=== PATIENT | male | born 1990 | race Caucasian/White ===

== ENCOUNTER 2017-12-19 14:01 | Emergency (ER) | payer SELFPAY ==
[~2017-12-19] VITALS: Ht 182.9 cm; Wt 68.0 kg
[2017-12-19 14:29] VITALS: BP 122/64; PULSE 94; RESP 18; TEMP 98.5; O2SAT 98
[2017-12-19 15:01] LABS: AUTOMATED NEUTROPHIL # 4.5 TH/MM3 (1.8-7.7); BASOPHIL # 0.1 TH/MM3 (0-0.2); BASOPHIL % 1.3 % (0.0-2.0); EOSINOPHIL # 0.1 TH/MM3 (0-0.4); EOSINOPHIL % 2.1 % (0.0-4.0); HEMATOCRIT 36.1 % (39.0-51.0); HEMOGLOBIN 12.1 GM/DL (13.0-17.0); LYMPH % 23.6 % (9.0-44.0); LYMPHOCYTE # 1.6 TH/MM3 (1.0-4.8); MEAN CELL VOLUME 82.8 FL (80.0-100.0); MEAN CORPUSCULAR HEMOGLOBIN 27.8 PG (27.0-34.0); MEAN CORPUSCULAR HGB CONC 33.5 % (32.0-36.0); MEAN PLATELET VOLUME 7.9 FL (7.0-11.0); MONO % 8.6 % (0.0-8.0); MONOCYTE # 0.6 TH/MM3 (0-0.9); NEUT % 64.4 % (16.0-70.0); PLATELET COUNT 337 TH/MM3 (150-450); RED BLOOD COUNT 4.36 MIL/MM3 (4.50-5.90); RED CELL DISTRIBUTION WIDTH 16.6 % (11.6-17.2)
[2017-12-19 15:08] LABS: BACTERIA, URINE RARE /hpf; BILIRUBIN, URINE NEG (NEG); BLOOD, URINE TRACE (NEG); CALCIUM OXALATE CRYSTALS,URINE OCC /hpf; GLUCOSE,URINE NEG (NEG); HYALINE CAST, URINE 3 /lpf (RARE); KETONE, URINE NEG (NEG); MUCUS URINE MANY /lpf (OCC); NITRITE,URINE NEG (NEG); PH, URINE 5.5 (5.0-8.5); SQUAMOUS EPITHELIAL CELL URINE <1 /hpf (0-5); URINE COLOR DARK-YELLOW (YELLW/STRAW); URINE LEUKOCYTE ESTERASE SMALL (NEG)
[2017-12-19 15:27] LABS: ALT (GPT) 207 U/L (12-78); AST (GOT) 156 U/L (15-37); BLOOD UREA NITROGEN 10 MG/DL (7-18); CALCIUM 8.4 MG/DL (8.5-10.1); CHLORIDE 102 MEQ/L (98-107); CREATININE 1.15 MG/DL (0.60-1.30); GLOMERULAR FILTRATION RATE 77 ML/MIN (>89); GLUCOSE,RANDOM 99 MG/DL (74-106); SODIUM (NA) 138 MEQ/L (136-145)
[2017-12-19 15:29] LABS: ALKALINE PHOSPHATASE 80 U/L (45-117); TOTAL BILIRUBIN ADULT 0.5 MG/DL (0.2-1.0); TOTAL PROTEIN 7.9 GM/DL (6.4-8.2)
--- NOTE | 2017-12-19 17:13 | PD ---
HPI Chief Complaint: Flank/Kidney Pain Time Seen by Provider: 16:29 Travel History International Travel<30 days: No Contact w/Intl Traveler<30days: No Traveled to known affect area: No History of Present Illness HPI The patient is a 27-year-old male who presents emergency department for back pain and left flank. 60s duration. The patient states his girlfriend was recently hospitalized for an epidural abscess and underwent surgery, was diagnosed with MRSA. The patient states they used the same needle to inject, is worried he may have MRSA as well. The pain is located over the mid left back to the middle aspect of the back, nonradiating, not associated with any weakness or numbness. He does complain of back pain and is not worse with movement. He denies any penile drainage or discharge, notes intermittent dysuria without any hematuria. He does note his urine has been dark lately. He is unsure if he has had any fever, denies any chills or sweats. He has been injecting heroin. He denies any previous history of epidural abscess. Symptoms are moderate. PFSH Past Medical History Medical History: Denies Significant Hx Influenza Vaccination: No Past Surgical History Surgical History: No Previous Surgery Social History Alcohol Use: No Tobacco Use: No Substance Use: Yes (HEROIN) Allergies-Medications (Allergen,Severity, Reaction): Coded Allergies: No Known Allergies (Unverified Allergy, Unknown, 12/19/17) Reported Meds & Prescriptions Reported Meds & Active Scripts Active Ibuprofen 600 Mg Tab 600 Mg PO Q8HR PRN Cipro (Ciprofloxacin HCl) 500 Mg Tab 500 Mg PO BID 10 Days Review of Systems Except as stated in HPI: all other systems reviewed are Neg General / Constitutional: No: Fever Cardiovascular: No: Chest Pain or Discomfort Respiratory: No: Shortness of Breath Gastrointestinal: No: Nausea, Vomiting, Abdominal Pain Genitourinary: Positive: Dysuria, Flank Pain Musculoskeletal: Positive: Pain Psychiatric: Positive: Substance Abuse (IVDA with heroin) Physical Exam Narrative GENERAL: Awake, alert, pleasant 27 show male who appears his stated age and is in no acute respiratory distress. SKIN: Focused skin assessment warm/dry. HEAD: Atraumatic. Normocephalic. EYES: No injection or drainage. ENT: No nasal bleeding or discharge. Mucous membranes pink and moist. NECK: Trachea midline. No JVD. CARDIOVASCULAR: Regular rate and rhythm. No murmur appreciated. RESPIRATORY: No accessory muscle use. Clear to auscultation. Breath sounds equal bilaterally. GASTROINTESTINAL: Abdomen soft, non-tender, nondistended. No rebound tenderness. No suprapubic tenderness. Back: No tenderness over the thoracic or lumbar vertebrae. No CVA tenderness. MUSCULOSKELETAL: No obvious deformities. No clubbing. No cyanosis. No edema. NEUROLOGICAL: Awake and alert. No obvious cranial nerve deficits. Motor grossly within normal limits. Normal speech. PSYCHIATRIC: Appropriate mood and affect; insight and judgment normal. Data Data Last Documented VS Vital Signs Date Time Temp Pulse Resp B/P (MAP) Pulse Ox O2 Delivery O2 Flow Rate FiO2 12/19/17 23:34 12/19/17 23:33 69 14 99 Room Air 12/19/17 14:29 98.5 Orders Orders Sepsis Workup Initiated (12/19/17 ) Complete Blood Count With Diff (12/19/17 14:28) Comprehensive Metabolic Panel (12/19/17 14:28) Urinalysis - C+S If Indicated (12/19/17 14:28) Lactic Acid Sepsis Protocol (12/19/17 14:28) Iv Access Insert/Monitor (12/19/17 14:28) Oxygen Administration (12/19/17 14:28) Oximetry (12/19/17 14:28) Blood Glucose (12/19/17 14:28) Urine Culture (12/19/17 14:40) Mri L Spine W&W/O Contrast (12/19/17 ) Mri T Spine W & W/O Contrast (12/19/17 ) Sodium Chlor 0.9% 1000 Ml Inj (Ns 1000 M (12/19/17 17:15) Ketorolac Inj (Toradol Inj) (12/19/17 17:15) Ceftriaxone Inj (Rocephin Inj) (12/19/17 17:15) Gadodiamide Pf Inj (Omniscan Pf Inj) (12/19/17 18:02) Ed Discharge Order (12/19/17 22:36) Labs Laboratory Tests Test 12/19/17 14:40 White Blood Count 7.0 TH/MM3 Red Blood Count 4.36 MIL/MM3 Hemoglobin 12.1 GM/DL Hematocrit 36.1 % Mean Corpuscular Volume 82.8 FL Mean Corpuscular Hemoglobin 27.8 PG Mean Corpuscular Hemoglobin Concent 33.5 % Red Cell Distribution Width 16.6 % Platelet Count 337 TH/MM3 Mean Platelet Volume 7.9 FL Neutrophils (%) (Auto) 64.4 % Lymphocytes (%) (Auto) 23.6 % Monocytes (%) (Auto) 8.6 % Eosinophils (%) (Auto) 2.1 % Basophils (%) (Auto) 1.3 % Neutrophils # (Auto) 4.5 TH/MM3 Lymphocytes # (Auto) 1.6 TH/MM3 Monocytes # (Auto) 0.6 TH/MM3 Eosinophils # (Auto) 0.1 TH/MM3 Basophils # (Auto) 0.1 TH/MM3 CBC Comment DIFF FINAL Differential Comment Urine Color DARK-YELLOW Urine Turbidity CLEAR Urine pH 5.5 Urine Specific [place] 1.025 Urine Protein 30 mg/dL Urine Glucose (UA) NEG mg/dL Urine Ketones NEG mg/dL Urine Occult Blood TRACE Urine Nitrite NEG Urine Bilirubin NEG Urine Urobilinogen 2.0 MG/DL Urine Leukocyte Esterase SMALL Urine RBC 3 /hpf Urine WBC 24 /hpf Urine Squamous Epithelial Cells <1 /hpf Urine Calcium Oxalate Crystals OCC /hpf Urine Bacteria RARE /hpf Urine Hyaline Casts 3 /lpf Urine Mucus MANY /lpf Microscopic Urinalysis Comment CULTURE INDICATED Blood Urea Nitrogen 10 MG/DL Creatinine 1.15 MG/DL Random Glucose 99 MG/DL Total Protein 7.9 GM/DL Albumin 4.0 GM/DL Calcium Level 8.4 MG/DL Alkaline Phosphatase 80 U/L Aspartate Amino Transf (AST/SGOT) 156 U/L Alanine Aminotransferase (ALT/SGPT) 207 U/L Total Bilirubin 0.5 MG/DL Sodium Level 138 MEQ/L Potassium Level 3.9 MEQ/L Chloride Level 102 MEQ/L Carbon Dioxide Level 29.0 MEQ/L Anion Gap 7 MEQ/L Estimat Glomerular Filtration Rate 77 ML/MIN Lactic Acid Level 0.9 mmol/L [facility] Medical Decision Making Medical Screen Exam Complete: Yes Emergency Medical Condition: Yes Medical Record Reviewed: Yes Interpretation(s) Laboratory Tests Test 12/19/17 14:40 White Blood Count 7.0 TH/MM3 Red Blood Count 4.36 MIL/MM3 Hemoglobin 12.1 GM/DL Hematocrit 36.1 % Mean Corpuscular Volume 82.8 FL Mean Corpuscular Hemoglobin 27.8 PG Mean Corpuscular Hemoglobin Concent 33.5 % Red Cell Distribution Width 16.6 % Platelet Count 337 TH/MM3 Mean Platelet Volume 7.9 FL Neutrophils (%) (Auto) 64.4 % Lymphocytes (%) (Auto) 23.6 % Monocytes (%) (Auto) 8.6 % Eosinophils (%) (Auto) 2.1 % Basophils (%) (Auto) 1.3 % Neutrophils # (Auto) 4.5 TH/MM3 Lymphocytes # (Auto) 1.6 TH/MM3 Monocytes # (Auto) 0.6 TH/MM3 Eosinophils # (Auto) 0.1 TH/MM3 Basophils # (Auto) 0.1 TH/MM3 CBC Comment DIFF FINAL Differential Comment Urine Color DARK-YELLOW Urine Turbidity CLEAR Urine pH 5.5 Urine Specific [place] 1.025 Urine Protein 30 mg/dL Urine Glucose (UA) NEG mg/dL Urine Ketones NEG mg/dL Urine Occult Blood TRACE Urine Nitrite NEG Urine Bilirubin NEG Urine Urobilinogen 2.0 MG/DL Urine Leukocyte Esterase SMALL Urine RBC 3 /hpf Urine WBC 24 /hpf Urine Squamous Epithelial Cells <1 /hpf Urine Calcium Oxalate Crystals OCC /hpf Urine Bacteria RARE /hpf Urine Hyaline Casts 3 /lpf Urine Mucus MANY /lpf Microscopic Urinalysis Comment CULTURE INDICATED Blood Urea Nitrogen 10 MG/DL Creatinine 1.15 MG/DL Random Glucose 99 MG/DL Total Protein 7.9 GM/DL Albumin 4.0 GM/DL Calcium Level 8.4 MG/DL Alkaline Phosphatase 80 U/L Aspartate Amino Transf (AST/SGOT) 156 U/L Alanine Aminotransferase (ALT/SGPT) 207 U/L Total Bilirubin 0.5 MG/DL Sodium Level 138 MEQ/L Potassium Level 3.9 MEQ/L Chloride Level 102 MEQ/L Carbon Dioxide Level 29.0 MEQ/L Anion Gap 7 MEQ/L Estimat Glomerular Filtration Rate 77 ML/MIN Lactic Acid Level 0.9 mmol/L Differential Diagnosis Differential diagnosis includes gonorrhea, chlamydia, pyelonephritis, acute UTI , psoas abscess, retroperitoneal abscess, epidural abscess, IV drug abuse. Narrative Course IV was established, labs are drawn and sent, and the patient was placed on cardiac telemetry monitoring and continuous pulse oximetry monitoring. UA was sent to lab, does reveal WBCs, however, he has no true flank pain over the kidneys, no CVA tenderness, no suprapubic tenderness. Patient does have IV drug abuse, is at risk for retroperitoneal abscess, psoas abscess, and epidural abscess. Therefore, MRI lumbar spine and thoracic spine with contrast was ordered. The patient was administered Toradol and IV fluids. Patient also received Rocephin 1 g intravenously. Patient was signed out to the oncoming physician at 7 PM an MRI pending, if negative, patient can be discharged home. Patient Instructions: General Instructions Scripts Ibuprofen (Ibuprofen) 600 Mg Tab 600 MG PO Q8HR Y for PAIN, #30 TAB 0 Refills Prov: Natacha Louie 12/19/17 Ciprofloxacin (Cipro) 500 Mg Tab 500 MG PO BID for Infection for 10 Days, #20 TAB 0 Refills Prov: Natacha Louie 12/19/17 Condition: Stable Jayesh Aguilar MD Dec 19, 2017 17:13
[2017-12-19] MEDS ORDERED: KETOROLAC TROMETHAMINE 30 MG/ML (IVP) VIAL IV PUSH ONE (17:15)
[2017-12-19] MEDS ORDERED: SODIUM CHLOR 0.9% 1000 ML INJ 1,000 ML IV ONE (17:15)
[2017-12-19] MEDS ORDERED: cefTRIAXone INJ 1,000 MG in SODIUM CHLORIDE 0.9% INJ 100 ML IV ONE (17:15)
[2017-12-19] MEDS ORDERED: GADODIAMIDE PF 287 MG/ML 20 ML VIAL (for RAD MRI) IVCONTRAST ONE (18:02)
--- NOTE | 2017-12-19 19:14 | RADRPT ---
EXAM DATE/TIME: 12/19/2017 18:08 [facility] COMPARISON: No previous studies available for comparison. INDICATIONS : Abscess. CONTRAST: 14 cc Omniscan (gadodiamide) IV MEDICAL HISTORY : IVDA. SURGICAL HISTORY : None. ENCOUNTER: Initial ACUITY: 1 day PAIN SCORE: 5/10 LOCATION: [facility] TECHNIQUE: Multiplanar multisequence MRI of the thoracic spine was performed. FINDINGS: The examination is degraded by fairly extensive motion artifact, especially the postcontrast images. No abnormal fluid collections within the thoracic canal suggesting epidural abscess. There is a broad -based mild disc protrusion at T11-12. Numerous Schmorl's nodes. No fracture or spondylolisthesis. CONCLUSION: 1. Negative for epidural abscess. No cord impingement. Mild broad-based disc protrusion at T11-12. Charles Floyd MD on December 19, 2017 at 18:56 Board Certified Radiologist. This report was verified electronically.
--- NOTE | 2017-12-19 19:21 | RADRPT ---
EXAM DATE/TIME: 12/19/2017 18:08 [facility] COMPARISON: No previous studies available for comparison. INDICATIONS : Abscess. CONTRAST: 14 cc Omniscan (gadodiamide) IV MEDICAL HISTORY : None. SURGICAL HISTORY : None. ENCOUNTER: Initial ACUITY: 1 day PAIN SCORE: 5/10 LOCATION: [facility] TECHNIQUE: Multiplanar multisequence MRI of the lumbar spine was performed with and without contrast. FINDINGS: Normal alignment of the lumbar spine. No enhancing fluid collections seen to suggest epidural abscess . Mild to moderate degenerative disc disease. Schmorl's nodes at L1 and L2. At L5-S1 is a broad-based mild to moderate disc protrusion slightly worse on the left side. There is encroachment on the lateral recesses, left greater than right and mild foraminal encroachment bilater ally. No other discrete disc protrusions. CONCLUSION: 1. At L5-S1 there is a broad-based mild disc protrusion with mild encroachment on the lateral recesse s. Normal alignment of the lumbar spine. No enhancing epidural fluid collections to suggest abscess. Charles Floyd MD on December 19, 2017 at 19:17 Board Certified Radiologist. This report was verified electronically.
[2017-12-19 20:00] VITALS: BP 108/58; PULSE 66; RESP 16; O2SAT 98
--- NOTE | 2017-12-19 22:36 | PD ---
Physical Exam Time Seen by Provider: 22:33 Narrative Please refer to previous providers documentation for details surrounding the patient's current visit. Data Data Last Documented VS Vital Signs Date Time Temp Pulse Resp B/P (MAP) Pulse Ox O2 Delivery O2 Flow Rate FiO2 12/19/17 21:00 16 12/19/17 20:00 66 108/58 (75) 98 Room Air 12/19/17 14:29 98.5 Orders Orders Sepsis Workup Initiated (12/19/17 ) Complete Blood Count With Diff (12/19/17 14:28) Comprehensive Metabolic Panel (12/19/17 14:28) Urinalysis - C+S If Indicated (12/19/17 14:28) Lactic Acid Sepsis Protocol (12/19/17 14:28) Iv Access Insert/Monitor (12/19/17 14:28) Oxygen Administration (12/19/17 14:28) Oximetry (12/19/17 14:28) Blood Glucose (12/19/17 14:28) Urine Culture (12/19/17 14:40) Mri L Spine W&W/O Contrast (12/19/17 ) Mri T Spine W & W/O Contrast (12/19/17 ) Sodium Chlor 0.9% 1000 Ml Inj (Ns 1000 M (12/19/17 17:15) Ketorolac Inj (Toradol Inj) (12/19/17 17:15) Ceftriaxone Inj (Rocephin Inj) (12/19/17 17:15) Gadodiamide Pf Inj (Omniscan Pf Inj) (12/19/17 18:02) Ed Discharge Order (12/19/17 22:36) Labs Laboratory Tests Test 12/19/17 14:40 White Blood Count 7.0 TH/MM3 Red Blood Count 4.36 MIL/MM3 Hemoglobin 12.1 GM/DL Hematocrit 36.1 % Mean Corpuscular Volume 82.8 FL Mean Corpuscular Hemoglobin 27.8 PG Mean Corpuscular Hemoglobin Concent 33.5 % Red Cell Distribution Width 16.6 % Platelet Count 337 TH/MM3 Mean Platelet Volume 7.9 FL Neutrophils (%) (Auto) 64.4 % Lymphocytes (%) (Auto) 23.6 % Monocytes (%) (Auto) 8.6 % Eosinophils (%) (Auto) 2.1 % Basophils (%) (Auto) 1.3 % Neutrophils # (Auto) 4.5 TH/MM3 Lymphocytes # (Auto) 1.6 TH/MM3 Monocytes # (Auto) 0.6 TH/MM3 Eosinophils # (Auto) 0.1 TH/MM3 Basophils # (Auto) 0.1 TH/MM3 CBC Comment DIFF FINAL Differential Comment Urine Color DARK-YELLOW Urine Turbidity CLEAR Urine pH 5.5 Urine Specific [place] 1.025 Urine Protein 30 mg/dL Urine Glucose (UA) NEG mg/dL Urine Ketones NEG mg/dL Urine Occult Blood TRACE Urine Nitrite NEG Urine Bilirubin NEG Urine Urobilinogen 2.0 MG/DL Urine Leukocyte Esterase SMALL Urine RBC 3 /hpf Urine WBC 24 /hpf Urine Squamous Epithelial Cells <1 /hpf Urine Calcium Oxalate Crystals OCC /hpf Urine Bacteria RARE /hpf Urine Hyaline Casts 3 /lpf Urine Mucus MANY /lpf Microscopic Urinalysis Comment CULTURE INDICATED Blood Urea Nitrogen 10 MG/DL Creatinine 1.15 MG/DL Random Glucose 99 MG/DL Total Protein 7.9 GM/DL Albumin 4.0 GM/DL Calcium Level 8.4 MG/DL Alkaline Phosphatase 80 U/L Aspartate Amino Transf (AST/SGOT) 156 U/L Alanine Aminotransferase (ALT/SGPT) 207 U/L Total Bilirubin 0.5 MG/DL Sodium Level 138 MEQ/L Potassium Level 3.9 MEQ/L Chloride Level 102 MEQ/L Carbon Dioxide Level 29.0 MEQ/L Anion Gap 7 MEQ/L Estimat Glomerular Filtration Rate 77 ML/MIN Lactic Acid Level 0.9 mmol/L [facility] Medical Record Reviewed: Yes Supervised Visit with AINSLEY: No Narrative Course Patient was signed out by Dr. Aguilar with MRI pending. Oncoming attending Dr. Bhat has assumed care with dc. MRI is complete. Last Impressions Thoracic Spine MRI 12/19/17 0000 Signed Impressions: Service Date/Time: Tuesday, December 19, 2017 18:08 - CONCLUSION: 1. Negative for epidural abscess. No cord impingement. Mild broad-based disc protrusion at T11-12. Charles Floyd MD Lumbar Spine MRI 12/19/17 0000 Signed Impressions: Service Date/Time: Tuesday, December 19, 2017 18:08 - CONCLUSION: 1. At L5-S1 there is a broad-based mild disc protrusion with mild encroachment on the lateral recesses. Normal alignment of the lumbar spine. No enhancing epidural fluid collections to suggest abscess. Charles Floyd MD Results are reviewed with the patient. He is encouraged to seek primary care, neurosurgery, and physical therapy evaluation. He'll be provided additional pain control. He'll be treated for UTI. Diagnosis Primary Impression: UTI (urinary tract infection) Qualified Codes: N30.01 - Acute cystitis with hematuria Referrals: Primary Care Physician Patient Instructions: General Instructions, Urinary Tract Infection in Men (DC) Additional Instruction: Maintain adequate oral hydration Follow-up the primary care provider Return immediately with any acute worsening of symptoms Med/Other Pt SpecificInfo: Prescription(s) given Scripts Ibuprofen (Ibuprofen) 600 Mg Tab 600 MG PO Q8HR Y for PAIN, #30 TAB 0 Refills Prov: Natacha Louie 12/19/17 Ciprofloxacin (Cipro) 500 Mg Tab 500 MG PO BID for Infection for 10 Days, #20 TAB 0 Refills Prov: Natacha Louie 12/19/17 Disposition: 01 DISCHARGE HOME Condition: Stable Natacha Louie Dec 19, 2017 22:36
[2017-12-19] MEDS ORDERED: CIPR-9 PO (22:39)
[2017-12-19] MEDS ORDERED: IBUP-232 PO (22:39)
[2017-12-19 23:33] VITALS: BP 121/85; PULSE 69; RESP 14; O2SAT 99
== END 2017-12-19 23:34 | disposition home or self-care (01) ==
LOC: NEPE 14:01
DX: N39.0 Urinary tract infection, site not specified (principal)
CPT/HCPCS: 72157; 72158; 80053; 81001; 83605; 85025; 87086; 96365; 99284; A9579; J0696; J1885; J7030

== ENCOUNTER 2018-09-20 23:37 | Inpatient (IN) ==
[2018-09-21] MEDS ORDERED: Sod Chloride 0.9% Inj 1,000 ML IV.SIG ONE (00:24)
[2018-09-21] MEDS ORDERED: Piperacil/Tazo 3.375 GM Premix 3.375 GM/50 ML PIGGYBACK IV.SIG ONE (00:24)
[2018-09-21] MEDS ORDERED: Vancomycin Inj 1,000 MG in Sodium Chlor 0.9% Inj 250 ML IV.SIG ONE (00:24)
--- NOTE | 2018-09-21 00:46 | XR ---
EXAM DATE: 09/21/2018 12:43 AM EST AGE/SEX: 28 years / Male INDICATIONS: Chest and back pain. CLINICAL DATA: This is the patient's initial encounter. Patient reports that signs and symptoms have been present for 1 day and indicates a pain score of 10/10. MEDICAL/SURGICAL HISTORY: None. None. COMPARISON: No prior exams available for comparison. FINDINGS: A single AP view of the chest demonstrates the lungs to be symmetrically aerated without evidence of mass, infiltrate or effusion. The cardiomediastinal contours are unremarkable. Osseous structures a re intact. CONCLUSION: The lungs are clear. Electronically signed by: Ludwin Cisnerso MD Board Certified Radiologist 09/21/2018 12:45 AM EST
--- NOTE | 2018-09-21 00:51 | ED ---
HPI General Chief complaint: Medical Clearance Stated complaint: Back pain Time Seen by Provider: 09/20/18 23:46 Source: patient Mode of arrival: ambulatory Limitations: no limitations History of Present Illness HPI narrative: The patient is a 28 year old male who presents to the [facility] emergency department with a history of back pain that he reports began 8 days ago. He reports that he awoke with the back pain. He denies any trauma, fall, heavy lifting, or known injury that provoked this. He was seen on Thursday related to this back pain. At that time he was also reporting having dysuria with difficulty urinating and a history of prior urinary tract infections. Blood work and a urinalysis was done, however no acute abnormality was noted. The patient was discharged home and was unclear on his diagnosis. The patient reports that he does use IV heroin. He also uses crack cocaine. He last used at 3 PM today. He reports that the pain has gradually gotten worse with time. He reports that the pain is now a 10 out of 10 in severity. He reports that it is present in the mid to low back and worse on the left compared to the right. He reports that the pain character is a throbbing and aching sensation. He reports that today for the first time he had an episode of vomiting. He denies having any diarrhea. He denies having any loss of bowel or bladder control. He reports that he last moved his bowels yesterday. He denies having any blood in his stool. He reports having a pain when attempting to urinate and that he has to push, however otherwise he denies any urinary frequency or urgency. He denies having any penile discharge, testicle pain or swelling associated with this. He reports that prior to the onset of the symptoms he did have cough and congestion, however those have improved. He reports that 3 days ago he began to have associated abdominal pain that is a cramping sensation and is generalized. Today he reports that he developed a subjective fever and chills. The patient arrives with a temp of 99.9. On review of systems otherwise, the patient denies having any neck pain, chest pain, shortness of breath, numbness or tingling to his extremities, weakness of his extremities, or saddle anesthesia. Related Data Home Medications Medication Instructions Recorded Confirmed No Known Home Medications 09/17/18 09/21/18 Allergies Allergy/AdvReac Type Severity Reaction Status Date / Time No Known Allergies Allergy Verified 09/17/18 13:40 Review of Systems ROS: all other systems reviewed are negative [facility] Social History Social History Substance History: Active Abuse Second Hand Smoke Exposure: No Smoking Status: Never smoker How Often Do You Have a Drink Containing Alcohol: Monthly or less Recent Travel in [facility] [place] within the Last 8 Weeks: No Recent Out of Country Travel within the Last 8 Weeks: No Substance Abuse Detail Marijuana: Substance Use Status: Active Route Used Substance Abuse: Inhalation Reason for Use: Get High Heroin: Substance Use Status: Active Route Used Substance Abuse: Intravenously Substance Frequency: daily Reason for Use: Get High Immunization History Tetanus Immunization: Unsure Exam Const General: cooperative and acute distress (Writhing around related to back pain.) moderate Nutritional Appearance: thin Orientation: alert, awake and oriented x3 HENMT Head: normocephalic and atraumatic Nose: no nasal discharge and no epistaxis Mouth: other (Dry mucous membranes.) Throat: posterior oropharynx normal and uvula midline Eyes Sclera: normal sclerae Pupils: PERRL Neck Neck: no meningeal signs, trachea midline and no JVD Resp Effort & Inspection: no use of accessory muscles Auscultation: clear to auscultation bilaterally Cardio Rate: tachycardic (Sinus tachycardia in the low 100s, no pulse deficits to the extremities on simultaneous auscultation and palpation of his radial artery) Rhythm: regular rhythm Heart Sounds: no gallops and no murmurs GI Inspection: non-distended Palpation: soft, no hepatosplenomegaly, no guarding, not rigid and tender ( Generalized tenderness on palpation.) in the LLQ, in the RLQ, in the LUQ and in the RUQ; Reddy's sign negative and with no rebound tenderness Auscultation: hypoactive bowel sounds Back/Spine/Pelvis Back: CVA tenderness (On the left) Cervical Spine: No cervical spinal tenderness Thoracic/Lumbar Spine: thoracic spinal tenderness, lumbar spinal tenderness and other (On examination of the patient's T-spine area, the patient has tenderness on palpation along the spinous processes of the lower thoracic spine and upper lumbar spine. The patient reports exquisite tenderness on palpation along the paraspinal musculature of the lower thoracic and upper lumbar area on the left. There is no erythema or ecchymosis noted. No step-off or crepitus.) Skin General: dry skin (warm) Neuro General: alert, awake, oriented x3 and other Cranial Nerves: CN's II-XI intact bilaterally Speech: speech normal Motor: strength 5/5 throughout and no movement abnormalities noted Sensory Exam: no sensory deficits noted Extrem General: normal to inspection (2+ pulses in all 4 extremities), no calf tenderness, no clubbing, no cyanosis and no edema Psych Mood: congruent mood Affect: normal affect Judgment: judgment good Course Initial Documented Vital Signs Temperature 97.7 F 09/20/18 23:38 Pulse Rate 111 H 09/20/18 23:38 Respiratory Rate 18 09/20/18 23:38 Blood Pressure 133/55 L 09/20/18 23:38 Pulse Oximetry 96 09/20/18 23:38 Last Documented Vital Signs Temperature 98.2 F 09/21/18 16:00 Pulse Rate 74 09/21/18 16:00 Respiratory Rate 20 09/21/18 16:00 Blood Pressure 145/71 H 09/21/18 16:00 Pulse Oximetry 99 09/21/18 16:00 Critical Care Time Critical Care Time: Yes Total Critical Care Time: 37 Attestation: Aggregate critical care time was 37 minutes. Time to perform other separately billable procedures was not included in the critical care time. My time did not include minutes spent treating any other patients simultaneously or on activities that did not directly contribute to the patient's treatment. The services I provided to this patient were to treat and/or prevent clinically significant deterioration that could result in: Cardiovascular collapse from sepsis, versus respiratory failure from crystalloid resuscitation, versus neurologic disability from spinal infection I provided critical care services requiring my management, as noted below: Chart data review, documentation time, medication orders and management, vital sign assessments/reviewing monitor data, ordering and reviewing lab tests, ordering and interpreting/reviewing x-rays and diagnostic studies, care of the patient and discussion of the patient with the admitting physicians. Medical Decision Making MDM Narrative Medical decision making narrative: During the course of the patient's emergency department visit, the patient's history, examination, and differential diagnosis were reviewed with the patient. The patient was placed on a manager cardiac cath with oximetry and frequent blood pressure monitoring. The patient had IV access obtained and blood work sent for analysis. A diagnostic evaluation was started regarding this patient's gradually worsening back pain associated with IV drug use. A sepsis workup was started to include blood cultures x2, lactic acid was sent for analysis. The patient was initially provided normal saline 1 L IV fluid bolus, Zosyn 3.375 g IV, vancomycin 1 g IV. The patient's diagnostic studies are remarkable for a white count of 11.8, hemoglobin 11.2, platelets 343 with 79.4 neutrophils, 9.5 monocytes, PT 13.4, INR 1.3, PTT 40.3, chemistries remarkable for glucose of 117, cardiac enzymes within normal limits, CRP is elevated at 16.8 suspicious for a bacterial process , lipase 26, lactic acid was within normal limits at 1.4. Urinalysis showed no signs of infection, CHEST X-RAY: Showed no acute abnormality. CT scan of the abdomen and pelvis showed no acute abnormality. CT scan of the T-spine revealed no evidence of acute fracture or spondylolisthesis, moderate multilevel degenerative changes in the endplates are noted. CT scan of the lumbar spine showed no acute findings, no evidence of acute fracture or spondylolisthesis, degenerative changes are noted. Due to a concern for possible underlying endocarditis versus discitis, versus bacteremia given the patient's IV drug use, the patient will be admitted to the hospital for continued evaluation and treatment. The patient's case including history, pertinent physical examination findings, and laboratory studies were discussed with Dr. Tripathi. It was agreed that the patient would be admitted to the hospitalist service. The patient's results were discussed with the patient, including the plan of care. I explained that further testing and/ or monitoring is indicated based on the patient's history, examination, and/ or laboratory findings. Therefore, I recommended admission for additional evaluation. The patient expressed understanding and was agreeable with this plan. The patient was admitted to the hospital in guareded condition and sent to a bed under the care of [facility] service. Medical Screen Exam Complete: Yes Emergency Medical Condition: Yes Differential Diagnosis Differential Diagnosis: Discitis, versus osteomyelitis, versus epidural abscess , versus musculoskeletal strain, versus pyelonephritis, versus kidney stone, versus sepsis of undetermined origin, versus endocarditis Medical Records Medical records reviewed: Yes I reviewed the patient's medical records. Lab Data Lab results reviewed: Yes I reviewed the patient's lab results. Result diagrams: 09/21/18 00:40 09/21/18 00:40 Lab Results 09/21/18 09/21/18 09/21/18 Range/Units 00:35 00:40 00:40 WBC 11.8 H (4.0-11.0) th/mm3 RBC 4.13 L (4.50-5.90) mil/mm3 Hgb 11.2 L (13.0-17.0) gm/dL Hct 34.6 L (39.0-51.0) % MCV 83.6 (80.0-100.0) fL MCH 27.0 (27.0-34.0) pg MCHC 32.3 (32.0-36.0) % RDW 14.7 (11.6-17.2) % Plt Count 343 (150-450) th/mm3 MPV 8.2 (7.0-11.0) fL Neut % (Auto) 79.4 H (16.0-70.0) % Lymph % (Auto) 10.5 (9.0-44.0) % [place] % (Auto) 9.5 H (0.0-8.0) % Eos % (Auto) 0.3 (0.0-4.0) % Baso % (Auto) 0.3 (0.0-2.0) % Neut # (Auto) 9.3 H (1.8-7.7) th/mm3 Lymph # (Auto) 1.2 (1.0-4.8) th/mm3 [place] # (Auto) 1.1 H (0.0-0.9) th/mm3 Eos # (Auto) 0.0 (0.0-0.4) th/mm3 Baso # (Auto) 0.0 (0.0-0.2) th/mm3 WBC Differential . Differential Comment Auto diff final ESR (0-15) mm/hr PT 13.4 H (9.8-11.6) sec INR 1.3 Ratio APTT 40.3 H (23.4-31.7) sec Sodium (136-145) meq/L Potassium (3.5-5.1) meq/L Chloride (98-107) meq/L Carbon Dioxide (21.0-32.0) meq/L Anion Gap (5-15) meq/L BUN (7-18) mg/dL Creatinine (0.60-1.30) mg/dL Estimated GFR (>89) mL/min POC Glucose (68-110) mg/dl Random Glucose (74-106) mg/dL Lactic Acid 1.4 (0.4-2.0) mmol/L Calcium (8.5-10.1) mg/dL Magnesium (1.5-2.5) mg/dL Total Bilirubin (0.2-1.0) mg/dL AST (15-37) U/L ALT (12-78) U/L Alkaline Phosphatase (45-117) U/L Total Creatine Kinase (39-308) U/L Troponin I (0.02-0.05) ng/mL C-Reactive Protein (0.00-0.30) mg/dL Total Protein (6.4-8.2) g/dL Albumin (3.4-5.0) g/dL Lipase (73-393) U/L Urine Color (Yellw/Straw) Urine Clarity (Clear) Urine pH (5.0-8.5) Ur Specific [place] (1.002-1.035) Urine Protein (Neg-Trace) mg/dL Urine Glucose (UA) (Negative) mg/dL Urine Ketones (Negative) mg/dL Urine Occult Blood (Negative) Urine Nitrate (Negative) Urine Bilirubin (Negative) Urine Urobilinogen (Less than 2) mg/dL Ur Leukocyte Esterase (Negative) Urine RBC (0-3) /hpf Urine WBC (0-5) /hpf Ur Squamous Epith Cells (0-5) /hpf Urine Mucus (Occasional) /lpf Micro UA Comment Ur Microscopic Review Urine Culture Comments 09/21/18 09/21/18 09/21/18 Range/Units 00:40 00:40 00:52 WBC (4.0-11.0) th/mm3 RBC (4.50-5.90) mil/mm3 Hgb (13.0-17.0) gm/dL Hct (39.0-51.0) % MCV (80.0-100.0) fL MCH (27.0-34.0) pg MCHC (32.0-36.0) % RDW (11.6-17.2) % Plt Count (150-450) th/mm3 MPV (7.0-11.0) fL Neut % (Auto) (16.0-70.0) % Lymph % (Auto) (9.0-44.0) % [place] % (Auto) (0.0-8.0) % Eos % (Auto) (0.0-4.0) % Baso % (Auto) (0.0-2.0) % Neut # (Auto) (1.8-7.7) th/mm3 Lymph # (Auto) (1.0-4.8) th/mm3 [place] # (Auto) (0.0-0.9) th/mm3 Eos # (Auto) (0.0-0.4) th/mm3 Baso # (Auto) (0.0-0.2) th/mm3 WBC Differential Differential Comment ESR 72 H (0-15) mm/hr PT (9.8-11.6) sec INR Ratio APTT (23.4-31.7) sec Sodium 137 (136-145) meq/L Potassium 3.9 (3.5-5.1) meq/L Chloride 101 (98-107) meq/L Carbon Dioxide 29.0 (21.0-32.0) meq/L Anion Gap 7 (5-15) meq/L BUN 11 (7-18) mg/dL Creatinine 0.90 (0.60-1.30) mg/dL Estimated GFR Greater than 89 (>89) mL/min POC Glucose 107 (68-110) mg/dl Random Glucose 117 H (74-106) mg/dL Lactic Acid (0.4-2.0) mmol/L Calcium 8.5 (8.5-10.1) mg/dL Magnesium 2.1 (1.5-2.5) mg/dL Total Bilirubin 0.3 (0.2-1.0) mg/dL AST 32 (15-37) U/L ALT 43 (12-78) U/L Alkaline Phosphatase 70 (45-117) U/L Total Creatine Kinase 47 (39-308) U/L Troponin I Less than 0.02 L (0.02-0.05) ng/mL C-Reactive Protein 16.80 H (0.00-0.30) mg/dL Total Protein 7.8 (6.4-8.2) g/dL Albumin 3.2 L (3.4-5.0) g/dL Lipase 26 L (73-393) U/L Urine Color (Yellw/Straw) Urine Clarity (Clear) Urine pH (5.0-8.5) Ur Specific [place] (1.002-1.035) Urine Protein (Neg-Trace) mg/dL Urine Glucose (UA) (Negative) mg/dL Urine Ketones (Negative) mg/dL Urine Occult Blood (Negative) Urine Nitrate (Negative) Urine Bilirubin (Negative) Urine Urobilinogen (Less than 2) mg/dL Ur Leukocyte Esterase (Negative) Urine RBC (0-3) /hpf Urine WBC (0-5) /hpf Ur Squamous Epith Cells (0-5) /hpf Urine Mucus (Occasional) /lpf Micro UA Comment Ur Microscopic Review Urine Culture Comments 09/21/18 Range/Units 01:25 WBC (4.0-11.0) th/mm3 RBC (4.50-5.90) mil/mm3 Hgb (13.0-17.0) gm/dL Hct (39.0-51.0) % MCV (80.0-100.0) fL MCH (27.0-34.0) pg MCHC (32.0-36.0) % RDW (11.6-17.2) % Plt Count (150-450) th/mm3 MPV (7.0-11.0) fL Neut % (Auto) (16.0-70.0) % Lymph % (Auto) (9.0-44.0) % [place] % (Auto) (0.0-8.0) % Eos % (Auto) (0.0-4.0) % Baso % (Auto) (0.0-2.0) % Neut # (Auto) (1.8-7.7) th/mm3 Lymph # (Auto) (1.0-4.8) th/mm3 [place] # (Auto) (0.0-0.9) th/mm3 Eos # (Auto) (0.0-0.4) th/mm3 Baso # (Auto) (0.0-0.2) th/mm3 WBC Differential Differential Comment ESR (0-15) mm/hr PT (9.8-11.6) sec INR Ratio APTT (23.4-31.7) sec Sodium (136-145) meq/L Potassium (3.5-5.1) meq/L Chloride (98-107) meq/L Carbon Dioxide (21.0-32.0) meq/L Anion Gap (5-15) meq/L BUN (7-18) mg/dL Creatinine (0.60-1.30) mg/dL Estimated GFR (>89) mL/min POC Glucose (68-110) mg/dl Random Glucose (74-106) mg/dL Lactic Acid (0.4-2.0) mmol/L Calcium (8.5-10.1) mg/dL Magnesium (1.5-2.5) mg/dL Total Bilirubin (0.2-1.0) mg/dL AST (15-37) U/L ALT (12-78) U/L Alkaline Phosphatase (45-117) U/L Total Creatine Kinase (39-308) U/L Troponin I (0.02-0.05) ng/mL C-Reactive Protein (0.00-0.30) mg/dL Total Protein (6.4-8.2) g/dL Albumin (3.4-5.0) g/dL Lipase (73-393) U/L Urine Color Yellow (Yellw/Straw) Urine Clarity Hazy H (Clear) Urine pH 5.0 (5.0-8.5) Ur Specific [place] 1.030 (1.002-1.035) Urine Protein 30 H (Neg-Trace) mg/dL Urine Glucose (UA) Negative (Negative) mg/dL Urine Ketones Negative (Negative) mg/dL Urine Occult Blood Negative (Negative) Urine Nitrate Negative (Negative) Urine Bilirubin Negative (Negative) Urine Urobilinogen 2.0 H (Less than 2) mg/dL Ur Leukocyte Esterase Negative (Negative) Urine RBC 1 (0-3) /hpf Urine WBC 2 (0-5) /hpf Ur Squamous Epith Cells <1 (0-5) /hpf Urine Mucus Few H (Occasional) /lpf Micro UA Comment Culture not ind Ur Microscopic Review Not Reportable Urine Culture Comments Culture not ind Imaging Data Radiologist's impression: Thoracic Spine MRI 09/21/18 00:00 CONCLUSION: 1. Examination quality is significantly degraded by motion artifact. There is an abnormal T2 hyperintense abnormality in the anterior epidural space at the T6 -T7 level and extending inferiorly through at least T8-T9. This finding is new since the study from 9 months ago excluding an arachnoid cyst as the etiology. Given the clinical history for an abscess, it is possible this represents an epidural abscess. However, the adjacent disc spaces demonstrate no significant abnormality which would favor against an infectious process. It would be ideal to further evaluate with pre and postcontrast enhanced imaging to evaluate for any abnormal enhancement of this structure when the patient's condition permits for adequate imaging without motion artifact. 2. The epidural process has mass effect on the spinal cord at the above- described levels but spinal cord signal intensity remains within normal limits. Abdomen/Pelvis CT 09/21/18 00:21 CONCLUSION: 1. Negative CT abdomen/pelvis with contrast. Chest X-Ray 09/21/18 00:21 CONCLUSION: The lungs are clear. Lumbar Spine CT 09/21/18 00:21 CONCLUSION: 1. No acute findings. No evidence of acute fracture or spondylolisthesis. 2. Central and left-sided disc protrusion at L5-S1 is smaller than on prior MRI December 2017. There is also moderate left-sided lateral recess stenosis at L5- S1 due to bony hypertrophy. Thoracic Spine CT 09/21/18 00:21 CONCLUSION: 1. No evidence of acute fracture or spondylolisthesis. Moderate multilevel degenerative changes in the endplates. ECG Data Attestation: I personally reviewed and interpreted this ECG as follows: Interpretation: The patient had an EKG done on arrival. The patient's EKG reveals a sinus rhythm with a short CT interval, heart rate of 98, QRS duration 86 ms, QTC [address] segment elevation. T waves are inverted in V1. Discharge Plan Discharge Disposition Patient Disposition: ED Admit(ED Internal Use Only) Discharge Order Discharge Orders: ED Use Only Admit Order (Routine); Ordered 09/21/18 Ordered By: Hattie Purcell Discharge Details Diagnosis: Acute thoracic back pain, Intravenous drug abuse, CRP elevated Physicians Team ED Provider: Hattie Purcell Primary Care Provider: Primary Care Physici,No Attending Provider: Chris Tabor Other Providers: Geeta Mejia ; Ambrosio Bazzi Discharge Interventions Interventions: ED Discharge Assessment Last Done: 09/21/18 10:01 Vital Signs Last Done: 09/21/18 04:00 Status ED Status: Left Department Discharge Information Discharge Date/Time: 09/21/18 14:23
[2018-09-21 00:54] LABS: Baso % (Auto) 0.3 % (0.0-2.0); Eos % (Auto) 0.3 % (0.0-4.0); Hematocrit 34.6 % (39.0-51.0); Hemoglobin 11.2 gm/dL (13.0-17.0); Lymph # (Auto) 1.2 th/mm3 (1.0-4.8); Lymph % (Auto) 10.5 % (9.0-44.0); Mean Corpuscular HGB Conc 32.3 % (32.0-36.0); Mean Corpuscular Volume 83.6 fL (80.0-100.0); Mean Platelet Volume 8.2 fL (7.0-11.0); Mono # (Auto) 1.1 th/mm3 (0.0-0.9); Mono % (Auto) 9.5 % (0.0-8.0); Neut # (Auto) 9.3 th/mm3 (1.8-7.7); Neut % (Auto) 79.4 % (16.0-70.0); Platelet Count 343 th/mm3 (150-450); Red Blood Count 4.13 mil/mm3 (4.50-5.90); Red Cell Distribution Width 14.7 % (11.6-17.2); White Blood Count 11.8 th/mm3 (4.0-11.0)
[2018-09-21 01:19] LABS: Alanine Aminotransferase 43 U/L (12-78); Albumin 3.2 g/dL (3.4-5.0); Anion Gap 7 meq/L (5-15); Aspartate Aminotransferase 32 U/L (15-37); Blood Urea Nitrogen 11 mg/dL (7-18); Calcium 8.5 mg/dL (8.5-10.1); Chloride 101 meq/L (98-107); Glomerular Filtration Rate Greater Than 89 mL/min (>89); Glucose,Random 117 mg/dL (74-106); Lipase 26 U/L (73-393); Magnesium 2.1 mg/dL (1.5-2.5); Potassium 3.9 meq/L (3.5-5.1); Sodium 137 meq/L (136-145)
[2018-09-21 01:20] LABS: Activated Partial Thrombo Time 40.3 sec (23.4-31.7); INR 1.3 Ratio; Prothrombin Time 13.4 sec (9.8-11.6)
[2018-09-21 01:22] LABS: Alkaline Phosphatase 70 U/L (45-117); Total Protein 7.8 g/dL (6.4-8.2)
[2018-09-21 01:33] LABS: Creatine Kinase 47 U/L (39-308)
[2018-09-21 01:42] LABS: Bilirubin,Urine Negative (Negative); Clarity,Urine Hazy (Clear); Color,Urine Yellow (Yellw/Straw); Glucose,Urine (UA) Negative (Negative); Leukocyte Esterase,Urine Negative (Negative); Mucus,Urine Few /lpf (Occasional); Nitrite,Urine Negative (Negative); Squamous Epithelial Cell,Urine <1 /hpf (0-5)
--- NOTE | 2018-09-21 02:06 | CT ---
EXAM DATE: 09/21/2018 2:00 AM EST AGE/SEX: 28 years / Male INDICATIONS: Bilateral flank pain. CLINICAL DATA: This is the patient's initial encounter. Patient reports that signs and symptoms have been present for 1 week and indicates a pain score of 10/10. MEDICAL/SURGICAL HISTORY: . Substance abuse. None. ORAL CONTRAST: No oral contrast ingested. RADIATION DOSE: 5.71 CTDI (mGy) COMPARISON: No prior exams available for comparison. TECHNIQUE: Multiple contiguous axial images were obtained through the abdomen and pelvis following b olus infusion of 100 ml Omnipaque 350 (iohexol) nonionic water-soluble contrast as a single exam do se. No oral contrast ingested. Using automated exposure control and adjustment of the mA and/or kV a ccording to patient size, radiation dose was kept as low as reasonably achievable to obtain optimal d iagnostic quality images. DICOM format image data is available electronically for review and compari son. FINDINGS: Lower Lungs: The visualized lower lungs are clear. Liver: The liver has a homogeneous density without space-occupying lesion. There is no dilation of th e biliary tree. No calcified gallstones. Spleen: Homogeneous density without enlargement. Pancreas: Unremarkable without mass or calcification. Kidneys: Normal in size and shape. No evidence of mass or hydronephrosis. No calcified renal stones. Adrenal Glands: Unremarkable. Aorta: The aorta and proximal iliac vessels are grossly unremarkable without aneurysmal dilation. Bowel/Mesentery: No dilated loops of small or large bowel. Abdominal Wall: Intact. Retroperitoneum: No evidence of adenopathy in the retrocrural, para-aortic, or deep pelvic regions. Bladder: Contours are smooth. Reproductive Organs: No abnormal masses or calcifications seen. Inguinal: The inguinal region is unremarkable without evidence of adenopathy. Bony Structures: Mild curvature of the lumbar spine convex towards the right.. CONCLUSION: 1. Negative CT abdomen/pelvis with contrast. Electronically signed by: Ludwin Cisneros MD Board Certified Radiologist 09/21/2018 2:04 AM EST
[2018-09-21] MEDS ORDERED: HYDROmorphone PF Inj 2 MG/ML Vial IV.PUSH ONE ×4 (02:37→13:00)
--- NOTE | 2018-09-21 02:37 | CT ---
EXAM DATE: 09/21/2018 2:12 AM EST AGE/SEX: 28 years / Male INDICATIONS: Back pain. CLINICAL DATA: This is the patient's initial encounter. Patient reports that signs and symptoms have been present for 1 week and indicates a pain score of 10/10. MEDICAL/SURGICAL HISTORY: . Substance abuse. None. RADIATION DOSE: 21.45 CTDI (mGy) ; Combined studies COMPARISON: [facility] [place] LUMBAR SPINE W & W/O CONTRAST, 12/19/2017. . TECHNIQUE: Contiguous axial images were acquired with a multirow detector CT scanner without contras t. Multiplanar reconstructions in the sagittal and coronal plane were also performed. Using automate d exposure control and adjustment of the mA and/or kV according to patient size, radiation dose was k ept as low as reasonably achievable to obtain optimal diagnostic quality images. DICOM format image data is available electronically for review and comparison. FINDINGS: There is normal alignment of the vertebral bodies of the lumbar spine. Limbus configuration to the a nterior superior angle of the L3 vertebral body. Some irregularity of the anterior one half of the in terspace at L1-2 is similar in appearance to prior MRI in December 2016. No compression deformities seen . No evidence of spondylolisthesis. T12-L1: The thecal sac has a normal diameter. No evidence of disc bulge or protrusion. The neural foramina are patent bilaterally. L1-L2: The thecal sac has a normal diameter. No evidence of disc bulge or protrusion. The neural f oramina are patent bilaterally. L2-L3: The thecal sac has a normal diameter. No evidence of disc bulge or protrusion. The neural f oramina are patent bilaterally. L3-L4: The thecal sac has a normal diameter. No evidence of disc bulge or protrusion. The neural f oramina are patent bilaterally. L4-L5: Asymmetric bulging of the disc left parasagittal into the neural foramen without protrusion. L5-S1: Central left parasagittal protrusion of the disc causes an indentation on the thecal sac; AP dimension of thecal sac measures 8 mm. There is extension into the neural foramen on the left side th ere is also moderate left-sided lateral recess stenosis. When compared to prior MRI in December 2017, th e central component of the disc protrusion has decreased in size. CONCLUSION: 1. No acute findings. No evidence of acute fracture or spondylolisthesis. 2. Central and left-sided disc protrusion at L5-S1 is smaller than on prior MRI December 2017. There is also moderate left-sided lateral recess stenosis at L5-S1 due to bony hypertrophy. Electronically signed by: Ludwin Cisneros MD Board Certified Radiologist 09/21/2018 2:36 AM EST
--- NOTE | 2018-09-21 02:39 | CT ---
EXAM DATE: 09/21/2018 2:16 AM EST AGE/SEX: 28 years / Male INDICATIONS: Back pain. CLINICAL DATA: This is the patient's initial encounter. Patient reports that signs and symptoms have been present for 1 week and indicates a pain score of 10/10. MEDICAL/SURGICAL HISTORY: . Substance abuse. None. RADIATION DOSE: 21.45 CTDI (mGy) ; Combined studies COMPARISON: No prior exams available for comparison. TECHNIQUE: Contiguous axial images were acquired using a multirow detector CT scanner without contra st. Multiplanar reconstruction in the sagittal and coronal planes was performed. Using automated exp osure control and adjustment of the mA and/or kV according to patient size, radiation dose was kept a s low as reasonably achievable to obtain optimal diagnostic quality images. DICOM format image data is available electronically for review and comparison. FINDINGS: There is normal alignment of the vertebral bodies of the thoracic spine and preservation of vertebral body height. There is some mild irregularities of the vertebral endplates from T6 through T11. No ev idence of spondylolisthesis. The posterior elements are in normal alignment. The costovertebral junct ions are intact. No significant epidural impression. CONCLUSION: 1. No evidence of acute fracture or spondylolisthesis. Moderate multilevel degenerative changes in t he endplates. Electronically signed by: Ludwin Cisneros MD Board Certified Radiologist 09/21/2018 2:37 AM EST
[2018-09-21] MEDS ORDERED: Bisacodyl 10 MG Supp RECTAL PRN (04:06)
[2018-09-21] MEDS ORDERED: Acetaminophen 325 MG Tablet PO PRN (04:06)
[2018-09-21] MEDS ORDERED: Vancomycin Consult Pharmacy OTHER PRN (04:06)
--- NOTE | 2018-09-21 04:11 | P.HP ---
History of Present Illness Service: [facility] Primary Care Physician: No Primary Care Physician History of Present Illness: 28-year-old male with a past medical history significant for IV drug abuse presents to the emergency department for evaluation of mid to lower back pain that started approximately 8 days ago. The patient reports that his back pain has been worsening and today was unbearable. He endorses fever and chills that started this morning. He denies any lower extremity weakness or bowel/bladder incontinence. No chest pain or shortness of breath. No abdominal pain. No nausea/vomiting/diarrhea. Inpatient Certification: I certify that the inpatient services were ordered in accordance with Medicare regulations governing the order. This includes certification that hospital inpatient services are reasonable and necessary and in the case of services not specified as inpatient-only under 42 CFR 419.22(n), that they are appropriately provided as inpatient services in accordance to with the 2-midnight benchmark under 43 CFR 412.3(e) Review of Systems All other systems reviewed negative except as stated in HPI PMFSH - History History Provided By: Patient, Friend - Medical History Medical History: Medical History (Last Reviewed 09/21/18 @ 04:03 by Deedee Tripathi MD) IVDU (intravenous drug user) Patient denies medical problems - Surgical History Surgical History: Surgical History (Last Updated 09/21/18 @ 04:04 by Deedee Tripathi MD) No history of previous surgery - Family History Family History: Family History (Last Updated 09/21/18 @ 04:03 by Deedee Tripathi MD) Other Diabetes mellitus - Social History I have reviewed the patient's Social History: Yes - Tobacco History Second Hand Smoke Exposure: No Tobacco Use In Past 30 Days: No Smoking Status: Never smoker - Alcohol History How Often Do You Have a Drink Containing Alcohol: Monthly or less - Substance Use History Substance History: Active Abuse - Substance Use Type Marijuana Status: Active Route Used: Inhalation Reason for Use: Get High Heroin Status: Active Route Used: Intravenously Frequency: daily Reason for Use: Get High - Travel History Recent Travel in the [place] Within the Last 8 Weeks: No Recent Travel Out of the Country Within the Last 8 Weeks: No - Immunization History Tetanus Immunization: Unsure Medications and Allergies Allergies Allergy/AdvReac Type Severity Reaction Status Date / Time No Known Allergies Allergy Verified 09/17/18 13:40 Home Medications Medication Instructions Recorded Confirmed Type No Known Home Medications 09/17/18 09/21/18 History Exam Vital signs: Vital Signs 09/20/18 23:38 09/21/18 00:03 09/21/18 00:54 Temperature 97.7 F 99.9 F H Pulse Rate 111 H 105 H 101 H Respiratory Rate 18 18 Blood Pressure 133/55 L 128/76 Pulse Oximetry 96 100 100 Intake & Output 09/20/18 09/20/18 09/21/18 06:59 18:59 06:59 Intake Total 50 / 50 Balance 50 / 50 Weight 68.039 kg Intake: IV 50 / 50 Zosyn 3.375 GM Premix 3.375 gm 50 / 50 In 50 ml @ 100 mls/hr IV.SIG ONCE ONE Rx#:[id number] Narrative: Gen.: Thin, male rocking back and forth, moaning in pain Head: Normocephalic. Atraumatic. EENT: Pupils equal round and reactive to light. Nose without drainage. Airway intact. Throat without injection. Cardiovascular: Regular rate and rhythm. No murmurs, rubs or gallops. Respiratory: Lungs clear to auscultation bilaterally. No wheezes or rhonchi. Abdomen: Soft, nontender, nondistended. No peritoneal signs. Musculoskeletal: No gross deformities. No edema. Skin: No obvious rashes or erythema. Neuro: Sensory and motor grossly intact. Cranial nerves II through XII grossly intact. Results - Labs CBC & Chem 7: 09/21/18 00:40 09/21/18 00:40 Labs: Laboratory Results - last 24 hr 09/21/18 09/21/18 09/21/18 00:35 00:40 00:40 WBC 11.8 H RBC 4.13 L Hgb 11.2 L Hct 34.6 L MCV 83.6 MCH 27.0 MCHC 32.3 RDW 14.7 Plt Count 343 MPV 8.2 Neut % (Auto) 79.4 H Lymph % (Auto) 10.5 Haakon % (Auto) 9.5 H Eos % (Auto) 0.3 Baso % (Auto) 0.3 Neut # (Auto) 9.3 H Lymph # (Auto) 1.2 Haakon # (Auto) 1.1 H Eos # (Auto) 0.0 Baso # (Auto) 0.0 WBC Differential . Differential Comment Auto diff final ESR PT 13.4 H INR 1.3 APTT 40.3 H Sodium Potassium Chloride Carbon Dioxide Anion Gap BUN Creatinine Estimated GFR POC Glucose Random Glucose Lactic Acid 1.4 Calcium Magnesium Total Bilirubin AST ALT Alkaline Phosphatase Total Creatine Kinase Troponin I C-Reactive Protein Total Protein Albumin Lipase Urine Color Urine Clarity Urine pH Ur Specific [place] Urine Protein Urine Glucose (UA) Urine Ketones Urine Occult Blood Urine Nitrate Urine Bilirubin Urine Urobilinogen Ur Leukocyte Esterase Urine RBC Urine WBC Ur Squamous Epith Cells Urine Mucus Micro UA Comment Ur Microscopic Review Urine Culture Comments 09/21/18 09/21/18 09/21/18 00:40 00:40 00:52 WBC RBC Hgb Hct MCV MCH MCHC RDW Plt Count MPV Neut % (Auto) Lymph % (Auto) Haakon % (Auto) Eos % (Auto) Baso % (Auto) Neut # (Auto) Lymph # (Auto) Haakon # (Auto) Eos # (Auto) Baso # (Auto) WBC Differential Differential Comment ESR 72 H PT INR APTT Sodium 137 Potassium 3.9 Chloride 101 Carbon Dioxide 29.0 Anion Gap 7 BUN 11 Creatinine 0.90 Estimated GFR Greater than 89 POC Glucose 107 Random Glucose 117 H Lactic Acid Calcium 8.5 Magnesium 2.1 Total Bilirubin 0.3 AST 32 ALT 43 Alkaline Phosphatase 70 Total Creatine Kinase 47 Troponin I Less than 0.02 L C-Reactive Protein 16.80 H Total Protein 7.8 Albumin 3.2 L Lipase 26 L Urine Color Urine Clarity Urine pH Ur Specific [place] Urine Protein Urine Glucose (UA) Urine Ketones Urine Occult Blood Urine Nitrate Urine Bilirubin Urine Urobilinogen Ur Leukocyte Esterase Urine RBC Urine WBC Ur Squamous Epith Cells Urine Mucus Micro UA Comment Ur Microscopic Review Urine Culture Comments 09/21/18 01:25 WBC RBC Hgb Hct MCV MCH MCHC RDW Plt Count MPV Neut % (Auto) Lymph % (Auto) Haak[place] % (Auto) Eos % (Auto) Baso % (Auto) Neut # (Auto) Lymph # (Auto) Haakon # (Auto) Eos # (Auto) Baso # (Auto) WBC Differential Differential Comment ESR PT INR APTT Sodium Potassium Chloride Carbon Dioxide Anion Gap BUN Creatinine Estimated GFR POC Glucose Random Glucose Lactic Acid Calcium Magnesium Total Bilirubin AST ALT Alkaline Phosphatase Total Creatine Kinase Troponin I C-Reactive Protein Total Protein Albumin Lipase Urine Color Yellow Urine Clarity Hazy H Urine pH 5.0 Ur Specific [place] 1.030 Urine Protein 30 H Urine Glucose (UA) Negative Urine Ketones Negative Urine Occult Blood Negative Urine Nitrate Negative Urine Bilirubin Negative Urine Urobilinogen 2.0 H Ur Leukocyte Esterase Negative Urine RBC 1 Urine WBC 2 Ur Squamous Epith Cells <1 Urine Mucus Few H Micro UA Comment Culture not ind Ur Microscopic Review Not Reportable Urine Culture Comments Culture not ind - Imaging Impressions Abdomen/Pelvis CT 09/21/18 00:21 CONCLUSION: 1. Negative CT abdomen/pelvis with contrast. Chest X-Ray 09/21/18 00:21 CONCLUSION: The lungs are clear. Lumbar Spine CT 09/21/18 00:21 CONCLUSION: 1. No acute findings. No evidence of acute fracture or spondylolisthesis. 2. Central and left-sided disc protrusion at L5-S1 is smaller than on prior MRI December 2017. There is also moderate left-sided lateral recess stenosis at L5- S1 due to bony hypertrophy. Thoracic Spine CT 09/21/18 00:21 CONCLUSION: 1. No evidence of acute fracture or spondylolisthesis. Moderate multilevel degenerative changes in the endplates. Caprini VTE Risk Assessment Caprini VTE Risk Assessment: No/Low Risk (score <= 1) Caprini Risk Assessment Model: Point Value = 1 Point Value = 2 Point Value = 3 Point Value = 5 Age 41-60 Minor surgery BMI > 25 kg/m2 Swollen legs Varicose veins or History of unexplained or recurrent spontaneous Oral contraceptives or hormone replacement Sepsis (< 1 month) Serious lung disease, including pneumonia (< 1 month) Abnormal pulmonary function Acute myocardial infarction Congestive heart failure (< 1 month) History of inflammatory bowel disease Medical patient at bed rest Age 61-74 Arthroscopic surgery Major open surgery (> 45 min) Laparoscopic surgery (> 45 min) Malignancy Confined to bed (> 72 hours) Immobilizing plaster cast Central venous access Age >= 75 History of VTE Family history of VTE Factor V Leiden Prothrombin [id number] Lupus anticoagulant Anticardiolipin antibodies Elevated serum homocysteine Heparin-induced thrombocytopenia Other congenital or acquired thrombophilia Stroke (< 1 month) Elective arthroplasty Hip, pelvis, or leg fracture Acute spinal cord injury (< 1 month) Prophylaxis Regimen: Total Risk Factor Score Risk Level Prophylaxis Regimen 0-1 Low Early ambulation 2 Moderate Order ONE of the following: *Sequential Compression Device (SCD) *Heparin 5000 units SQ BID 3-4 Higher Order ONE of the following medications: *Heparin 5000 units SQ TID *Enoxaparin/Lovenox 40 mg SQ daily (WT < 150 kg, CrCl > 30 mL/min) *Enoxaparin/Lovenox 30 mg SQ daily (WT < 150 kg, CrCl > 10-29 mL/min) *Enoxaparin/Lovenox 30 mg SQ BID (WT < 150 kg, CrCl > 30 mL/min) AND/OR *Sequential Compression Device (SCD) 5 or more Highest Order ONE of the following medications: *Heparin 5000 units SQ TID (Preferred with Epidurals) *Enoxaparin/Lovenox 40 mg SQ daily (WT < 150 kg, CrCl > 30 mL/min) *Enoxaparin/Lovenox 30 mg SQ daily (WT < 150 kg, CrCl > 10-29 mL/min) *Enoxaparin/Lovenox 30 mg SQ BID (WT < 150 kg, CrCl > 30 mL/min) AND *Sequential Compression Device (SCD) Assessment and Plan - Plan Assessment/plan: 1. Back pain CT of thoracic and lumbar spine negative MR of the thoracic and lumbar spine pending -concern for epidural abscess not seen on CT Blood cultures pending 2. IV drug abuse Vancomycin/Zosyn while awaiting blood cultures Echo pending FEN N.p.o. Electrolytes: Monitor and replete as needed NS at 100 cc/hour
[2018-09-21] MEDS ORDERED: Vancomycin Inj 500 MG in Sodium Chlor 0.9% Inj 100 ML IV.SIG SCH (05:00)
[2018-09-21] MEDS: Sod Chloride 0.9% Inj 1,000 ML IV.CONT SCH ×2 (06:46→14:10)
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
[2018-09-21] MEDS: Piperacil/Tazo 3.375 GM Premix 3.375 GM/50 ML PIGGYBACK IV.SIG SCH ×3 (09:10→19:51)
[2018-09-21] MEDS ORDERED: Naloxone Inj 0.4 MG/ML Vial IV.PUSH PRN (12:22)
[2018-09-21] MEDS ORDERED: Morphine Inj 4 MG/ML Vial IV.PUSH PRN (12:22)
[2018-09-21] MEDS: oxyCODONE/Acetaminophen 10/325 Tablet PO PRN ×2 (13:30→19:51)
[2018-09-21] MEDS: Morphine Inj 4 MG/ML Vial IV.PUSH PRN ×2 (14:09→22:22)
--- NOTE | 2018-09-21 15:27 | ECG ---
Date Performed: 09/21/2018 Time Performed: 00:50:23 PTAGE: 28 years EKG: Sinus rhythm WITH SHORT [place] INTERVAL MINIMAL VOLTAGE CRITERIA FOR LVH, CONSIDER NORMAL VARIANT BORDERLINE ECG NO PREVIOUS TRACING DOCTOR: Kana Mejia Interpretating Date/Time 09/21/2018 15:21:25
--- NOTE | 2018-09-21 17:35 | P.CONNS ---
History of Present Illness Service: Neurosurgery Consult date: 09/21/18 Requesting Physician: Chris Tabor Reason for Consult: Thoracic back pain Primary Care Provider: No Primary Care Physician History of Present Illness: 28-year-old gentleman with a 8-day history of pain in the thoracic spine which radiates into the lumbar area also. Denies any neck pain or any numbness or paresthesias or weakness in the upper or lower extremities. He denies any incontinence. Thoracic back pain worsens with activity or movement. He endorses fevers and chills. He presented to the emergency room and CT of the spine did not reveal any acute abnormalities although MRI of the thoracic spine without contrast reveals small ventral lateral T7-T9 area fluid collection although no cord compression is evident. There is motion artifact and he states that he could not lie still because the pain. I had requested an MRI of the thoracic and lumbar spine with contrast but he refuses to get this done and states that he cannot lie still on his back for the scans. He has been getting up and going to the bathroom. He admits to IV heroin use and last time he injected was yesterday. Blood cultures were obtained and results are pending. His white blood cell count and sed rate are elevated. Review of Systems Constitutional: Reports chills, Reports fever(s), Denies anorexia, Denies body ache(s), Denies daytime sleepiness, Denies excessive sweating, Denies fatigue, Denies headache(s), Denies increased appetite, Denies lack of energy, Denies malaise, Denies night sweats, Denies weakness, Denies weight gain, Denies weight loss, Denies other Eyes: Denies blind spots, Denies blurry vision, Denies bulging eyes, Denies change in vision, Denies double vision, Denies discharge, Denies dry eyes, Denies floaters, Denies irritation, Denies itchy eyes, Denies loss of vision, Denies pain, Denies requires corrective lenses, Denies sensitivity to light, Denies other Ears, Nose, Mouth, and Throat: Denies abnormal hearing, Denies bleeding gums, Denies bad breath, Denies change in voice, Denies dental pain, Denies difficulty swallowing, Denies dizziness, Denies dry mouth, Denies ear discharge , Denies ear pain, Denies facial pain, Denies headache(s), Denies hearing loss, Denies hoarseness, Denies lip swelling, Denies nosebleed, Denies mouth lesions, Denies mouth pain, Denies nasal congestion, Denies nasal discharge, Denies nasal obstruction, Denies nasal trauma, Denies neck lump, Denies neck pain, Denies nose pain, Denies pain with swallowing, Denies poor balance, Denies post nasal drip, Denies ringing in the ears, Denies sinus pain, Denies sinus pressure , Denies sore throat, Denies throat swelling, Denies tongue swelling, Denies other Cardiovascular: Denies chest pain, Denies chest pain at rest, Denies chest pain with activity, Denies excessive sweating, Denies fainting, Denies fast heart rate, Denies foot swelling, Denies generalized swelling, Denies irregular heart rhythm, Denies leg pain with activity, Denies leg sores, Denies leg swelling, Denies lightheadedness, Denies radiating jaw, neck or arm pain, Denies rapid, pounding, or irregular heartbeat, Denies shortness of breath, Denies shortness of breath with activity, Denies shortness of breath when lying down, Denies shortness of breath causing sudden awakening, Denies slow heart rate, Denies other Respiratory: Denies change in phlegm color, Denies chest congestion, Denies cough, Denies coughing up blood, Denies excessive phlegm production, Denies pain on inspiration, Denies pain with cough, Denies shortness of breath, Denies shortness of breath with activity, Denies snoring, Denies stridor, Denies wheezing, Denies other Gastrointestinal: Denies abdominal pain, Denies belching, Denies black, tarry stools, Denies bloating, Denies bright, red blood in stools, Denies change in bowel habits, Denies constant urge to pass stool, Denies change in stools, Denies coffee ground vomit, Denies constipation, Denies cramping, Denies difficulty swallowing, Denies excessive passing of gas, Denies feeling full early, Denies heartburn, Denies incontinent of stools, Denies loose stools, Denies nausea, Denies pain with swallowing, Denies vomiting, Denies vomiting blood, Denies other Genitourinary: Denies blood in semen, Denies blood in urine, Denies decreased urination, Denies difficulty urinating, Denies difficulty with ejaculations, Denies erectile dysfunction, Denies genital lesions, Denies genital pain, Denies painful urination, Denies side pain, Denies frequent nighttime urination , Denies painful ejaculations, Denies penile discharge, Denies scrotal swelling , Denies testicle lump, Denies testicle pain, Denies urinary frequency, Denies urinary hesitancy, Denies urinary incontinence, Denies urinary urgency, Denies other Musculoskeletal: Reports back pain, Reports body aches, Denies abnormal walking , Denies decreased muscle mass, Denies deformity, Denies joint pain, Denies joint swelling, Denies limited joint movement, Denies loss of height, Denies muscle cramps, Denies muscle weakness, Denies neck pain, Denies numbness, Denies radiating pain into limb, Denies stiffness, Denies tingling, Denies other Skin/Breast: Denies acne, Denies bleeding lesions, Denies boil, Denies breast swelling, Denies breast skin changes, Denies breast pain, Denies breast lump, Denies change in breast shape, Denies change in hair, Denies change in skin color, Denies changing lesions, Denies dry skin, Denies excessive hair growth, Denies hair loss, Denies itching, Denies lesions, Denies nail changes, Denies new lesions, Denies nipple discharge, Denies non-healing lesions, Denies redness , Denies sensitivity to light, Denies rash, Denies skin pain, Denies skin ulcer , Denies sores, Denies stretch jim, Denies unusual bruising, Denies wounds, Denies yellowing of the skin, Denies other Neurologic: Denies abnormal hearing, Denies abnormal movements, Denies abnormal speech, Denies abnormal walking, Denies behavioral changes, Denies burning sensations, Denies confusion, Denies dizziness, Denies fainting, Denies frequent falls, Denies headache(s), Denies lack of coordination, Denies localized weakness, Denies loss of vision, Denies memory loss, Denies numbness, Denies other visual disturbances, Denies radiating pain, Denies restless legs, Denies convulsions, Denies seizure-like activity, Denies sensory deficit, Denies tingling, Denies tingling/numbness/burning sensations, Denies tremor(s), Denies unsteadiness, Denies weakness, Denies other Psychiatric: Denies abnormal sleep pattern, Denies anxiety, Denies behavioral changes, Denies change in appetite, Denies change in sex drive, Denies confusion , Denies depression, Denies difficulty concentrating, Denies hearing things others do not hear, Denies hopelessness, Denies irritability, Denies lack of enjoyment, Denies memory loss, Denies mood swings, Denies panic attacks, Denies paranoia, Denies seeing things others do not see, Denies sensing things others do not sense, Denies tactile hallucinations, Denies thoughts of hurting/killing others, Denies thoughts of hurting/killing yourself, Denies other Endocrine: Denies cold intolerance, Denies excessive sweating, Denies flushing, Denies heat intolerance, Denies increased hunger, Denies increased thirst, Denies increased urination, Denies rapid, pounding, or irregular heartbeat, Denies other Hematologic/Lymphatic: Denies easy bleeding, Denies easy bruising, Denies enlarged lymph nodes, Denies other Allergic/Immunologic: Denies GI upset with certain foods, Denies hives, Denies itchy eyes, Denies lip swelling, Denies seasonal runny nose, Denies throat swelling, Denies tongue swelling, Denies wheezing, Denies other PMFSH - History History Provided By: Patient - Medical History Medical History: Medical History (Last Reviewed 09/21/18 @ 17:28 by Ambrosio Bazzi MD) IVDU (intravenous drug user) Patient denies medical problems - Surgical History Surgical History: Surgical History (Last Reviewed 09/21/18 @ 17:28 by Ambrosio Bazzi MD) No history of previous surgery - Family History Family History: Family History (Last Reviewed 09/21/18 @ 17:28 by Ambrosio Bazzi MD) Other Diabetes mellitus - Tobacco History Second Hand Smoke Exposure: No Tobacco Use In Past 30 Days: No Smoking Status: Never smoker - Alcohol History How Often Do You Have a Drink Containing Alcohol: Monthly or less - Substance Use History Substance History: Active Abuse - Substance Use Type Marijuana Status: Active Route Used: Inhalation Reason for Use: Get High Heroin Status: Active Route Used: Intravenously Frequency: daily Reason for Use: Get High - Travel History Recent Travel in the [place] Within the Last 8 Weeks: No Recent Travel Out of the Country Within the Last 8 Weeks: No - Immunization History Tetanus Immunization: Unsure Hx Influenza Vaccine This Season: No Medications and Allergies Active Medications: Active Medications Acetaminophen (Tylenol) 650 mg PO Q4H PRN PRN Reason: Temp > 100.4 Al Hydroxide/Mg Hydroxide (Milk Of Magnesia Liq) 30 ml PO Q12H PRN PRN Reason: Mild Constipation Bisacodyl (Dulcolax Supp) 10 mg RECTAL DAILY PRN PRN Reason: SEVERE CONSITIPATION Sodium Chloride (Ns Inj) 1,000 mls @ 100 mls/hr IV.CONT .Q10H [facility] Last Admin: 09/21/18 14:10 Dose: 100 mls/hr Piperacillin/Tazobactam/Dextrose (Zosyn 3.375 Gm Premix) 3.375 gm in 50 mls @ 100 mls/hr IV.SIG Q6H SETH Last Infusion: 09/21/18 17:23 Dose: Infused Vancomycin HCl 1,250 mg/ (Sodium Chloride) 262.5 mls @ 250 mls/hr IV.SIG Q12H [facility] Lactulose (Lactulose Liq) 30 ml PO DAILY PRN PRN Reason: SEVERE CONSITIPATION Miscellaneous Information ([facility] Ordered Lab Info) 0 each OTHER ONCE ONE Stop: 09/23/18 03:46 Morphine Sulfate (Morphine Inj) 4 mg IV.PUSH Q3H PRN PRN Reason: BREAKTHROUGH PAIN Last Admin: 09/21/18 14:09 Dose: 4 mg Morphine Sulfate (Morphine Inj) 4 mg IV.PUSH Q1H PRN PRN Reason: Pain Scale 7-10 (Intractable) Naloxone HCl (Narcan Inj) 0.4 mg IV.PUSH UNSCH PRN PRN Reason: SEE LABEL COMMENTS Ondansetron HCl (Zofran Inj) 4 mg IV.PUSH Q6H PRN PRN Reason: NAUSEA OR VOMITING Oxycodone/Acetaminophen (Percocet 10/325 Mg) 1 tab PO Q6H PRN PRN Reason: PAIN SCALE 6 TO 10 Last Admin: 09/21/18 13:30 Dose: 1 tab Oxycodone/Acetaminophen (Percocet 5/325 Mg) 1 tab PO Q6H PRN PRN Reason: PAIN SCALE 3 TO 5 Pharmacy Profile Note (Vancomycin Consult Pharmacy) 1 each OTHER UNSCH PRN PRN Reason: Pharmacy to dose Sennosides (Senokot) 17.2 mg PO Q12H PRN PRN Reason: Moderate Constipation Sodium Chloride (Ns Flush) 2 ml IV.FLUSH BID [facility] Last Admin: 09/21/18 08:04 Dose: 2 ml Sodium Chloride (Ns Flush) 2 ml IV.FLUSH PRN PRN PRN Reason: FLUSH AFTER USING IV ACCESS Allergies Allergy/AdvReac Type Severity Reaction Status Date / Time No Known Allergies Allergy Verified 09/17/18 13:40 Home Medications Medication Instructions Recorded Confirmed Type No Known Home Medications 09/17/18 09/21/18 History Exam Vital signs: Vital Signs 09/20/18 23:38 09/21/18 00:03 09/21/18 00:54 Temperature 97.7 F 99.9 F H Pulse Rate 111 H 105 H 101 H Respiratory Rate 18 18 Blood Pressure 133/55 L 128/76 Pulse Oximetry 96 100 100 09/21/18 04:00 09/21/18 12:00 09/21/18 16:00 Temperature 98.1 F 98.2 F Pulse Rate 109 H 76 74 Respiratory Rate 20 20 20 Blood Pressure 153/84 H 136/78 145/71 H Pulse Oximetry 98 98 99 Intake & Output 09/20/18 09/21/18 09/21/18 18:59 06:59 18:59 Intake Total 1400 / 1400 1100 / 1100 Balance 1400 / 1400 1100 / 1100 Weight 68.039 kg 68.039 kg Intake: IV 1400 / 1400 1100 / 1100 NS Inj 1,000 ML @ 100 mls/hr IV 1000 / 1000 .CONT .Q10H [facility] Rx#:[id number] Zosyn 3.375 GM Premix 3.375 gm 50 / 50 100 / 100 In 50 ml @ 100 mls/hr IV.SIG Q6H [facility] Rx#:[id number] Vancomycin Inj 1,000 MG In NS 250 / 250 Inj 250 ML @ 250 mls/hr IV.SIG ONCE ONE Rx#:[id number] Vancomycin Inj 500 MG In NS Inj 100 / 100 100 ML @ 200 mls/hr IV.SIG DAILY@0500 [facility] Rx#:[id number] Other: # Voids 2 Weight On Admission 68.039 kg - Constitutional no acute distress - Routine HEENT Exam Head: Present: normocephalic, atraumatic Eye: Present: EOMI, PERRL ENT: Present: mucous membranes moist, oropharynx clear, nares patent, external ear normal - Routine Neck Exam Present: supple, full ROM - Routine Respiratory Exam Present: CTA bilaterally - Routine Cardiovascular Exam Present: RRR, S1, S2 - Routine Abdominal Exam Present: soft, normoactive bowel sounds - Routine Extremities Exam Present: full ROM - Routine Skin Exam Present: intact - Routine Neurological Exam Present: oriented X3, CN II-XII intact, plantar reflex, moving all extremities, normal speech - Routine Psychiatric Exam Present: normal affect, normal thought process Results - Laboratory Findings CBC and BMP: 09/21/18 00:40 09/21/18 00:40 Abnormal lab findings: Abnormal Labs 09/21/18 09/21/18 12 00:40 00:40 00:40 WBC 11.8 H RBC 4.13 L Hgb 11.2 L Hct 34.6 L Neut % (Auto) 79.4 H Kinney % (Auto) 9.5 H Neut # (Auto) 9.3 H Kinney # (Auto) 1.1 H ESR PT 13.4 H APTT 40.3 H Random Glucose 117 H Troponin I Less than 0.02 L C-Reactive Protein 16.80 H Albumin 3.2 L Lipase 26 L Urine Clarity Urine Protein Urine Urobilinogen Urine Mucus 09/21/18 09/21/18 00:40 01:25 WBC RBC Hgb Hct Neut % (Auto) Kinney % (Auto) Neut # (Auto) Kinney # (Auto) ESR 72 H PT APTT Random Glucose Troponin I C-Reactive Protein Albumin Lipase Urine Clarity Hazy H Urine Protein 30 H Urine Urobilinogen 2.0 H Urine Mucus Few H - Diagnostic Findings Additional findings: Impressions Thoracic Spine MRI 09/21/18 00:00 CONCLUSION: 1. Examination quality is significantly degraded by motion artifact. There is an abnormal T2 hyperintense abnormality in the anterior epidural space at the T6 -T7 level and extending inferiorly through at least T8-T9. This finding is new since the study from 9 months ago excluding an arachnoid cyst as the etiology. Given the clinical history for an abscess, it is possible this represents an epidural abscess. However, the adjacent disc spaces demonstrate no significant abnormality which would favor against an infectious process. It would be ideal to further evaluate with pre and postcontrast enhanced imaging to evaluate for any abnormal enhancement of this structure when the patient's condition permits for adequate imaging without motion artifact. 2. The epidural process has mass effect on the spinal cord at the above- described levels but spinal cord signal intensity remains within normal limits. Abdomen/Pelvis CT 09/21/18 00:21 CONCLUSION: 1. Negative CT abdomen/pelvis with contrast. Chest X-Ray 09/21/18 00:21 CONCLUSION: The lungs are clear. Lumbar Spine CT 09/21/18 00:21 CONCLUSION: 1. No acute findings. No evidence of acute fracture or spondylolisthesis. 2. Central and left-sided disc protrusion at L5-S1 is smaller than on prior MRI December 2017. There is also moderate left-sided lateral recess stenosis at L5- S1 due to bony hypertrophy. Thoracic Spine CT 09/21/18 00:21 CONCLUSION: 1. No evidence of acute fracture or spondylolisthesis. Moderate multilevel degenerative changes in the endplates. Assessment and Plan - Assessment (1) Acute thoracic back pain Code(s): M54.6 - Pain in thoracic spine Status: Acute (2) Intravenous drug abuse Code(s): F19.10 - Other psychoactive substance abuse, uncomplicated Status: Chronic - Plan 28-year-old male with a 8-day history of thoracic back pain without any radiculopathy or focal neurologic deficits. He admits to IV drug abuse involving heroin last injected yesterday. MRI of the thoracic spine is limited due to motion artifact but does suggest a small ventral lateral T7-9 fluid collection without cord compression raising the possibility of an epidural abscess. Blood culture results are pending and he has been started on antibiotics. I would recommend MRI scan of the thoracic and lumbar spine with contrast to further evaluate for infectious etiology which at this time he refuses. If an organism can be identified with the blood cultures then antibiotics can be geared toward that particular organism and will require 6-8 weeks of IV antibiotic treatment as per infectious disease. He is counseled on IV drug abuse cessation. Continue with pain control and increase activity status with physical therapy involvement as tolerated.
[2018-09-21] MEDS: Vancomycin Inj 1,250 MG in Sodium Chlor 0.9% Inj 250 ML IV.SIG SCH (17:41)
[2018-09-22] MEDS: Sod Chloride 0.9% Inj 1,000 ML IV.CONT SCH ×3 (04:44→20:42)
[2018-09-22] MEDS: Piperacil/Tazo 3.375 GM Premix 3.375 GM/50 ML PIGGYBACK IV.SIG SCH ×2 (04:45→08:30)
[2018-09-22] MEDS: Vancomycin Inj 1,250 MG in Sodium Chlor 0.9% Inj 250 ML IV.SIG SCH ×2 (04:46→16:21)
[2018-09-22] MEDS: Morphine Inj 4 MG/ML Vial IV.PUSH PRN (06:15)
[2018-09-22 07:15] LABS: Baso % (Auto) 0.1 % (0.0-2.0); Eos # (Auto) 0.1 th/mm3 (0.0-0.4); Eos % (Auto) 0.4 % (0.0-4.0); Hematocrit 33.2 % (39.0-51.0); Hemoglobin 10.9 gm/dL (13.0-17.0); Lymph # (Auto) 1.2 th/mm3 (1.0-4.8); Lymph % (Auto) 9.3 % (9.0-44.0); Mean Corpuscular Hemoglobin 27.4 pg (27.0-34.0); Mean Corpuscular Volume 83.2 fL (80.0-100.0); Mean Platelet Volume 8.1 fL (7.0-11.0); Mono # (Auto) 1.1 th/mm3 (0.0-0.9); Mono % (Auto) 8.7 % (0.0-8.0); Neut # (Auto) 10.3 th/mm3 (1.8-7.7); Neut % (Auto) 81.5 % (16.0-70.0); Platelet Count 388 th/mm3 (150-450); Red Blood Count 3.99 mil/mm3 (4.50-5.90); Red Cell Distribution Width 14.9 % (11.6-17.2); White Blood Count 12.6 th/mm3 (4.0-11.0)
[2018-09-22 07:52] LABS: Alanine Aminotransferase 35 U/L (12-78); Albumin 2.6 g/dL (3.4-5.0); Alkaline Phosphatase 68 U/L (45-117); Anion Gap 7 meq/L (5-15); Aspartate Aminotransferase 24 U/L (15-37); Blood Urea Nitrogen 9 mg/dL (7-18); Calcium 7.9 mg/dL (8.5-10.1); Carbon Dioxide 26.7 meq/L (21.0-32.0); Chloride 102 meq/L (98-107); Glomerular Filtration Rate Greater Than 89 mL/min (>89); Glucose,Random 98 mg/dL (74-106); Potassium 3.8 meq/L (3.5-5.1); Sodium 136 meq/L (136-145); Total Protein 6.9 g/dL (6.4-8.2)
[2018-09-22] MEDS: oxyCODONE/Acetaminophen 10/325 Tablet PO PRN ×3 (08:30→22:57)
--- NOTE | 2018-09-22 12:51 | P.CONID ---
History of Present Illness Service: ID Consult date: 09/22/18 Requesting Physician: Chris Tabor Reason for Consult: spinal osteo Primary Care Provider: No Primary Care Physician History of Present Illness: 28 malr with acitve IVDU developped worseing back pain x 10 days Presented with the abotve problem + chills, difficlutynworking 2/2 pain also reports some difficulty urinating (repots problems getting all the urine out) very non cooperative on MR and ended up completing only non contrasted part and with a motion artifact Even that incomplete study raised possiblity of epidural abscess in T 7 area epidural process has mass effect on the spinal cord Pt was seen by Dr Bazzi who recommended to get MR with /without contrast to fully evaluatef or abscess blood clx growing GPC in 4/4 bottles Pt rates pain as 07/14 started on zosyn,vancomycin Review of Systems All other systems reviewed negative except as stated in HPI PMFSH - History History Provided By: Patient - Medical History Medical History: Medical History (Last Reviewed 09/22/18 @ 13:40 by Geeta Mejia MD) IVDU (intravenous drug user) Patient denies medical problems - Surgical History Surgical History: Surgical History (Last Reviewed 09/22/18 @ 13:40 by Geeta Mejia MD) No history of previous surgery - Family History Family History: Family History (Last Reviewed 09/22/18 @ 13:40 by Geeta Mejia MD) Other Diabetes mellitus - Social History I have reviewed the patient's Social History: Yes - Tobacco History Second Hand Smoke Exposure: No Tobacco Use In Past 30 Days: No Smoking Status: Never smoker - Alcohol History How Often Do You Have a Drink Containing Alcohol: Monthly or less - Substance Use History Substance History: Active Abuse - Substance Use Type Marijuana Status: Active Route Used: Inhalation Reason for Use: Get High Heroin Status: Active Route Used: Intravenously Frequency: daily Reason for Use: Get High - Travel History Recent Travel in the [place] Within the Last 8 Weeks: No Recent Travel Out of the Country Within the Last 8 Weeks: No - Immunization History Tetanus Immunization: Unsure Hx Influenza Vaccine This Season: No Medications and Allergies Active Medications: Active Medications Acetaminophen (Tylenol) 650 mg PO Q4H PRN PRN Reason: Temp > 100.4 Al Hydroxide/Mg Hydroxide (Milk Of Magnesia Liq) 30 ml PO Q12H PRN PRN Reason: Mild Constipation Bisacodyl (Dulcolax Supp) 10 mg RECTAL DAILY PRN PRN Reason: SEVERE CONSITIPATION Sodium Chloride (Ns Inj) 1,000 mls @ 100 mls/hr IV.CONT .Q10H [facility] Last Admin: 09/22/18 10:15 Dose: Not Given Piperacillin/Tazobactam/Dextrose (Zosyn 3.375 Gm Premix) 3.375 gm in 50 mls @ 100 mls/hr IV.SIG Q6H [facility] Last Infusion: 09/22/18 10:15 Dose: Infused Vancomycin HCl 1,250 mg/ (Sodium Chloride) 262.5 mls @ 250 mls/hr IV.SIG Q12H [facility] Last Infusion: 09/22/18 06:30 Dose: Infused Lactulose (Lactulose Liq) 30 ml PO DAILY PRN PRN Reason: SEVERE CONSITIPATION Miscellaneous Information ([facility] Ordered Lab Info) 0 each OTHER ONCE ONE Stop: 09/23/18 03:46 Morphine Sulfate (Morphine Inj) 4 mg IV.PUSH Q3H PRN PRN Reason: BREAKTHROUGH PAIN Last Admin: 09/22/18 06:15 Dose: 4 mg Morphine Sulfate (Morphine Inj) 4 mg IV.PUSH Q1H PRN PRN Reason: Pain Scale 7-10 (Intractable) Naloxone HCl (Narcan Inj) 0.4 mg IV.PUSH UNSCH PRN PRN Reason: SEE LABEL COMMENTS Ondansetron HCl (Zofran Inj) 4 mg IV.PUSH Q6H PRN PRN Reason: NAUSEA OR VOMITING Oxycodone/Acetaminophen (Percocet 10/325 Mg) 1 tab PO Q6H PRN PRN Reason: PAIN SCALE 6 TO 10 Last Admin: 09/22/18 08:30 Dose: 1 tab Oxycodone/Acetaminophen (Percocet 5/325 Mg) 1 tab PO Q6H PRN PRN Reason: PAIN SCALE 3 TO 5 Pharmacy Profile Note (Vancomycin Consult Pharmacy) 1 each OTHER UNSCH PRN PRN Reason: Pharmacy to dose Sennosides (Senokot) 17.2 mg PO Q12H PRN PRN Reason: Moderate Constipation Sodium Chloride (Ns Flush) 2 ml IV.FLUSH BID [facility] Last Admin: 09/22/18 08:30 Dose: 2 ml Sodium Chloride (Ns Flush) 2 ml IV.FLUSH PRN PRN PRN Reason: FLUSH AFTER USING IV ACCESS Allergies Allergy/AdvReac Type Severity Reaction Status Date / Time No Known Allergies Allergy Verified 09/17/18 13:40 Home Medications Medication Instructions Recorded Confirmed Type No Known Home Medications 09/17/18 09/21/18 History Exam Vital signs: Vital Signs 09/21/18 16:00 09/21/18 20:00 09/22/18 00:00 Temperature 98.2 F 98.3 F 98.3 F Pulse Rate 74 82 83 Respiratory Rate 20 20 20 Blood Pressure 145/71 H 130/72 133/84 Pulse Oximetry 99 97 97 09/22/18 04:00 09/22/18 07:45 09/22/18 08:00 Temperature 98 F 97.8 F 97.8 F Pulse Rate 81 75 75 Respiratory Rate 20 18 18 Blood Pressure 128/80 138/85 138/85 Pulse Oximetry 997 H 98 98 09/22/18 12:00 Temperature 98.2 F Pulse Rate 99 H Respiratory Rate 20 Blood Pressure 135/81 Pulse Oximetry 94 L Intake & Output 09/21/18 09/22/18 09/22/18 18:59 06:59 18:59 Intake Total 2112.5 / 2112.5 1362.5 / 1362.5 50 / 50 Balance 2112.5 / 2112.5 1362.5 / 1362.5 50 / 50 Weight 68.039 kg 69.2 kg Intake: IV 1362.5 / 1362.5 1362.5 / 1362.5 50 / 50 NS Inj 1,000 ML @ 100 mls/hr IV 1000 / 1000 1000 / 1000 .CONT .Q10H [facility] Rx#:[id number] Zosyn 3.375 GM Premix 3.375 gm 100 / 100 100 / 100 50 / 50 In 50 ml @ 100 mls/hr IV.SIG Q6H [facility] Rx#:[id number] Vancomycin Inj 1,250 MG In NS 262.5 / 262.5 262.5 / 262.5 Inj 250 ML @ 250 mls/hr IV.SIG Q12H [facility] Rx#:[id number] Oral 750 / 750 Other: # Voids 3 1 # Bowel Movements 1 Weight On Admission 68.039 kg - Constitutional mild distress (pain), thin, chronically ill appearing - Routine HEENT Exam Head: Present: normocephalic, atraumatic Eye: Present: EOMI, PERRL. Absent: conjunctival icterus, scleral injection, periorbital ecchymosis - Routine Neck Exam Present: supple, full ROM. Absent: JVD, lymphadenopathy - Routine Respiratory Exam Present: CTA bilaterally. Absent: accessory muscle use, decreased breath sounds , respiratory distress, rhonchi - Routine Cardiovascular Exam Present: RRR, S1, S2. Absent: murmur, gallop, rubs - Routine Abdominal Exam Present: soft, normoactive bowel sounds. Absent: tenderness, distended, organomegaly, mass - Routine Extremities Exam Absent: cyanosis, clubbing, edema Comments: not moving BLE 2/2 excrutaiting pain aw any attmpt to move extremeties - Routine Skin Exam Present: intact, dry, warm. Absent: cyanosis, erythema - Routine Neurological Exam Present: alert, oriented X3, CN II-XII intact, moving all extremities, normal tone. Absent: sensory deficit, motor deficit Pt is able to move 5/5 BLE but not cooperative 2/2 pain - Routine Psychiatric Exam Present: normal affect, normal thought process, anxious. Absent: visual hallucinations Results - Labs CBC & Chem 7: 09/22/18 05:45 09/22/18 05:45 Labs: Laboratory Results - last 24 hr 09/22/18 09/22/18 05:45 05:45 WBC 12.6 H RBC 3.99 L Hgb 10.9 L Hct 33.2 L MCV 83.2 MCH 27.4 MCHC 33.0 RDW 14.9 Plt Count 388 MPV 8.1 Neut % (Auto) 81.5 H Lymph % (Auto) 9.3 Ramsey % (Auto) 8.7 H Eos % (Auto) 0.4 Baso % (Auto) 0.1 Neut # (Auto) 10.3 H Lymph # (Auto) 1.2 Ramsey # (Auto) 1.1 H Eos # (Auto) 0.1 Baso # (Auto) 0.0 WBC Differential . Differential Comment Auto diff final Sodium 136 Potassium 3.8 Chloride 102 Carbon Dioxide 26.7 Anion Gap 7 BUN 9 Creatinine 0.73 Estimated GFR Greater than 89 Random Glucose 98 Calcium 7.9 L Total Bilirubin 0.5 AST 24 ALT 35 Alkaline Phosphatase 68 Total Protein 6.9 D Albumin 2.6 L D - Imaging Thoracic Spine MRI 09/21/18 00:00 CONCLUSION: 1. Examination quality is significantly degraded by motion artifact. There is an abnormal T2 hyperintense abnormality in the anterior epidural space at the T6 -T7 level and extending inferiorly through at least T8-T9. This finding is new since the study from 9 months ago excluding an arachnoid cyst as the etiology. Given the clinical history for an abscess, it is possible this represents an epidural abscess. However, the adjacent disc spaces demonstrate no significant abnormality which would favor against an infectious process. It would be ideal to further evaluate with pre and postcontrast enhanced imaging to evaluate for any abnormal enhancement of this structure when the patient's condition permits for adequate imaging without motion artifact. 2. The epidural process has mass effect on the spinal cord at the above- described levels but spinal cord signal intensity remains within normal limits. Abdomen/Pelvis CT 09/21/18 00:21 CONCLUSION: 1. Negative CT abdomen/pelvis with contrast. Chest X-Ray 09/21/18 00:21 CONCLUSION: The lungs are clear. Lumbar Spine CT 09/21/18 00:21 CONCLUSION: 1. No acute findings. No evidence of acute fracture or spondylolisthesis. 2. Central and left-sided disc protrusion at L5-S1 is smaller than on prior MRI December 2017. There is also moderate left-sided lateral recess stenosis at L5- S1 due to bony hypertrophy. Thoracic Spine CT 09/21/18 00:21 CONCLUSION: 1. No evidence of acute fracture or spondylolisthesis. Moderate multilevel degenerative changes in the endplates. Assessment and Plan - Plan IVDU Gram positive bacteremia, ID P epidural space abscess at the T6-T7 level and extending inferiorly through at least T8-T9 - non cooperative with MR he refuses further MR unless under anesthesia Cont vanco dc zosyn repeat BC 2D echo MR w/wo c withn anesthesia dw anesthsiologis, MR bella , RN to coordinate the MR study
--- NOTE | 2018-09-22 13:49 | P.PNIM ---
Subjective Interval history: Follow-up for likely epidural abscess, staph aureus bacteremia , IVDU. Patient is complaining of significant back pain. Fever or chills. Physical Exam Vital signs: Last Vital Signs Temp 98.2 F 09/22/18 12:00 Pulse 99 H 09/22/18 12:00 Resp 20 09/22/18 12:00 BP 135/81 09/22/18 12:00 Pulse Ox 94 L 09/22/18 12:00 Intake & Output 09/20/18 09/21/18 09/22/18 09/23/18 06:59 06:59 06:59 06:59 Intake Total 1400 / 1400 3475.0 / 3475.0 50 / 50 Balance 1400 / 1400 3475.0 / 3475.0 50 / 50 Weight 68.039 kg 69.2 kg GENERAL: Alert, oriented x3, NAD. SKIN: Warm and dry. HEAD: Normocephalic. EYES: No scleral icterus. No injection or drainage. NECK: Supple, trachea midline. No JVD or lymphadenopathy. CARDIOVASCULAR: Regular rate and rhythm without murmurs, gallops, or rubs. RESPIRATORY: Breath sounds equal bilaterally. No accessory muscle use. GASTROINTESTINAL: Abdomen soft, non-tender, nondistended. MUSCULOSKELETAL: No cyanosis, or edema. Able to move all extremities. BACK: Nontender without obvious deformity. No CVA tenderness. Results Labs CBC & Chem 7: 09/22/18 05:45 09/22/18 05:45 Labs: Microbiology 09/21/18 00:40 Blood - Peripheral Aerobic Blood Culture - Preliminary Staphylococcus aureus 09/21/18 00:40 Blood - Peripheral Anaerobic Blood Culture - Preliminary Staphylococcus aureus 09/21/18 00:35 Blood - Peripheral Aerobic Blood Culture - Preliminary gram positive cocci 09/21/18 00:35 Blood - Peripheral Anaerobic Blood Culture - Preliminary Staphylococcus aureus Imaging Imaging: Thoracic Spine MRI 09/21/18 00:00 CONCLUSION: 1. Examination quality is significantly degraded by motion artifact. There is an abnormal T2 hyperintense abnormality in the anterior epidural space at the T6 -T7 level and extending inferiorly through at least T8-T9. This finding is new since the study from 9 months ago excluding an arachnoid cyst as the etiology. Given the clinical history for an abscess, it is possible this represents an epidural abscess. However, the adjacent disc spaces demonstrate no significant abnormality which would favor against an infectious process. It would be ideal to further evaluate with pre and postcontrast enhanced imaging to evaluate for any abnormal enhancement of this structure when the patient's condition permits for adequate imaging without motion artifact. 2. The epidural process has mass effect on the spinal cord at the above- described levels but spinal cord signal intensity remains within normal limits. Abdomen/Pelvis CT 09/21/18 00:21 CONCLUSION: 1. Negative CT abdomen/pelvis with contrast. Chest X-Ray 09/21/18 00:21 CONCLUSION: The lungs are clear. Lumbar Spine CT 09/21/18 00:21 CONCLUSION: 1. No acute findings. No evidence of acute fracture or spondylolisthesis. 2. Central and left-sided disc protrusion at L5-S1 is smaller than on prior MRI December 2017. There is also moderate left-sided lateral recess stenosis at L5- S1 due to bony hypertrophy. Thoracic Spine CT 09/21/18 00:21 CONCLUSION: 1. No evidence of acute fracture or spondylolisthesis. Moderate multilevel degenerative changes in the endplates. Assessment and Plan (1) Acute thoracic back pain: Code(s): M54.6 - Pain in thoracic spine Status: Acute (2) Intravenous drug abuse: Code(s): F19.10 - Other psychoactive substance abuse, uncomplicated Status: Chronic Plan Mr. South is a 28-year-old male with a history of IV drug use who was admitted to the hospital on 09/21/2018 due to lower back pain as well as fever started about 7-8 days ago. He did not have any lower extremity weakness or loss of bowel or bladder control. He was a started on vancomycin and Zosyn upon admission. Probably epidural abscess Staph aureus bacteremia IVDU Neurosurgery was consulted. Neurosurgery recommended contrast enhanced MRI study. However, patientn refused. Infectious disease consulted. Echo pending. Continue vancomycin and Zosyn. We can probably discontinue Zosyn. Percocet for pain control. Full code. SCDs. Progress Note: Quality VTE Deep Vein Thrombosis/Pulmonary Embolism Present on Admission: No _ (1) Acute thoracic back pain Qualifiers: Back pain laterality: midline Qualified Code(s): M54.6 - Pain in thoracic spine
--- NOTE | 2018-09-22 18:37 | ECHRPT ---
Indication: SEPSIS POSS ENDOCARDITIS CONCLUSIONS The left ventricular systolic function is normal with an estimated ejection fraction in the range of 60-65%. Left ventricular diastolic function parameters are normal. Trace mitral valve regurgitation. There is trace tricuspid valve regurgitation. No endocarditis noted BP: / HR: Rhythm: MEASUREMENTS (Male / Female) Normal Values Technical Quality: 2D ECHO LV Diastolic Diameter PLAX 5.2 cm 4.2 - 5.9 / 3.9 - 5.3 cm LV Systolic Diameter PLAX 3.3 cm IVS Diastolic Thickness 0.8 cm 0.6 - 1.0 / 0.6 - 0.9 cm LVPW Diastolic Thickness 0.8 cm 0.6 - 1.0 / 0.6 - 0.9 cm LV Relative Wall Thickness 0.3 RV Internal Dim ED PLAX 3.4 cm LVOT Diameter 2.1 cm Aortic Root Diameter 3.1 cm LA Systolic Diameter LX 3.3 cm 3.0 - 4.0 / 2.7 - 3.8 cm M-MODE AV Cusp Separation MM 2.4 cm DOPPLER AV Peak Velocity 201.0 cm/s AV Peak Gradient 16.2 mmHg LVOT Peak Velocity 152.0 cm/s LVOT Peak Gradient 9.2 mmHg AV Area Cont Eq pk 2.6 cm Mitral E Point Velocity 72.1 cm/s Mitral A Point Velocity 62.2 cm/s Mitral E to A Ratio 1.2 LV E' Lateral Velocity 17.4 cm/s Mitral E to LV E' Lateral Ratio 4.1 LV E' Septal Velocity 12.5 cm/s Mitral E to LV E' Septal Ratio 5.8 TR Peak Velocity 130.0 cm/s TR Peak Gradient 6.8 mmHg Right Atrial Pressure 10.0 mmHg Pulmonary Artery Systolic Pressu 16.8 mmHg Right Ventricular Systolic Press 16.8 mmHg PV Peak Velocity 128.0 cm/s PV Peak Gradient 6.6 mmHg FINDINGS LEFT VENTRICLE Normal left ventricular size. Wall thickness is normal. The left ventricular systolic function is normal with an estimated ejection fraction in the range of 60-65%. Left ventricular diastolic function parameters are normal. RIGHT VENTRICLE Normal right ventricular size and systolic function. LEFT ATRIUM The left atrial size is normal. RIGHT ATRIUM The right atrial size is normal. ATRIAL SEPTUM Normal atrial septal thickness without atrial level shunting by limited color doppler interrogation. AORTA The aortic root and proximal ascending aorta are normal in size on limited imaging. MITRAL VALVE Structurally normal mitral valve. No mitral valve stenosis. Trace mitral valve regurgitation. AORTIC VALVE Trileaflet aortic valve. No aortic valve stenosis or regurgitation. TRICUSPID VALVE Structurally normal tricuspid valve. No tricuspid valve stenosis. There is trace tricuspid valve regurgitation. The estimated pulmonary arterial pressure is 17 mmHg. PULMONARY VALVE No pulmonary valve regurgitation or stenosis. VESSELS The inferior vena cava is normal in size. PERICARDIUM No pericardial effusion. Johnny Lugo DO (Electronically Signed) Final Date:22 September 2018 18:36
[2018-09-23] MEDS: Vancomycin Inj 1,250 MG in Sodium Chlor 0.9% Inj 250 ML IV.SIG SCH (03:45)
[2018-09-23] MEDS ORDERED: Pharmacy Ordered Lab Info OTHER ONE (03:45)
[2018-09-23] MEDS: Sod Chloride 0.9% Inj 1,000 ML IV.CONT SCH ×3 (03:46→19:48)
[2018-09-23] MEDS: Morphine Inj 4 MG/ML Vial IV.PUSH PRN (04:16)
[2018-09-23] MEDS ORDERED: Gadobutrol PF 7.5 MMOL/7.5 ML Vial (for RAD) IV.SIG ONE (10:08)
--- NOTE | 2018-09-23 10:24 | MR ---
EXAM DATE: 09/23/2018 10:10 AM EST AGE/SEX: 28 years / Male INDICATIONS: Abscess. Back pain. CLINICAL DATA: This is the patient's initial encounter. Patient reports that signs and symptoms have been present for 1 day and indicates a pain score of 9/10. MEDICAL/SURGICAL HISTORY: . IVDU. . Left thigh surgery. COMPARISON: [facility] [place], MR THORACIC SPINE W/O CONTRAST, 09/21/2018. . TECHNIQUE: Multiplanar, multisequence MRI of the thoracic spine was performed without and with 6.8 m l Gadavist (gadobutrol) contrast as a single exam dose. Anesthesia and pain control was provided by the Anesthesia department. FINDINGS: Vertebrae: Normal vertebral body height. Homogeneous marrow signal. Alignment: Normal. Cord: Normal position and configuration. Post Contrast: There is diffuse epidural enhancement involving the mid to lower thoracic canal most prominent ventrally and slightly asymmetric to the left extending from the T5 level down to T12. A ma ss producing discrete collection is not identified as previously, rather thin linear enhancement of t he epidural tissues is present on today's study. T1-T2: The thecal sac has a normal diameter. No evidence of disc bulge or protrusion. T2-T3: The thecal sac has a normal diameter. No evidence of disc bulge or protrusion. T3-T4: The thecal sac has a normal diameter. No evidence of disc bulge or protrusion. T4-T5: The thecal sac has a normal diameter. No evidence of disc bulge or protrusion. T5-T6: The thecal sac has a normal diameter. No evidence of disc bulge or protrusion. T6-T7: The thecal sac has a normal diameter. No evidence of disc bulge or protrusion. T7-T8: The thecal sac has a normal diameter. No evidence of disc bulge or protrusion. T8-T9: The thecal sac has a normal diameter. No evidence of disc bulge or protrusion. T9-T10: The thecal sac has a normal diameter. No evidence of disc bulge or protrusion. T10-T11: The thecal sac has a normal diameter. No evidence of disc bulge or protrusion. T11-T12: Mild broad dorsal protrusion, slightly asymmetric to the left with slight indentation of ve ntral thecal sac. No canal or foraminal compromise. T12-L1: The thecal sac has a normal diameter. No evidence of disc bulge or protrusion. CONCLUSION: There is diffuse mild epidural enhancement involving the mid to lower thoracic canal on today's exami nation, however mass producing collection which had been suspected previously is not seen today. Electronically signed by: Lan Doan MD Board Certified Radiologist 09/23/2018 10:23 AM EST
[2018-09-23] MEDS ORDERED: fentaNYL Citrate Inj 100 MCG/2 ML Ampul ONE (10:36)
[2018-09-23] MEDS ORDERED: *Meperidine Inj 25 MG/ML Vial PERIprocedural Use ONLY ONE (10:47)
[2018-09-23] MEDS: oxyCODONE/Acetaminophen 10/325 Tablet PO PRN (12:02)
--- NOTE | 2018-09-23 12:37 | P.PNIM ---
Subjective Interval history: Follow-up for likely epidural abscess, staph aureus bacteremia, IVDU. Patient seen and examined today. Complains of back pain, status post MRI with anesthesia. States that the back pain is getting worse, requesting for more pain medication. Patient appears to be anxious. Last dose of heroin prior to admission. As per nursing, patient did not ask for any pain medication yesterday after girlfriend came into the room. Otherwise, patient denies SOB/ dyspnea. Denies chest pain, palpitations, headaches, dizziness. Denies fevers, chills, n/v/d. Denies dysuria. Physical Exam Vital signs: Vital Signs 09/22/18 16:00 09/22/18 20:00 09/23/18 00:00 Temperature 98.4 F 98.8 F 98.5 F Pulse Rate 88 88 93 H Respiratory Rate 20 14 20 Blood Pressure 132/85 132/81 126/84 Pulse Oximetry 98 98 96 09/23/18 04:00 09/23/18 08:08 09/23/18 10:22 Temperature 98.5 F 99.4 F 98.5 F Pulse Rate 87 88 94 H Respiratory Rate 20 16 20 Blood Pressure 134/84 115/70 119/73 Pulse Oximetry 98 97 97 09/23/18 10:30 09/23/18 10:41 09/23/18 10:45 Temperature 98.5 F Pulse Rate 94 H 91 H Respiratory Rate 18 20 Blood Pressure 116/65 119/65 Pulse Oximetry 95 96 96 09/23/18 10:54 Temperature Pulse Rate 83 Respiratory Rate 19 Blood Pressure 119/63 Pulse Oximetry 97 Intake & Output 09/22/18 09/23/18 09/23/18 18:59 06:59 18:59 Intake Total 50 / 50 1525.0 / 1525.0 Balance 50 / 50 1525.0 / 1525.0 Weight 68.4 kg Intake: IV 50 / 50 1525.0 / 1525.0 NS Inj 1,000 ML @ 100 mls/hr IV 1000 / 1000 .CONT .Q10H [facility] Rx#:[id number] Zosyn 3.375 GM Premix 3.375 gm 50 / 50 In 50 ml @ 100 mls/hr IV.SIG Q6H [facility] Rx#:[id number] Vancomycin Inj 1,250 MG In NS 525.0 / 525.0 Inj 250 ML @ 250 mls/hr IV.SIG Q12H [facility] Rx#:[id number] Other: # Voids 2 Narrative: GENERAL: This is a thin appearing male, in no apparent distress. SKIN: Warm and dry. HEENT: Normocephalic. Pupils equal round and reactive. Nose without bleeding. Airway patent. NECK: Trachea midline. CARDIOVASCULAR: Tachycardia without murmurs, gallops, or rubs. RESPIRATORY: Clear to auscultation. Breath sounds equal bilaterally. No wheezes , rales, or rhonchi. GASTROINTESTINAL: Abdomen soft, non-tender, nondistended. Bowel Sounds normoactive x4. MUSCULOSKELETAL: Extremities without clubbing, cyanosis, or edema. NEUROLOGICAL: Awake and alert. Anxious. No focal neuro deficit. Moves all extremities. Normal speech. Results - Labs CBC & Chem 7: 09/22/18 05:45 09/22/18 05:45 Laboratory Results - last 24 hr 09/23/18 03:50 Vancomycin Trough 9.5 Microbiology 09/21/18 00:40 Blood - Peripheral Aerobic Blood Culture - Final Staphylococcus aureus 09/21/18 00:40 Blood - Peripheral Anaerobic Blood Culture - Final Staphylococcus aureus 09/21/18 00:35 Blood - Peripheral Aerobic Blood Culture - Final Staphylococcus aureus 09/21/18 00:35 Blood - Peripheral Anaerobic Blood Culture - Final Staphylococcus aureus - Imaging Impressions Thoracic Spine MRI 09/23/18 00:00 CONCLUSION: There is diffuse mild epidural enhancement involving the mid to lower thoracic canal on today's examination, however mass producing collection which had been suspected previously is not seen today. Assessment and Plan - Assessment (1) Acute thoracic back pain Code(s): M54.6 - Pain in thoracic spine Status: Acute (2) Intravenous drug abuse Code(s): F19.10 - Other psychoactive substance abuse, uncomplicated Status: Chronic - Plan 28-year-old male with a history of IV drug use who was admitted to the hospital on 09/21/2018 due to lower back pain as well as fever started about 7-8 days ago. He did not have any lower extremity weakness or loss of bowel or bladder control. He was a started on vancomycin and Zosyn upon admission. Probably epidural abscess Staph aureus bacteremia IVDU Neurosurgery was consulted. Neurosurgery recommended contrast enhanced MRI study, which patient refused. Repeat MRI study done 09/23/18 -Thoracic MRI showed There is diffuse mild epidural enhancement involving the mid to lower thoracic canal on examination, however mass producing collection which had been suspected previously is not seen. Infectious disease consulted. Echo 60-65% ejection fraction, no endocarditis noted. Continue vancomycin. Zosyn has been discussed Percocet for pain control. IV drug use, heroin -Monitor for withdrawals. Patient appears to be getting agitated and anxious -Ativan PRN -May use clonidine patch if needed to decrease anxiety Full code. SCDs. If patient remains in bed, will start Lovenox if okay with neurosurgery Discussed Condition With: Patient, nursing, Dr. Dumont Discharge Planning: Plan to DC home when clinically improved (1) Acute thoracic back pain Qualifiers: Back pain laterality: midline Qualified Code(s): M54.6 - Pain in thoracic spine
--- NOTE | 2018-09-23 13:05 | P.PNNS ---
Subjective Interval history: attempted to see patient this morning, not in room was down for contrasted MRI study. Physical Exam Vital signs: Vital Signs 09/22/18 16:00 09/22/18 20:00 09/23/18 00:00 Temperature 98.4 F 98.8 F 98.5 F Pulse Rate 88 88 93 H Respiratory Rate 20 14 20 Blood Pressure 132/85 132/81 126/84 Pulse Oximetry 98 98 96 09/23/18 04:00 09/23/18 08:08 09/23/18 10:22 Temperature 98.5 F 99.4 F 98.5 F Pulse Rate 87 88 94 H Respiratory Rate 20 16 20 Blood Pressure 134/84 115/70 119/73 Pulse Oximetry 98 97 97 09/23/18 10:30 09/23/18 10:41 09/23/18 10:45 Temperature 98.5 F Pulse Rate 94 H 91 H Respiratory Rate 18 20 Blood Pressure 116/65 119/65 Pulse Oximetry 95 96 96 09/23/18 10:54 Temperature Pulse Rate 83 Respiratory Rate 19 Blood Pressure 119/63 Pulse Oximetry 97 Intake & Output 09/22/18 09/23/18 09/23/18 18:59 06:59 18:59 Intake Total 50 / 50 1525.0 / 1525.0 Balance 50 / 50 1525.0 / 1525.0 Weight 68.4 kg Intake: IV 50 / 50 1525.0 / 1525.0 NS Inj 1,000 ML @ 100 mls/hr IV 1000 / 1000 .CONT .Q10H [facility] Rx#:[id number] Zosyn 3.375 GM Premix 3.375 gm 50 / 50 In 50 ml @ 100 mls/hr IV.SIG Q6H [facility] Rx#:[id number] Vancomycin Inj 1,250 MG In NS 525.0 / 525.0 Inj 250 ML @ 250 mls/hr IV.SIG Q12H [facility] Rx#:[id number] Other: # Voids 2 Assessment and Plan - Plan 28-year-old male with a 8-day history of thoracic back pain without any radiculopathy or focal neurologic deficits. He admits to IV drug abuse involving heroin last injected yesterday. MRI of the thoracic spine is limited due to motion artifact but does suggest a small ventral lateral T7-9 fluid collection without cord compression raising the possibility of an epidural abscess. Blood culture results are pending and he has been started on antibiotics. I would recommend MRI scan of the thoracic and lumbar spine with contrast to further evaluate for infectious etiology which at this time he refuses. If an organism can be identified with the blood cultures then antibiotics can be geared toward that particular organism and will require 6-8 weeks of IV antibiotic treatment as per infectious disease. He is counseled on IV drug abuse cessation. Continue with pain control and increase activity status with physical therapy involvement as tolerated. 09/23 f/u contrasted MRI studies ID following - cont management abx
[2018-09-23] MEDS: LORazepam 1 MG Tablet PO PRN ×2 (13:59→23:34)
[2018-09-23] MEDS ORDERED: Vancomycin Inj 1,500 MG in Sodium Chlor 0.9% Inj 500 ML IV.SIG SCH (14:00)
--- NOTE | 2018-09-23 19:25 | P.PNADD ---
Addendum to Inpatient Note Reason for Addendum: Additional Documentation Additional information: Reported by nurses, patient locked himself in the bathroom. Girlfriend at the bedside. Patient was then noted to be pacing the room, does not know what is going on, noted to be tachycardic in the 140s. Nurses instructed to call security to stop patient visitation. And they may search patient belongings. Nurses report that they found illicit substance, "heroin rock vs meth in his possession. Dr. Dumont was also notified per Continue with Ativan for now. May use clonidine patch. Continue to monitor. No visitors will be allowed to visit the patient
[2018-09-24 05:35] LABS: Glomerular Filtration Rate Greater Than 89 mL/min (>89)
[2018-09-24] MEDS: Sod Chloride 0.9% Inj 1,000 ML IV.CONT SCH ×2 (06:21→13:29)
[2018-09-24] MEDS: oxyCODONE/Acetaminophen 10/325 Tablet PO PRN ×3 (06:47→20:09)
[2018-09-24] MEDS: LORazepam 1 MG Tablet PO PRN ×2 (09:27→18:52)
[2018-09-24] MEDS: Morphine Inj 4 MG/ML Vial IV.PUSH PRN ×2 (09:28→17:05)
[2018-09-24 11:26] LABS: Hematocrit 31.2 % (39.0-51.0); Hemoglobin 10.5 gm/dL (13.0-17.0); Mean Corpuscular HGB Conc 33.6 % (32.0-36.0); Mean Corpuscular Hemoglobin 28.2 pg (27.0-34.0); Mean Corpuscular Volume 83.9 fL (80.0-100.0); Mean Platelet Volume 7.5 fL (7.0-11.0); Platelet Count 415 th/mm3 (150-450); Red Blood Count 3.73 mil/mm3 (4.50-5.90); Red Cell Distribution Width 15.2 % (11.6-17.2); White Blood Count 9.3 th/mm3 (4.0-11.0)
[2018-09-24 11:50] LABS: Anion Gap 6 meq/L (5-15); Blood Urea Nitrogen 10 mg/dL (7-18); Calcium 7.9 mg/dL (8.5-10.1); Carbon Dioxide 26.6 meq/L (21.0-32.0); Chloride 105 meq/L (98-107); Glomerular Filtration Rate Greater Than 89 mL/min (>89); Glucose,Random 113 mg/dL (74-106); Potassium 3.9 meq/L (3.5-5.1); Sodium 138 meq/L (136-145)
--- NOTE | 2018-09-24 14:31 | P.PNIM ---
Subjective Interval history: Follow-up for likely epidural abscess, staph aureus bacteremia, IVDU. Patient seen and examined today. Calm. Continues to complain of back pain. Discussed with patient importance of compliance. He understands that what happened yesterday was violation of policies. Discussed and explained with patient that we are trying to help him, verbalized understanding. Discussed results of microbiology. Denies SOB/ dyspnea. Denies chest pain, palpitations, headaches , dizziness. Denies fevers, chills, n/v/d. Denies dysuria. Physical Exam Vital signs: Vital Signs 09/23/18 16:42 09/23/18 20:00 09/24/18 00:00 Temperature 99.6 F 98.5 F Pulse Rate 151 H 73 75 Respiratory Rate 19 18 Blood Pressure 151/93 H 108/65 Pulse Oximetry 97 95 09/24/18 01:46 09/24/18 05:39 09/24/18 07:59 Temperature 98.2 F 98.0 F 98.4 F Pulse Rate 74 80 89 Respiratory Rate 18 20 20 Blood Pressure 115/64 114/64 125/66 Pulse Oximetry 97 98 95 09/24/18 12:30 Temperature 97.8 F Pulse Rate 76 Respiratory Rate 18 Blood Pressure 117/72 Pulse Oximetry 98 Intake & Output 09/23/18 09/24/18 09/24/18 18:59 06:59 18:59 Intake Total 500 / 500 1400 / 1400 490 / 490 Output Total 700 / 700 Balance 500 / 500 1400 / 1400 -210 / -210 Weight 67.2 kg Intake: IV 500 / 500 1400 / 1400 200 / 200 NS Inj 1,000 ML @ 100 mls/hr IV 500 / 500 1000 / 1000 .CONT .Q10H [facility] Rx#:[id number] Prostaphlin Inj 2 GM In NS Inj 400 / 400 200 / 200 100 ML @ 200 mls/hr IV.SIG Q4H [facility] Rx#:[id number] Oral 290 / 290 Output: Urine 700 / 700 Other: # Voids 2 Narrative: GENERAL: This is a thin appearing male, in no apparent distress. SKIN: Warm and dry. HEENT: Normocephalic. Pupils equal round and reactive. Nose without bleeding. Airway patent. NECK: Trachea midline. CARDIOVASCULAR: Regular rate and rhythm without murmurs, gallops, or rubs. RESPIRATORY: Clear to auscultation. Breath sounds equal bilaterally. No wheezes , rales, or rhonchi. GASTROINTESTINAL: Abdomen soft, non-tender, nondistended. Bowel Sounds normoactive x4. MUSCULOSKELETAL: Extremities without clubbing, cyanosis, or edema. NEUROLOGICAL: Awake and alert. Calm. No focal neuro deficit. Moves all extremities. Normal speech. Results - Labs CBC & Chem 7: 09/24/18 11:00 09/24/18 11:00 Laboratory Results - last 24 hr 09/24/18 09/24/18 09/24/18 04:21 11:00 11:00 WBC 9.3 RBC 3.73 L Hgb 10.5 L Hct 31.2 L MCV 83.9 MCH 28.2 MCHC 33.6 RDW 15.2 Plt Count 415 MPV 7.5 Sodium 138 Potassium 3.9 Chloride 105 Carbon Dioxide 26.6 Anion Gap 6 BUN 10 Creatinine 0.81 0.80 Estimated GFR Greater than 89 Greater than 89 Random Glucose 113 H Calcium 7.9 L Microbiology 09/23/18 05:31 Blood - Peripheral Aerobic Blood Culture - Preliminary gram positive cocci 09/23/18 05:31 Blood - Peripheral Anaerobic Blood Culture - Preliminary No growth in 1 day 09/23/18 05:13 Blood - Peripheral Aerobic Blood Culture - Preliminary gram positive cocci 09/23/18 05:13 Blood - Peripheral Anaerobic Blood Culture - Preliminary No growth in 1 day 09/21/18 00:40 Blood - Peripheral Aerobic Blood Culture - Final Staphylococcus aureus 09/21/18 00:40 Blood - Peripheral Anaerobic Blood Culture - Final Staphylococcus aureus 09/21/18 00:35 Blood - Peripheral Aerobic Blood Culture - Final Staphylococcus aureus 09/21/18 00:35 Blood - Peripheral Anaerobic Blood Culture - Final Staphylococcus aureus Assessment and Plan - Assessment (1) Acute thoracic back pain Code(s): M54.6 - Pain in thoracic spine Status: Acute (2) Intravenous drug abuse Code(s): F19.10 - Other psychoactive substance abuse, uncomplicated Status: Chronic - Plan 28-year-old male with a history of IV drug use who was admitted to the hospital on 09/21/2018 due to lower back pain as well as fever started about 7-8 days ago. He did not have any lower extremity weakness or loss of bowel or bladder control. He was a started on vancomycin and Zosyn upon admission. Probably epidural abscess Staph aureus bacteremia IVDU Neurosurgery was consulted. Neurosurgery recommended contrast enhanced MRI study, which patient refused. Repeat MRI study done 09/23/18 -Repeat 09/23/18 Thoracic MRI showed There is diffuse mild epidural enhancement involving the mid to lower thoracic canal on examination, however mass producing collection which had been suspected previously is not seen. Infectious disease consulted. Echo 60-65% ejection fraction, no endocarditis noted. Continue vancomycin. Zosyn has been discussed Percocet for pain control. -Cultures continue to come back with gram positive cocci. Infectious disease notified. Plan for prolonged antibiotic use and possible [place] transfer. Unable to trust patient with IV access since he was even found to have illicit substance during hospitalization. Patient will also be unable to make it to the IV infusion center as he mentions. IV drug use, heroin -Monitor for withdrawals. Patient appears to be getting agitated and anxious -Ativan PRN -May use clonidine patch if needed to decrease anxiety -Found to have illicit substance yesterday. No visitors allowed. Full code. SCDs. If patient remains in bed, will start Lovenox if okay with neurosurgery Discussed Condition With: Discussed with patient, nursing, Dr. Dumont Discharge Planning: Prolonged IV antibiotic use. Possible [place] transfer for continuous antibiotics. (1) Acute thoracic back pain Qualifiers: Back pain laterality: midline Qualified Code(s): M54.6 - Pain in thoracic spine
--- NOTE | 2018-09-24 17:04 | P.PNID ---
Subjective Remarks: MR T spine done and has no epidural abscesses co chills no fever more + blood cultures w [facility] denies problems walking c/o severe pain in the back chart reviewed: Reported by nurses, patient locked himself in the bathroom. Girlfriend at the bedside. Patient was then noted to be pacing the room, does not know what is going on, noted to be tachycardic in the 140s. Nurses instructed to call security to stop patient visitation. And they may search patient belongings. Nurses report that they found illicit substance, "heroin rock vs meth in his possession. Antibiotics: oxacillin Allergies/Adverse Reactions: Allergies No Known Allergies Allergy (Verified 09/17/18 13:40) Objective Vital Signs 09/23/18 20:00 09/24/18 00:00 09/24/18 01:46 Temperature 98.5 F 98.2 F Pulse Rate 73 75 74 Respiratory Rate 18 18 Blood Pressure 108/65 115/64 Pulse Oximetry 95 97 09/24/18 05:39 09/24/18 07:59 09/24/18 12:30 Temperature 98.0 F 98.4 F 97.8 F Pulse Rate 80 89 76 Respiratory Rate 20 20 18 Blood Pressure 114/64 125/66 117/72 Pulse Oximetry 98 95 98 09/24/18 16:32 Temperature 98.1 F Pulse Rate 70 Respiratory Rate 20 Blood Pressure 118/79 Pulse Oximetry 97 Intake & Output 09/23/18 09/24/18 09/24/18 18:59 06:59 18:59 Intake Total 500 / 500 1400 / 1400 490 / 490 Output Total 700 / 700 Balance 500 / 500 1400 / 1400 -210 / -210 Weight 67.2 kg Intake: IV 500 / 500 1400 / 1400 200 / 200 NS Inj 1,000 ML @ 100 mls/hr IV 500 / 500 1000 / 1000 .CONT .Q10H [facility] Rx#:[id number] Prostaphlin Inj 2 GM In NS Inj 400 / 400 200 / 200 100 ML @ 200 mls/hr IV.SIG Q4H [facility] Rx#:[id number] Oral 290 / 290 Output: Urine 700 / 700 Other: # Voids 2 09/23/18 05:31 Blood - Peripheral Aerobic Blood Culture - Preliminary gram positive cocci 09/23/18 05:31 Blood - Peripheral Anaerobic Blood Culture - Preliminary No growth in 1 day 09/23/18 05:13 Blood - Peripheral Aerobic Blood Culture - Preliminary gram positive cocci 09/23/18 05:13 Blood - Peripheral Anaerobic Blood Culture - Preliminary No growth in 1 day 09/21/18 00:40 Blood - Peripheral Aerobic Blood Culture - Final Staphylococcus aureus 09/21/18 00:40 Blood - Peripheral Anaerobic Blood Culture - Final Staphylococcus aureus 09/21/18 00:35 Blood - Peripheral Aerobic Blood Culture - Final Staphylococcus aureus 09/21/18 00:35 Blood - Peripheral Anaerobic Blood Culture - Final Staphylococcus aureus Lab - Hematology Results 09/24/18 11:00 WBC 9.3 RBC 3.73 L Hgb 10.5 L Hct 31.2 L MCV 83.9 MCH 28.2 MCHC 33.6 RDW 15.2 Plt Count 415 MPV 7.5 Lab - Chemistry Results 09/24/18 09/24/18 04:21 11:00 Sodium 138 Potassium 3.9 Chloride 105 Carbon Dioxide 26.6 Anion Gap 6 BUN 10 Creatinine 0.81 0.80 Estimated GFR Greater than 89 Greater than 89 Random Glucose 113 H Calcium 7.9 L Imaging: ITS Impressions Abdomen/Pelvis CT 09/21/18 00:21 CONCLUSION: 1. Negative CT abdomen/pelvis with contrast. Chest X-Ray 09/21/18 00:21 CONCLUSION: The lungs are clear. Lumbar Spine CT 09/21/18 00:21 CONCLUSION: 1. No acute findings. No evidence of acute fracture or spondylolisthesis. 2. Central and left-sided disc protrusion at L5-S1 is smaller than on prior MRI December 2017. There is also moderate left-sided lateral recess stenosis at L5- S1 due to bony hypertrophy. Thoracic Spine CT 09/21/18 00:21 CONCLUSION: 1. No evidence of acute fracture or spondylolisthesis. Moderate multilevel degenerative changes in the endplates. Thoracic Spine MRI 09/23/18 00:00 CONCLUSION: There is diffuse mild epidural enhancement involving the mid to lower thoracic canal on today's examination, however mass producing collection which had been suspected previously is not seen today. Physical Exam: GENERAL: SKIN: Warm and dry. HEAD: Atraumatic. Normocephalic. EYES: Pupils equal and round. No scleral icterus. No injection or drainage. ENT: No nasal bleeding or discharge. Mucous membranes pink and moist. NECK: Trachea midline. No JVD. CARDIOVASCULAR: Regular rate and rhythm. RESPIRATORY: No accessory muscle use. Clear to auscultation. Breath sounds equal bilaterally. GASTROINTESTINAL: Abdomen soft, non-tender, nondistended. Hepatic and splenic margins not palpable. MUSCULOSKELETAL: Extremities without clubbing, cyanosis, or edema. No obvious deformities. NEUROLOGICAL: Awake and alert. Non focal. Normal speech. PSYCHIATRIC: Appropriate mood and affect; Assessment and Plan - Plan IVDU MSSA bacteremia, perisistent epidural space abscess at the T6-T7 level and extending inferiorly through at least T8-T9 - contrasted MR sowed no he refuses further MR unless under anesthesia Cont oxacillin fu repeat BC consilt cardiology for LISA dariel MUNGUIA
--- NOTE | 2018-09-24 21:07 | MB ---
cc: Kana Mejia MD DATE: 09/24/2018 HISTORY OF PRESENT ILLNESS: Lake is a 28-year-old gentleman with history of IV drug abuse. Consult was obtained for evaluation for LISA. The patient denies dysphagia. Further review of systems is negative for any chest pain, dyspnea, GI or bleeding, PND, orthopnea, syncope, or dizziness. PAST MEDICAL HISTORY: As per history of present illness. ALLERGIES: NONE. SOCIAL HISTORY: Denies tobacco use but drinks alcohol less than once per month. Actively uses IV drugs. MEDICATIONS IN THE HOSPITAL: Oxacillin. PHYSICAL EXAMINATION: VITAL SIGNS: Temperature 98.1, pulse 70, blood pressure 118/79, respiratory rate 20. GENERAL: He is alert and oriented x3, in no acute distress. NECK: Supple. No JVD. No bruit. CARDIOVASCULAR: S1, S2. No murmurs, rubs, or gallops. LUNGS: Clear to auscultation bilaterally. ABDOMEN: Soft, nontender, nondistended with positive bowel sounds. EXTREMITIES: No lower extremity edema. LABORATORY DATA: Blood cultures are growing out Staphylococcus aureus and gram-positive cocci. Thoracic spine MRI on 09/21/2018: Examination quality significantly degraded by motion artifact. There is abnormal T2 hyperintense abnormality in the anterior epidural space at the T6-T7 level and extending inferiorly to at least T8-T9. This finding is new since the study from 9 months ago, excluding an arachnoid cyst as the etiology. Given the clinical history for an abscess, it is possible this represents an epidural abscess; however, the adjacent disk spaces demonstrate no significant abnormality, which would favor against an infectious process that would be ideal to further evaluate with pre and post-contrast enhanced imaging to evaluate for an abnormal enhancement of the structure when the patient's condition permits for adequate imaging without motion artifact. The epidural process has mass effect on the spinal cord at the above described levels, but spinal cord signal intensity remains within normal limits. Abdominal pelvic CT: Negative CT abdomen and pelvis with contrast. Chest x-ray: Lungs are clear. EKG: Normal sinus rhythm at 90 beats per minute, nonspecific ST-T wave changes. A lumbar spine CT: No acute findings. No evidence of acute fracture or spondylolisthesis. Central and left-sided disk protrusion at L5-S1 is smaller than on prior MRI 12/2017. There is also a moderate left-sided lateral recess stenosis at L5-S1 due to bony hypertrophy. Thoracic spine CT: No evidence of acute fracture or spondylolisthesis, moderate multilevel degenerative changes in the end plates. Echocardiogram 09/22/2018: EF 60% to 65%, trace MR, trace TR. Thoracic spine MRI 09/23/2018: There is diffuse mild epidural enhancement involved being the [id number] thoracic canal at today's examination; however, mass producing collection, which had been suspected previously, is not seen today. White count 9.3, hemoglobin 10.5, hematocrit 31.2, platelet count 415. Initial white count was 11.8. INR 1.3. Sodium 138, potassium 2.9, chloride 105, bicarbonate 26.6, BUN 10, creatinine 0.80, glucose 113. LFTs normal. Troponin less than 0.02. C-reactive protein 16.80. Toxicology vancomycin 9.5. DIAGNOSES: 1. Bacteremia. 2. Leukocytosis. 3. Anemia. 4. Coagulopathy. 5. Hyperglycemia. 6. IV drug abuse. DISCUSSION: I have explained to the patient the indication for LISA. The patient consents. He denies dysphagia. Plan is to attempt a LISA on 09/25/2018 if the patient can cooperate with lying in the proper positions, which thus far he has not been able to do. MD BLAIR Blank/ts , 08:08 PM , 08:17 PM
[2018-09-25] MEDS ORDERED: Pharmacy Ordered Lab Info OTHER ONE (01:45)
[2018-09-25] MEDS: LORazepam 1 MG Tablet PO PRN ×4 (02:14→20:22)
[2018-09-25] MEDS: oxyCODONE/Acetaminophen 10/325 Tablet PO PRN ×4 (02:14→20:24)
[2018-09-25] MEDS: Sod Chloride 0.9% Inj 1,000 ML IV.CONT SCH (08:15)
--- NOTE | 2018-09-25 10:14 | P.PNCA ---
Subjective Interval history: alert in nad Medications and Allergies Active Medications: Active Medications Acetaminophen (Tylenol) 650 mg PO Q4H PRN PRN Reason: Temp > 100.4 Al Hydroxide/Mg Hydroxide (Milk Of Magnesia Liq) 30 ml PO Q12H PRN PRN Reason: Mild Constipation Bisacodyl (Dulcolax Supp) 10 mg RECTAL DAILY PRN PRN Reason: SEVERE CONSITIPATION Clonidine HCl (Catapress-Tts 0.1 Mg Patch.7d) 1 patch T-DERMAL Q7D [facility] Last Admin: 09/23/18 23:23 Dose: 1 patch Oxacillin Sodium 2 gm/ Sodium (Chloride) 100 mls @ 200 mls/hr IV.SIG Q4H [facility] Last Infusion: 09/25/18 08:38 Dose: Infused Lactulose (Lactulose Liq) 30 ml PO DAILY PRN PRN Reason: SEVERE CONSITIPATION Lorazepam (Ativan) 1 mg PO Q6H PRN PRN Reason: Anxiety, Witdrawal Symptoms Last Admin: 09/25/18 08:15 Dose: 1 mg Morphine Sulfate (Morphine Inj) 4 mg IV.PUSH Q3H PRN PRN Reason: BREAKTHROUGH PAIN Last Admin: 09/24/18 17:05 Dose: 4 mg Naloxone HCl (Narcan Inj) 0.4 mg IV.PUSH UNSCH PRN PRN Reason: SEE LABEL COMMENTS Ondansetron HCl (Zofran Inj) 4 mg IV.PUSH Q6H PRN PRN Reason: NAUSEA OR VOMITING Oxycodone/Acetaminophen (Percocet 10/325 Mg) 1 tab PO Q6H PRN PRN Reason: PAIN SCALE 6 TO 10 Last Admin: 09/25/18 08:14 Dose: 1 tab Oxycodone/Acetaminophen (Percocet 5/325 Mg) 1 tab PO Q6H PRN PRN Reason: PAIN SCALE 3 TO 5 Patch Removal (Remove Old Patch) 1 each T-DERMAL Q7D [facility] Sennosides (Senokot) 17.2 mg PO Q12H PRN PRN Reason: Moderate Constipation Sodium Chloride (Ns Flush) 2 ml IV.FLUSH BID [facility] Last Admin: 09/25/18 08:15 Dose: Not Given Sodium Chloride (Ns Flush) 2 ml IV.FLUSH PRN PRN PRN Reason: FLUSH AFTER USING IV ACCESS Allergies Allergy/AdvReac Type Severity Reaction Status Date / Time No Known Allergies Allergy Verified 09/17/18 13:40 Home Medications Medication Instructions Recorded Confirmed Type No Known Home Medications 09/17/18 09/21/18 History Physical Exam Vital signs: Vital Signs 09/24/18 12:30 09/24/18 16:32 09/24/18 20:00 Temperature 97.8 F 98.1 F 98.9 F Pulse Rate 76 70 84 Respiratory Rate 18 20 20 Blood Pressure 117/72 118/79 132/84 Pulse Oximetry 98 97 95 09/25/18 00:00 09/25/18 04:00 09/25/18 07:00 Temperature 98.7 F 98.7 F Pulse Rate 84 84 Respiratory Rate 20 20 12 Blood Pressure 109/65 109/65 Pulse Oximetry 98 98 09/25/18 08:03 Temperature 97.6 F Pulse Rate 122 H Respiratory Rate 16 Blood Pressure 127/77 Pulse Oximetry 96 Intake & Output 09/24/18 09/25/18 09/25/18 18:59 06:59 18:59 Intake Total 2830 / 2830 300 / 300 100 / 100 Output Total 800 / 800 3 / 3 475 / 475 Balance 2029 / 2029 297 / 297 -375 / -375 Weight 67.9 kg Intake: IV 1300 / 1300 300 / 300 100 / 100 NS Inj 1,000 ML @ 50 mls/hr IV. 1000 / 1000 CONT .Q20H [facility] Rx#:[id number] Prostaphlin Inj 2 GM In NS Inj 300 / 300 300 / 300 100 / 100 100 ML @ 200 mls/hr IV.SIG Q4H [facility] Rx#:[id number] Oral 1530 / 1530 Output: Urine 800 / 800 3 / 3 475 / 475 Other: Date of Last Bowel Movement 09/25/18 - Constitutional no acute distress - Routine HEENT Exam Head: Present: normocephalic - Routine Neck Exam Present: supple - Routine Respiratory Exam Present: CTA bilaterally - Routine Cardiovascular Exam Present: S1, S2 - Routine Abdominal Exam Present: soft - Routine Extremities Exam Comments: no jessica Results 09/24/18 11:00 09/24/18 11:00 CBC 09/24/18 Range/Units 11:00 WBC 9.3 (4.0-11.0) th/mm3 RBC 3.73 L (4.50-5.90) mil/mm3 Hgb 10.5 L (13.0-17.0) gm/dL Hct 31.2 L (39.0-51.0) % Plt Count 415 (150-450) th/mm3 Comprehensive Metabolic Panel 09/24/18 09/24/18 Range/Units 04:21 11:00 Sodium 138 (136-145) meq/L Potassium 3.9 (3.5-5.1) meq/L Chloride 105 (98-107) meq/L Carbon Dioxide 26.6 (21.0-32.0) meq/L BUN 10 (7-18) mg/dL Creatinine 0.81 0.80 (0.60-1.30) mg/dL Calcium 7.9 L (8.5-10.1) mg/dL Intake and Output 09/24/18 09/25/18 09/25/18 22:59 06:59 14:59 Intake Total 2440 / 2440 200 / 200 100 / 100 Output Total 100 / 100 3 / 3 475 / 475 Balance 2340 / 2340 197 / 197 -375 / -375 Intake: IV 1200 / 1200 200 / 200 100 / 100 NS Inj 1,000 ML @ 50 mls/hr IV. 1000 / 1000 CONT .Q20H [facility] Rx#:[id number] Prostaphlin Inj 2 GM In NS Inj 200 / 200 200 / 200 100 / 100 100 ML @ 200 mls/hr IV.SIG Q4H [facility] Rx#:[id number] Oral 1240 / 1240 Output: Urine 100 / 100 3 / 3 475 / 475 Other: Date of Last Bowel Movement 09/25/18 Weight 67.9 kg - Imaging and Cardiology Imaging: Impressions Thoracic Spine MRI 09/23/18 00:00 CONCLUSION: There is diffuse mild epidural enhancement involving the mid to lower thoracic canal on today's examination, however mass producing collection which had been suspected previously is not seen today. Assessment and Plan - Assessment (1) Bacteremia Code(s): R78.81 - Bacteremia Status: Acute (2) Intravenous drug abuse Code(s): F19.10 - Other psychoactive substance abuse, uncomplicated Status: Chronic - Plan 1.) Bacteremia - patient ate, so ashley canceled today, plan ashley 09/26/18
--- NOTE | 2018-09-25 11:33 | P.PNIM ---
Subjective Interval history: Follow-up for diskitis, staph aureus bacteremia, IVDU. Patient seen and examined today. Continues to report back pain, rated 10/10, aggravated by movement. More calm. Denies SOB/ dyspnea. Denies chest pain, palpitations, headaches, dizziness. Denies fevers, chills, n/v/d. Denies dysuria. Physical Exam Vital signs: Vital Signs 09/24/18 12:30 09/24/18 16:32 09/24/18 20:00 Temperature 97.8 F 98.1 F 98.9 F Pulse Rate 76 70 84 Respiratory Rate 18 20 20 Blood Pressure 117/72 118/79 132/84 Pulse Oximetry 98 97 95 09/25/18 00:00 09/25/18 04:00 09/25/18 07:00 Temperature 98.7 F 98.7 F Pulse Rate 84 84 Respiratory Rate 20 20 12 Blood Pressure 109/65 109/65 Pulse Oximetry 98 98 09/25/18 08:00 09/25/18 08:03 09/25/18 10:48 Temperature 97.6 F Pulse Rate 140 H 122 H Respiratory Rate 16 12 Blood Pressure 127/77 Pulse Oximetry 96 Intake & Output 09/24/18 09/25/18 09/25/18 18:59 06:59 18:59 Intake Total 2830 / 2830 300 / 300 100 / 100 Output Total 800 / 800 3 / 3 475 / 475 Balance 2029 / 2029 297 / 297 -375 / -375 Weight 67.9 kg Intake: IV 1300 / 1300 300 / 300 100 / 100 NS Inj 1,000 ML @ 50 mls/hr IV. 1000 / 1000 CONT .Q20H SETH Rx#:[id number] Prostaphlin Inj 2 GM In NS Inj 300 / 300 300 / 300 100 / 100 100 ML @ 200 mls/hr IV.SIG Q4H SETH Rx#:[id number] Oral 1530 / 1530 Output: Urine 800 / 800 3 / 3 475 / 475 Other: Date of Last Bowel Movement 09/25/18 Narrative: GENERAL: This is a thin appearing male, in no apparent distress. SKIN: Warm and dry. HEENT: Normocephalic. Pupils equal round and reactive. Nose without bleeding. Airway patent. NECK: Trachea midline. CARDIOVASCULAR: Regular rate and rhythm without murmurs, gallops, or rubs. RESPIRATORY: Clear to auscultation. Breath sounds equal bilaterally. No wheezes , rales, or rhonchi. GASTROINTESTINAL: Abdomen soft, non-tender, nondistended. Bowel Sounds normoactive x4. MUSCULOSKELETAL: Extremities without clubbing, cyanosis, or edema. Tenderness to palpate mid thoracic lumbar area. NEUROLOGICAL: Awake and alert. Calm. No focal neuro deficit. Moves all extremities. Normal speech. Results - Labs CBC & Chem 7: 09/24/18 11:00 09/24/18 11:00 Laboratory Results - last 24 hr 09/24/18 11:00 Sodium 138 Potassium 3.9 Chloride 105 Carbon Dioxide 26.6 Anion Gap 6 BUN 10 Creatinine 0.80 Estimated GFR Greater than 89 Random Glucose 113 H Calcium 7.9 L Microbiology 09/23/18 05:31 Blood - Peripheral Aerobic Blood Culture - Final Staphylococcus aureus 09/23/18 05:31 Blood - Peripheral Anaerobic Blood Culture - Preliminary No growth in 2 days 09/23/18 05:13 Blood - Peripheral Aerobic Blood Culture - Final Staphylococcus aureus 09/23/18 05:13 Blood - Peripheral Anaerobic Blood Culture - Preliminary No growth in 2 days Assessment and Plan - Assessment (1) Acute thoracic back pain Code(s): M54.6 - Pain in thoracic spine Status: Acute (2) Intravenous drug abuse Code(s): F19.10 - Other psychoactive substance abuse, uncomplicated Status: Chronic - Plan 28-year-old male with a history of IV drug use who was admitted to the hospital on 09/21/2018 due to lower back pain as well as fever started about 7-8 days ago. He did not have any lower extremity weakness or loss of bowel or bladder control. He was a started on vancomycin and Zosyn upon admission. Probably epidural abscess Staph aureus bacteremia IVDU Neurosurgery was consulted. Neurosurgery recommended contrast enhanced MRI study, which patient refused. Repeat MRI study done 09/23/18 -Repeat 09/23/18 Thoracic MRI showed There is diffuse mild epidural enhancement involving the mid to lower thoracic canal on examination, however mass producing collection which had been suspected previously is not seen. Infectious disease consulted. Echo 60-65% ejection fraction, no endocarditis noted. Percocet for pain control. -Cultures continue to come back with gram positive cocci. Infectious disease notified. Plan for prolonged antibiotic use and possible [place] transfer. Unable to trust patient with IV access since he was even found to have illicit substance during hospitalization. Patient will also be unable to make it to the IV infusion center as he mentions. -IV oxacillin as per ID recommendation. Vancomycin/Zosyn has been discontinued. Possible prolonged IV antibiotics use as per ID. -Recommending LISA. Plan for LISA possibly by tomorrow. Cardiology consulted. IV drug use, heroin -Monitor for withdrawals. Patient appears to be getting agitated and anxious -Ativan PRN -Clonidine patch if needed to decrease anxiety -Found to have illicit substance. No visitors allowed. Full code. SCDs. If patient remains in bed, will start Lovenox if okay with neurosurgery Discussed Condition With: Patient, nursing, Dr. Dumont Discharge Planning: Prolonged IV antibiotic use. LISA planned (1) Acute thoracic back pain Qualifiers: Back pain laterality: midline Qualified Code(s): M54.6 - Pain in thoracic spine
[2018-09-25] MEDS: Morphine Inj 4 MG/ML Vial IV.PUSH PRN ×2 (13:35→18:00)
[2018-09-26] MEDS: LORazepam 1 MG Tablet PO PRN ×2 (04:02→11:44)
[2018-09-26] MEDS: oxyCODONE/Acetaminophen 10/325 Tablet PO PRN ×2 (04:02→11:44)
[2018-09-26] MEDS: Morphine Inj 4 MG/ML Vial IV.PUSH PRN ×2 (07:46→12:28)
[2018-09-26 08:07] VITALS: RESP 18
--- NOTE | 2018-09-26 09:46 | P.PNIM ---
Subjective Interval history: Follow-up for diskitis, staph aureus bacteremia, IVDU. Patient seen and examined today. Patient continues to report back pain. States he is getting depressed because he cannot have any visitors. Patient states that his son wanted to visit him and his mother but he is not allowed to have visitors. He admits to what he has done in the past that caused him to not have visitors. He is asking if he could have at least a visitor. Discussed with patient will discuss with nursing he may have a supervised visit if allowable. Otherwise, denies SOB/ dyspnea. Denies chest pain, palpitations, headaches, dizziness. Denies fevers, chills, n/v/d. Denies hematuria, dysuria. Plan for LISA today Physical Exam Vital signs: Vital Signs 09/25/18 10:48 09/25/18 13:37 09/25/18 14:36 Temperature 98.1 F Pulse Rate 93 H 86 Respiratory Rate 12 16 Blood Pressure 129/80 Pulse Oximetry 98 09/25/18 16:32 09/25/18 16:46 09/25/18 20:00 Temperature 98.7 F 97.8 F Pulse Rate 80 89 84 Respiratory Rate 16 20 Blood Pressure 123/73 123/76 Pulse Oximetry 98 98 09/26/18 00:00 09/26/18 04:00 09/26/18 07:00 Temperature 97.6 F 97.4 F L Pulse Rate 78 78 Respiratory Rate 18 19 12 Blood Pressure 122/74 113/58 L Pulse Oximetry 98 99 09/26/18 08:00 Temperature 98 F Pulse Rate 90 Respiratory Rate 18 Blood Pressure 112/58 L Pulse Oximetry 99 Intake & Output 09/25/18 09/26/18 09/26/18 18:59 06:59 18:59 Intake Total 540 / 540 300 / 300 340 / 340 Output Total 475 / 475 Balance 65 / 65 300 / 300 340 / 340 Weight 67.9 kg Intake: IV 300 / 300 300 / 300 100 / 100 Prostaphlin Inj 2 GM In NS Inj 300 / 300 300 / 300 100 / 100 100 ML @ 200 mls/hr IV.SIG Q4H SETH Rx#:[id number] Oral 240 / 240 240 / 240 Output: Urine 475 / 475 Other: # Voids 3 Date of Last Bowel Movement 09/25/18 09/25/18 Narrative: GENERAL: This is a thin appearing male, in no apparent distress. SKIN: Warm and dry. HEENT: Normocephalic. Pupils equal round and reactive. Nose without bleeding. Airway patent. NECK: Trachea midline. CARDIOVASCULAR: Regular rate and rhythm without murmurs, gallops, or rubs. RESPIRATORY: Clear to auscultation. Breath sounds equal bilaterally. No wheezes , rales, or rhonchi. GASTROINTESTINAL: Abdomen soft, non-tender, nondistended. Bowel Sounds normoactive x4. MUSCULOSKELETAL: Extremities without clubbing, cyanosis, or edema. Tenderness to palpate mid thoracic lumbar area. NEUROLOGICAL: Awake and alert. Calm. No focal neuro deficit. Moves all extremities. Normal speech. Results - Labs CBC & Chem 7: 09/24/18 11:00 09/24/18 11:00 Microbiology 09/23/18 05:31 Blood - Peripheral Aerobic Blood Culture - Final Staphylococcus aureus 09/23/18 05:31 Blood - Peripheral Anaerobic Blood Culture - Preliminary No growth in 2 days 09/23/18 05:13 Blood - Peripheral Aerobic Blood Culture - Final Staphylococcus aureus 09/23/18 05:13 Blood - Peripheral Anaerobic Blood Culture - Preliminary No growth in 2 days Assessment and Plan - Assessment (1) Acute thoracic back pain Code(s): M54.6 - Pain in thoracic spine Status: Acute (2) Intravenous drug abuse Code(s): F19.10 - Other psychoactive substance abuse, uncomplicated Status: Chronic - Plan 28-year-old male with a history of IV drug use who was admitted to the hospital on 09/21/2018 due to lower back pain as well as fever started about 7-8 days ago. He did not have any lower extremity weakness or loss of bowel or bladder control. He was a started on vancomycin and Zosyn upon admission. Probably epidural abscess Staph aureus bacteremia IVDU Neurosurgery was consulted. Neurosurgery recommended contrast enhanced MRI study, which patient refused. Repeat MRI study done 09/23/18 -Repeat 09/23/18 Thoracic MRI showed There is diffuse mild epidural enhancement involving the mid to lower thoracic canal on examination, however mass producing collection which had been suspected previously is not seen. Infectious disease consulted. Echo 60-65% ejection fraction, no endocarditis noted. Percocet for pain control. -Cultures continue to come back with gram positive cocci. Infectious disease notified. Plan for prolonged antibiotic use and possible port [place] transfer. Unable to trust patient with IV access since he was even found to have illicit substance during hospitalization. Patient will also be unable to make it to the IV infusion center as he mentions. -IV oxacillin as per ID recommendation. Vancomycin/Zosyn has been discontinued. Possible prolonged IV antibiotics use as per ID. -Recommending LISA. Plan for LISA. Cardiology consulted. -DVT prop Heparin for now. If ID and/or neurosx decides for biopsy or any surgical intervention, hold heparin. Patient is not as active and mobile due to back pain, increase risk for DVT. Wells score 1 with moderate risk for DVT. IV drug use, heroin -Monitor for withdrawals. Patient appears to be getting agitated and anxious -Ativan PRN -Clonidine patch if needed to decrease anxiety. -Found to have illicit substance. No visitors allowed. -We will ask community service officer if supervised visitation will be allowed for the patient. Depression -Ativan to continue -Possible psych evaluation -May benefit with antidepressants, will start Buspar VS Prozac Full code. SCDs. Heparin Discussed Condition With: Patient, nurse Discharge Planning: Prolonged IV antibiotic use. LISA planned (1) Acute thoracic back pain Qualifiers: Back pain laterality: midline Qualified Code(s): M54.6 - Pain in thoracic spine
[2018-09-26] MEDS ORDERED: *Meperidine Inj 25 MG/ML Vial PERIprocedural Use ONLY ONE (11:16)
--- NOTE | 2018-09-26 11:45 | ECHRPT ---
Indication: ENODOCARDITIS CONCLUSIONS !.) Normal lv size, wall thickness and sytolic function, ef=60% 2,) Left atrial appendage appears to be 3.) No definate evidence of sbe 4.) Color Doppler avelautaion of atrial septum is negative for a shunt 5.) normal appearing thoracic aorta BP: / HR: Rhythm: Technical Quality: Medications Complications Proc. Components Kana Mejia MD, FACC, [facility] (Electronically Signed) Final Date:26 September 2018 11:44
[2018-09-26 12:21] VITALS: BP 114/69; PULSE 85; TEMP 97.9; O2SAT 98
[2018-09-26] MEDS ORDERED: Heparin - SQ 10,000 UNITS/ML Vial SQ SCH ×2 (13:15→21:00)
[2018-09-26] MEDS ORDERED: FLUoxetine 20 MG Capsule PO SCH (14:15)
== END 2018-09-26 16:12 | disposition left against medical advice (07) ==
LOC: NEPC 23:37 → NEDA 09-21 03:04 → N05 09-21 09:37
PROVIDERS: ADMIT Internal Medicine; ATTEND Internal Medicine
DX: F11.10 Opioid abuse, uncomplicated; Z87.440 Personal history of urinary (tract) infections; M51.27 Other intervertebral disc displacement, lumbosacral region; R73.9 Hyperglycemia, unspecified; B95.61 Methicillin susceptible Staphylococcus aureus infection as the cause of diseases classified elsewhere; M54.6 Pain in thoracic spine; F41.9 Anxiety disorder, unspecified; G06.2 Extradural and subdural abscess, unspecified; D64.9 Anemia, unspecified; Z83.3 Family history of diabetes mellitus; F14.90 Cocaine use, unspecified, uncomplicated; F12.90 Cannabis use, unspecified, uncomplicated; F19.90 Other psychoactive substance use, unspecified, uncomplicated; M48.061 Spinal stenosis, lumbar region without neurogenic claudication; D68.9 Coagulation defect, unspecified; F32.9 Major depressive disorder, single episode, unspecified

== ENCOUNTER 2018-09-26 15:33 | Inpatient (IN) ==
--- NOTE | 2018-09-26 16:46 | ED ---
HPI General Chief complaint: Medical Clearance Stated complaint: back pain Time Seen by Provider: 09/26/18 16:40 History of Present Illness HPI narrative: 28-year-old male with history of bacteremia, IV drug use, discitis, returns for readmission. Apparently the patient was just admitted here but he left his room. He reportedly told the nurse that he had a "panic attack" and he went on a walk. He then reports that he got lost. He then apparently checked back into the emergency room. His workup reveals bacteremia , discitis. History of heroin abuse. Complaining of lower back pain, aching, worse with movement. No other complaints. Related Data Home Medications Medication Instructions Recorded Confirmed No Known Home Medications 09/17/18 09/26/18 Allergies Allergy/AdvReac Type Severity Reaction Status Date / Time No Known Allergies Allergy Verified 09/17/18 13:40 Review of Systems ROS: all other systems reviewed are negative [facility] Social History Social History Substance History: Active Abuse Second Hand Smoke Exposure: Yes Smoking Status: Current every day smoker Tobacco Type: Cigarettes How Often Do You Have a Drink Containing Alcohol: 2 to 4 times a month Recent Travel in [facility] within the Last 8 Weeks: No Recent Out of Country Travel within the Last 8 Weeks: No Immunization History Tetanus Immunization: <5 Years Exam Narrative Exam Narrative: GENERAL: Disheveled male in no acute distress, tachycardic in triage. SKIN: Warm and dry. HEAD: Atraumatic. Normocephalic. EYES: Pupils equal and round. No scleral icterus. No injection or drainage. ENT: No nasal bleeding or discharge. Mucous membranes pink and moist. NECK: Trachea midline. No JVD. CARDIOVASCULAR: Regular rate and rhythm. No murmur appreciated. RESPIRATORY: No accessory muscle use. Clear to auscultation. Breath sounds equal bilaterally. GASTROINTESTINAL: Abdomen soft, non-tender, nondistended. Hepatic and splenic margins not palpable. MUSCULOSKELETAL: No obvious deformities. Tender to palpation in the lower back. NEUROLOGICAL: Awake and alert. No obvious cranial nerve deficits. Motor grossly within normal limits. Normal speech. PSYCHIATRIC: Appropriate mood and affect; insight and judgment normal. Course Initial Documented Vital Signs Temperature 98.4 F 09/26/18 15:57 Pulse Rate 148 H 09/26/18 15:57 Respiratory Rate 20 09/26/18 15:57 Blood Pressure 113/58 L 09/26/18 15:57 Pulse Oximetry 96 12/23/18 15:57 Last Documented Vital Signs Temperature 98.4 F 09/26/18 15:57 Pulse Rate 148 H 09/26/18 15:57 Respiratory Rate 20 09/26/18 15:57 Blood Pressure 113/58 L 09/26/18 15:57 Pulse Oximetry 96 09/26/18 15:57 Medical Decision Making MDM Narrative Medical decision making narrative: Lab work, blood cultures ordered. EKG reveals sinus rhythm with a rate of 73. The patient will be readmitted for further treatment. Medical Screen Exam Complete: Yes Emergency Medical Condition: Yes Differential Diagnosis Differential Diagnosis: Bacteremia, endocarditis, discitis, sepsis Discharge Plan Discharge Disposition Patient Disposition: ED Admit(ED Internal Use Only) Discharge Condition Condition: Stable Discharge Order Discharge Orders: ED Use Only Admit Order (Routine); Ordered 09/26/18 Ordered By: Juan Abdullahi Discharge Details Diagnosis: Intravenous drug abuse, Acute thoracic back pain, Bacteremia Physicians Team ED Provider: Maximilian Puentes ED Midlevel Provider: Juan Abdullahi Primary Care Provider: Primary Care Physici,Cassi Rxs /Orders / Referrals /Forms Prescriptions: No Action No Known Home Medications RF: 0 Status ED Status: With Doctor
[2018-09-26] MEDS ORDERED: Naloxone Inj 0.4 MG/ML Vial IV.PUSH PRN (18:10)
[2018-09-26] MEDS ORDERED: Bisacodyl 10 MG Supp RECTAL PRN (18:11)
[2018-09-26] MEDS ORDERED: FLUoxetine 20 MG Capsule PO ONE (18:18)
[2018-09-26 18:21] LABS: Baso # (Auto) 0.1 th/mm3 (0.0-0.2); Baso % (Auto) 0.4 % (0.0-2.0); Eos % (Auto) 0.1 % (0.0-4.0); Hematocrit 30.6 % (39.0-51.0); Hemoglobin 10.2 gm/dL (13.0-17.0); Lymph # (Auto) 1.4 th/mm3 (1.0-4.8); Lymph % (Auto) 10.7 % (9.0-44.0); Mean Corpuscular HGB Conc 33.4 % (32.0-36.0); Mean Corpuscular Hemoglobin 27.7 pg (27.0-34.0); Mean Corpuscular Volume 82.8 fL (80.0-100.0); Mean Platelet Volume 7.2 fL (7.0-11.0); Mono # (Auto) 1.2 th/mm3 (0.0-0.9); Mono % (Auto) 9.6 % (0.0-8.0); Neut # (Auto) 10.3 th/mm3 (1.8-7.7); Neut % (Auto) 79.2 % (16.0-70.0); Platelet Count 531 th/mm3 (150-450); Red Cell Distribution Width 14.9 % (11.6-17.2)
[2018-09-26] MEDS: Heparin - SQ 10,000 UNITS/ML Vial SQ SCH (18:21)
[2018-09-26 18:32] LABS: Alanine Aminotransferase 22 U/L (12-78); Albumin 2.7 g/dL (3.4-5.0); Alkaline Phosphatase 52 U/L (45-117); Anion Gap 6 meq/L (5-15); Aspartate Aminotransferase 24 U/L (15-37); Blood Urea Nitrogen 14 mg/dL (7-18); Calcium 8.1 mg/dL (8.5-10.1); Carbon Dioxide 27.1 meq/L (21.0-32.0); Chloride 109 meq/L (98-107); Glomerular Filtration Rate 78 mL/min (>89); Glucose,Random 83 mg/dL (74-106); Magnesium 2.4 mg/dL (1.5-2.5); Sodium 142 meq/L (136-145); Total Protein 7.5 g/dL (6.4-8.2)
[2018-09-26 18:33] LABS: Potassium 4.7 meq/L (3.5-5.1)
--- NOTE | 2018-09-26 18:36 | P.HP ---
History of Present Illness Service: [facility] Primary Care Physician: No Primary Care Physician Chief Complaint: Back pain History of Present Illness: 28-year-old male with a history of IV drug use who was initially admitted to the hospital on 09/21/2018 due to lower back pain as well as fever admitted to the hospital and has stayed since today 09/26/18. Patient states he had a panic attack and asked his nurse if he is able to get out of his room and walk around. The nurse agreed to him that he is able to walk around the unit however the patient thought that he is able to get out of the unit and he started wandering all the way to the other building in the [facility] [place]. He was brought back to the unit by a nurse from [facility] but because he was out of the unit for quite some time they signed him off as leaving AGAINST MEDICAL ADVICE. Patient states that he got lost and went back to the ED. States that he did not inject any drugs on him. As per report from ED attending , on the triage patient's heart rate is at the 148. Adamant that he did not do any drugs when he was away from the hospital. He was probably out of the hospital approximately about 2 hours. On exam patient's heart rate is in sinus rhythm rate in the 80s. Patient also had episode of having visitors giving him drugs and apparently was caught by nurse to be locked in the bathroom and all of a sudden started to pace in the room became tachycardic in the 140s. They found her when a rock in his possession. Patient states that he will not leave AGAINST MEDICAL ADVICE again. States that he knows he needs help and he is trying his best to stay in the hospital. He is been requesting for Xanax instead of Ativan. Discussed with patient extensively that he will continue with Ativan for now and we are going to add Zoloft for depression and also would help him with his anxiety. He will continue his antibiotics of oxacillin. He just completed LISA today. Patient states he is hungry. He also states that if he could get something for sleep as he has been trouble sleeping at night is probably making him more anxious. We will continue with no visitor policy for now. Denies SOB/ dyspnea. Denies chest pain, palpitations, headaches, dizziness. Denies fevers, chills, n/v/d. Denies hematuria, dysuria. EKG sinus rhythm with atrial enlargement - Diagnosis (1) Staphylococcus aureus bacteremia (2) Discitis (3) Intravenous drug abuse Review of Systems All other systems reviewed negative except as stated in HPI [facility] - History History Provided By: Patient - Medical / Surgical Hx Neg / Unobtainable Surgical History: No Previous Surgery - Medical History Medical History: Medical History (Last Reviewed 09/26/18 @ 18:26 by JUAN C Dee) IVDU (intravenous drug user) Patient denies medical problems - Surgical History Surgical History: Surgical History (Last Reviewed 09/26/18 @ 18:26 by JUAN C Dee) No history of previous surgery - Family History Family History: Family History (Last Reviewed 09/26/18 @ 18:26 by JUAN C Dee) Other Diabetes mellitus - Social History I have reviewed the patient's Social History: Yes - Tobacco History Second Hand Smoke Exposure: Yes Tobacco Use In Past 30 Days: Yes Smoking Status: Current every day smoker Tobacco Type: Cigarettes - Alcohol History How Often Do You Have a Drink Containing Alcohol: 2 to 4 times a month - Substance Use History Substance History: Active Abuse - Substance Use Type Heroin Status: Active Route Used: Intravenously Last Used: 09/20/18 - Travel History Recent Travel in the USA Within the Last 8 Weeks: No Recent Travel Out of the Country Within the Last 8 Weeks: No - Immunization History Tetanus Immunization: <5 Years Medications and Allergies Active Medications: Active Medications Acetaminophen (Tylenol) 650 mg PO Q4H PRN PRN Reason: Temp > 100.4, PRESTON, pain 1-2 Al Hydroxide/Mg Hydroxide (Milk Of Magnesia Liq) 30 ml PO Q12H PRN PRN Reason: Mild Constipation Bisacodyl (Dulcolax Supp) 10 mg RECTAL DAILY PRN PRN Reason: SEVERE CONSITIPATION Fluoxetine HCl (Prozac) 20 mg PO ONCE ONE Stop: 09/26/18 18:19 Heparin Sodium (Porcine) (Heparin Inj) 5,000 units SQ Q12H SETH Oxacillin Sodium 2 gm/ Sodium (Chloride) 100 mls @ 200 mls/hr IV.SIG Q4H [facility] Lactulose (Lactulose Liq) 30 ml PO DAILY PRN PRN Reason: SEVERE CONSITIPATION Morphine Sulfate (Morphine Inj) 4 mg IV.PUSH Q4H PRN PRN Reason: BREAKTHROUGH PAIN Naloxone HCl (Narcan Inj) 0.4 mg IV.PUSH UNSCH PRN PRN Reason: SEE LABEL COMMENTS Ondansetron HCl (Zofran Inj) 4 mg IV.PUSH Q6H PRN PRN Reason: NAUSEA OR VOMITING Oxycodone/Acetaminophen (Percocet 10/325 Mg) 1 tab PO Q6H PRN PRN Reason: PAIN SCALE 6 TO 10 Oxycodone/Acetaminophen (Percocet 5/325 Mg) 1 tab PO Q6H PRN PRN Reason: PAIN SCALE 3 TO 5 Senna/Docusate Sodium (Shakira-Colace) 1 tab PO BID SETH Sennosides (Senokot) 17.2 mg PO Q12H PRN PRN Reason: Moderate Constipation Sodium Chloride (Ns Flush) 2 ml IV.FLUSH BID SETH Sodium Chloride (Ns Flush) 2 ml IV.FLUSH PRN PRN PRN Reason: FLUSH AFTER USING IV ACCESS Zolpidem Tartrate (Ambien) 5 mg PO HS PRN PRN Reason: INSOMNIA Allergies Allergy/AdvReac Type Severity Reaction Status Date / Time No Known Allergies Allergy Verified 09/17/18 13:40 Home Medications Medication Instructions Recorded Confirmed Type No Known Home Medications 09/17/18 09/26/18 History Exam Vital signs: Vital Signs 09/26/18 15:57 Temperature 98.4 F Pulse Rate 148 H Respiratory Rate 20 Blood Pressure 113/58 L Pulse Oximetry 96 Intake & Output 09/25/18 09/26/18 09/26/18 18:59 06:59 18:59 Weight 70.307 kg Narrative: GENERAL: This is a thin appearing male, in no apparent distress. SKIN: Warm and dry. HEENT: Normocephalic. Pupils equal round and reactive. Nose without bleeding. Airway patent. NECK: Trachea midline. CARDIOVASCULAR: Regular rate and rhythm without murmurs, gallops, or rubs. RESPIRATORY: Clear to auscultation. Breath sounds equal bilaterally. No wheezes , rales, or rhonchi. GASTROINTESTINAL: Abdomen soft, non-tender, nondistended. Bowel Sounds normoactive x4. MUSCULOSKELETAL: Extremities without clubbing, cyanosis, or edema. Tenderness to palpate mid thoracic lumbar area. NEUROLOGICAL: Awake and alert. Calm. No focal neuro deficit. Moves all extremities. Normal speech. Results - Labs CBC & Chem 7: 09/26/18 17:50 09/26/18 17:50 Caprini VTE Risk Assessment Capcarlai VTE Risk Assessment: Moderate/High Risk (score >= 2) Antionerini Risk Assessment Model: Point Value = 1 Point Value = 2 Point Value = 3 Point Value = 5 Age 41-60 Minor surgery BMI > 25 kg/m2 Swollen legs Varicose veins or History of unexplained or recurrent spontaneous Oral contraceptives or hormone replacement Sepsis (< 1 month) Serious lung disease, including pneumonia (< 1 month) Abnormal pulmonary function Acute myocardial infarction Congestive heart failure (< 1 month) History of inflammatory bowel disease Medical patient at bed rest Age 61-74 Arthroscopic surgery Major open surgery (> 45 min) Laparoscopic surgery (> 45 min) Malignancy Confined to bed (> 72 hours) Immobilizing plaster cast Central venous access Age >= 75 History of VTE Family history of VTE Factor V Leiden Prothrombin [id number] Lupus anticoagulant Anticardiolipin antibodies Elevated serum homocysteine Heparin-induced thrombocytopenia Other congenital or acquired thrombophilia Stroke (< 1 month) Elective arthroplasty Hip, pelvis, or leg fracture Acute spinal cord injury (< 1 month) Prophylaxis Regimen: Total Risk Factor Score Risk Level Prophylaxis Regimen 0-1 Low Early ambulation 2 Moderate Order ONE of the following: *Sequential Compression Device (SCD) *Heparin 5000 units SQ BID 3-4 Higher Order ONE of the following medications: *Heparin 5000 units SQ TID *Enoxaparin/Lovenox 40 mg SQ daily (WT < 150 kg, CrCl > 30 mL/min) *Enoxaparin/Lovenox 30 mg SQ daily (WT < 150 kg, CrCl > 10-29 mL/min) *Enoxaparin/Lovenox 30 mg SQ BID (WT < 150 kg, CrCl > 30 mL/min) AND/OR *Sequential Compression Device (SCD) 5 or more Highest Order ONE of the following medications: *Heparin 5000 units SQ TID (Preferred with Epidurals) *Enoxaparin/Lovenox 40 mg SQ daily (WT < 150 kg, CrCl > 30 mL/min) *Enoxaparin/Lovenox 30 mg SQ daily (WT < 150 kg, CrCl > 10-29 mL/min) *Enoxaparin/Lovenox 30 mg SQ BID (WT < 150 kg, CrCl > 30 mL/min) AND *Sequential Compression Device (SCD) Assessment and Plan - Assessment (1) Staphylococcus aureus bacteremia Code(s): R78.81 - Bacteremia Status: Acute (2) Discitis Code(s): M46.40 - Discitis, unspecified, site unspecified Status: Acute (3) Intravenous drug abuse Code(s): F19.10 - Other psychoactive substance abuse, uncomplicated Status: Chronic - Plan 28-year-old male with a history of IV drug use who was initially admitted to the hospital on 09/21/2018 due to lower back pain as well as fever admitted to the hospital and has stayed since 09/26/18. Patient states he had a panic attack and asked his nurse if he is able to get out of his room and walk around. The nurse agreed to him that he is able to walk around the unit however the patient thought that he is able to get out of the unit and he started wandering all the way to the other building in the [facility] [place]. He was brought back to the unit by a nurse from [facility] but because he was out of the unit for quite some time they signed him off as leaving AGAINST MEDICAL ADVICE. Came back for readmission. Staph aureus bacteremia IVDU Discitis Neurosurgery reconsulted. ID reconsulted -09/23/18 Thoracic MRI showed There is diffuse mild epidural enhancement involving the mid to lower thoracic canal on examination, however mass producing collection which had been suspected previously is not seen. Echo 60-65% ejection fraction, no endocarditis noted. Percocet for pain control, IV morphine for breakthrough pain with bowel regimen -Last Cultures continue to come back with gram positive cocci. Plan for prolonged antibiotic use. Unable to trust patient with IV access since he was even found to have illicit substance during hospitalization. Patient will also be unable to make it to the IV infusion center. Left AMA recently -IV oxacillin as per ID recommendation. Vancomycin/Zosyn has been discontinued. Possible prolonged IV antibiotics use as per ID. -DVT prop Heparin for now. If ID and/or neurosx decides for biopsy or any surgical intervention, hold heparin. Patient is not as active and mobile due to back pain, increase risk for DVT. Wells score 1 with moderate risk for DVT. -LISA was done today. Normal lv size, wall thickness and systolic function, EF=60%. Left atrial appendage appears to be. No definite evidence of sbe. Color Doppler evaluation of atrial septum is negative for a shunt. normal appearing thoracic aorta. IV drug use, heroin -Monitor for withdrawals. Patient appears to be getting agitated and anxious -Ativan PRN -Clonidine patch if needed to decrease anxiety. -Found to have illicit substance prior. No visitors allowed. May have supervised visitation. Depression -Ativan to continue, Prozac x1 dose now and daily -Possible psych evaluation -Monitor for changes in behavior Insomnia -Ambien Full code. SCDs. Heparin Code Status: Full code Discussed Condition With: Patient, nursing, ED attending, Dr. Carnes Discharge Planning: Plan to DC home when cleared by ID, clinically improved
[2018-09-26] MEDS: Morphine Inj 4 MG/ML Vial IV.PUSH PRN (20:39)
[2018-09-26] MEDS: Zolpidem Tartrate 5 MG Tablet PO PRN (20:43)
[2018-09-27] MEDS: oxyCODONE/Acetaminophen 10/325 Tablet PO PRN ×3 (03:15→17:36)
[2018-09-27] MEDS: Senna/Docusate Sodium 8.6/50 MG Tablet PO SCH ×3 (03:17→22:44)
[2018-09-27] MEDS: Morphine Inj 4 MG/ML Vial IV.PUSH PRN ×4 (05:56→22:42)
[2018-09-27] MEDS: Heparin - SQ 10,000 UNITS/ML Vial SQ SCH ×2 (05:57→17:36)
--- NOTE | 2018-09-27 06:07 | P.CONNS ---
History of Present Illness Service: Medicine Primary Care Provider: No Primary Care Physician Chief Complaint: Back pain History of Present Illness: 28yoM recently admitted and now readmitted 09/26. IVDU - three days ago Neurosurgery consulted for back pain, thoracic MRI showing lower thoracic enhancement consistent with infection but no overt epidural abscess and patient ambulatory and neurologically intact. He left the hospital for a few hours during that admission and was in the bathroom for a few hours when visitors came ; at any rate, he is back and his condition is the same. [facility] - History History Provided By: Patient - Medical History Medical History: Medical History (Last Reviewed 09/26/18 @ 18:26 by JUAN C Dee) IVDU (intravenous drug user) Patient denies medical problems - Surgical History Surgical History: Surgical History (Last Reviewed 09/26/18 @ 18:26 by JUAN C Dee) No history of previous surgery - Family History Family History: Family History (Last Reviewed 09/26/18 @ 18:26 by JUAN C Dee) Other Diabetes mellitus - Tobacco History Second Hand Smoke Exposure: Yes Tobacco Use In Past 30 Days: Yes Smoking Status: Current every day smoker Tobacco Type: Cigarettes - Alcohol History How Often Do You Have a Drink Containing Alcohol: 2 to 4 times a month - Substance Use History Substance History: Active Abuse - Substance Use Type Heroin Status: Active Route Used: Intravenously Last Used: 09/20/18 - Travel History Recent Travel in the [place] Within the Last 8 Weeks: No Recent Travel Out of the Country Within the Last 8 Weeks: No - Immunization History Tetanus Immunization: <5 Years Medications and Allergies Active Medications: Active Medications Acetaminophen (Tylenol) 650 mg PO Q4H PRN PRN Reason: Temp > 100.4, PRESTON, pain 1-2 Al Hydroxide/Mg Hydroxide (Milk Of Magnesia Liq) 30 ml PO Q12H PRN PRN Reason: Mild Constipation Bisacodyl (Dulcolax Supp) 10 mg RECTAL DAILY PRN PRN Reason: SEVERE CONSITIPATION Clonidine HCl (Catapress-Tts 0.1 Mg Patch.7d) 1 patch T-DERMAL Q7D [facility] Last Admin: 09/27/18 03:17 Dose: Not Given Fluoxetine HCl (Prozac) 20 mg PO DAILY [facility] Heparin Sodium (Porcine) (Heparin Inj) 5,000 units SQ Q12H [facility] Last Admin: 09/26/18 18:21 Dose: Not Given Oxacillin Sodium 2 gm/ Sodium (Chloride) 100 mls @ 200 mls/hr IV.SIG Q4H [facility] Last Admin: 09/27/18 03:11 Dose: 200 mls/hr Lactulose (Lactulose Liq) 30 ml PO DAILY PRN PRN Reason: SEVERE CONSITIPATION Lorazepam (Ativan Inj) 1 mg IV.PUSH Q6H PRN PRN Reason: AGITATION Morphine Sulfate (Morphine Inj) 4 mg IV.PUSH Q4H PRN PRN Reason: BREAKTHROUGH PAIN Last Admin: 09/26/18 20:39 Dose: 4 mg Naloxone HCl (Narcan Inj) 0.4 mg IV.PUSH UNSCH PRN PRN Reason: SEE LABEL COMMENTS Ondansetron HCl (Zofran Inj) 4 mg IV.PUSH Q6H PRN PRN Reason: NAUSEA OR VOMITING Oxycodone/Acetaminophen (Percocet 10/325 Mg) 1 tab PO Q6H PRN PRN Reason: PAIN SCALE 6 TO 10 Last Admin: 09/27/18 03:15 Dose: 1 tab Oxycodone/Acetaminophen (Percocet 5/325 Mg) 1 tab PO Q6H PRN PRN Reason: PAIN SCALE 3 TO 5 Patch Removal (Remove Old Patch) 1 each T-DERMAL Q7D [facility] Senna/Docusate Sodium (Shakira-Colace) 1 tab PO BID [facility] Last Admin: 09/27/18 03:17 Dose: Not Given Sennosides (Senokot) 17.2 mg PO Q12H PRN PRN Reason: Moderate Constipation Sodium Chloride (Ns Flush) 2 ml IV.FLUSH BID [facility] Last Admin: 09/27/18 03:17 Dose: Not Given Sodium Chloride (Ns Flush) 2 ml IV.FLUSH PRN PRN PRN Reason: FLUSH AFTER USING IV ACCESS Zolpidem Tartrate (Ambien) 5 mg PO HS PRN PRN Reason: INSOMNIA Last Admin: 09/26/18 20:43 Dose: 5 mg Allergies Allergy/AdvReac Type Severity Reaction Status Date / Time No Known Allergies Allergy Verified 09/17/18 13:40 Home Medications Medication Instructions Recorded Confirmed Type No Known Home Medications 09/17/18 09/26/18 History Exam Vital signs: Vital Signs 09/26/18 15:57 09/26/18 18:23 09/26/18 20:00 Temperature 98.4 F 97.3 F L Pulse Rate 148 H 70 69 Respiratory Rate 20 17 16 Blood Pressure 113/58 L 118/70 113/66 Pulse Oximetry 96 100 97 09/27/18 00:00 09/27/18 04:00 Temperature 97.8 F 97.4 F L Pulse Rate 69 82 Respiratory Rate 16 16 Blood Pressure 109/58 L 130/50 L Pulse Oximetry 97 99 Intake & Output 09/26/18 09/26/18 09/27/18 06:59 18:59 06:59 Intake Total 100 / 100 Balance 100 / 100 Weight 70.307 kg 68.8 kg Intake: IV 100 / 100 Prostaphlin Inj 2 GM In NS Inj 100 / 100 100 ML @ 200 mls/hr IV.SIG Q4H [facility] Rx#:[id number] Narrative: A&O x 3 CN II-XII intact Motor 5/5 UE/LE Sensation intact Ambulatory without difficulty Lower thoracic back pain Results - Laboratory Findings CBC and BMP: 09/26/18 17:50 09/26/18 17:50 Abnormal lab findings: Abnormal Labs 09/26/18 09/26/18 17:50 17:50 WBC 13.0 H RBC 3.70 L Hgb 10.2 L Hct 30.6 L Plt Count 531 H Neut % (Auto) 79.2 H Door % (Auto) 9.6 H Neut # (Auto) 10.3 H Door # (Auto) 1.2 H Chloride 109 H Estimated GFR 78 L Calcium 8.1 L Albumin 2.7 L Assessment and Plan - Plan 28yoM with IVDU and presumed spinal infection. Plan Continue infectious workup as before: ID, culture blood, urine; dat instructor abx for a presumed osteo situation. MRI T-spine shows diffuse enhancement lower spine but no abscess. Recommend weekly ESR/CRP. Neurosurgery team will be available. Call us if he develops neurologic deficit.
[2018-09-27] MEDS: FLUoxetine 20 MG Capsule PO SCH (09:22)
[2018-09-27 09:50] LABS: Baso # (Auto) 0.1 th/mm3 (0.0-0.2); Baso % (Auto) 0.7 % (0.0-2.0); Eos # (Auto) 0.1 th/mm3 (0.0-0.4); Eos % (Auto) 1.2 % (0.0-4.0); Hematocrit 34.1 % (39.0-51.0); Hemoglobin 11.5 gm/dL (13.0-17.0); Lymph # (Auto) 2.3 th/mm3 (1.0-4.8); Lymph % (Auto) 25.9 % (9.0-44.0); Mean Corpuscular HGB Conc 33.6 % (32.0-36.0); Mean Corpuscular Hemoglobin 28.2 pg (27.0-34.0); Mean Corpuscular Volume 83.8 fL (80.0-100.0); Mean Platelet Volume 7.4 fL (7.0-11.0); Mono # (Auto) 0.8 th/mm3 (0.0-0.9); Mono % (Auto) 8.8 % (0.0-8.0); Neut # (Auto) 5.6 th/mm3 (1.8-7.7); Neut % (Auto) 63.4 % (16.0-70.0); Platelet Count 574 th/mm3 (150-450); Red Blood Count 4.07 mil/mm3 (4.50-5.90); Red Cell Distribution Width 15.5 % (11.6-17.2); White Blood Count 8.8 th/mm3 (4.0-11.0)
--- NOTE | 2018-09-27 10:21 | P.PNIM ---
Subjective Interval history: Follow-up visit discitis, staph bacteremia. Patient seen and examined today. Reports he is doing okay. States that he slept a little bit with sleeping aid last night. States he has been waking up couple of times by nurses trying to get some rest. Continues to have back pain but patient appears more comfortable. Denies SOB/ dyspnea. Denies chest pain, palpitations, headaches, dizziness. Denies fevers, chills, n/v/d. Denies dysuria. Physical Exam Vital signs: Vital Signs 09/26/18 15:57 09/26/18 18:23 09/26/18 20:00 Temperature 98.4 F 97.3 F L Pulse Rate 148 H 70 69 Respiratory Rate 20 17 16 Blood Pressure 113/58 L 118/70 113/66 Pulse Oximetry 96 100 97 09/27/18 00:00 09/27/18 04:00 Temperature 97.8 F 97.4 F L Pulse Rate 69 82 Respiratory Rate 16 16 Blood Pressure 109/58 L 130/50 L Pulse Oximetry 97 99 Intake & Output 09/26/18 09/27/18 09/27/18 18:59 06:59 18:59 Intake Total 200 / 200 200 / 200 Balance 200 / 200 200 / 200 Weight 70.307 kg 68.8 kg Intake: IV 200 / 200 200 / 200 Prostaphlin Inj 2 GM In NS Inj 200 / 200 200 / 200 100 ML @ 200 mls/hr IV.SIG Q4H [facility] Rx#:[id number] Other: # Voids 2 Date of Last Bowel Movement 09/27/18 Narrative: GENERAL: This is a thin appearing male, in no apparent distress. SKIN: Warm and dry. HEENT: Normocephalic. Pupils equal round and reactive. Nose without bleeding. Airway patent. NECK: Trachea midline. CARDIOVASCULAR: Regular rate and rhythm without murmurs, gallops, or rubs. RESPIRATORY: Clear to auscultation. Breath sounds equal bilaterally. No wheezes , rales, or rhonchi. GASTROINTESTINAL: Abdomen soft, non-tender, nondistended. Bowel Sounds normoactive x4. MUSCULOSKELETAL: Extremities without clubbing, cyanosis, or edema. Tenderness to palpate mid thoracic lumbar area. NEUROLOGICAL: Awake and alert. Calm. No focal neuro deficit. Moves all extremities. Normal speech. Results - Labs CBC & Chem 7: 09/27/18 07:30 09/27/18 07:30 Laboratory Results - last 24 hr 09/26/18 09/26/18 09/26/18 17:50 17:50 17:50 WBC 13.0 H RBC 3.70 L Hgb 10.2 L Hct 30.6 L MCV 82.8 MCH 27.7 MCHC 33.4 RDW 14.9 Plt Count 531 H MPV 7.2 Neut % (Auto) 79.2 H Lymph % (Auto) 10.7 [place] % (Auto) 9.6 H Eos % (Auto) 0.1 Baso % (Auto) 0.4 Neut # (Auto) 10.3 H Lymph # (Auto) 1.4 [place] # (Auto) 1.2 H Eos # (Auto) 0.0 Baso # (Auto) 0.1 WBC Differential . Differential Comment Auto diff final Sodium 142 Potassium 4.7 Chloride 109 H Carbon Dioxide 27.1 Anion Gap 6 BUN 14 Creatinine 1.13 Estimated GFR 78 L Random Glucose 83 Lactic Acid 0.6 Calcium 8.1 L Magnesium 2.4 Total Bilirubin 0.2 AST 24 ALT 22 Alkaline Phosphatase 52 Total Protein 7.5 D Albumin 2.7 L 09/27/18 07:30 WBC 8.8 RBC 4.07 L Hgb 11.5 L Hct 34.1 L MCV 83.8 MCH 28.2 MCHC 33.6 RDW 15.5 Plt Count 574 H MPV 7.4 Neut % (Auto) 63.4 Lymph % (Auto) 25.9 [place] % (Auto) 8.8 H Eos % (Auto) 1.2 Baso % (Auto) 0.7 Neut # (Auto) 5.6 Lymph # (Auto) 2.3 [place] # (Auto) 0.8 Eos # (Auto) 0.1 Baso # (Auto) 0.1 WBC Differential . Differential Comment Auto diff final Sodium Potassium Chloride Carbon Dioxide Anion Gap BUN Creatinine Estimated GFR Random Glucose Lactic Acid Calcium Magnesium Total Bilirubin AST ALT Alkaline Phosphatase Total Protein Albumin Assessment and Plan - Assessment (1) Staphylococcus aureus bacteremia Code(s): R78.81 - Bacteremia Status: Acute (2) Discitis Code(s): M46.40 - Discitis, unspecified, site unspecified Status: Acute (3) Intravenous drug abuse Code(s): F19.10 - Other psychoactive substance abuse, uncomplicated Status: Chronic - Plan 28-year-old male with a history of IV drug use who was initially admitted to the hospital on 09/21/2018 due to lower back pain as well as fever admitted to the hospital and has stayed since 09/26/18. Patient states he had a panic attack and asked his nurse if he is able to get out of his room and walk around. The nurse agreed to him that he is able to walk around the unit however the patient thought that he is able to get out of the unit and he started wandering all the way to the other building in the [facility] [place]. He was brought back to the unit by a nurse from [facility] but because he was out of the unit for quite some time they signed him off as leaving AGAINST MEDICAL ADVICE. Came back for readmission. Staph aureus bacteremia IVDU Discitis -Neurosurgery reconsulted. ID reconsulted -09/23/18 Thoracic MRI showed There is diffuse mild epidural enhancement involving the mid to lower thoracic canal on examination, however mass producing collection which had been suspected previously is not seen. -Echo 60-65% ejection fraction, no endocarditis noted. -LISA was done showing Normal LV size, wall thickness and systolic function, EF 60%. Left atrial appendage appears to be. No definite evidence of sbe. Color Doppler evaluation of atrial septum is negative for a shunt. normal appearing thoracic aorta. Percocet for pain control, IV morphine for breakthrough pain with bowel regimen -Last Cultures continue to come back with staph aureus. Plan for prolonged antibiotic use. Unable to trust patient with IV access since he was even found to have illicit substance during hospitalization. Patient will also be unable to make it to the IV infusion center. Left AMA recently -IV oxacillin as per previous ID recommendation. -Neurosurgery has seen and evaluated the patient. Recommend continued infectious workup. MRI of the spine without any abscess. No surgical intervention for now. Recommend weekly ESR/CRP. To call neurosurgery if neurologic deficit occurs. Patient currently is ambulatory -Pain seeking behavior. We will not increase medication dose. This is been discussed with patient. IV drug use, heroin -Monitor for withdrawals. -Ativan PRN -Clonidine patch to decrease anxiety. -Found to have illicit substance while in the inpatient setting - "heroin rock", possible snorted vs injection, while inpatient. No visitors allowed. May have supervised visitation. Depression -Ativan to continue, Prozac daily -Possible psych evaluation -Monitor for changes in behavior Insomnia -Jeannette Full code. SCDs. Heparin Discussed Condition With: Patient, nurse Discharge Planning: Plan to DC home when cleared by ID, clinically improved
[2018-09-27 10:32] LABS: Alanine Aminotransferase 22 U/L (12-78); Albumin 2.9 g/dL (3.4-5.0); Anion Gap 9 meq/L (5-15); Aspartate Aminotransferase 17 U/L (15-37); Blood Urea Nitrogen 15 mg/dL (7-18); Calcium 8.5 mg/dL (8.5-10.1); Carbon Dioxide 24.2 meq/L (21.0-32.0); Chloride 108 meq/L (98-107); Glomerular Filtration Rate Greater Than 89 mL/min (>89); Glucose,Random 80 mg/dL (74-106); Potassium 3.9 meq/L (3.5-5.1); Sodium 141 meq/L (136-145)
[2018-09-27 10:44] LABS: Alkaline Phosphatase 59 U/L (45-117); Total Protein 7.7 g/dL (6.4-8.2)
[2018-09-27 10:52] LABS: Amphetamine Screen,Urine Neg (Neg); Barbiturate Screen,Urine Neg (Neg); Cannabinoid Screen,Urine Pos (Neg); Cocaine Screen,Urine Neg (Neg)
[2018-09-27 10:53] LABS: Opiate Screen,Urine Pos (Neg)
--- NOTE | 2018-09-27 11:51 | ECG ---
Date Performed: 09/26/2018 Time Performed: 17:41:07 PTAGE: 28 years EKG: Sinus rhythm POSSIBLE LEFT ATRIAL ENLARGEMENT BORDERLINE ECG PREVIOUS TRACING : 09/21/2018 00.50 Since the previous tracing, no significant change noted DOCTOR: Avni Solis Interpretating Date/Time 09/27/2018 11:48:58
--- NOTE | 2018-09-27 13:19 | P.CONID ---
History of Present Illness Service: ID Consult date: 09/27/18 Requesting Physician: Ana Luisa Ferrer Reason for Consult: vertebral osteomyelitis Primary Care Provider: No Primary Care Physician Chief Complaint: Back pain History of Present Illness: Readmitted after brief AMA 28 male with acitve IVDU was treated with Presented with the thoracic spine vertebral osteomyelitis 2/2 MSSA pt had contrasted MRI with concious sedation done and it ruled out epidural abscess that was initially suspected on incomplete MR study LISA was negative, but pt repeat blood clx were positive again He was evaluated by neutrosurgeon who recommended to cont with conservative treatment and monitoring for neurodeficits Pt co severe back pain and asking for pain meds, but he ambulates without difficulties He was placed back on high dose Oxacillin Review of Systems All other systems reviewed negative except as stated in HPI PMFSH - History History Provided By: Patient - Medical History Medical History: Medical History (Last Reviewed 09/27/18 @ 13:34 by Geeta Mejia MD) IVDU (intravenous drug user) Patient denies medical problems - Surgical History Surgical History: Surgical History (Last Reviewed 09/27/18 @ 13:34 by Geeta Mejia MD) No history of previous surgery - Family History Family History: Family History (Last Reviewed 09/27/18 @ 13:34 by Geeta Mejia MD) Other Diabetes mellitus - Social History I have reviewed the patient's Social History: Yes - Tobacco History Second Hand Smoke Exposure: Yes Tobacco Use In Past 30 Days: Yes Smoking Status: Current every day smoker Tobacco Type: Cigarettes - Alcohol History How Often Do You Have a Drink Containing Alcohol: 2 to 4 times a month - Substance Use History Substance History: Active Abuse - Substance Use Type Heroin Status: Active Route Used: Intravenously Last Used: 09/20/18 - Travel History Recent Travel in the [place] Within the Last 8 Weeks: No Recent Travel Out of the Country Within the Last 8 Weeks: No - Immunization History Tetanus Immunization: <5 Years Medications and Allergies Active Medications: Active Medications Acetaminophen (Tylenol) 650 mg PO Q4H PRN PRN Reason: Temp > 100.4, [place], pain 1-2 Al Hydroxide/Mg Hydroxide (Milk Of Magnesia Liq) 30 ml PO Q12H PRN PRN Reason: Mild Constipation Bisacodyl (Dulcolax Supp) 10 mg RECTAL DAILY PRN PRN Reason: SEVERE CONSITIPATION Clonidine HCl (Catapress-Tts 0.1 Mg Patch.7d) 1 patch T-DERMAL Q7D [facility] Last Admin: 09/27/18 03:17 Dose: Not Given Fluoxetine HCl (Prozac) 20 mg PO DAILY [facility] Last Admin: 09/27/18 09:22 Dose: 20 mg Heparin Sodium (Porcine) (Heparin Inj) 5,000 units SQ Q12H [facility] Last Admin: 09/27/18 05:57 Dose: 5,000 units Oxacillin Sodium 2 gm/ Sodium (Chloride) 100 mls @ 200 mls/hr IV.SIG Q4H [facility] Last Infusion: 09/27/18 10:01 Dose: Infused Lactulose (Lactulose Liq) 30 ml PO DAILY PRN PRN Reason: SEVERE CONSITIPATION Lorazepam (Ativan Inj) 1 mg IV.PUSH Q6H PRN PRN Reason: AGITATION Last Admin: 09/27/18 05:57 Dose: 1 mg Morphine Sulfate (Morphine Inj) 4 mg IV.PUSH Q4H PRN PRN Reason: BREAKTHROUGH PAIN Last Admin: 09/27/18 05:56 Dose: 4 mg Naloxone HCl (Narcan Inj) 0.4 mg IV.PUSH UNSCH PRN PRN Reason: SEE LABEL COMMENTS Ondansetron HCl (Zofran Inj) 4 mg IV.PUSH Q6H PRN PRN Reason: NAUSEA OR VOMITING Oxycodone/Acetaminophen (Percocet 10/325 Mg) 1 tab PO Q6H PRN PRN Reason: PAIN SCALE 6 TO 10 Last Admin: 09/27/18 09:22 Dose: 1 tab Oxycodone/Acetaminophen (Percocet 5/325 Mg) 1 tab PO Q6H PRN PRN Reason: PAIN SCALE 3 TO 5 Patch Removal (Remove Old Patch) 1 each T-DERMAL Q7D [facility] Senna/Docusate Sodium (Shakira-Colace) 1 tab PO BID [facility] Last Admin: 09/27/18 09:23 Dose: Not Given Sennosides (Senokot) 17.2 mg PO Q12H PRN PRN Reason: Moderate Constipation Sodium Chloride (Ns Flush) 2 ml IV.FLUSH BID [facility] Last Admin: 09/27/18 09:23 Dose: 2 ml Sodium Chloride (Ns Flush) 2 ml IV.FLUSH PRN PRN PRN Reason: FLUSH AFTER USING IV ACCESS Zolpidem Tartrate (Ambien) 5 mg PO HS PRN PRN Reason: INSOMNIA Last Admin: 09/26/18 20:43 Dose: 5 mg Allergies Allergy/AdvReac Type Severity Reaction Status Date / Time No Known Allergies Allergy Verified 09/17/18 13:40 Home Medications Medication Instructions Recorded Confirmed Type No Known Home Medications 09/17/18 09/26/18 History Exam Vital signs: Vital Signs 09/26/18 15:57 09/26/18 18:23 09/26/18 20:00 Temperature 98.4 F 97.3 F L Pulse Rate 148 H 70 69 Respiratory Rate 20 17 16 Blood Pressure 113/58 L 118/70 113/66 Pulse Oximetry 96 100 97 09/27/18 00:00 09/27/18 04:00 Temperature 97.8 F 97.4 F L Pulse Rate 69 82 Respiratory Rate 16 16 Blood Pressure 109/58 L 130/50 L Pulse Oximetry 97 99 Intake & Output 09/26/18 09/27/18 09/27/18 18:59 06:59 18:59 Intake Total 200 / 200 200 / 200 Balance 200 / 200 200 / 200 Weight 70.307 kg 68.8 kg Intake: IV 200 / 200 200 / 200 Prostaphlin Inj 2 GM In NS Inj 200 / 200 200 / 200 100 ML @ 200 mls/hr IV.SIG Q4H [facility] Rx#:[id number] Other: # Voids 2 Date of Last Bowel Movement 09/27/18 - Constitutional no acute distress, thin - Routine HEENT Exam Head: Present: normocephalic, atraumatic Eye: Present: EOMI, PERRL ENT: Present: mucous membranes moist, oropharynx clear - Routine Neck Exam Present: supple, lymphadenopathy - Routine Respiratory Exam Present: CTA bilaterally. Absent: decreased breath sounds, respiratory distress , rhonchi - Routine Cardiovascular Exam Present: RRR, S1, S2. Absent: murmur, gallop - Routine Abdominal Exam Present: soft, normoactive bowel sounds - Routine Extremities Exam Present: normal capillary refill. Absent: cyanosis, clubbing, edema - Routine Skin Exam Present: intact, warm. Absent: rash - Routine Neurological Exam Present: alert, oriented X3, CN II-XII intact. Absent: sensory deficit, motor deficit - Routine Psychiatric Exam Present: normal affect, cooperative Results - Labs CBC & Chem 7: 09/27/18 07:30 09/27/18 07:30 Labs: Laboratory Results - last 24 hr 09/26/18 09/26/18 09/26/18 17:50 17:50 17:50 WBC 13.0 H RBC 3.70 L Hgb 10.2 L Hct 30.6 L MCV 82.8 MCH 27.7 MCHC 33.4 RDW 14.9 Plt Count 531 H MPV 7.2 Neut % (Auto) 79.2 H Lymph % (Auto) 10.7 [place] % (Auto) 9.6 H Eos % (Auto) 0.1 Baso % (Auto) 0.4 Neut # (Auto) 10.3 H Lymph # (Auto) 1.4 [place] # (Auto) 1.2 H Eos # (Auto) 0.0 Baso # (Auto) 0.1 WBC Differential . Differential Comment Auto diff final Sodium 142 Potassium 4.7 Chloride 109 H Carbon Dioxide 27.1 Anion Gap 6 BUN 14 Creatinine 1.13 Estimated GFR 78 L Random Glucose 83 Lactic Acid 0.6 Calcium 8.1 L Magnesium 2.4 Total Bilirubin 0.2 AST 24 ALT 22 Alkaline Phosphatase 52 Total Protein 7.5 D Albumin 2.7 L Urine Opiates Screen Ur Barbiturates Screen Ur Amphetamines Screen U Benzodiazepines Scrn Urine Cocaine Screen U Cannabinoids Screen 09/27/18 09/27/18 09/27/18 07:30 07:30 09:40 WBC 8.8 RBC 4.07 L Hgb 11.5 L Hct 34.1 L MCV 83.8 MCH 28.2 MCHC 33.6 RDW 15.5 Plt Count 574 H MPV 7.4 Neut % (Auto) 63.4 Lymph % (Auto) 25.9 [place] % (Auto) 8.8 H Eos % (Auto) 1.2 Baso % (Auto) 0.7 Neut # (Auto) 5.6 Lymph # (Auto) 2.3 [place] # (Auto) 0.8 Eos # (Auto) 0.1 Baso # (Auto) 0.1 WBC Differential . Differential Comment Auto diff final Sodium 141 Potassium 3.9 D Chloride 108 H Carbon Dioxide 24.2 Anion Gap 9 BUN 15 Creatinine 0.92 Estimated GFR Greater than 89 Random Glucose 80 Lactic Acid Calcium 8.5 Magnesium Total Bilirubin 0.2 AST 17 ALT 22 Alkaline Phosphatase 59 Total Protein 7.7 Albumin 2.9 L Urine Opiates Screen Pos H Ur Barbiturates Screen Neg Ur Amphetamines Screen Neg U Benzodiazepines Scrn Neg Urine Cocaine Screen Neg U Cannabinoids Screen Pos H Assessment and Plan - Plan T spine ostheomyelitis, diskitis, no epidural abscess, MSSA -MR with diffuse mild epidural enhancement involving the mid to lower thoracic canal on today's examination, however mass producing collection which had been suspected previously is not seen today. MSSA bactermia - 2/2 vertebral infection no endocarditis cont oxacillin anticipate 8 weeks of abx monitor b blood clx until sterility documented cont with conservative approach dw [facility] team
[2018-09-27] MEDS: Zolpidem Tartrate 5 MG Tablet PO PRN (22:50)
[2018-09-28] MEDS: oxyCODONE/Acetaminophen 10/325 Tablet PO PRN ×4 (00:13→17:20)
[2018-09-28] MEDS: Morphine Inj 4 MG/ML Vial IV.PUSH PRN ×4 (05:17→19:54)
[2018-09-28] MEDS: Heparin - SQ 10,000 UNITS/ML Vial SQ SCH ×2 (05:17→17:20)
--- NOTE | 2018-09-28 08:51 | P.PN ---
Subjective Interval history: Follow-up for discitis, staph bacteremia. Patient seen ambulating in his room and in the bathroom. He reports continued diffuse back pain, worse with ambulation. Denies fevers or chills. He is tolerating oral intake. He has no other medical complaints at this time. Physical Exam Vital signs: Vital Signs 09/27/18 16:00 09/27/18 20:00 09/27/18 23:49 Temperature 97.8 F 98 F 98.7 F Pulse Rate 78 102 H 77 Respiratory Rate 20 16 16 Blood Pressure 135/77 119/64 121/70 Pulse Oximetry 100 96 99 09/28/18 04:00 Temperature 98.3 F Pulse Rate 77 Respiratory Rate 18 Blood Pressure 109/68 Pulse Oximetry 98 Intake & Output 09/27/18 09/28/18 09/28/18 18:59 06:59 18:59 Intake Total 400 / 400 300 / 300 Output Total 600 / 600 Balance 400 / 400 -300 / -300 Weight 68.9 kg Intake: IV 400 / 400 300 / 300 Prostaphlin Inj 2 GM In NS Inj 400 / 400 300 / 300 100 ML @ 200 mls/hr IV.SIG Q4H [facility] Rx#:[id number] Output: Urine 600 / 600 Other: Date of Last Bowel Movement 09/27/18 09/27/18 09/27/18 Narrative: GENERAL: Thin appearing male, in NAD. Patient is ambulatory. SKIN: Warm and dry. HEENT: Normocephalic. Pupils equal round and reactive. Nose without bleeding. Airway patent. CARDIOVASCULAR: Regular rate and rhythm without murmurs, gallops, or rubs. RESPIRATORY: Clear to auscultation. Breath sounds equal bilaterally. No wheezes , rales, or rhonchi. GASTROINTESTINAL: Abdomen soft, non-tender, nondistended. Bowel Sounds normoactive x4. MUSCULOSKELETAL: Extremities without clubbing, cyanosis, or edema. TTP throughout thoracolumbar area. NEUROLOGICAL: Awake and alert. Calm. No focal neuro deficit. Moves all extremities. Normal speech. Results - Labs CBC & Chem 7: 09/27/18 07:30 09/27/18 07:30 Laboratory Results - last 24 hr 09/27/18 09/27/18 09/27/18 07:30 07:30 09:40 WBC 8.8 RBC 4.07 L Hgb 11.5 L Hct 34.1 L MCV 83.8 MCH 28.2 MCHC 33.6 RDW 15.5 Plt Count 574 H MPV 7.4 Neut % (Auto) 63.4 Lymph % (Auto) 25.9 [place] % (Auto) 8.8 H Eos % (Auto) 1.2 Baso % (Auto) 0.7 Neut # (Auto) 5.6 Lymph # (Auto) 2.3 [place] # (Auto) 0.8 Eos # (Auto) 0.1 Baso # (Auto) 0.1 WBC Differential . Differential Comment Auto diff final Sodium 141 Potassium 3.9 D Chloride 108 H Carbon Dioxide 24.2 Anion Gap 9 BUN 15 Creatinine 0.92 Estimated GFR Greater than 89 Random Glucose 80 Calcium 8.5 Total Bilirubin 0.2 AST 17 ALT 22 Alkaline Phosphatase 59 Total Protein 7.7 Albumin 2.9 L Urine Opiates Screen Pos H Ur Barbiturates Screen Neg Ur Amphetamines Screen Neg U Benzodiazepines Scrn Neg Urine Cocaine Screen Neg U Cannabinoids Screen Pos H Microbiology 09/26/18 17:50 Blood - Peripheral Aerobic Blood Culture - Preliminary No growth in 1 day 09/26/18 17:50 Blood - Peripheral Anaerobic Blood Culture - Preliminary gram positive cocci 09/26/18 17:45 Blood - Peripheral Aerobic Blood Culture - Preliminary No growth in 1 day 09/26/18 17:45 Blood - Peripheral Anaerobic Blood Culture - Preliminary No growth in 1 day Assessment and Plan - Assessment (1) Staphylococcus aureus bacteremia Code(s): R78.81 - Bacteremia Status: Acute (2) Discitis Code(s): M46.40 - Discitis, unspecified, site unspecified Status: Acute (3) Intravenous drug abuse Code(s): F19.10 - Other psychoactive substance abuse, uncomplicated Status: Chronic - Plan 28-year-old male with a history of IV drug use who was initially admitted to the hospital on 09/21/2018 due to lower back pain as well as fever admitted to the hospital and has stayed since 09/26/18. Patient states he had a panic attack and asked his nurse if he is able to get out of his room and walk around. The nurse agreed to him that he is able to walk around the unit however the patient thought that he is able to get out of the unit and he started wandering all the way to the other building in the [facility]. He was brought back to the unit by a nurse from [facility] but because he was out of the unit for quite some time they signed him off as leaving AGAINST MEDICAL ADVICE. Came back for readmission. Staph aureus bacteremia IVDU Discitis -Neurosurgery reconsulted. ID reconsulted -09/23/18 Thoracic MRI showed There is diffuse mild epidural enhancement involving the mid to lower thoracic canal on examination, however mass producing collection which had been suspected previously is not seen. -Echo 60-65% ejection fraction, no endocarditis noted. -LISA was done showing Normal LV size, wall thickness and systolic function, EF 60%l; negative for vegetation Percocet for pain control, IV morphine for breakthrough pain with bowel regimen -Repeat Cultures continue to come back with staph aureus. Plan for prolonged antibiotic use. Unable to trust patient with IV access since he was even found to have illicit substance during hospitalization. Patient will also be unable to make it to the IV infusion center. Left AMA recently -IV oxacillin as per previous ID recommendation, likely duration 8 weeks -Neurosurgery has seen and evaluated the patient. Recommend continued infectious workup. MRI of the spine without any abscess. No surgical intervention for now. Recommend weekly ESR/CRP. To call neurosurgery if neurologic deficit occurs. Patient currently is ambulatory -Pain seeking behavior. We will not increase medication dose. This has been discussed with patient. IV drug use, heroin -Monitor for withdrawals. -Ativan PRN -Clonidine patch to decrease anxiety. -Found to have illicit substance while in the inpatient setting - "heroin rock", possible snorted vs injection, while inpatient. No visitors allowed. May have supervised visitation. Depression -Prozac daily -Possible psych evaluation -Monitor for changes in behavior Insomnia -Jeannette Full code. SCDs. Heparin
[2018-09-28] MEDS: FLUoxetine 20 MG Capsule PO SCH (09:00)
[2018-09-28] MEDS: Senna/Docusate Sodium 8.6/50 MG Tablet PO SCH ×2 (09:00→20:41)
[2018-09-28] MEDS: Zolpidem Tartrate 5 MG Tablet PO PRN (20:41)
[2018-09-29] MEDS: oxyCODONE/Acetaminophen 10/325 Tablet PO PRN ×4 (00:36→20:41)
[2018-09-29] MEDS: Heparin - SQ 10,000 UNITS/ML Vial SQ SCH ×2 (06:03→17:15)
[2018-09-29] MEDS: Morphine Inj 4 MG/ML Vial IV.PUSH PRN ×4 (06:07→21:53)
[2018-09-29] MEDS: FLUoxetine 20 MG Capsule PO SCH (08:42)
[2018-09-29] MEDS: Senna/Docusate Sodium 8.6/50 MG Tablet PO SCH ×2 (08:43→21:54)
--- NOTE | 2018-09-29 12:43 | P.PNIM ---
Subjective Interval history: Follow up discitis. Patient states his pain is controlled but he is having anxiety and panic attacks. He states the IV Ativan is not lasting. Options of PO discussed with him and he is willing to try it. He states he was prescribed Xanax outpatient, but no active script in 2 years per [facility]. Physical Exam Vital signs: Last Vital Signs Temp 97.8 F 09/29/18 08:00 Pulse 91 H 09/29/18 08:00 Resp 20 09/29/18 08:00 BP 115/71 09/29/18 08:00 Pulse Ox 99 09/29/18 08:00 Intake & Output 09/27/18 09/28/18 09/29/18 09/30/18 06:59 06:59 06:59 06:59 Intake Total 200 / 200 700 / 700 1042 / 1042 100 / 100 Output Total 600 / 600 Balance 200 / 200 100 / 100 1042 / 1042 100 / 100 Weight 68.8 kg 68.9 kg 68.9 kg 1.911 kg Narrative: GENERAL: Thin appearing male, in NAD. Patient is ambulatory. SKIN: Warm and dry. HEENT: Normocephalic. Pupils equal round and reactive. Nose without bleeding. Airway patent. CARDIOVASCULAR: Regular rate and rhythm without murmurs, gallops, or rubs. RESPIRATORY: Clear to auscultation. Breath sounds equal bilaterally. No wheezes , rales, or rhonchi. GASTROINTESTINAL: Abdomen soft, non-tender, nondistended. Bowel Sounds normoactive x4. MUSCULOSKELETAL: Extremities without clubbing, cyanosis, or edema. TTP throughout thoracolumbar area. NEUROLOGICAL: Awake and alert. Calm. No focal neuro deficit. Moves all extremities. Normal speech. Results Labs CBC & Chem 7: 09/27/18 07:30 09/27/18 07:30 Labs: Microbiology 09/26/18 17:45 Blood - Peripheral Aerobic Blood Culture - Preliminary No growth in 3 days 09/26/18 17:45 Blood - Peripheral Anaerobic Blood Culture - Preliminary No growth in 3 days 09/26/18 17:50 Blood - Peripheral Aerobic Blood Culture - Preliminary No growth in 3 days 09/26/18 17:50 Blood - Peripheral Anaerobic Blood Culture - Final Staphylococcus aureus Assessment and Plan (1) Staphylococcus aureus bacteremia: Code(s): R78.81 - Bacteremia Status: Acute (2) Discitis: Code(s): M46.40 - Discitis, unspecified, site unspecified Status: Acute (3) Intravenous drug abuse: Code(s): F19.10 - Other psychoactive substance abuse, uncomplicated Status: Chronic Plan 28-year-old male with a history of IV drug use who was initially admitted to the hospital on 09/21/2018 due to lower back pain as well as fever admitted to the hospital and has stayed since 09/26/18. Patient states he had a panic attack and asked his nurse if he is able to get out of his room and walk around. The nurse agreed to him that he is able to walk around the unit however the patient thought that he is able to get out of the unit and he started wandering all the way to the other building in the [facility]. He was brought back to the unit by a nurse from [facility] but because he was out of the unit for quite some time they signed him off as leaving AGAINST MEDICAL ADVICE. Came back for readmission. Staph aureus bacteremia IVDU Discitis -Neurosurgery reconsulted. ID reconsulted -09/23/18 Thoracic MRI showed There is diffuse mild epidural enhancement involving the mid to lower thoracic canal on examination. -Echo 60-65% ejection fraction, no endocarditis noted. -LISA was done showing Normal LV size, wall thickness and systolic function, EF 60%l; negative for vegetation Percocet for pain control, IV morphine for breakthrough pain with bowel regimen -Repeat Cultures continue to come back with staph aureus. Plan for prolonged antibiotic use. Unable to trust patient with IV access since he was even found to have illicit substance during hospitalization. Patient will also be unable to make it to the IV infusion center. Left AMA recently -IV oxacillin as per previous ID recommendation, likely duration 8 weeks -Neurosurgery has seen and evaluated the patient. Recommend continued infectious workup. MRI of the spine without any abscess. No surgical intervention for now. --- -Recommend weekly ESR/CRP. To call neurosurgery if neurologic deficit occurs. Patient currently is ambulatory -Pain seeking behavior. We will not increase medication dose. This has been discussed with patient. IV drug use, heroin -Monitor for withdrawals. -Ativan PRN, changed to PO 09/29 -Clonidine patch to decrease anxiety. -Found to have illicit substance while in the inpatient setting - "heroin rock" , possible snorted vs injection, while inpatient. No visitors allowed. May have supervised visitation. Depression/anxiety -Prozac daily -Possible psych evaluation if PO ativan does not work, patient states he use to take Xanax but no script in 2 years per [employer] -Monitor for changes in behavior Insomnia -Cont Ambien PRN Full code. SCDs. 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
[2018-09-29] MEDS: Zolpidem Tartrate 5 MG Tablet PO PRN (20:47)
[2018-09-30] MEDS: Morphine Inj 4 MG/ML Vial IV.PUSH PRN ×5 (01:57→19:46)
[2018-09-30] MEDS: oxyCODONE/Acetaminophen 10/325 Tablet PO PRN ×3 (02:51→17:53)
[2018-09-30] MEDS: Heparin - SQ 10,000 UNITS/ML Vial SQ SCH ×2 (05:29→18:13)
[2018-09-30] MEDS: FLUoxetine 20 MG Capsule PO SCH (09:08)
[2018-09-30] MEDS: Senna/Docusate Sodium 8.6/50 MG Tablet PO SCH ×2 (09:08→22:35)
--- NOTE | 2018-09-30 16:28 | P.PN ---
Subjective Interval history: Follow up discitis. Pt. is seen and examined, c/o anxiety, feels that he is going through withdrawals. States he did not leave, he was just lost. Per nursing staff, pt. noted texting a friend about poss. purchase of illegal drugs. Physical Exam Vital signs: Vital Signs 09/29/18 17:19 09/29/18 20:00 09/29/18 23:18 Temperature 98.3 F 97.9 F Pulse Rate 99 H 89 Respiratory Rate 09 21 18 Blood Pressure 118/68 117/74 Pulse Oximetry 98 99 09/30/18 01:58 09/30/18 03:51 09/30/18 04:00 Temperature 98.3 F Pulse Rate 88 77 Respiratory Rate 16 20 Blood Pressure 109/74 105/71 Pulse Oximetry 99 09/30/18 08:00 09/30/18 09:57 09/30/18 10:37 Temperature 98.0 F Pulse Rate 71 Respiratory Rate 20 17 17 Blood Pressure 109/66 Pulse Oximetry 100 09/30/18 12:00 09/30/18 14:47 Temperature 97.8 F Pulse Rate 95 H Respiratory Rate 20 17 Blood Pressure 121/65 Pulse Oximetry 99 Intake & Output 09/29/18 09/30/18 09/30/18 18:59 06:59 18:59 Intake Total 780 / 780 300 / 300 200 / 200 Output Total 300 / 300 Balance 780 / 780 0 / 0 200 / 200 Weight 1.911 kg Intake: IV 300 / 300 300 / 300 200 / 200 Prostaphlin Inj 2 GM In NS Inj 300 / 300 300 / 300 200 / 200 100 ML @ 200 mls/hr IV.SIG Q4H [facility] Rx#:[id number] Oral 480 / 480 Output: Urine 300 / 300 Other: # Voids 3 1 Date of Last Bowel Movement 09/28/18 09/29/18 09/29/18 Weight On Admission 68.039 kg Narrative: GENERAL: Thin appearing male, in NAD. SKIN: Warm and dry. HEENT: Normocephalic. Pupils equal round and reactive. Nose without bleeding. Airway patent. CARDIOVASCULAR: Regular rate and rhythm without murmurs, gallops, or rubs. RESPIRATORY: Clear to auscultation. Breath sounds equal bilaterally. No wheezes , rales, or rhonchi. GASTROINTESTINAL: Abdomen soft, non-tender, nondistended. Bowel Sounds normoactive x4. MUSCULOSKELETAL: Extremities without clubbing, cyanosis, or edema. TTP throughout thoracolumbar area. NEUROLOGICAL: Awake and alert. Calm. No focal neuro deficit. Moves all extremities. Normal speech. Results - Labs CBC & Chem 7: 09/27/18 07:30 09/27/18 07:30 Microbiology 09/26/18 17:45 Blood - Peripheral Aerobic Blood Culture - Preliminary No growth in 4 days 09/26/18 17:45 Blood - Peripheral Anaerobic Blood Culture - Preliminary No growth in 4 days 09/26/18 17:50 Blood - Peripheral Aerobic Blood Culture - Preliminary No growth in 4 days 09/26/18 17:50 Blood - Peripheral Anaerobic Blood Culture - Final Staphylococcus aureus Assessment and Plan - Assessment (1) Staphylococcus aureus bacteremia Code(s): R78.81 - Bacteremia Status: Acute (2) Discitis Code(s): M46.40 - Discitis, unspecified, site unspecified Status: Acute (3) Intravenous drug abuse Code(s): F19.10 - Other psychoactive substance abuse, uncomplicated Status: Chronic - Plan 28-year-old male with a history of IV drug use who was initially admitted to the hospital on 09/21/2018 due to lower back pain as well as fever admitted to the hospital and has stayed since 09/26/18. Patient states he had a panic attack and asked his nurse if he is able to get out of his room and walk around. The nurse agreed to him that he is able to walk around the unit however the patient thought that he is able to get out of the unit and he started wandering all the way to the other building in the [place]. He was brought back to the unit by a nurse from [facility] but because he was out of the unit for quite some time they signed him off as leaving AGAINST MEDICAL ADVICE. Came back for readmission. Staph aureus bacteremia IVDU Discitis -Neurosurgery reconsulted. ID reconsulted -09/23/18 Thoracic MRI showed There is diffuse mild epidural enhancement involving the mid to lower thoracic canal on examination. -Echo 60-65% ejection fraction, no endocarditis noted. -LISA was done showing Normal LV size, wall thickness and systolic function, EF 60%l; negative for vegetation Percocet for pain control, IV morphine for breakthrough pain with bowel regimen -Repeat Cultures continue to come back with staph aureus. Plan for prolonged antibiotic use. Unable to trust patient with IV access since he was even found to have illicit substance during hospitalization. Patient will also be unable to make it to the IV infusion center. Left AMA recently -IV oxacillin as per previous ID recommendation, likely duration 8 weeks -Neurosurgery has seen and evaluated the patient. Recommend continued infectious workup. MRI of the spine without any abscess. No surgical intervention for now. --- -Recommend weekly ESR/CRP. To call neurosurgery if neurologic deficit occurs. Patient currently is ambulatory -Pain seeking behavior. We will not increase medication dose. This has been discussed with patient. IV drug use, heroin -Monitor for withdrawals. -Continue with Ativan PO prn -Clonidine patch to decrease anxiety. -Found to have illicit substance while in the inpatient setting - "heroin rock" , possible snorted vs injection, while inpatient. No visitors allowed. May have supervised visitation. D/W RN and charge nurse to move pt. closer to nurse' s station Depression/anxiety -Prozac daily -Possible psych evaluation if PO ativan does not work, patient states he use to take Xanax but no script in 2 years per [employer] -Monitor for changes in behavior Insomnia -Cont Ambien PRN Full code. SCDs. Heparin Code Status: Full code Discussed Condition With: RN, pt, CM Discharge Planning: Needs to complete abx, at least 8 weeks.
[2018-09-30] MEDS: Zolpidem Tartrate 5 MG Tablet PO PRN (22:34)
[2018-10-01] MEDS: Morphine Inj 4 MG/ML Vial IV.PUSH PRN ×6 (00:12→22:58)
[2018-10-01] MEDS: oxyCODONE/Acetaminophen 10/325 Tablet PO PRN ×4 (00:56→18:57)
[2018-10-01] MEDS: Heparin - SQ 10,000 UNITS/ML Vial SQ SCH ×2 (06:48→17:16)
[2018-10-01] MEDS: Senna/Docusate Sodium 8.6/50 MG Tablet PO SCH ×2 (08:41→20:45)
[2018-10-01] MEDS: FLUoxetine 20 MG Capsule PO SCH (08:41)
--- NOTE | 2018-10-01 09:32 | P.PN ---
Subjective Interval history: Follow up discitis. Pt. is seen and examined, c/o low back pain. Endorses hx of anxiety and panic attacks, states Ativan PO not working. Xanax worked better in the past. Not sleeping well. No diarrhea, no rashes. Per RN, pt. requesting that Morphine IV is pushed fast and undiluted. Physical Exam Vital signs: Vital Signs 09/30/18 09:57 09/30/18 10:37 09/30/18 12:00 Temperature 97.8 F Pulse Rate 95 H Respiratory Rate 17 17 20 Blood Pressure 121/65 Pulse Oximetry 99 09/30/18 14:47 09/30/18 16:00 09/30/18 18:32 Temperature 98.7 F Pulse Rate 75 Respiratory Rate 17 20 20 Blood Pressure 116/66 Pulse Oximetry 99 09/30/18 20:00 10/01/18 00:00 10/01/18 04:00 Temperature 98.7 F 98.2 F 98.0 F Pulse Rate 93 H 86 80 Respiratory Rate 18 18 18 Blood Pressure 122/69 112/67 123/70 Pulse Oximetry 99 98 96 10/01/18 07:26 10/01/18 08:40 Temperature 97.7 F Pulse Rate 93 H Respiratory Rate 16 18 Blood Pressure 102/57 L Pulse Oximetry 99 Intake & Output 09/30/18 10/01/18 10/01/18 18:59 06:59 18:59 Intake Total 300 / 300 200 / 200 100 / 100 Balance 300 / 300 200 / 200 100 / 100 Weight 67.7 kg Intake: IV 300 / 300 200 / 200 100 / 100 Prostaphlin Inj 2 GM In NS Inj 300 / 300 200 / 200 100 / 100 100 ML @ 200 mls/hr IV.SIG Q4H [facility] Rx#:[id number] Other: # Voids 1 4 Date of Last Bowel Movement 09/29/18 Narrative: GENERAL: Thin appearing male, in NAD. SKIN: Warm and dry. HEENT: Normocephalic. Pupils equal round and reactive. Nose without bleeding. Airway patent. CARDIOVASCULAR: Regular rate and rhythm without murmurs, gallops, or rubs. RESPIRATORY: Clear to auscultation. Breath sounds equal bilaterally. No wheezes , rales, or rhonchi. GASTROINTESTINAL: Abdomen soft, non-tender, nondistended. Bowel Sounds normoactive x4. MUSCULOSKELETAL: Extremities without clubbing, cyanosis, or edema. TTP throughout thoracolumbar area. NEUROLOGICAL: Awake and alert. Calm. No focal neuro deficit. Moves all extremities. Normal speech. Results - Labs CBC & Chem 7: 09/27/18 07:30 09/27/18 07:30 Microbiology 09/26/18 17:45 Blood - Peripheral Aerobic Blood Culture - Preliminary No growth in 4 days 09/26/18 17:45 Blood - Peripheral Anaerobic Blood Culture - Preliminary No growth in 4 days 09/26/18 17:50 Blood - Peripheral Aerobic Blood Culture - Preliminary No growth in 4 days 09/26/18 17:50 Blood - Peripheral Anaerobic Blood Culture - Final Staphylococcus aureus Assessment and Plan - Assessment (1) Staphylococcus aureus bacteremia Code(s): R78.81 - Bacteremia Status: Acute (2) Discitis Code(s): M46.40 - Discitis, unspecified, site unspecified Status: Acute (3) Intravenous drug abuse Code(s): F19.10 - Other psychoactive substance abuse, uncomplicated Status: Chronic - Plan 28-year-old male with a history of IV drug use who was initially admitted to the hospital on 09/21/2018 due to lower back pain as well as fever admitted to the hospital and has stayed since 09/26/18. Patient states he had a panic attack and asked his nurse if he is able to get out of his room and walk around. The nurse agreed to him that he is able to walk around the unit however the patient thought that he is able to get out of the unit and he started wandering all the way to the other building in the [place]. He was brought back to the unit by a nurse from [facility] but because he was out of the unit for quite some time they signed him off as leaving AGAINST MEDICAL ADVICE. Came back for readmission. Staph aureus bacteremia IVDU Discitis -Neurosurgery reconsulted. ID reconsulted -09/23/18 Thoracic MRI showed There is diffuse mild epidural enhancement involving the mid to lower thoracic canal on examination. -Echo 60-65% ejection fraction, no endocarditis noted. -LISA was done showing Normal LV size, wall thickness and systolic function, EF 60%l; negative for vegetation Percocet for pain control, IV morphine for breakthrough pain with bowel regimen -Repeat Cultures continue to come back with staph aureus. Plan for prolonged antibiotic use. Unable to trust patient with IV access since he was even found to have illicit substance during hospitalization. Patient will also be unable to make it to the IV infusion center. Left AMA recently -IV oxacillin as per previous ID recommendation, likely duration 8 weeks -Neurosurgery has seen and evaluated the patient. Recommend continued infectious workup. MRI of the spine without any abscess. No surgical intervention for now. --- -Recommend weekly ESR/CRP. To call neurosurgery if neurologic deficit occurs. Patient currently is ambulatory -Pain seeking behavior. Asking for IV Morphine to be pushed fast and undiluted. D/W RN, med needs to be diluted and administered as indicated. We will need to start weaning off Morphing. IV drug use, heroin -Monitor for withdrawals. -Clonidine patch to decrease anxiety. -Found to have illicit substance while in the inpatient setting - "heroin rock" , possible snorted vs injection, while inpatient. No visitors allowed. May have supervised visitation. D/W RN and charge nurse to move pt. closer to nurse' s station Depression/anxiety Hx of Panic attacks. -Prozac daily -Possible psych evaluation if PO ativan does not work, patient states he use to take Xanax but no script in 2 years per [employer] -will add Xanax 0.25 mg PO q 8 PRN anxiety. Insomnia -Cont Ambien PRN-inc to 10 mg PO q hs Full code. SCDs. Heparin Will check sed rate, CRP in am Code Status: Full code Discussed Condition With: RN, pt Discharge Planning: Needs to complete abx, at least 8 weeks.
[2018-10-01] MEDS: ALPRAZolam 0.25 MG Tablet PO PRN ×2 (10:27→18:08)
[2018-10-01] MEDS: Acetaminophen 325 MG Tablet PO PRN (20:46)
[2018-10-02] MEDS: oxyCODONE/Acetaminophen 10/325 Tablet PO PRN ×4 (01:02→20:14)
[2018-10-02] MEDS: Heparin - SQ 10,000 UNITS/ML Vial SQ SCH ×2 (06:02→18:06)
[2018-10-02] MEDS: Morphine Inj 4 MG/ML Vial IV.PUSH PRN ×5 (06:02→22:10)
[2018-10-02] MEDS: ALPRAZolam 0.25 MG Tablet PO PRN ×2 (08:04→16:16)
[2018-10-02] MEDS: Senna/Docusate Sodium 8.6/50 MG Tablet PO SCH ×2 (08:05→20:15)
[2018-10-02] MEDS: FLUoxetine 20 MG Capsule PO SCH (08:05)
--- NOTE | 2018-10-02 11:57 | P.PN ---
Subjective Interval history: Follow up discitis. Pt. is seen and examined, endorses inc. anxiety and had panic attack yesterday. Wants Alprazolam inc. to 1 mg. Asking for antibiotic pill to be given in one week so he can be discharged earlier. Spiked fever yesterday 101.8, none today. We again discussed need for compliance and finishing treatment. Wants more meds, informed that these will not be increased and will eventually be tapered off. Physical Exam Vital signs: Vital Signs 10/01/18 12:00 10/01/18 13:00 10/01/18 14:00 Temperature 98.4 F Pulse Rate 117 H Respiratory Rate 18 18 18 Blood Pressure 124/72 Pulse Oximetry 98 10/01/18 17:22 10/01/18 17:51 10/01/18 20:00 Temperature 101.8 F H 99.5 F Pulse Rate 104 H 92 H Respiratory Rate 18 18 18 Blood Pressure 131/73 116/64 Pulse Oximetry 98 98 10/01/18 20:44 10/02/18 00:00 10/02/18 08:33 Temperature 98.9 F 99.9 F H Pulse Rate 93 H 91 H Respiratory Rate 10 L 18 16 Blood Pressure 112/64 123/67 Pulse Oximetry 99 98 Intake & Output 10/01/18 10/02/18 10/02/18 18:59 06:59 18:59 Intake Total 400 / 400 300 / 300 100 / 100 Balance 400 / 400 300 / 300 100 / 100 Weight 66.4 kg Intake: IV 400 / 400 300 / 300 100 / 100 Prostaphlin Inj 2 GM In NS Inj 400 / 400 300 / 300 100 / 100 100 ML @ 200 mls/hr IV.SIG Q4H [facility] Rx#:[id number] Other: # Voids 3 Date of Last Bowel Movement 09/21/18 10/01/18 10/01/18 Narrative: GENERAL: Thin appearing male, in NAD. SKIN: Warm and dry. HEENT: Normocephalic. Pupils equal round and reactive. Nose without bleeding. Airway patent. CARDIOVASCULAR: Regular rate and rhythm without murmurs, gallops, or rubs. RESPIRATORY: Clear to auscultation. Breath sounds equal bilaterally. No wheezes , rales, or rhonchi. GASTROINTESTINAL: Abdomen soft, non-tender, nondistended. Bowel Sounds normoactive x4. MUSCULOSKELETAL: Extremities without clubbing, cyanosis, or edema. Ambulatory, BLE strength 5/5. NEUROLOGICAL: Awake and alert. Calm. No focal neuro deficit. Moves all extremities. Normal speech. Results - Labs CBC & Chem 7: 09/27/18 07:30 09/27/18 07:30 Laboratory Results - last 24 hr 10/02/18 10/02/18 08:31 08:31 ESR 62 H C-Reactive Protein 4.53 H Microbiology 09/26/18 17:45 Blood - Peripheral Aerobic Blood Culture - Final No growth in 5 days 09/26/18 17:45 Blood - Peripheral Anaerobic Blood Culture - Final No growth in 5 days 09/26/18 17:50 Blood - Peripheral Aerobic Blood Culture - Final No growth in 5 days 09/26/18 17:50 Blood - Peripheral Anaerobic Blood Culture - Final Staphylococcus aureus Assessment and Plan - Assessment (1) Staphylococcus aureus bacteremia Code(s): R78.81 - Bacteremia Status: Acute (2) Discitis Code(s): M46.40 - Discitis, unspecified, site unspecified Status: Acute (3) Intravenous drug abuse Code(s): F19.10 - Other psychoactive substance abuse, uncomplicated Status: Chronic - Plan 28-year-old male with a history of IV drug use who was initially admitted to the hospital on 09/21/2018 due to lower back pain as well as fever admitted to the hospital and has stayed since 09/26/18. Patient states he had a panic attack and asked his nurse if he is able to get out of his room and walk around. The nurse agreed to him that he is able to walk around the unit however the patient thought that he is able to get out of the unit and he started wandering all the way to the other building in the [place]. He was brought back to the unit by a nurse from [facility] but because he was out of the unit for quite some time they signed him off as leaving AGAINST MEDICAL ADVICE. Came back for readmission. Staph aureus bacteremia IVDU Discitis -Neurosurgery reconsulted. ID reconsulted -09/23/18 Thoracic MRI showed There is diffuse mild epidural enhancement involving the mid to lower thoracic canal on examination. -Echo 60-65% ejection fraction, no endocarditis noted. -LISA was done showing Normal LV size, wall thickness and systolic function, EF 60%l; negative for vegetation Percocet for pain control, IV morphine for breakthrough pain with bowel regimen -Repeat Cultures continue to come back with staph aureus. Plan for prolonged antibiotic use. Unable to trust patient with IV access since he was even found to have illicit substance during hospitalization. Patient will also be unable to make it to the IV infusion center. Left AMA recently -IV oxacillin as per previous ID recommendation, likely duration 8 weeks -Neurosurgery has seen and evaluated the patient. Recommend continued infectious workup. MRI of the spine without any abscess. No surgical intervention for now. -Recommend weekly ESR/CRP. To call neurosurgery if neurologic deficit occurs. Patient currently is ambulatory -fever yesterday 101.8, BC 1/2 from 09/26 still positive for MSSA. -Sed rate 62 (was 72), CRP 4.53 (was 16.8) IV drug use, heroin -Monitor for withdrawals. -Clonidine patch to decrease anxiety. -Found to have illicit substance while in the inpatient setting - "heroin rock" , possible snorted vs injection, while inpatient. No visitors allowed. May have supervised visitation. D/W RN and charge nurse to move pt. closer to nurse' s station -Continues with drug seeking behavior, discussed with pt at length, meds will not be increased and will be slowly weaned down. Depression/anxiety Hx of Panic attacks. -Prozac daily -Patient states he use to take Xanax but no script in 2 years per [employer] -Added Xanax 0.25 mg PO q 8 PRN anxiety. Pt. requesting increase in dose, will leave at is. D/W pt. at length. Insomnia -Cont Ambien PRN-inc to 10 mg PO q hs Full code. SCDs. Heparin Labs reviewed Again, discussed with pt at length need for compliance. Not sure he will stay to complete treatment, he has been warned about the consequences of not completing treatment including sepsis, paralysis, poss . Code Status: Full code Discussed Condition With: RN, pt Discharge Planning: Needs to complete abx, at least 8 weeks.
[2018-10-02] MEDS: Acetaminophen 325 MG Tablet PO PRN ×2 (18:05→22:17)
[2018-10-03] MEDS: oxyCODONE/Acetaminophen 10/325 Tablet PO PRN ×4 (02:11→22:15)
[2018-10-03] MEDS: ALPRAZolam 0.25 MG Tablet PO PRN ×3 (02:12→20:19)
[2018-10-03] MEDS: Morphine Inj 4 MG/ML Vial IV.PUSH PRN ×5 (02:55→20:05)
[2018-10-03] MEDS: Heparin - SQ 10,000 UNITS/ML Vial SQ SCH ×2 (07:06→18:08)
[2018-10-03] MEDS: FLUoxetine 20 MG Capsule PO SCH (08:05)
[2018-10-03] MEDS: Senna/Docusate Sodium 8.6/50 MG Tablet PO SCH ×2 (08:05→20:17)
--- NOTE | 2018-10-03 09:19 | P.PNIM ---
Subjective Interval history: Follow-up discitis. Patient has no new complaints. He is stooling and voiding. Seen with nursing. Physical Exam Vital signs: Last Vital Signs Temp 98.8 F 10/03/18 07:27 Pulse 82 10/03/18 07:27 Resp 16 10/03/18 07:27 BP 107/61 10/03/18 07:27 Pulse Ox 100 10/03/18 07:27 Intake & Output 10/01/18 10/02/18 10/03/18 10/04/18 06:59 06:59 06:59 06:59 Intake Total 500 / 500 700 / 700 2500 / 2500 100 / 100 Output Total 750 / 750 Balance 500 / 500 700 / 700 1750 / 1750 100 / 100 Weight 67.7 kg 66.4 kg 66.4 kg Narrative: GENERAL: Thin appearing male, in NAD. SKIN: Warm and dry. CARDIOVASCULAR: Regular rate and rhythm without murmurs, gallops, or rubs. RESPIRATORY: Clear to auscultation. Breath sounds equal bilaterally. No wheezes , rales, or rhonchi. GASTROINTESTINAL: Abdomen soft, non-tender, nondistended. Bowel Sounds normoactive x4. MUSCULOSKELETAL: Extremities without clubbing, cyanosis, or edema. Ambulatory, BLE strength 5/5. NEUROLOGICAL: Awake and alert. Calm. No focal neuro deficit. Moves all extremities. Normal speech. Results Labs CBC & Chem 7: 09/27/18 07:30 09/27/18 07:30 Procedures Procedures: LISA Assessment and Plan (1) Staphylococcus aureus bacteremia: Code(s): R78.81 - Bacteremia Status: Acute (2) Discitis: Code(s): M46.40 - Discitis, unspecified, site unspecified Status: Acute (3) Intravenous drug abuse: Code(s): F19.10 - Other psychoactive substance abuse, uncomplicated Status: Chronic Plan 28-year-old male with a history of IV drug use who was initially admitted to the hospital on 09/21/2018 due to lower back pain as well as fever admitted to the hospital and has stayed since 09/26/18. Patient states he had a panic attack and asked his nurse if he is able to get out of his room and walk around. The nurse agreed to him that he is able to walk around the unit however the patient thought that he is able to get out of the unit and he started wandering all the way to the other building in the [place]. He was brought back to the unit by a nurse from [facility] but because he was out of the unit for quite some time they signed him off as leaving AGAINST MEDICAL ADVICE. Came back for readmission. Staph aureus bacteremia IVDU Discitis -Neurosurgery reconsulted. ID reconsulted -09/23/18 Thoracic MRI showed There is diffuse mild epidural enhancement involving the mid to lower thoracic canal on examination. -Echo 60-65% ejection fraction, no endocarditis noted. -LISA was done showing Normal LV size, wall thickness and systolic function, EF 60%l; negative for vegetation Percocet for pain control, IV morphine for breakthrough pain with bowel regimen -Repeat Cultures continue to come back with staph aureus. Plan for prolonged antibiotic use. Unable to trust patient with IV access since he was even found to have illicit substance during hospitalization. Patient will also be unable to make it to the IV infusion center. Left AMA recently -IV oxacillin as per previous ID recommendation, likely duration 8 weeks -Neurosurgery has seen and evaluated the patient. Recommend continued infectious workup. MRI of the spine without any abscess. No surgical intervention for now. -Recommend weekly ESR/CRP. To call neurosurgery if neurologic deficit occurs. Patient currently is ambulatory -fever yesterday 101.8, BC 1/2 from 09/26 still positive for MSSA. -Sed rate 62 (was 72), CRP 4.53 (was 16.8) on 10/02 IV drug use, heroin -Monitor for withdrawals. -Clonidine patch to decrease anxiety. -Found to have illicit substance while in the inpatient setting - "heroin rock" , possible snorted vs injection, while inpatient. No visitors allowed. May have supervised visitation. D/W RN and charge nurse to move pt. closer to nurse' s station -Continues with drug seeking behavior, discussed with pt at length, meds will not be increased and will be slowly weaned down. Depression/anxiety Hx of Panic attacks. -Prozac daily -Patient states he use to take Xanax but no script in 2 years per [employer] -Added Xanax 0.25 mg PO q 8 PRN anxiety. Pt. requesting increase in dose, will leave as is. D/W pt. at length. Insomnia -Cont Ambien PRN-inc to 10 mg PO q hs Full code. SCDs. Heparin Labs reviewed Again, discussed with pt at length need for compliance. Not sure he will stay to complete treatment, he has been warned about the consequences of not completing treatment including sepsis, paralysis, poss . Code Status: Full code Discussed Condition With: RN, pt Discharge Planning: Needs to complete abx, at least 8 weeks. Progress Note: Quality VTE Deep Vein Thrombosis/Pulmonary Embolism Present on Admission: No _ (1) Discitis Qualifiers: Spinal region:
[2018-10-04] MEDS: Morphine Inj 4 MG/ML Vial IV.PUSH PRN ×5 (00:03→17:57)
[2018-10-04] MEDS: oxyCODONE/Acetaminophen 10/325 Tablet PO PRN ×3 (05:24→17:32)
[2018-10-04] MEDS: ALPRAZolam 0.25 MG Tablet PO PRN ×3 (05:24→23:34)
[2018-10-04] MEDS: Heparin - SQ 10,000 UNITS/ML Vial SQ SCH ×2 (05:33→17:32)
[2018-10-04] MEDS: FLUoxetine 20 MG Capsule PO SCH (08:56)
[2018-10-04] MEDS: Senna/Docusate Sodium 8.6/50 MG Tablet PO SCH ×2 (08:57→21:33)
--- NOTE | 2018-10-04 14:58 | P.PNIM ---
Subjective Interval history: Chief Complaint: Back pain History of Present Illness: 28-year-old male with a history of IV drug use who was initially admitted to the hospital on 09/21/2018 due to lower back pain as well as fever admitted to the hospital and has stayed since today 09/26/18. Patient states he had a panic attack and asked his nurse if he is able to get out of his room and walk around. The nurse agreed to him that he is able to walk around the unit however the patient thought that he is able to get out of the unit and he started wandering all the way to the other building in the [place]. He was brought back to the unit by a nurse from [facility] but because he was out of the unit for quite some time they signed him off as leaving AGAINST MEDICAL ADVICE. Patient states that he got lost and went back to the ED. States that he did not inject any drugs on him. As per report from ED attending , on the triage patient's heart rate is at the 148. Adamant that he did not do any drugs when he was away from the hospital. He was probably out of the hospital approximately about 2 hours. On exam patient's heart rate is in sinus rhythm rate in the 80s. Patient also had episode of having visitors giving him drugs and apparently was caught by nurse to be locked in the bathroom and all of a sudden started to pace in the room became tachycardic in the 140s. They found her when a rock in his possession. Patient states that he will not leave AGAINST MEDICAL ADVICE again. States that he knows he needs help and he is trying his best to stay in the hospital. He is been requesting for Xanax instead of Ativan. Discussed with patient extensively that he will continue with Ativan for now and we are going to add Zoloft for depression and also would help him with his anxiety. He will continue his antibiotics of oxacillin. He just completed LISA today. Patient states he is hungry. He also states that if he could get something for sleep as he has been trouble sleeping at night is probably making him more anxious. We will continue with no visitor policy for now. Denies SOB/ dyspnea. Denies chest pain, palpitations, headaches, dizziness. Denies fevers, chills, n/v/d. Denies hematuria, dysuria. EKG sinus rhythm with atrial enlargement 12-24 Follow-up visit discitis, staph bacteremia. Patient seen and examined today. Reports he is doing okay. States that he slept a little bit with sleeping aid last night. States he has been waking up couple of times by nurses trying to get some rest. Continues to have back pain but patient appears more comfortable. Denies SOB/ dyspnea. Denies chest pain, palpitations , headaches, dizziness. Denies fevers, chills, n/v/d. Denies dysuria. 09-28 Follow-up for discitis, staph bacteremia. Patient seen ambulating in his room and in the bathroom. He reports continued diffuse back pain, worse with ambulation. Denies fevers or chills. He is tolerating oral intake. He has no other medical complaints at this time. 09-29 Follow up discitis. Patient states his pain is controlled but he is having anxiety and panic attacks. He states the IV Ativan is not lasting. Options of PO discussed with him and he is willing to try it. He states he was prescribed Xanax outpatient, but no active script in 2 years per [facility]. 09-30 Follow up discitis. Pt. is seen and examined, c/o anxiety, feels that he is going through withdrawals. States he did not leave, he was just lost. Per nursing staff, pt. noted texting a friend about poss. purchase of illegal drugs. 10-01 Follow up discitis. Pt. is seen and examined, c/o low back pain. Endorses hx of anxiety and panic attacks, states Ativan PO not working. Xanax worked better in the past. Not sleeping well. No diarrhea, no rashes. Per RN, pt. requesting that Morphine IV is pushed fast and undiluted. 10-02 Follow up discitis. Pt. is seen and examined, endorses inc. anxiety and had panic attack yesterday. Wants Alprazolam inc. to 1 mg. Asking for antibiotic pill to be given in one week so he can be discharged earlier. Spiked fever yesterday 101.8, none today. We again discussed need for compliance and finishing treatment. Wants more meds, informed that these will not be increased and will eventually be tapered off. 10-03 Follow-up discitis. Patient has no new complaints. He is stooling and voiding. Seen with nursing. 10-04 TRIED TO PLAY THAT HE IS SIMPLE WANTS MORE DRUGS DW RN AND PT CONTINUE CURRENT ANTIBIOTICS NOT A SAFE DISCHARGE DUE TO USING HERE IN THE HOSPITAL Physical Exam Vital signs: Vital Signs 10/03/18 16:00 10/03/18 20:55 10/04/18 01:32 Temperature 98.5 F 98.7 F 98.7 F Pulse Rate 73 91 H 68 Respiratory Rate 16 20 20 Blood Pressure 107/65 118/77 109/62 Pulse Oximetry 100 99 100 10/04/18 05:28 10/04/18 08:00 10/04/18 12:00 Temperature 97.0 F L 98.4 F 98.3 F Pulse Rate 71 78 88 Respiratory Rate 20 20 20 Blood Pressure 114/63 90/55 L 104/55 L Pulse Oximetry 100 99 99 Intake & Output 10/03/18 10/04/18 10/04/18 18:59 06:59 18:59 Intake Total 1900 / 1900 780 / 780 100 / 100 Balance 1900 / 1900 780 / 780 100 / 100 Weight 68.3 kg Intake: IV 400 / 400 300 / 300 100 / 100 Prostaphlin Inj 2 GM In NS Inj 400 / 400 300 / 300 100 / 100 100 ML @ 200 mls/hr IV.SIG Q4H SETH Rx#:[id number] Oral 1500 / 1500 480 / 480 Other: # Voids 2 Narrative: GENERAL: Thin appearing male, in NAD. SKIN: Warm and dry. CARDIOVASCULAR: Regular rate and rhythm without murmurs, gallops, or rubs. RESPIRATORY: Clear to auscultation. Breath sounds equal bilaterally. No wheezes , rales, or rhonchi. GASTROINTESTINAL: Abdomen soft, non-tender, nondistended. Bowel Sounds normoactive x4. MUSCULOSKELETAL: Extremities without clubbing, cyanosis, or edema. Ambulatory, BLE strength 5/5. NEUROLOGICAL: Awake and alert. Calm. No focal neuro deficit. Moves all extremities. Normal speech. Results - Labs CBC & Chem 7: 09/27/18 07:30 09/27/18 07:30 - Imaging NONE - Procedures LISA Assessment and Plan - Assessment (1) Staphylococcus aureus bacteremia Code(s): R78.81 - Bacteremia Status: Acute (2) Discitis Code(s): M46.40 - Discitis, unspecified, site unspecified Status: Acute (3) Intravenous drug abuse Code(s): F19.10 - Other psychoactive substance abuse, uncomplicated Status: Chronic - Plan 28-year-old male with a history of IV drug use who was initially admitted to the hospital on 09/21/2018 due to lower back pain as well as fever admitted to the hospital and has stayed since 09/26/18. Patient states he had a panic attack and asked his nurse if he is able to get out of his room and walk around. The nurse agreed to him that he is able to walk around the unit however the patient thought that he is able to get out of the unit and he started wandering all the way to the other building in the [place]. He was brought back to the unit by a nurse from [facility] but because he was out of the unit for quite some time they signed him off as leaving AGAINST MEDICAL ADVICE. Came back for readmission. Staph aureus bacteremia IVDU Discitis -Neurosurgery reconsulted. ID reconsulted -09/23/18 Thoracic MRI showed There is diffuse mild epidural enhancement involving the mid to lower thoracic canal on examination. -Echo 60-65% ejection fraction, no endocarditis noted. -LISA was done showing Normal LV size, wall thickness and systolic function, EF 60%l; negative for vegetation Percocet for pain control, IV morphine for breakthrough pain with bowel regimen -Repeat Cultures continue to come back with staph aureus. Plan for prolonged antibiotic use. Unable to trust patient with IV access since he was even found to have illicit substance during hospitalization. Patient will also be unable to make it to the IV infusion center. Left AMA recently -IV oxacillin as per previous ID recommendation, likely duration 8 weeks -Neurosurgery has seen and evaluated the patient. Recommend continued infectious workup. MRI of the spine without any abscess. No surgical intervention for now. -Recommend weekly ESR/CRP. To call neurosurgery if neurologic deficit occurs. Patient currently is ambulatory -fever yesterday 101.8, BC 1/2 from 09/26 still positive for MSSA. -Sed rate 62 (was 72), CRP 4.53 (was 16.8) on 10/02 NEEDS TO COMPLETE 8WEEKS OF ANTIBIOTICS PER ID IV drug use, heroin -Monitor for withdrawals. -Clonidine patch to decrease anxiety. -Found to have illicit substance while in the inpatient setting - "heroin rock" , possible snorted vs injection, while inpatient. No visitors allowed. May have supervised visitation. D/W RN and charge nurse to move pt. closer to nurse' s station -Continues with drug seeking behavior, discussed with pt at length, meds will not be increased and will be slowly weaned down. Depression/anxiety Hx of Panic attacks. -Prozac daily -Patient states he use to take Xanax but no script in 2 years per [facility] -Added Xanax 0.25 mg PO q 8 PRN anxiety. Pt. requesting increase in dose, will leave as is. D/W pt. at length. Insomnia -Cont Ambien PRN-inc to 10 mg PO q hs Full code. SCDs. Heparin Labs reviewed Again, discussed with pt at length need for compliance. Not sure he will stay to complete treatment, he has been warned about the consequences of not completing treatment including sepsis, paralysis, poss . CONTINUE ANTIBIOTICS FO 8 WEEKS Code Status: FULL CODE Discussed Condition With: RN AND PT AND CM Discharge Planning: NEEDS TO COMPLETE TREATMENT NOT A SAFE DISCHARGE DUE TO HX OF AMA AND USING WHILE HERE IN HOSPITAL
[2018-10-05] MEDS: Morphine Inj 4 MG/ML Vial IV.PUSH PRN ×5 (01:00→19:43)
[2018-10-05] MEDS: oxyCODONE/Acetaminophen 10/325 Tablet PO PRN ×4 (01:48→21:28)
[2018-10-05] MEDS: Heparin - SQ 10,000 UNITS/ML Vial SQ SCH ×2 (07:12→17:36)
[2018-10-05] MEDS: ALPRAZolam 0.25 MG Tablet PO PRN ×3 (08:11→19:52)
[2018-10-05] MEDS: FLUoxetine 20 MG Capsule PO SCH (10:28)
[2018-10-05] MEDS: Senna/Docusate Sodium 8.6/50 MG Tablet PO SCH ×2 (10:33→22:07)
[2018-10-05 10:51] LABS: Baso # (Auto) 0.1 th/mm3 (0.0-0.2); Eos # (Auto) 0.1 th/mm3 (0.0-0.4); Eos % (Auto) 0.9 % (0.0-4.0); Hemoglobin 11.9 gm/dL (13.0-17.0); Lymph # (Auto) 1.8 th/mm3 (1.0-4.8); Lymph % (Auto) 17.6 % (9.0-44.0); Mean Corpuscular Volume 84.7 fL (80.0-100.0); Mean Platelet Volume 7.2 fL (7.0-11.0); Mono # (Auto) 0.4 th/mm3 (0.0-0.9); Mono % (Auto) 3.9 % (0.0-8.0); Neut # (Auto) 7.6 th/mm3 (1.8-7.7); Neut % (Auto) 76.6 % (16.0-70.0); Platelet Count 599 th/mm3 (150-450); Red Blood Count 4.25 mil/mm3 (4.50-5.90); Red Cell Distribution Width 16.5 % (11.6-17.2)
[2018-10-05 11:13] LABS: Alanine Aminotransferase 144 U/L (12-78); Albumin 3.3 g/dL (3.4-5.0); Anion Gap 8 meq/L (5-15); Aspartate Aminotransferase 95 U/L (15-37); Blood Urea Nitrogen 17 mg/dL (7-18); Calcium 8.7 mg/dL (8.5-10.1); Chloride 105 meq/L (98-107); Glomerular Filtration Rate Greater Than 89 mL/min (>89); Glucose,Random 123 mg/dL (74-106); Magnesium 2.2 mg/dL (1.5-2.5); Phosphorus 3.7 mg/dL (2.5-4.9); Sodium 141 meq/L (136-145)
[2018-10-05 11:22] LABS: Alkaline Phosphatase 72 U/L (45-117); Free T4 (Free Thyroxine) 6.27 ng/dL (0.76-1.46); Thyroid Stimulating Hormone 0.992 uIU/mL (0.358-3.740); Total Protein 8.1 g/dL (6.4-8.2)
[2018-10-05 11:48] LABS: Hemoglobin A1c 5.7 % (4.3-6.0)
--- NOTE | 2018-10-05 12:28 | P.PNIM ---
Subjective Interval history: Follow-up Interval History: 28-year-old male with a history of IV drug use who was initially admitted to the hospital on 09/21/2018 due to lower back pain as well as fever admitted to the hospital and has stayed since today 09/26/18. Patient states he had a panic attack and asked his nurse if he is able to get out of his room and walk around. The nurse agreed to him that he is able to walk around the unit however the patient thought that he is able to get out of the unit and he started wandering all the way to the other building in the [place]. He was brought back to the unit by a nurse from [facility] but because he was out of the unit for quite some time they signed him off as leaving AGAINST MEDICAL ADVICE. Patient states that he got lost and went back to the ED. States that he did not inject any drugs on him. As per report from ED attending , on the triage patient's heart rate is at the 148. Adamant that he did not do any drugs when he was away from the hospital. He was probably out of the hospital approximately about 2 hours. On exam patient's heart rate is in sinus rhythm rate in the 80s. Patient also had episode of having visitors giving him drugs and apparently was caught by nurse to be locked in the bathroom and all of a sudden started to pace in the room became tachycardic in the 140s. They found her when a rock in his possession. Patient states that he will not leave AGAINST MEDICAL ADVICE again. States that he knows he needs help and he is trying his best to stay in the hospital. He is been requesting for Xanax instead of Ativan. Discussed with patient extensively that he will continue with Ativan for now and we are going to add Zoloft for depression and also would help him with his anxiety. He will continue his antibiotics of oxacillin. He just completed LISA today. Patient states he is hungry. He also states that if he could get something for sleep as he has been trouble sleeping at night is probably making him more anxious. We will continue with no visitor policy for now. Denies SOB/ dyspnea. Denies chest pain, palpitations, headaches, dizziness. Denies fevers, chills, n/v/d. Denies hematuria, dysuria. 10/05/18 - patient is resting in bed. He states he understands the importance of remaining in the hospital and completing his course of antibiotics, however, he is concerned about having a panic attack and wanting to leave. He is requesting for his Xanax dose to be increased. Patient states he grew up in a family who abuses drugs. His parents both use. Patient has 5 siblings but states only one sister is clean and currently in college. Patient states he understands that drugs may kill him and he would like to quit, however, this has been a constant struggle for him since the age of 19. He denies chest pain, shortness of breath , cough, fevers or chills. Experience back pain with movement. Physical Exam Vital signs: Last Vital Signs Temp 98.4 F 10/05/18 08:00 Pulse 72 10/05/18 08:00 Resp 20 10/05/18 08:00 BP 95/51 L 10/05/18 08:00 Pulse Ox 99 10/05/18 08:00 Intake & Output 10/03/18 10/04/18 10/05/18 10/06/18 06:59 06:59 06:59 06:59 Intake Total 2500 / 2500 2680 / 2680 2520 / 2520 100 / 100 Output Total 750 / 750 Balance 1750 / 1750 2680 / 2680 2520 / 2520 100 / 100 Weight 66.4 kg 68.3 kg 68.3 kg Narrative: GENERAL: Thin appearing male, in NAD. SKIN: Warm and dry. CARDIOVASCULAR: Regular rate and rhythm without murmurs, gallops, or rubs. RESPIRATORY: Clear to auscultation. Breath sounds equal bilaterally. No wheezes , rales, or rhonchi. GASTROINTESTINAL: Abdomen soft, non-tender, nondistended. Bowel Sounds normoactive x4. MUSCULOSKELETAL: Extremities without clubbing, cyanosis, or edema. Ambulatory, BLE strength 5/5. NEUROLOGICAL: Awake and alert. Calm. No focal neuro deficit. Moves all extremities. Normal speech. Results Labs CBC & Chem 7: 10/05/18 10:27 10/05/18 10:27 Procedures Procedures: LISA Assessment and Plan (1) Staphylococcus aureus bacteremia: Code(s): R78.81 - Bacteremia Status: Acute (2) Discitis: Code(s): M46.40 - Discitis, unspecified, site unspecified Status: Acute (3) Intravenous drug abuse: Code(s): F19.10 - Other psychoactive substance abuse, uncomplicated Status: Chronic Plan 28-year-old male with a history of IV drug use who was initially admitted to the hospital on 09/21/2018 due to lower back pain as well as fever admitted to the hospital and has stayed since 09/26/18. Patient states he had a panic attack and asked his nurse if he is able to get out of his room and walk around. The nurse agreed to him that he is able to walk around the unit however the patient thought that he is able to get out of the unit and he started wandering all the way to the other building in the [place]. He was brought back to the unit by a nurse from [facility] but because he was out of the unit for quite some time they signed him off as leaving AGAINST MEDICAL ADVICE. Came back for readmission. MSSA bacteremia IVDU Discitis -Neurosurgery reconsulted. ID reconsulted -09/23/18 Thoracic MRI showed There is diffuse mild epidural enhancement involving the mid to lower thoracic canal on examination. -Echo 60-65% ejection fraction, no endocarditis noted. -LISA was done showing Normal LV size, wall thickness and systolic function, EF 60%l; negative for vegetation Percocet for pain control, IV morphine for breakthrough pain with bowel regimen -Repeat Cultures continue to come back with staph aureus. Plan for prolonged antibiotic use. Unable to trust patient with IV access since he was even found to have illicit substance during hospitalization. Patient will also be unable to make it to the IV infusion center. Left AMA recently -check blood cultures 10/05/18 -IV oxacillin as per previous ID recommendation, likely duration 8 weeks -Neurosurgery has seen and evaluated the patient. Recommend continued infectious workup. MRI of the spine without any abscess. No surgical intervention for now. -Recommend weekly ESR/CRP. To call neurosurgery if neurologic deficit occurs. Patient currently is ambulatory -fever yesterday 101.8, BC 1/2 from 09/26 still positive for MSSA. -Sed rate 62 (was 72), CRP 4.53 (was 16.8) on 10/02 IV drug use, heroin -Monitor for withdrawals. -Clonidine patch to decrease anxiety. -Found to have illicit substance while in the inpatient setting - "heroin rock" , possible snorted vs injection, while inpatient. No visitors allowed. May have supervised visitation. D/W RN and charge nurse to move pt. closer to nurse' s station -Continues with drug seeking behavior, discussed with pt at length, meds will not be increased and will be slowly weaned down. Depression/anxiety Hx of Panic attacks. -Prozac daily -Patient states he use to take Xanax but no script in 2 years per [facility] -Added Xanax 0.25 mg PO q 8 PRN anxiety. Pt. requesting increase in dose, will leave as is. D/W pt. at length. Insomnia -Cont Ambien PRN-inc to 10 mg PO q hs Full code. SCDs. Heparin Labs reviewed Again, discussed with pt at length need for compliance. Not sure he will stay to complete treatment, he has been warned about the consequences of not completing treatment including sepsis, paralysis, poss . CONTINUE ANTIBIOTICS FO 8 WEEKS Code Status: FULL CODE Discussed Condition With: RN AND PT Discharge Planning: NEEDS TO COMPLETE TREATMENT NOT A SAFE DISCHARGE DUE TO HX OF AMA AND USING WHILE HERE IN HOSPITAL Progress Note: Quality VTE Deep Vein Thrombosis/Pulmonary Embolism Present on Admission: No _ (1) Discitis Qualifiers: Spinal region:
[2018-10-06] MEDS: Morphine Inj 4 MG/ML Vial IV.PUSH PRN ×3 (03:16→19:10)
[2018-10-06] MEDS: oxyCODONE/Acetaminophen 10/325 Tablet PO PRN ×3 (05:15→17:26)
[2018-10-06] MEDS: Heparin - SQ 10,000 UNITS/ML Vial SQ SCH ×2 (06:34→17:27)
[2018-10-06] MEDS: FLUoxetine 20 MG Capsule PO SCH (09:23)
[2018-10-06] MEDS: Senna/Docusate Sodium 8.6/50 MG Tablet PO SCH ×2 (09:24→21:30)
[2018-10-06] MEDS: ALPRAZolam 0.25 MG Tablet PO PRN ×2 (09:33→17:26)
--- NOTE | 2018-10-06 13:40 | P.PNIM ---
Subjective Interval history: Follow-up visit MSSA bacteremia, IVDU, discitis Patient is eating lunch. He states he has had a panic attack earlier. He took a shower and listened to some music with improvement in his symptoms. He states he may need a higher dose of Xanax if symptoms persist. Patient expresses he understands the importance of remaining in the hospital for continued treatment but he has the urge to leave at times so that he can "use." No complaints of chest pain, shortness of breath, palpitations, cough, fevers or chills. Physical Exam Vital signs: Last Vital Signs Temp 98.0 F 10/06/18 11:38 Pulse 77 10/06/18 11:38 Resp 18 10/06/18 11:38 BP 118/55 L 10/06/18 11:38 Pulse Ox 100 10/06/18 11:38 Intake & Output 10/04/18 10/05/18 10/06/18 10/07/18 06:59 06:59 06:59 06:59 Intake Total 2680 / 2680 2520 / 2520 960 / 960 200 / 200 Balance 2680 / 2680 2520 / 2520 960 / 960 200 / 200 Weight 68.3 kg 68.3 kg 66.8 kg Narrative: GENERAL: Thin appearing male, in NAD. SKIN: Warm and dry. CARDIOVASCULAR: Regular rate and rhythm without murmurs, gallops, or rubs. RESPIRATORY: Clear to auscultation. Breath sounds equal bilaterally. No wheezes , rales, or rhonchi. GASTROINTESTINAL: Abdomen soft, non-tender, nondistended. Bowel Sounds normoactive x4. MUSCULOSKELETAL: Extremities without clubbing, cyanosis, or edema. Ambulatory, BLE strength 5/5. NEUROLOGICAL: Awake and alert. Calm. No focal neuro deficit. Moves all extremities. Normal speech. Results Labs CBC & Chem 7: 10/05/18 10:27 10/05/18 10:27 Labs: Microbiology 10/05/18 14:11 Blood - Peripheral Aerobic Blood Culture - Preliminary No growth in 1 day 10/05/18 14:11 Blood - Peripheral Anaerobic Blood Culture - Preliminary No growth in 1 day 10/05/18 14:08 Blood - Peripheral Aerobic Blood Culture - Preliminary No growth in 1 day 10/05/18 14:08 Blood - Peripheral Anaerobic Blood Culture - Preliminary No growth in 1 day Procedures Procedures: LISA Assessment and Plan (1) Staphylococcus aureus bacteremia: Code(s): R78.81 - Bacteremia Status: Acute (2) Discitis: Code(s): M46.40 - Discitis, unspecified, site unspecified Status: Acute (3) Intravenous drug abuse: Code(s): F19.10 - Other psychoactive substance abuse, uncomplicated Status: Chronic Plan 28-year-old male with a history of IV drug use who was initially admitted to the hospital on 09/21/2018 due to lower back pain as well as fever admitted to the hospital and has stayed since 09/26/18. Patient states he had a panic attack and asked his nurse if he is able to get out of his room and walk around. The nurse agreed to him that he is able to walk around the unit however the patient thought that he is able to get out of the unit and he started wandering all the way to the other building in the [place]. He was brought back to the unit by a nurse from [facility] but because he was out of the unit for quite some time they signed him off as leaving AGAINST MEDICAL ADVICE. Came back for readmission. MSSA bacteremia IVDU Discitis -Neurosurgery reconsulted. ID reconsulted -09/23/18 Thoracic MRI showed There is diffuse mild epidural enhancement involving the mid to lower thoracic canal on examination. -Echo 60-65% ejection fraction, no endocarditis noted. -LISA was done showing Normal LV size, wall thickness and systolic function, EF 60%l; negative for vegetation Percocet for pain control, IV morphine for breakthrough pain with bowel regimen -Repeat Cultures continue to come back with staph aureus. Plan for prolonged antibiotic use. Unable to trust patient with IV access since he was even found to have illicit substance during hospitalization. Patient will also be unable to make it to the IV infusion center. Left AMA recently -check blood cultures 10/05/18 -IV oxacillin as per previous ID recommendation, likely duration 8 weeks -Neurosurgery has seen and evaluated the patient. Recommend continued infectious workup. MRI of the spine without any abscess. No surgical intervention for now. -Recommend weekly ESR/CRP. To call neurosurgery if neurologic deficit occurs. Patient currently is ambulatory -fever yesterday 101.8, BC 1/2 from 09/26 still positive for MSSA. -Sed rate 62 (was 72), CRP 4.53 (was 16.8) on 10/02 IV drug use, heroin -Monitor for withdrawals. -Clonidine patch to decrease anxiety. -Found to have illicit substance while in the inpatient setting - "heroin rock" , possible snorted vs injection, while inpatient. No visitors allowed. May have supervised visitation. D/W RN and charge nurse to move pt. closer to nurse' s station -Continues with drug seeking behavior, discussed with pt at length, meds will not be increased and will be slowly weaned down. Depression/anxiety Hx of Panic attacks. -Prozac daily -Patient states he use to take Xanax but no script in 2 years per [facility] -Added Xanax 0.25 mg PO q 8 PRN anxiety. Pt. requesting increase in dose, will leave as is. D/W pt. at length. Insomnia -Cont Ambien PRN-inc to 10 mg PO q hs Full code. SCDs. Heparin Labs reviewed Again, discussed with pt at length need for compliance. Not sure he will stay to complete treatment, he has been warned about the consequences of not completing treatment including sepsis, paralysis, poss . Code Status: FULL CODE Discussed Condition With: RN AND PT Discharge Planning: NEEDS TO COMPLETE TREATMENT 8 weeks of abx NOT A SAFE DISCHARGE DUE TO HX OF AMA AND USING WHILE HERE IN HOSPITAL Progress Note: Quality VTE Deep Vein Thrombosis/Pulmonary Embolism Present on Admission: No _ (1) Discitis Qualifiers: Spinal region:
[2018-10-07] MEDS: oxyCODONE/Acetaminophen 10/325 Tablet PO PRN ×4 (01:15→20:31)
[2018-10-07] MEDS: ALPRAZolam 0.25 MG Tablet PO PRN ×3 (01:16→17:19)
[2018-10-07] MEDS: Morphine Inj 4 MG/ML Vial IV.PUSH PRN ×5 (03:48→22:08)
[2018-10-07] MEDS: Heparin - SQ 10,000 UNITS/ML Vial SQ SCH ×2 (06:39→17:42)
[2018-10-07] MEDS: Senna/Docusate Sodium 8.6/50 MG Tablet PO SCH ×2 (08:00→20:32)
[2018-10-07] MEDS: FLUoxetine 20 MG Capsule PO SCH (08:00)
--- NOTE | 2018-10-07 12:58 | P.PNIM ---
Subjective Interval history: Follow-up visit MSSA bacteremia, IVDU, discitis Patient is resting in bed watching a movie. He states he is trying to calm his anxiety. No complaints of back pain at present time. Patient tolerating diet. Physical Exam Vital signs: Last Vital Signs Temp 99.5 F 10/07/18 11:39 Pulse 82 10/07/18 11:39 Resp 18 10/07/18 11:39 BP 132/77 10/07/18 11:39 Pulse Ox 99 10/07/18 11:39 Intake & Output 10/05/18 10/06/18 10/07/18 10/08/18 06:59 06:59 06:59 06:59 Intake Total 2520 / 2520 960 / 960 600 / 600 200 / 200 Balance 2520 / 2520 960 / 960 600 / 600 200 / 200 Weight 68.3 kg 66.8 kg 67.3 kg Narrative: GENERAL: Thin appearing male, in NAD. SKIN: Warm and dry. CARDIOVASCULAR: Regular rate and rhythm without murmurs, gallops, or rubs. RESPIRATORY: Clear to auscultation. Breath sounds equal bilaterally. No wheezes , rales, or rhonchi. GASTROINTESTINAL: Abdomen soft, non-tender, nondistended. Bowel Sounds normoactive x4. MUSCULOSKELETAL: Extremities without clubbing, cyanosis, or edema. Ambulatory, BLE strength 5/5. NEUROLOGICAL: Awake and alert. Calm. No focal neuro deficit. Moves all extremities. Normal speech. Results Labs CBC & Chem 7: 10/05/18 10:27 10/05/18 10:27 Labs: Microbiology 10/05/18 14:11 Blood - Peripheral Aerobic Blood Culture - Preliminary No growth in 2 days 10/05/18 14:11 Blood - Peripheral Anaerobic Blood Culture - Preliminary No growth in 2 days 10/05/18 14:08 Blood - Peripheral Aerobic Blood Culture - Preliminary No growth in 2 days 10/05/18 14:08 Blood - Peripheral Anaerobic Blood Culture - Preliminary No growth in 2 days Procedures Procedures: LISA Assessment and Plan (1) Staphylococcus aureus bacteremia: Code(s): R78.81 - Bacteremia Status: Acute (2) Discitis: Code(s): M46.40 - Discitis, unspecified, site unspecified Status: Acute (3) Intravenous drug abuse: Code(s): F19.10 - Other psychoactive substance abuse, uncomplicated Status: Chronic Plan 28-year-old male with a history of IV drug use who was initially admitted to the hospital on 09/21/2018 due to lower back pain as well as fever admitted to the hospital and has stayed since 09/26/18. Patient states he had a panic attack and asked his nurse if he is able to get out of his room and walk around. The nurse agreed to him that he is able to walk around the unit however the patient thought that he is able to get out of the unit and he started wandering all the way to the other building in the [place]. He was brought back to the unit by a nurse from [facility] but because he was out of the unit for quite some time they signed him off as leaving AGAINST MEDICAL ADVICE. Came back for readmission. MSSA bacteremia IVDU Discitis -Neurosurgery reconsulted. ID reconsulted -09/23/18 Thoracic MRI showed There is diffuse mild epidural enhancement involving the mid to lower thoracic canal on examination. -Echo 60-65% ejection fraction, no endocarditis noted. -LISA was done showing Normal LV size, wall thickness and systolic function, EF 60%l; negative for vegetation Percocet for pain control, IV morphine for breakthrough pain with bowel regimen -Repeat Cultures continue to come back with staph aureus. Plan for prolonged antibiotic use. Unable to trust patient with IV access since he was even found to have illicit substance during hospitalization. Patient will also be unable to make it to the IV infusion center. Left AMA recently -check blood cultures 10/05/18 -IV oxacillin as per previous ID recommendation, likely duration 8 weeks -Neurosurgery has seen and evaluated the patient. Recommend continued infectious workup. MRI of the spine without any abscess. No surgical intervention for now. -Recommend weekly ESR/CRP. To call neurosurgery if neurologic deficit occurs. Patient currently is ambulatory -fever yesterday 101.8, BC 1/2 from 09/26 still positive for MSSA. -Sed rate 62 (was 72), CRP 4.53 (was 16.8) on 10/02 IV drug use, heroin -Monitor for withdrawals. -Clonidine patch to decrease anxiety. -Found to have illicit substance while in the inpatient setting - "heroin rock" , possible snorted vs injection, while inpatient. No visitors allowed. May have supervised visitation. D/W RN and charge nurse to move pt. closer to nurse' s station -Continues with drug seeking behavior, discussed with pt at length, meds will not be increased and will be slowly weaned down. Depression/anxiety Hx of Panic attacks. -Prozac daily -Patient states he use to take Xanax but no script in 2 years per [facility] -Added Xanax 0.25 mg PO q 8 PRN anxiety. Pt. requesting increase in dose, will leave as is. D/W pt. at length. Insomnia -Cont Ambien PRN-inc to 10 mg PO q hs Full code. SCDs. Heparin Labs reviewed Again, discussed with pt at length need for compliance. Not sure he will stay to complete treatment, he has been warned about the consequences of not completing treatment including sepsis, paralysis, poss . Code Status: FULL CODE Discussed Condition With: RN AND PT Discharge Planning: NEEDS TO COMPLETE TREATMENT 8 weeks of abx NOT A SAFE DISCHARGE DUE TO HX OF AMA AND USING WHILE HERE IN HOSPITAL Progress Note: Quality VTE Deep Vein Thrombosis/Pulmonary Embolism Present on Admission: No _ (1) Discitis Qualifiers: Spinal region:
[2018-10-07] MEDS: Acetaminophen 325 MG Tablet PO PRN (18:00)
[2018-10-08] MEDS: ALPRAZolam 0.25 MG Tablet PO PRN ×3 (01:55→20:06)
[2018-10-08] MEDS: Morphine Inj 4 MG/ML Vial IV.PUSH PRN ×5 (01:56→18:53)
[2018-10-08] MEDS: oxyCODONE/Acetaminophen 10/325 Tablet PO PRN ×4 (02:47→21:57)
[2018-10-08] MEDS: Heparin - SQ 10,000 UNITS/ML Vial SQ SCH ×2 (06:19→17:30)
[2018-10-08] MEDS: FLUoxetine 20 MG Capsule PO SCH (08:42)
[2018-10-08] MEDS: Senna/Docusate Sodium 8.6/50 MG Tablet PO SCH ×2 (08:43→20:07)
--- NOTE | 2018-10-08 11:53 | P.PNIM ---
Subjective Interval history: Follow-up visit MSSA bacteremia, discitis, IVDU Patient seen and examined while resting in bed. He reports feeling anxious. Requesting for his Xanax dose to be increased or switching back to Ativan. He denies back pain. Denies chest discomfort, shortness of breath, cough, fever or chills. Tolerating diet. Physical Exam Vital signs: Last Vital Signs Temp 97.5 F L 10/08/18 07:40 Pulse 67 10/08/18 07:40 Resp 18 10/08/18 11:20 BP 125/71 10/08/18 07:40 Pulse Ox 98 10/08/18 07:40 Intake & Output 10/06/18 10/07/18 10/08/18 10/09/18 06:59 06:59 06:59 06:59 Intake Total 960 / 960 600 / 600 2100 / 2100 1000 / 1000 Balance 960 / 960 600 / 600 2100 / 2100 1000 / 1000 Weight 66.8 kg 67.3 kg 66.7 kg Narrative: GENERAL: Thin appearing male, in NAD. SKIN: Warm and dry. CARDIOVASCULAR: Regular rate and rhythm without murmurs, gallops, or rubs. RESPIRATORY: Clear to auscultation. Breath sounds equal bilaterally. No wheezes , rales, or rhonchi. GASTROINTESTINAL: Abdomen soft, non-tender, nondistended. Bowel Sounds normoactive x4. MUSCULOSKELETAL: Extremities without clubbing, cyanosis, or edema. Ambulatory, BLE strength 5/5. NEUROLOGICAL: Awake and alert. No focal neuro deficit. Moves all extremities. Normal speech. Results Labs CBC & Chem 7: 10/05/18 10:27 10/05/18 10:27 Labs: Microbiology 10/05/18 14:11 Blood - Peripheral Aerobic Blood Culture - Preliminary No growth in 3 days 10/05/18 14:11 Blood - Peripheral Anaerobic Blood Culture - Preliminary No growth in 3 days 10/05/18 14:08 Blood - Peripheral Aerobic Blood Culture - Preliminary No growth in 3 days 10/05/18 14:08 Blood - Peripheral Anaerobic Blood Culture - Preliminary No growth in 3 days Procedures Procedures: LISA Assessment and Plan (1) Staphylococcus aureus bacteremia: Code(s): R78.81 - Bacteremia Status: Acute (2) Discitis: Code(s): M46.40 - Discitis, unspecified, site unspecified Status: Acute (3) Intravenous drug abuse: Code(s): F19.10 - Other psychoactive substance abuse, uncomplicated Status: Chronic Plan 28-year-old male with a history of IV drug use who was initially admitted to the hospital on 09/21/2018 due to lower back pain as well as fever admitted to the hospital and has stayed since 09/26/18. Patient states he had a panic attack and asked his nurse if he is able to get out of his room and walk around. The nurse agreed to him that he is able to walk around the unit however the patient thought that he is able to get out of the unit and he started wandering all the way to the other building in the [place]. He was brought back to the unit by a nurse from [facility] but because he was out of the unit for quite some time they signed him off as leaving AGAINST MEDICAL ADVICE. Came back for readmission. MSSA bacteremia IVDU Discitis -Neurosurgery reconsulted. ID reconsulted -09/23/18 Thoracic MRI showed There is diffuse mild epidural enhancement involving the mid to lower thoracic canal on examination. -Echo 60-65% ejection fraction, no endocarditis noted. -LISA was done showing Normal LV size, wall thickness and systolic function, EF 60%l; negative for vegetation Percocet for pain control, IV morphine for breakthrough pain with bowel regimen -Repeat Cultures continue to come back with staph aureus. Plan for prolonged antibiotic use. Unable to trust patient with IV access since he was even found to have illicit substance during hospitalization. Patient will also be unable to make it to the IV infusion center. Left AMA recently -check blood cultures 10/05/18 -IV oxacillin as per previous ID recommendation, likely duration 8 weeks -Neurosurgery has seen and evaluated the patient. Recommend continued infectious workup. MRI of the spine without any abscess. No surgical intervention for now. -Recommend weekly ESR/CRP. To call neurosurgery if neurologic deficit occurs. Patient currently is ambulatory -fever yesterday 101.8, BC 1/2 from 09/26 still positive for MSSA. -Sed rate 62 (was 72), CRP 4.53 (was 16.8) on 10/02 IV drug use, heroin -Monitor for withdrawals. -Clonidine patch to decrease anxiety. -Found to have illicit substance while in the inpatient setting - "heroin rock" , possible snorted vs injection, while inpatient. No visitors allowed. May have supervised visitation. D/W RN and charge nurse to move pt. closer to nurse' s station -Continues with drug seeking behavior, discussed with pt at length, meds will not be increased and will be slowly weaned down. Depression/anxiety Hx of Panic attacks. -Prozac daily -Patient states he use to take Xanax but no script in 2 years per [facility] -Xanax 0.25 mg PO q 8 PRN anxiety. Insomnia -Cont Ambien PRN-inc to 10 mg PO q hs Full code. SCDs. Heparin Labs reviewed Again, discussed with pt at length need for compliance. Not sure he will stay to complete treatment, he has been warned about the consequences of not completing treatment including sepsis, paralysis, poss . Code Status: FULL CODE Discussed Condition With: RN AND PT Discharge Planning: NEEDS TO COMPLETE TREATMENT 8 weeks of abx NOT A SAFE DISCHARGE DUE TO HX OF AMA AND USING WHILE HERE IN HOSPITAL Progress Note: Quality VTE Deep Vein Thrombosis/Pulmonary Embolism Present on Admission: No _ (1) Discitis Qualifiers: Spinal region:
[2018-10-08] MEDS ORDERED: ALPRAZolam 0.5 MG Tablet PO PRN ×2 (12:00)
[2018-10-08] MEDS ORDERED: ALPRAZolam 0.25 MG Tablet PO ONE ×2 (12:00→14:14)
[2018-10-09] MEDS: ALPRAZolam 0.25 MG Tablet PO PRN ×3 (05:12→23:20)
[2018-10-09] MEDS: oxyCODONE/Acetaminophen 10/325 Tablet PO PRN ×4 (05:12→23:20)
[2018-10-09] MEDS: Heparin - SQ 10,000 UNITS/ML Vial SQ SCH ×2 (06:29→17:58)
[2018-10-09] MEDS: Morphine Inj 4 MG/ML Vial IV.PUSH PRN ×3 (08:30→20:32)
[2018-10-09] MEDS: FLUoxetine 20 MG Capsule PO SCH (08:31)
[2018-10-09] MEDS: Senna/Docusate Sodium 8.6/50 MG Tablet PO SCH ×2 (10:38→20:32)
[2018-10-09 10:50] LABS: Alanine Aminotransferase 302 U/L (12-78); Albumin 3.5 g/dL (3.4-5.0); Anion Gap 8 meq/L (5-15); Aspartate Aminotransferase 177 U/L (15-37); Blood Urea Nitrogen 13 mg/dL (7-18); Calcium 8.8 mg/dL (8.5-10.1); Carbon Dioxide 29.3 meq/L (21.0-32.0); Chloride 103 meq/L (98-107); Glomerular Filtration Rate Greater Than 89 mL/min (>89); Glucose,Random 132 mg/dL (74-106); Potassium 4.1 meq/L (3.5-5.1); Sodium 140 meq/L (136-145)
[2018-10-09 11:00] LABS: Alkaline Phosphatase 95 U/L (45-117); Free T4 (Free Thyroxine) 5.64 ng/dL (0.76-1.46); Thyroid Stimulating Hormone 0.439 uIU/mL (0.358-3.740); Total Protein 8.6 g/dL (6.4-8.2)
--- NOTE | 2018-10-09 15:40 | P.PNIM ---
Subjective Interval history: Patient seen lying in bed. He is very focused on his anxiety and continues to request higher doses of benzodiazepine. Discussed nondrug methods for dealing with anxiety including cognitive behavioral therapy. Encouraged patient to find meditation dayday for phone. Physical Exam Vital signs: Last Vital Signs Temp 98.6 F 10/09/18 11:10 Pulse 96 H 10/09/18 11:10 Resp 18 10/09/18 12:04 BP 125/72 10/09/18 11:10 Pulse Ox 100 10/09/18 11:10 Intake & Output 10/07/18 10/08/18 10/09/18 10/10/18 06:59 06:59 06:59 06:59 Intake Total 600 / 600 2100 / 2100 1500 / 1500 200 / 200 Balance 600 / 600 2100 / 2100 1500 / 1500 200 / 200 Weight 67.3 kg 66.7 kg 67.2 kg Narrative: GENERAL: Well-nourished, well-developed adult male in no obvious distress. SKIN: Warm and dry. HEAD: Atraumatic. Normocephalic. CARDIOVASCULAR: Regular rate and rhythm. RESPIRATORY: No accessory muscle use. Clear to auscultation. Breath sounds equal bilaterally. GASTROINTESTINAL: Abdomen soft, non-tender, non-distended. Positive bowel sounds. MUSCULOSKELETAL: Extremities without clubbing, cyanosis, or edema. No obvious deformities. NEUROLOGICAL: Awake and alert. No obvious cranial nerve deficits. Motor grossly within normal limits. Normal speech. Results Labs CBC & Chem 7: 10/05/18 10:27 10/09/18 09:46 Labs: Microbiology 10/05/18 14:11 Blood - Peripheral Aerobic Blood Culture - Preliminary No growth in 4 days 10/05/18 14:11 Blood - Peripheral Anaerobic Blood Culture - Preliminary No growth in 4 days 10/05/18 14:08 Blood - Peripheral Aerobic Blood Culture - Preliminary No growth in 4 days 10/05/18 14:08 Blood - Peripheral Anaerobic Blood Culture - Preliminary No growth in 4 days Procedures Procedures: LISA Assessment and Plan (1) Staphylococcus aureus bacteremia: Code(s): R78.81 - Bacteremia Status: Acute (2) Discitis: Code(s): M46.40 - Discitis, unspecified, site unspecified Status: Acute (3) Intravenous drug abuse: Code(s): F19.10 - Other psychoactive substance abuse, uncomplicated Status: Chronic Plan 28-year-old male with a history of IV drug use who was initially admitted to the hospital on 09/21/2018 due to lower back pain as well as fever admitted to the hospital and has stayed since 09/26/18. Patient states he had a panic attack and asked his nurse if he is able to get out of his room and walk around. The nurse agreed to him that he is able to walk around the unit however the patient thought that he is able to get out of the unit and he started wandering all the way to the other building in the [place]. He was brought back to the unit by a nurse from [facility] but because he was out of the unit for quite some time they signed him off as leaving AGAINST MEDICAL ADVICE. Came back for readmission. MSSA bacteremia IVDU Discitis -Neurosurgery reconsulted. ID reconsulted -09/23/18 Thoracic MRI showed There is diffuse mild epidural enhancement involving the mid to lower thoracic canal on examination. -Echo 60-65% ejection fraction, no endocarditis noted. -LISA was done showing Normal LV size, wall thickness and systolic function, EF 60%l; negative for vegetation Percocet for pain control, IV morphine for breakthrough pain with bowel regimen -Repeat Cultures continue to come back with staph aureus. Plan for prolonged antibiotic use. Unable to trust patient with IV access since he was even found to have illicit substance during hospitalization. Patient will also be unable to make it to the IV infusion center. Left AMA recently -check blood cultures 10/05/18; no growth to date -IV oxacillin as per previous ID recommendation, likely duration 8 weeks -Neurosurgery has seen and evaluated the patient. Recommend continued infectious workup. MRI of the spine without any abscess. No surgical intervention for now. -Recommend weekly ESR/CRP. To call neurosurgery if neurologic deficit occurs. -Sed rate 62 (was 72), CRP 4.53 (was 16.8) on 10/02; repeat ordered for 10/10/18 IV drug use, heroin -Monitor for withdrawals. -Clonidine patch to decrease anxiety. -Found to have illicit substance while in the inpatient setting - "heroin rock" , possible snorted vs injection, while inpatient. No visitors allowed. May have supervised visitation. D/W RN and charge nurse to move pt. closer to nurse' s station -Continues with drug seeking behavior, discussed with pt at length, meds will not be increased and will be slowly weaned down. Depression/anxiety Hx of Panic attacks. -Prozac daily -Patient states he use to take Xanax but no script in 2 years per [facility] -Xanax 0.25 mg PO q 8 PRN anxiety. Hyperthyroidism -Elevated T4 with normal T3 and borderline low normal TSH. -Thyroid ultrasound ordered. -Hyperthyroidism possibly secondary to heroin use and/or hepatitis -No evidence of thyroid storm but may be contributing to anxiety Elevated liver enzymes -AST/ALT increasing; noted to also be increased in historical labs done 12/20. -Hepatitis panel ordered -Abdominal CT done 09/21 showed no abnormalities of liver. Insomnia -Cont Ambien PRN-inc to 10 mg PO q hs Full code. SCDs. Heparin Labs reviewed Again, discussed with pt at length need for compliance. Not sure he will stay to complete treatment, he has been warned about the consequences of not completing treatment including sepsis, paralysis, poss . Code Status: FULL CODE Discussed Condition With: RN AND PT Discharge Planning: NEEDS TO COMPLETE TREATMENT 8 weeks of abx NOT A SAFE DISCHARGE DUE TO HX OF AMA AND USING WHILE HERE IN HOSPITAL Progress Note: Quality VTE Deep Vein Thrombosis/Pulmonary Embolism Present on Admission: No _ (1) Discitis Qualifiers: Spinal region:
--- NOTE | 2018-10-09 15:43 | US ---
EXAM DATE: 10/09/2018 3:30 PM EST AGE/SEX: 28 years / Male INDICATIONS: Elevated lab values. CLINICAL DATA: This is the patient's initial encounter. Patient reports that signs and symptoms have been present for 1 day and indicates a pain score of 0/10. MEDICAL/SURGICAL HISTORY: . Intravenous drug user. None. COMPARISON: No prior exams available for comparison. MEASUREMENTS: Right Lobe: 5.5 x 1.4 x 1.4 cm Left Lobe: 4.5 x 1.5 x 1.4 cm FINDINGS: Right Lobe: Homogeneous echotexture without nodules or cysts. Vascularity is within normal limits. Left Lobe: Homogeneous echotexture without nodules or cysts. Vascularity is within normal limits. Isthmus: Normal in size without focal abnormality. Other: None. CONCLUSION: 1. Normal examination. Electronically signed by: Raghav Dsouza MD Board Certified Radiologist 10/09/2018 3:42 PM EST
[2018-10-09 17:43] LABS: Hepatitis A IgM Antibody Nonreactive (Nonreactive); Hepatitits B Surface Antigen Nonreactive (Nonreactive)
[2018-10-10] MEDS: Morphine Inj 4 MG/ML Vial IV.PUSH PRN ×5 (02:13→20:46)
[2018-10-10] MEDS: oxyCODONE/Acetaminophen 10/325 Tablet PO PRN ×3 (05:21→18:04)
[2018-10-10] MEDS: ALPRAZolam 0.25 MG Tablet PO PRN ×2 (08:31→17:05)
[2018-10-10] MEDS: FLUoxetine 20 MG Capsule PO SCH (08:31)
[2018-10-10] MEDS: Senna/Docusate Sodium 8.6/50 MG Tablet PO SCH ×2 (08:32→20:46)
--- NOTE | 2018-10-10 15:11 | P.PNIM ---
Subjective Interval history: Patient seen lying in bed. Continues to be very anxious but not drug-seeking today. Discussed lab results including reactive hep C-patient says he is not surprised by this diagnosis with his history of IV drug use. Has never been treated for hep C in the past. Does not have any abdominal pain but does continue to complain of back pain. He would like a heating pad if possible. He is also complaining of some burning type mid sternal pain. Physical Exam Vital signs: Last Vital Signs Temp 98 F 10/10/18 12:00 Pulse 76 10/10/18 12:00 Resp 18 10/10/18 13:13 BP 110/56 L 10/10/18 12:00 Pulse Ox 100 10/10/18 12:00 Intake & Output 10/08/18 10/09/18 10/10/18 10/11/18 06:59 06:59 06:59 06:59 Intake Total 2100 / 2100 1500 / 1500 1360 / 1360 300 / 300 Balance 2100 / 2100 1500 / 1500 1360 / 1360 300 / 300 Weight 66.7 kg 67.2 kg 68.2 kg Narrative: GENERAL: Well-nourished, well-developed adult male in no obvious distress. SKIN: Warm and dry. HEAD: Atraumatic. Normocephalic. CARDIOVASCULAR: Regular rate and rhythm. RESPIRATORY: No accessory muscle use. Clear to auscultation. Breath sounds equal bilaterally. GASTROINTESTINAL: Abdomen soft, non-tender, non-distended. Positive bowel sounds. MUSCULOSKELETAL: Extremities without clubbing, cyanosis, or edema. No obvious deformities. NEUROLOGICAL: Awake and alert. No obvious cranial nerve deficits. Motor grossly within normal limits. Normal speech. Results Labs CBC & Chem 7: 10/05/18 10:27 10/09/18 09:46 Labs: Microbiology 10/05/18 14:11 Blood - Peripheral Aerobic Blood Culture - Final No growth in 5 days 10/05/18 14:11 Blood - Peripheral Anaerobic Blood Culture - Final No growth in 5 days 10/05/18 14:08 Blood - Peripheral Aerobic Blood Culture - Final No growth in 5 days 10/05/18 14:08 Blood - Peripheral Anaerobic Blood Culture - Final No growth in 5 days Imaging Imaging: Impressions Thyroid Ultrasound 10/09/18 00:00 CONCLUSION: 1. Normal examination. Procedures Procedures: LISA Assessment and Plan (1) Staphylococcus aureus bacteremia: Code(s): R78.81 - Bacteremia Status: Acute (2) Discitis: Code(s): M46.40 - Discitis, unspecified, site unspecified Status: Acute (3) Intravenous drug abuse: Code(s): F19.10 - Other psychoactive substance abuse, uncomplicated Status: Chronic Plan 28-year-old male with a history of IV drug use who was initially admitted to the hospital on 09/21/2018 due to lower back pain as well as fever admitted to the hospital and has stayed since 09/26/18. Patient states he had a panic attack and asked his nurse if he is able to get out of his room and walk around. The nurse agreed to him that he is able to walk around the unit however the patient thought that he is able to get out of the unit and he started wandering all the way to the other building in the [place]. He was brought back to the unit by a nurse from [facility] but because he was out of the unit for quite some time they signed him off as leaving AGAINST MEDICAL ADVICE. Came back for readmission. MSSA bacteremia IVDU Discitis -Neurosurgery reconsulted. ID reconsulted -09/23/18 Thoracic MRI showed There is diffuse mild epidural enhancement involving the mid to lower thoracic canal on examination. -Echo 60-65% ejection fraction, no endocarditis noted. -LISA was done showing Normal LV size, wall thickness and systolic function, EF 60%l; negative for vegetation Percocet for pain control, IV morphine for breakthrough pain with bowel regimen. Encouraged non-pharmacal management of pain including K Therm. -Repeat Cultures continue to come back with staph aureus. Plan for prolonged antibiotic use. Unable to trust patient with IV access since he was even found to have illicit substance during hospitalization. Patient will also be unable to make it to the IV infusion center. Left AMA recently -check blood cultures 10/05/18; no growth to date -IV oxacillin as per previous ID recommendation, likely duration 8 weeks -Neurosurgery has seen and evaluated the patient. Recommend continued infectious workup. MRI of the spine without any abscess. No surgical intervention for now. -Recommend weekly ESR/CRP. Call neurosurgery if neurologic deficit occurs. IV drug use, heroin -Monitor for withdrawals. -Clonidine patch to decrease anxiety. -Found to have illicit substance while in the inpatient setting - "heroin rock" , possible snorted vs injection, while inpatient. No visitors allowed. May have supervised visitation. D/W RN and charge nurse to move pt. closer to nurse' s station -Continues with drug seeking behavior, discussed with pt at length, meds will not be increased and will be slowly weaned down. Depression/anxiety Hx of Panic attacks. -Prozac daily -Patient states he use to take Xanax but no script in 2 years per [facility] -Xanax 0.25 mg PO q 8 PRN anxiety. Hyperthyroidism -Elevated T4 with normal T3 and borderline low normal TSH. -Thyroid ultrasound ordered -normal -Hyperthyroidism possibly secondary to heroin use and/or hepatitis -No evidence of thyroid storm but may be contributing to anxiety -Euthyroid-recommending outpatient follow-up if not resolved on own Elevated liver enzymes -AST/ALT increasing; noted to also be increased in historical labs done 12/20. -Hepatitis panel ordered -hep C reactive. Patient has no history of hepatitis treatment. -Abdominal CT done 09/21 showed no abnormalities of liver. -Recommending outpatient follow-up; patient given information about [facility] Insomnia -Cont Ambien PRN-inc to 10 mg PO q hs Full code. SCDs. Heparin Labs reviewed Again, discussed with pt at length need for compliance. Not sure he will stay to complete treatment, he has been warned about the consequences of not completing treatment including sepsis, paralysis, poss . Patient indicates understanding and agrees to remain hospitalized for full course of treatment per Code Status: FULL CODE Discussed Condition With: RN AND PT Discharge Planning: NEEDS TO COMPLETE TREATMENT 8 weeks of abx NOT A SAFE DISCHARGE DUE TO HX OF AMA AND USING WHILE HERE IN HOSPITAL Progress Note: Quality VTE Deep Vein Thrombosis/Pulmonary Embolism Present on Admission: No _ (1) Discitis Qualifiers: Spinal region:
[2018-10-10] MEDS: Heparin - SQ 10,000 UNITS/ML Vial SQ SCH (19:43)
[2018-10-11] MEDS: oxyCODONE/Acetaminophen 10/325 Tablet PO PRN ×4 (00:20→17:58)
[2018-10-11] MEDS: Morphine Inj 4 MG/ML Vial IV.PUSH PRN ×4 (04:47→20:01)
[2018-10-11] MEDS: ALPRAZolam 0.25 MG Tablet PO PRN ×3 (04:48→21:22)
[2018-10-11] MEDS: Heparin - SQ 10,000 UNITS/ML Vial SQ SCH ×3 (06:21→19:19)
[2018-10-11] MEDS: Senna/Docusate Sodium 8.6/50 MG Tablet PO SCH ×2 (09:56→21:22)
[2018-10-11] MEDS: FLUoxetine 20 MG Capsule PO SCH (09:56)
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
[2018-10-11] MEDS ORDERED: Gadobutrol PF 7.5 MMOL/7.5 ML Vial (for RAD) IV.SIG ONE (17:19)
--- NOTE | 2018-10-11 17:45 | P.PNIM ---
Subjective Interval history: Patient seen in room. Complaining of increasing pain in his back despite conservative management and current pain medications. No fever or chills. No chest pain or shortness of breath. No nausea vomiting or diarrhea. Remains very anxious. Physical Exam Vital signs: Last Vital Signs Temp 98.3 F 10/11/18 12:12 Pulse 73 10/11/18 12:12 Resp 20 10/11/18 12:12 BP 119/70 10/11/18 12:12 Pulse Ox 100 10/11/18 12:12 Intake & Output 10/09/18 10/10/18 10/11/18 10/12/18 06:59 06:59 06:59 06:59 Intake Total 1500 / 1500 1360 / 1360 700 / 700 200 / 200 Balance 1500 / 1500 1360 / 1360 700 / 700 200 / 200 Weight 67.2 kg 68.2 kg 67.6 kg Narrative: GENERAL: Well-nourished, well-developed adult male in no obvious distress. SKIN: Warm and dry. HEAD: Atraumatic. Normocephalic. CARDIOVASCULAR: Regular rate and rhythm. RESPIRATORY: No accessory muscle use. Clear to auscultation. Breath sounds equal bilaterally. GASTROINTESTINAL: Abdomen soft, non-tender, non-distended. Positive bowel sounds. MUSCULOSKELETAL: Extremities without clubbing, cyanosis, or edema. No obvious deformities. NEUROLOGICAL: Awake and alert. No obvious cranial nerve deficits. Motor grossly within normal limits. Normal speech. Results Labs CBC & Chem 7: 10/05/18 10:27 10/09/18 09:46 Imaging Imaging: Impressions Thoracic Spine MRI 10/11/18 00:00 CONCLUSION: Developing discitis at T9/T10 and T11/T12 and with suspected early localized osteomyelitis of the adjacent vertebrae at each level. There is associated mild spinal and left greater than right foraminal stenosis. No Epidural abscess is demonstrated. Procedures Procedures: LISA Assessment and Plan (1) Staphylococcus aureus bacteremia: Code(s): R78.81 - Bacteremia Status: Acute (2) Discitis: Code(s): M46.40 - Discitis, unspecified, site unspecified Status: Acute (3) Intravenous drug abuse: Code(s): F19.10 - Other psychoactive substance abuse, uncomplicated Status: Chronic Plan 28-year-old male with a history of IV drug use who was initially admitted to the hospital on 09/21/2018 due to lower back pain as well as fever admitted to the hospital and has stayed since 09/26/18. Patient states he had a panic attack and asked his nurse if he is able to get out of his room and walk around. The nurse agreed to him that he is able to walk around the unit however the patient thought that he is able to get out of the unit and he started wandering all the way to the other building in the [place]. He was brought back to the unit by a nurse from [facility] but because he was out of the unit for quite some time they signed him off as leaving AGAINST MEDICAL ADVICE. Came back for readmission. MSSA bacteremia IVDU Discitis -Neurosurgery reconsulted. ID reconsulted -09/23/18 Thoracic MRI showed There is diffuse mild epidural enhancement involving the mid to lower thoracic canal on examination. -Echo 60-65% ejection fraction, no endocarditis noted. -LISA was done showing Normal LV size, wall thickness and systolic function, EF 60%l; negative for vegetation Percocet for pain control, IV morphine for breakthrough pain with bowel regimen. Encouraged non-pharmacal management of pain including K Therm. -Repeat Cultures continue to come back with staph aureus. Plan for prolonged antibiotic use. Unable to trust patient with IV access since he was even found to have illicit substance during hospitalization. Patient will also be unable to make it to the IV infusion center. Left AMA recently -check blood cultures 10/05/18; no growth to date -IV oxacillin as per previous ID recommendation, likely duration 8 weeks -Neurosurgery has seen and evaluated the patient. Recommend continued infectious workup. MRI of the spine without any abscess. No surgical intervention for now. -Recommend weekly ESR/CRP. Call neurosurgery if neurologic deficit occurs. -10/11/17: Repeat MRI due to increasing complaint of pain. Thoracic spine MRI shows developing discitis at T9/T10 and T11/T12 with suspected osteomyelitis of the adjacent vertebrae at each level. Associated stenosis. No epidural abscess. Reconsulted neurosurgery for evaluation. Repeat blood cultures ordered. IV drug use, heroin -Monitor for withdrawals. -Clonidine patch to decrease anxiety. -Found to have illicit substance while in the inpatient setting - "heroin rock" , possible snorted vs injection, while inpatient. No visitors allowed. May have supervised visitation. D/W RN and charge nurse to move pt. closer to nurse' s station -Continues with drug seeking behavior, discussed with pt at length, meds will not be increased and will be slowly weaned down. Depression/anxiety Hx of Panic attacks. -Prozac daily; dose increased on 10/10. -Patient states he use to take Xanax but no script in 2 years per [facility] -Xanax 0.25 mg PO q 8 PRN anxiety. -Add Atarax Hyperthyroidism -Elevated T4 with normal T3 and borderline low normal TSH. -Thyroid ultrasound ordered -normal -Hyperthyroidism possibly secondary to heroin use and/or hepatitis -No evidence of thyroid storm but may be contributing to anxiety -Euthyroid-recommending outpatient follow-up if not resolved on own Elevated liver enzymes -AST/ALT increasing; noted to also be increased in historical labs done 12/20. -Hepatitis panel ordered -hep C reactive. Patient has no history of hepatitis treatment. -Abdominal CT done 09/21 showed no abnormalities of liver. -Recommending outpatient follow-up; patient given information about [facility] Insomnia -Cont Ambien PRN-inc to 10 mg PO q hs Full code. SCDs. Heparin Labs reviewed Again, discussed with pt at length need for compliance. Not sure he will stay to complete treatment, he has been warned about the consequences of not completing treatment including sepsis, paralysis, poss . Patient indicates understanding and agrees to remain hospitalized for full course of treatment per Code Status: FULL CODE Discussed Condition With: RN AND PT Discharge Planning: NEEDS TO COMPLETE TREATMENT 8 weeks of abx NOT A SAFE DISCHARGE DUE TO HX OF AMA AND USING WHILE HERE IN HOSPITAL Progress Note: Quality VTE Deep Vein Thrombosis/Pulmonary Embolism Present on Admission: No _ (1) Discitis Qualifiers: Spinal region:
--- NOTE | 2018-10-11 19:10 | P.CONNS ---
History of Present Illness Service: Medicine Primary Care Provider: No Primary Care Physician Chief Complaint: Back pain History of Present Illness: 28yoM who has been hospitalized since before 09/27, treated with IV Oxacillin for MSSA Blood cultures and thoracic discitis. For the last 4 days, back pain has worsened and he has a new MRI T-spine showing early osteomyelitis T9/10 and T11/12 which is worse than last MRI. He remains neurologically intact and his spine is stable. There is no epidural abscess. PMF - History History Provided By: Patient - Medical History Medical History: Medical History (Last Reviewed 09/27/18 @ 13:34 by Geeta Mejia MD) IVDU (intravenous drug user) Patient denies medical problems - Surgical History Surgical History: Surgical History (Last Reviewed 09/27/18 @ 13:34 by Geeta Mejia MD) No history of previous surgery - Family History Family History: Family History (Last Reviewed 09/27/18 @ 13:34 by Geeta Mejia MD) Other Diabetes mellitus - Tobacco History Second Hand Smoke Exposure: No Tobacco Use In Past 30 Days: No (marijuana use) Smoking Status: Smoker, status unknown Tobacco Type: Cigarettes - Alcohol History How Often Do You Have a Drink Containing Alcohol: Never - Substance Use History Substance History: Active Abuse - Substance Use Type Heroin Type: IV Status: Active Route Used: Intravenously Frequency: 1 gram daily Last Used: 09/20/18 Reason for Use: Calm Down, Curiosity, Feels Good, Fit In, Get High, Increase Energy Level, Peer Pressure, Sleep, Socialization, Stay Awake Comment: pt states addiction open to intervention - Travel History Recent Travel in the [facility] Within the Last 8 Weeks: No Recent Travel Out of the Country Within the Last 8 Weeks: No - Immunization History Tetanus Immunization: <5 Years Medications and Allergies Active Medications: Active Medications Acetaminophen (Tylenol) 650 mg PO Q4H PRN PRN Reason: Temp > 100.4, [place], pain 1-2 Last Admin: 10/07/18 18:00 Dose: 650 mg Al Hydroxide/Mg Hydroxide (Milk Of Magnesia Liq) 30 ml PO Q12H PRN PRN Reason: Mild Constipation Alprazolam (Xanax) 0.25 mg PO Q8H PRN PRN Reason: ANXIETY Last Admin: 01/07/19 12:53 Dose: 0.25 mg Bisacodyl (Dulcolax Supp) 10 mg RECTAL DAILY PRN PRN Reason: SEVERE CONSITIPATION Clonidine HCl (Catapress-Tts 0.1 Mg Patch.7d) 1 patch T-DERMAL Q7D [facility] Last Admin: 10/09/18 22:38 Dose: 1 patch Fluoxetine HCl (Prozac) 40 mg PO DAILY [facility] Last Admin: 10/11/18 09:56 Dose: 40 mg Heparin Sodium (Porcine) (Heparin Inj) 5,000 units SQ Q12H [facility] Last Admin: 10/11/18 17:57 Dose: Not Given Hydroxyzine HCl (Atarax) 25 mg PO Q8H PRN PRN Reason: ANXIETY AND/OR AGITATION Oxacillin Sodium 2 gm/ Sodium (Chloride) 100 mls @ 200 mls/hr IV.SIG Q4H [facility] Last Infusion: 10/11/18 19:01 Dose: Infused Lactulose (Lactulose Liq) 30 ml PO DAILY PRN PRN Reason: SEVERE CONSITIPATION Morphine Sulfate (Morphine Inj) 4 mg IV.PUSH Q4H PRN PRN Reason: BREAKTHROUGH PAIN Last Admin: 10/11/18 14:18 Dose: 4 mg Naloxone HCl (Narcan Inj) 0.4 mg IV.PUSH UNSCH PRN PRN Reason: SEE LABEL COMMENTS Ondansetron HCl (Zofran Inj) 4 mg IV.PUSH Q6H PRN PRN Reason: NAUSEA OR VOMITING Last Admin: 10/10/18 22:08 Dose: 4 mg Oxycodone/Acetaminophen (Percocet 10/325 Mg) 1 tab PO Q6H PRN PRN Reason: PAIN SCALE 6 TO 10 Last Admin: 10/11/18 17:58 Dose: 1 tab Oxycodone/Acetaminophen (Percocet 5/325 Mg) 1 tab PO Q6H PRN PRN Reason: PAIN SCALE 3 TO 5 Pantoprazole Sodium (Protonix) 40 mg PO DAILY [facility] Last Admin: 10/11/18 09:56 Dose: 40 mg Patch Removal (Remove Old Patch) 1 each T-DERMAL Q7D [facility] Last Admin: 10/09/18 22:38 Dose: Not Given Senna/Docusate Sodium (Shakira-Colace) 1 tab PO BID [facility] Last Admin: 10/11/18 09:56 Dose: 1 tab Sennosides (Senokot) 17.2 mg PO Q12H PRN PRN Reason: Moderate Constipation Sodium Chloride (Ns Flush) 2 ml IV.FLUSH BID SETH Last Admin: 10/11/18 09:59 Dose: 2 ml Sodium Chloride (Ns Flush) 2 ml IV.FLUSH PRN PRN PRN Reason: FLUSH AFTER USING IV ACCESS Last Admin: 10/10/18 10:36 Dose: 2 ml Zolpidem Tartrate (Ambien) 10 mg PO HS PRN PRN Reason: INSOMNIA Last Admin: 10/10/18 20:46 Dose: 10 mg Allergies Allergy/AdvReac Type Severity Reaction Status Date / Time No Known Allergies Allergy Verified 09/17/18 13:40 Home Medications Medication Instructions Recorded Confirmed Type No Known Home Medications 09/17/18 09/26/18 History Exam Vital signs: Vital Signs 10/10/18 19:43 10/10/18 20:00 10/11/18 00:00 Temperature 98.0 F 98.1 F Pulse Rate 76 71 Respiratory Rate 20 18 18 Blood Pressure 115/67 100/67 Pulse Oximetry 99 99 10/11/18 01:52 10/11/18 04:00 10/11/18 06:55 Temperature 97.8 F Pulse Rate 76 Respiratory Rate 16 20 18 Blood Pressure 105/56 L Pulse Oximetry 100 10/11/18 07:30 10/11/18 08:00 10/11/18 09:41 Temperature 98.5 F Pulse Rate 97 H Respiratory Rate 20 16 Blood Pressure 118/65 Pulse Oximetry 100 100 10/11/18 12:12 10/11/18 19:00 Temperature 98.3 F Pulse Rate 73 Respiratory Rate 20 8 L Blood Pressure 119/70 Pulse Oximetry 100 Intake & Output 10/11/18 10/11/18 10/12/18 06:59 18:59 06:59 Intake Total 300 / 300 200 / 200 100 / 100 Balance 300 / 300 200 / 200 100 / 100 Weight 67.6 kg Intake: IV 300 / 300 200 / 200 100 / 100 Prostaphlin Inj 2 GM In NS Inj 300 / 300 200 / 200 100 / 100 100 ML @ 200 mls/hr IV.SIG Q4H [facility] Rx#:[id number] Other: # Voids 3 Date of Last Bowel Movement 10/10/18 10/10/18 Narrative: A&O x 3 CN II-XII intact Motor 5/5 UE/LE Sensation intact Ambulatory without difficulty Lower thoracic back pain worse than before Results - Laboratory Findings CBC and BMP: 10/05/18 10:27 10/09/18 09:46 Abnormal lab findings: Abnormal Labs 09/26/18 09/26/18 09/27/18 17:50 17:50 07:30 WBC 13.0 H RBC 3.70 L 4.07 L Hgb 10.2 L 11.5 L Hct 30.6 L 34.1 L Plt Count 531 H 574 H Neut % (Auto) 79.2 H Granite % (Auto) 9.6 H 8.8 H Neut # (Auto) 10.3 H Granite # (Auto) 1.2 H ESR Chloride 109 H Estimated GFR 78 L Random Glucose Calcium 8.1 L AST ALT C-Reactive Protein Total Protein Albumin 2.7 L Free T4 Urine Opiates Screen U Cannabinoids Screen Hep C IgG Ab 09/27/18 09/27/18 10/02/18 07:30 09:40 08:31 WBC RBC Hgb Hct Plt Count Neut % (Auto) Granite % (Auto) Neut # (Auto) Granite # (Auto) ESR 62 H Chloride 108 H Estimated GFR Random Glucose Calcium AST ALT C-Reactive Protein Total Protein Albumin 2.9 L Free T4 Urine Opiates Screen Pos H U Cannabinoids Screen Pos H Hep C IgG Ab 10/02/18 10/05/18 10/05/18 08:31 10:27 10:27 WBC RBC 4.25 L Hgb 11.9 L Hct 36.0 L Plt Count 599 H Neut % (Auto) 76.6 H Granite % (Auto) Neut # (Auto) Granite # (Auto) ESR Chloride Estimated GFR Random Glucose 123 H Calcium AST 95 H ALT 144 H C-Reactive Protein 4.53 H Total Protein Albumin 3.3 L Free T4 6.27 H Urine Opiates Screen U Cannabinoids Screen Hep C IgG Ab 10/09/18 10/09/18 10/10/18 09:46 15:52 07:08 WBC RBC Hgb Hct Plt Count Neut % (Auto) Granite % (Auto) Neut # (Auto) Granite # (Auto) ESR 43 H Chloride Estimated GFR Random Glucose 132 H Calcium AST 177 H ALT 302 H C-Reactive Protein Total Protein 8.6 H Albumin Free T4 5.64 H Urine Opiates Screen U Cannabinoids Screen Hep C IgG Ab Reactive H 10/10/18 07:08 WBC RBC Hgb Hct Plt Count Neut % (Auto) Granite % (Auto) Neut # (Auto) Granite # (Auto) ESR Chloride Estimated GFR Random Glucose Calcium AST ALT C-Reactive Protein 0.77 H Total Protein Albumin Free T4 Urine Opiates Screen U Cannabinoids Screen Hep C IgG Ab Assessment and Plan - Plan 28yoM with IVDU and worsening spinal infection based on MRI and clinically, continues to be neurologically intact. Plan I would reconsult ID, repeat blood cultures, consider IR guided biopsy of any accessible area, consider broadening antibiotics. At this point, he remains neurologically intact and there is still no role for neurosurgery, but compared to 09/27, he does appear worse both clinically and by MRI. Therefore, there is concern that he is being inadequately covered, raising the possibility of MRSA, but I defer to ID. Continue weekly ESR/CRP. Neurosurgery team will be available. Call us if he develops neurologic deficit.
[2018-10-12] MEDS: oxyCODONE/Acetaminophen 10/325 Tablet PO PRN ×3 (01:18→22:44)
[2018-10-12] MEDS: Morphine Inj 4 MG/ML Vial IV.PUSH PRN ×3 (02:31→10:41)
[2018-10-12] MEDS: ALPRAZolam 0.25 MG Tablet PO PRN (06:08)
[2018-10-12] MEDS: Heparin - SQ 10,000 UNITS/ML Vial SQ SCH ×2 (06:12→18:30)
[2018-10-12 06:21] LABS: Baso # (Auto) 0.1 th/mm3 (0.0-0.2); Baso % (Auto) 2.2 % (0.0-2.0); Eos # (Auto) 0.1 th/mm3 (0.0-0.4); Eos % (Auto) 1.2 % (0.0-4.0); Hematocrit 34.7 % (39.0-51.0); Hemoglobin 11.7 gm/dL (13.0-17.0); Lymph # (Auto) 1.7 th/mm3 (1.0-4.8); Lymph % (Auto) 26.2 % (9.0-44.0); Mean Corpuscular HGB Conc 33.8 % (32.0-36.0); Mean Corpuscular Volume 82.9 fL (80.0-100.0); Mean Platelet Volume 7.5 fL (7.0-11.0); Mono # (Auto) 0.5 th/mm3 (0.0-0.9); Mono % (Auto) 8.3 % (0.0-8.0); Neut % (Auto) 62.1 % (16.0-70.0); Platelet Count 423 th/mm3 (150-450); Red Blood Count 4.18 mil/mm3 (4.50-5.90); Red Cell Distribution Width 17.5 % (11.6-17.2); White Blood Count 6.5 th/mm3 (4.0-11.0)
[2018-10-12 06:46] LABS: Anion Gap 6 meq/L (5-15); Blood Urea Nitrogen 19 mg/dL (7-18); Calcium 9.1 mg/dL (8.5-10.1); Carbon Dioxide 27.4 meq/L (21.0-32.0); Chloride 106 meq/L (98-107); Glomerular Filtration Rate Greater Than 89 mL/min (>89); Glucose,Random 83 mg/dL (74-106); Potassium 4.1 meq/L (3.5-5.1); Sodium 139 meq/L (136-145)
[2018-10-12] MEDS: Senna/Docusate Sodium 8.6/50 MG Tablet PO SCH ×2 (09:24→21:14)
[2018-10-12] MEDS: FLUoxetine 20 MG Capsule PO SCH (09:25)
[2018-10-12] MEDS ORDERED: Naloxone Inj 0.4 MG/ML Vial IV.PUSH PRN (11:54)
[2018-10-12] MEDS: HYDROmorphone PF Inj 1 MG/ML Ampul IV.PUSH PRN ×3 (13:54→21:14)
--- NOTE | 2018-10-12 16:26 | P.PNIM ---
Subjective Interval history: Patient seen lying in bed. No fever or chills. No nausea vomiting or diarrhea. Continues to complain of increased back pain. Observed patient when he was not aware of evaluation and he is noted to move with more difficulty. Physical Exam Vital signs: Last Vital Signs Temp 97.8 F 10/12/18 12:18 Pulse 85 10/12/18 12:18 Resp 22 10/12/18 12:18 BP 123/83 10/12/18 12:18 Pulse Ox 99 10/12/18 12:18 Intake & Output 10/10/18 10/11/18 10/12/18 10/13/18 06:59 06:59 06:59 06:59 Intake Total 1360 / 1360 700 / 700 600 / 600 200 / 200 Balance 1360 / 1360 700 / 700 600 / 600 200 / 200 Weight 68.2 kg 67.6 kg 67.6 kg Narrative: Narrative: GENERAL: Well-nourished, well-developed adult male in mild distress. SKIN: Warm and dry. HEAD: Atraumatic. Normocephalic. CARDIOVASCULAR: Regular rate and rhythm. RESPIRATORY: No accessory muscle use. Clear to auscultation. Breath sounds equal bilaterally. GASTROINTESTINAL: Abdomen soft, non-tender, non-distended. Positive bowel sounds. MUSCULOSKELETAL: Extremities without clubbing, cyanosis, or edema. No obvious deformities. Tenderness along thoracic spine. NEUROLOGICAL: Awake and alert. No obvious cranial nerve deficits. Motor grossly within normal limits. Normal speech. Results Labs CBC & Chem 7: 10/12/18 05:52 10/12/18 05:52 Labs: Microbiology 10/11/18 20:05 Blood - Peripheral Aerobic Blood Culture - Preliminary No growth in 1 day 10/11/18 20:05 Blood - Peripheral Anaerobic Blood Culture - Preliminary No growth in 1 day 10/11/18 20:00 Blood - Peripheral Aerobic Blood Culture - Preliminary No growth in 1 day 10/11/18 20:00 Blood - Peripheral Anaerobic Blood Culture - Preliminary No growth in 1 day Imaging Imaging: Impressions Thoracic Spine MRI 10/11/18 00:00 CONCLUSION: Developing discitis at T9/T10 and T11/T12 and with suspected early localized osteomyelitis of the adjacent vertebrae at each level. There is associated mild spinal and left greater than right foraminal stenosis. No Epidural abscess is demonstrated. Procedures Procedures: LISA Assessment and Plan (1) Staphylococcus aureus bacteremia: Code(s): R78.81 - Bacteremia Status: Acute (2) Discitis: Code(s): M46.40 - Discitis, unspecified, site unspecified Status: Acute (3) Intravenous drug abuse: Code(s): F19.10 - Other psychoactive substance abuse, uncomplicated Status: Chronic Plan 28-year-old male with a history of IV drug use who was initially admitted to the hospital on 09/21/2018 due to lower back pain as well as fever admitted to the hospital and has stayed since 09/26/18. Patient states he had a panic attack and asked his nurse if he is able to get out of his room and walk around. The nurse agreed to him that he is able to walk around the unit however the patient thought that he is able to get out of the unit and he started wandering all the way to the other building in the [place]. He was brought back to the unit by a nurse from [facility] but because he was out of the unit for quite some time they signed him off as leaving AGAINST MEDICAL ADVICE. Came back for readmission. MSSA bacteremia IVDU Discitis -Neurosurgery reconsulted. ID reconsulted -09/23/18 Thoracic MRI showed There is diffuse mild epidural enhancement involving the mid to lower thoracic canal on examination. -Echo 60-65% ejection fraction, no endocarditis noted. -LISA was done showing Normal LV size, wall thickness and systolic function, EF 60%l; negative for vegetation Percocet for pain control, IV morphine for breakthrough pain with bowel regimen. Encouraged non-pharmacal management of pain including K Therm. -Repeat Cultures continue to come back with staph aureus. Plan for prolonged antibiotic use. Unable to trust patient with IV access since he was even found to have illicit substance during hospitalization. Patient will also be unable to make it to the IV infusion center. Left AMA recently -check blood cultures 10/05/18; no growth to date -IV oxacillin as per previous ID recommendation, likely duration 8 weeks -Neurosurgery has seen and evaluated the patient. Recommend continued infectious workup. Repeat MRI of the spine 09/23 without any abscess. No surgical intervention for now. -Recommend weekly ESR/CRP. Call neurosurgery if neurologic deficit occurs. -10/11/17: Repeat MRI due to increasing complaint of pain. Thoracic spine MRI shows developing discitis at T9/T10 and T11/T12 with suspected osteomyelitis of the adjacent vertebrae at each level. Associated stenosis. No epidural abscess. Reconsulted neurosurgery for evaluation -intervention still not indicated. Appreciate ID assistance. Repeat blood cultures ordered. IV drug use, heroin -Monitor for withdrawals. -Clonidine patch to decrease anxiety. -Found to have illicit substance while in the inpatient setting - "heroin rock" , possible snorted vs injection, while inpatient. No visitors allowed. May have supervised visitation. D/W RN and charge nurse to move pt. closer to nurse' s station -Drug-seeking behavior has improved and patient agrees to eventual weaning. Will briefly allow Dilaudid until new stenosis and osteomyelitis identified on can be treated. Depression/anxiety Hx of Panic attacks. -Prozac daily; dose increased on 10/10. -Patient states he use to take Xanax but no script in 2 years per [facility] -Xanax 0.25 mg PO q 8 PRN anxiety. -Add Atarax Hyperthyroidism -Elevated T4 with normal T3 and borderline low normal TSH. -Thyroid ultrasound ordered -normal -Hyperthyroidism possibly secondary to heroin use and/or hepatitis -No evidence of thyroid storm but may be contributing to anxiety -Euthyroid-recommending outpatient follow-up if not resolved on own Elevated liver enzymes -AST/ALT increasing; noted to also be increased in historical labs done 12/20. -Hepatitis panel ordered -hep C reactive. Patient has no history of hepatitis treatment. -Abdominal CT done 09/21 showed no abnormalities of liver. -Recommending outpatient follow-up; patient given information about [facility] Insomnia -Cont Ambien PRN-inc to 10 mg PO q hs Full code. SCDs. Heparin Labs reviewed Again, discussed with pt at length need for compliance. Not sure he will stay to complete treatment, he has been warned about the consequences of not completing treatment including sepsis, paralysis, poss . Patient indicates understanding and agrees to remain hospitalized for full course of treatment per Code Status: FULL CODE Discussed Condition With: RN AND PT Discharge Planning: NEEDS TO COMPLETE TREATMENT 8 weeks of abx NOT A SAFE DISCHARGE DUE TO HX OF AMA AND USING WHILE HERE IN HOSPITAL Progress Note: Quality VTE Deep Vein Thrombosis/Pulmonary Embolism Present on Admission: No _ (1) Discitis Qualifiers: Spinal region:
--- NOTE | 2018-10-12 20:35 | P.PNID ---
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 denies urinary retentio or urine/bowel incontinence Antibiotics: oxacillin Allergies/Adverse Reactions: Allergies No Known Allergies Allergy (Verified 09/17/18 13:40) Objective Vital Signs 10/11/18 20:59 10/11/18 21:29 10/12/18 01:20 Temperature 97.8 F Pulse Rate 63 77 Respiratory Rate 17 Blood Pressure 113/68 106/66 Pulse Oximetry 100 100 10/12/18 04:00 10/12/18 07:35 10/12/18 10:30 Temperature 97.6 F 98.7 F Pulse Rate 59 L 78 Respiratory Rate 18 20 Blood Pressure 110/68 102/60 Pulse Oximetry 100 100 100 10/12/18 12:18 10/12/18 16:05 Temperature 97.8 F 98.0 F Pulse Rate 85 83 Respiratory Rate 22 16 Blood Pressure 123/83 91/50 L Pulse Oximetry 99 100 Intake & Output 10/12/18 10/12/18 10/13/18 06:59 18:59 06:59 Intake Total 400 / 400 200 / 200 Balance 400 / 400 200 / 200 Weight 67.6 kg Intake: IV 400 / 400 200 / 200 Prostaphlin Inj 2 GM In NS Inj 400 / 400 200 / 200 100 ML @ 200 mls/hr IV.SIG Q4H [facility] Rx#:[id number] Other: # Voids 3 Date of Last Bowel Movement 10/10/18 10/10/18 10/11/18 20:05 Blood - Peripheral Aerobic Blood Culture - Preliminary No growth in 1 day 10/11/18 20:05 Blood - Peripheral Anaerobic Blood Culture - Preliminary No growth in 1 day 10/11/18 20:00 Blood - Peripheral Aerobic Blood Culture - Preliminary No growth in 1 day 10/11/18 20:00 Blood - Peripheral Anaerobic Blood Culture - Preliminary No growth in 1 day 10/05/18 14:11 Blood - Peripheral Aerobic Blood Culture - Final No growth in 5 days 10/05/18 14:11 Blood - Peripheral Anaerobic Blood Culture - Final No growth in 5 days 10/05/18 14:08 Blood - Peripheral Aerobic Blood Culture - Final No growth in 5 days 10/05/18 14:08 Blood - Peripheral Anaerobic Blood Culture - Final No growth in 5 days Lab - Hematology Results 10/12/18 05:52 WBC 6.5 RBC 4.18 L Hgb 11.7 L Hct 34.7 L MCV 82.9 MCH 28.0 MCHC 33.8 RDW 17.5 H Plt Count 423 MPV 7.5 Neut % (Auto) 62.1 Lymph % (Auto) 26.2 [place] % (Auto) 8.3 H Eos % (Auto) 1.2 Baso % (Auto) 2.2 H Neut # (Auto) 4.0 Lymph # (Auto) 1.7 [place] # (Auto) 0.5 Eos # (Auto) 0.1 Baso # (Auto) 0.1 WBC Differential . Differential Comment Auto diff final Lab - Chemistry Results 10/12/18 05:52 Sodium 139 Potassium 4.1 Chloride 106 Carbon Dioxide 27.4 Anion Gap 6 BUN 19 H Creatinine 0.82 Estimated GFR Greater than 89 Random Glucose 83 Calcium 9.1 Imaging: ITS Impressions Thyroid Ultrasound 10/09/18 00:00 CONCLUSION: 1. Normal examination. Thoracic Spine MRI 10/11/18 00:00 CONCLUSION: Developing discitis at T9/T10 and T11/T12 and with suspected early localized osteomyelitis of the adjacent vertebrae at each level. There is associated mild spinal and left greater than right foraminal stenosis. No Epidural abscess is demonstrated. Physical Exam: GENERAL: NAD chronically ill appearing SKIN: Warm and dry. HEAD: Atraumatic. Normocephalic. EYES: Pupils equal and round. No scleral icterus. No injection or drainage. ENT: No nasal bleeding or discharge. Mucous membranes pink and moist. NECK: Trachea midline. No JVD. CARDIOVASCULAR: Regular rate and rhythm. RESPIRATORY: No accessory muscle use. Clear to auscultation. Breath sounds equal bilaterally. GASTROINTESTINAL: Abdomen soft, non-tender, nondistended. Hepatic and splenic margins not palpable. MUSCULOSKELETAL: Extremities without clubbing, cyanosis, or edema. No obvious deformities. BACK: tender to palpation lower thoracic vertebra R side NEUROLOGICAL: Awake and alert. No obvious cranial nerve deficits. Motor grossly within normal limits. Five out of 5 muscle strength in the arms and legs. Normal speech. PSYCHIATRIC: Appropriate mood and affect; insight and judgment normal. Assessment and Plan - Plan T spine ostheomyelitis, diskitis, no epidural abscess, MSSA -MR with diffuse mild epidural enhancement involving the mid to lower thoracic canal on today's examination, however mass producing collection which had been suspected previously is not seen today. Clinicall and radiological progression Evaulated by NS. Agree with rec's. Dw pt. He wants to rediscuss the bx in MSSA bacteremia - 2/2 vertebral infection no endocarditis cont oxacillin agree with NS rec of IR guided bx to exclude other co-pathogens plan to dariel radiologis and neurosurgeon in am
[2018-10-13] MEDS: HYDROmorphone PF Inj 1 MG/ML Ampul IV.PUSH PRN ×6 (02:35→22:03)
[2018-10-13] MEDS: Heparin - SQ 10,000 UNITS/ML Vial SQ SCH ×2 (06:06→17:31)
[2018-10-13] MEDS: oxyCODONE/Acetaminophen 10/325 Tablet PO PRN ×3 (06:43→20:20)
[2018-10-13] MEDS: FLUoxetine 20 MG Capsule PO SCH (09:21)
[2018-10-13] MEDS: Senna/Docusate Sodium 8.6/50 MG Tablet PO SCH ×2 (09:21→20:20)
[2018-10-13] MEDS: ALPRAZolam 0.25 MG Tablet PO PRN ×2 (09:26→20:20)
--- NOTE | 2018-10-13 10:55 | P.PNIM ---
Subjective Interval history: Patient seen lying in bed. Pain control is somewhat better with Dilaudid. He is nervous about potential biopsy but agrees to have it done if indicated. He is requesting STI screening including HIV testing. No other concerns or complaints at this time. Physical Exam Vital signs: Vital Signs 10/12/18 12:18 10/12/18 16:05 10/12/18 20:00 Temperature 97.8 F 98.0 F 97.7 F Pulse Rate 85 83 71 Respiratory Rate 22 16 18 Blood Pressure 123/83 91/50 L 98/57 L Pulse Oximetry 99 100 100 10/12/18 21:25 10/13/18 00:00 10/13/18 04:00 Temperature 98 F 97.5 F L Pulse Rate 73 63 Respiratory Rate 18 18 Blood Pressure 109/71 101/58 L 94/59 L Pulse Oximetry 94 L 100 10/13/18 08:00 10/13/18 09:23 Temperature 98.1 F Pulse Rate 84 97 H Respiratory Rate 16 Blood Pressure 103/63 135/89 Pulse Oximetry 100 Intake & Output 10/12/18 10/13/18 10/13/18 18:59 06:59 18:59 Intake Total 300 / 300 200 / 200 200 / 200 Balance 300 / 300 200 / 200 200 / 200 Weight 67.6 kg Intake: IV 300 / 300 200 / 200 200 / 200 Prostaphlin Inj 2 GM In NS Inj 300 / 300 200 / 200 200 / 200 100 ML @ 200 mls/hr IV.SIG Q4H [facility] Rx#:[id number] Other: # Voids 3 Date of Last Bowel Movement 10/10/18 10/12/18 10/12/18 Narrative: GENERAL: Well-nourished, well-developed adult male in mild distress. SKIN: Warm and dry. HEAD: Atraumatic. Normocephalic. CARDIOVASCULAR: Regular rate and rhythm. RESPIRATORY: No accessory muscle use. Clear to auscultation. Breath sounds equal bilaterally. GASTROINTESTINAL: Abdomen soft, non-tender, non-distended. Positive bowel sounds. MUSCULOSKELETAL: Extremities without clubbing, cyanosis, or edema. No obvious deformities. Tenderness along thoracic spine. NEUROLOGICAL: Awake and alert. No obvious cranial nerve deficits. Motor grossly within normal limits. Normal speech. Results Labs CBC & Chem 7: 10/12/18 05:52 10/12/18 05:52 Labs: Microbiology 10/11/18 20:05 Blood - Peripheral Aerobic Blood Culture - Preliminary No growth in 1 day 10/11/18 20:05 Blood - Peripheral Anaerobic Blood Culture - Preliminary No growth in 1 day 10/11/18 20:00 Blood - Peripheral Aerobic Blood Culture - Preliminary No growth in 1 day 10/11/18 20:00 Blood - Peripheral Anaerobic Blood Culture - Preliminary No growth in 1 day Procedures Procedures: LISA Assessment and Plan Plan 28-year-old male with a history of IV drug use who was initially admitted to the hospital on 09/21/2018 due to lower back pain as well as fever admitted to the hospital and has stayed since 09/26/18. Patient states he had a panic attack and asked his nurse if he is able to get out of his room and walk around. The nurse agreed to him that he is able to walk around the unit however the patient thought that he is able to get out of the unit and he started wandering all the way to the other building in the [place]. He was brought back to the unit by a nurse from [facility] but because he was out of the unit for quite some time they signed him off as leaving AGAINST MEDICAL ADVICE. Came back for readmission. MSSA bacteremia IVDU Discitis -Neurosurgery reconsulted. ID reconsulted -09/23/18 Thoracic MRI showed There is diffuse mild epidural enhancement involving the mid to lower thoracic canal on examination. -Echo 60-65% ejection fraction, no endocarditis noted. -LISA was done showing Normal LV size, wall thickness and systolic function, EF 60%l; negative for vegetation Percocet for pain control, IV morphine for breakthrough pain with bowel regimen. Encouraged non-pharmacal management of pain including K Therm. -Repeat Cultures continue to come back with staph aureus. Plan for prolonged antibiotic use. Unable to trust patient with IV access since he was even found to have illicit substance during hospitalization. Patient will also be unable to make it to the IV infusion center. Left AMA recently -check blood cultures 10/05/18; no growth to date -IV oxacillin as per previous ID recommendation, likely duration 8 weeks -Neurosurgery has seen and evaluated the patient. Recommend continued infectious workup. Repeat MRI of the spine 09/23 without any abscess. No surgical intervention for now. -Recommend weekly ESR/CRP. Call neurosurgery if neurologic deficit occurs. -10/11/17: Repeat MRI due to increasing complaint of pain. Thoracic spine MRI shows developing discitis at T9/T10 and T11/T12 with suspected osteomyelitis of the adjacent vertebrae at each level. Associated stenosis. No epidural abscess. -Reconsulted neurosurgery for evaluation -sx intervention still not indicated. -Appreciate ID assistance. Repeat blood cultures ordered; NGTD. -Being evaluated by IR for biopsy IV drug use, heroin -Monitor for withdrawals. -Clonidine patch to decrease anxiety. -Found to have illicit substance while in the inpatient setting - "heroin rock" , possible snorted vs injection, while inpatient. No visitors allowed. May have supervised visitation. D/W RN and charge nurse to move pt. closer to nurse' s station -Drug-seeking behavior has improved and patient agrees to eventual weaning. Will briefly allow Dilaudid until new stenosis and osteomyelitis identified on can be treated. Depression/anxiety Hx of Panic attacks. -Prozac daily; dose increased on 10/10. -Patient states he use to take Xanax but no script in 2 years per [facility] -Xanax 0.25 mg PO q 8 PRN anxiety. -Add Atarax Hyperthyroidism -Elevated T4 with normal T3 and borderline low normal TSH. -Thyroid ultrasound ordered -normal -Hyperthyroidism possibly secondary to heroin use and/or hepatitis -No evidence of thyroid storm but may be contributing to anxiety -Euthyroid-recommending outpatient follow-up if not resolved on own Elevated liver enzymes -AST/ALT increasing; noted to also be increased in historical labs done 12/20. -Hepatitis panel ordered -hep C reactive. Patient has no history of hepatitis treatment. -Full STI panel completed per patient request; results pending -Abdominal CT done 09/21 showed no abnormalities of liver. -Recommending outpatient follow-up; patient given information about [facility] Insomnia -Cont Ambien PRN-inc to 10 mg PO q hs Full code. SCDs. Heparin Labs reviewed Again, discussed with pt at length need for compliance. Not sure he will stay to complete treatment, he has been warned about the consequences of not completing treatment including sepsis, paralysis, poss . Patient indicates understanding and agrees to remain hospitalized for full course of treatment per Code Status: FULL CODE Discussed Condition With: RN AND PT Discharge Planning: NEEDS TO COMPLETE TREATMENT 8 weeks of abx NOT A SAFE DISCHARGE DUE TO HX OF AMA AND USING WHILE HERE IN HOSPITAL Progress Note: Quality VTE Deep Vein Thrombosis/Pulmonary Embolism Present on Admission: No
[2018-10-13 15:19] LABS: INR 1.1 Ratio
--- NOTE | 2018-10-13 23:39 | P.PNID ---
Subjective Remarks: cont to have severe pain Dw Brisa Lee Pt has clear cut progression of the disease on appropriate abx coverage and need to have CT guided bx He is now agreabel, but he ate and procedure is delau=yed till tomorrow He has no new issue, specifically no neurological deficits Antibiotics: oxacillin Allergies/Adverse Reactions: Allergies No Known Allergies Allergy (Verified 09/17/18 13:40) Objective Vital Signs 10/13/18 00:00 10/13/18 04:00 10/13/18 08:00 Temperature 98 F 97.5 F L 98.1 F Pulse Rate 73 63 84 Respiratory Rate 18 18 16 Blood Pressure 101/58 L 94/59 L 103/63 Pulse Oximetry 94 L 100 100 10/13/18 09:23 10/13/18 12:20 10/13/18 16:25 Temperature 98.2 F 98.3 F Pulse Rate 97 H 88 80 Respiratory Rate 18 20 Blood Pressure 135/89 112/62 123/77 Pulse Oximetry 100 100 10/13/18 21:43 Temperature 98.6 F Pulse Rate 92 H Respiratory Rate 20 Blood Pressure 144/92 H Pulse Oximetry 98 Intake & Output 10/13/18 10/13/18 10/14/18 06:59 18:59 06:59 Intake Total 200 / 200 500 / 500 100 / 100 Balance 200 / 200 500 / 500 100 / 100 Weight 67.6 kg Intake: IV 200 / 200 500 / 500 100 / 100 Prostaphlin Inj 2 GM In NS Inj 200 / 200 500 / 500 100 / 100 100 ML @ 200 mls/hr IV.SIG Q4H [facility] Rx#:[id number] Other: # Voids 3 Date of Last Bowel Movement 10/12/18 10/12/18 10/12/18 10/11/18 20:05 Blood - Peripheral Aerobic Blood Culture - Preliminary No growth in 2 days 10/11/18 20:05 Blood - Peripheral Anaerobic Blood Culture - Preliminary No growth in 2 days 10/11/18 20:00 Blood - Peripheral Aerobic Blood Culture - Preliminary No growth in 2 days 10/11/18 20:00 Blood - Peripheral Anaerobic Blood Culture - Preliminary No growth in 2 days Lab - Hematology Results 10/12/18 05:52 WBC 6.5 RBC 4.18 L Hgb 11.7 L Hct 34.7 L MCV 82.9 MCH 28.0 MCHC 33.8 RDW 17.5 H Plt Count 423 MPV 7.5 Neut % (Auto) 62.1 Lymph % (Auto) 26.2 [place] % (Auto) 8.3 H Eos % (Auto) 1.2 Baso % (Auto) 2.2 H Neut # (Auto) 4.0 Lymph # (Auto) 1.7 [place] # (Auto) 0.5 Eos # (Auto) 0.1 Baso # (Auto) 0.1 WBC Differential . Differential Comment Auto diff final Lab - Chemistry Results 10/12/18 05:52 Sodium 139 Potassium 4.1 Chloride 106 Carbon Dioxide 27.4 Anion Gap 6 BUN 19 H Creatinine 0.82 Estimated GFR Greater than 89 Random Glucose 83 Calcium 9.1 Imaging: ITS Impressions Thyroid Ultrasound 10/09/18 00:00 CONCLUSION: 1. Normal examination. Thoracic Spine MRI 10/11/18 00:00 CONCLUSION: Developing discitis at T9/T10 and T11/T12 and with suspected early localized osteomyelitis of the adjacent vertebrae at each level. There is associated mild spinal and left greater than right foraminal stenosis. No Epidural abscess is demonstrated. Physical Exam: GENERAL: NAD chronically ill appearing SKIN: Warm and dry. HEAD: Atraumatic. Normocephalic. EYES: Pupils equal and round. No scleral icterus. No injection or drainage. ENT: No nasal bleeding or discharge. Mucous membranes pink and moist. NECK: Trachea midline. No JVD. CARDIOVASCULAR: Regular rate and rhythm. RESPIRATORY: No accessory muscle use. Clear to auscultation. Breath sounds equal bilaterally. GASTROINTESTINAL: Abdomen soft, non-tender, nondistended. Hepatic and splenic margins not palpable. MUSCULOSKELETAL: Extremities without clubbing, cyanosis, or edema. No obvious deformities. NEUROLOGICAL: Awake and alert. No obvious cranial nerve deficits. Motor grossly within normal limits. Five out of 5 muscle strength in the arms and legs. Normal speech. PSYCHIATRIC: Appropriate mood and affect; insight and judgment normal. Assessment and Plan - Plan T spine ostheomyelitis, diskitis, no epidural abscess, MSSA -MR with diffuse mild epidural enhancement involving the mid to lower thoracic canal on today's examination, however mass producing collection which had been suspected previously is not seen today. Clinicall and radiological progression Evaulated by NS. Agree with rec's. Jian pt. He wants to rediscuss the bx in am MSSA bacteremia - 2/2 vertebral infection no endocarditis cont oxacillin IR to bx for cultures in am dw Emory Ledezma, Adriano IRIZARRY
[2018-10-14] MEDS: oxyCODONE/Acetaminophen 10/325 Tablet PO PRN ×3 (02:11→18:34)
[2018-10-14] MEDS: HYDROmorphone PF Inj 1 MG/ML Ampul IV.PUSH PRN ×4 (05:46→20:34)
[2018-10-14] MEDS: Heparin - SQ 10,000 UNITS/ML Vial SQ SCH ×2 (05:49→18:35)
[2018-10-14] MEDS: Senna/Docusate Sodium 8.6/50 MG Tablet PO SCH ×2 (08:45→20:34)
[2018-10-14] MEDS: FLUoxetine 20 MG Capsule PO SCH (08:45)
[2018-10-14 10:12] LABS: RPR Screen For Reflex FTA Nonreactive (Nonreactive)
[2018-10-14] MEDS: ALPRAZolam 0.25 MG Tablet PO PRN (14:01)
[2018-10-14] MEDS ORDERED: fentaNYL Citrate Inj 250 MCG/5 ML Ampul ONE ×2 (15:25→16:02)
--- NOTE | 2018-10-14 16:18 | P.PNIM ---
Subjective Interval history: Patient seen lying in bed. He is nervous about his upcoming procedure. Continues to have a lot of back pain. No fevers or chills. Physical Exam Vital signs: Vital Signs 10/13/18 16:25 10/13/18 21:43 10/14/18 01:10 Temperature 98.3 F 98.6 F 97.5 F L Pulse Rate 80 92 H 88 Respiratory Rate 20 20 20 Blood Pressure 123/77 144/92 H 117/63 Pulse Oximetry 100 98 100 10/14/18 04:23 10/14/18 04:31 10/14/18 08:00 Temperature 97.5 F L Pulse Rate 66 Respiratory Rate 16 20 16 Blood Pressure 120/72 Pulse Oximetry 100 10/14/18 08:10 10/14/18 13:00 Temperature 97.5 F L 98.0 F Pulse Rate 73 88 Respiratory Rate 20 20 Blood Pressure 107/66 117/70 Pulse Oximetry 100 98 Intake & Output 10/13/18 10/14/18 10/14/18 18:59 06:59 18:59 Intake Total 500 / 500 300 / 300 100 / 100 Balance 500 / 500 300 / 300 100 / 100 Weight 67.3 kg Intake: IV 500 / 500 300 / 300 100 / 100 Prostaphlin Inj 2 GM In NS Inj 500 / 500 300 / 300 100 / 100 100 ML @ 200 mls/hr IV.SIG Q4H [facility] Rx#:[id number] Other: # Voids 3 Date of Last Bowel Movement 10/12/18 10/12/18 10/12/18 Narrative: GENERAL: Well-nourished, well-developed adult male in mild distress. SKIN: Warm and dry. HEAD: Atraumatic. Normocephalic. CARDIOVASCULAR: Regular rate and rhythm. RESPIRATORY: No accessory muscle use. Clear to auscultation. Breath sounds equal bilaterally. GASTROINTESTINAL: Abdomen soft, non-tender, non-distended. Positive bowel sounds. MUSCULOSKELETAL: Extremities without clubbing, cyanosis, or edema. No obvious deformities. Tenderness along thoracic spine. NEUROLOGICAL: Awake and alert. No obvious cranial nerve deficits. Motor grossly within normal limits. Normal speech. Results Labs CBC & Chem 7: 10/12/18 05:52 10/12/18 05:52 Labs: Microbiology 10/11/18 20:05 Blood - Peripheral Aerobic Blood Culture - Preliminary No growth in 3 days 10/11/18 20:05 Blood - Peripheral Anaerobic Blood Culture - Preliminary No growth in 3 days 10/11/18 20:00 Blood - Peripheral Aerobic Blood Culture - Preliminary No growth in 3 days 10/11/18 20:00 Blood - Peripheral Anaerobic Blood Culture - Preliminary No growth in 3 days Procedures Procedures: LISA Assessment and Plan Plan 28-year-old male with a history of IV drug use who was initially admitted to the hospital on 09/21/2018 due to lower back pain as well as fever admitted to the hospital and has stayed since 09/26/18. Patient states he had a panic attack and asked his nurse if he is able to get out of his room and walk around. The nurse agreed to him that he is able to walk around the unit however the patient thought that he is able to get out of the unit and he started wandering all the way to the other building in the [place]. He was brought back to the unit by a nurse from [facility] but because he was out of the unit for quite some time they signed him off as leaving AGAINST MEDICAL ADVICE. Came back for readmission. MSSA bacteremia IVDU Discitis -Neurosurgery reconsulted. ID reconsulted -09/23/18 Thoracic MRI showed There is diffuse mild epidural enhancement involving the mid to lower thoracic canal on examination. -Echo 60-65% ejection fraction, no endocarditis noted. -LISA was done showing Normal LV size, wall thickness and systolic function, EF 60%l; negative for vegetation Percocet for pain control, IV morphine for breakthrough pain with bowel regimen. Encouraged non-pharmacal management of pain including K Therm. -Repeat Cultures continue to come back with staph aureus. Plan for prolonged antibiotic use. Unable to trust patient with IV access since he was even found to have illicit substance during hospitalization. Patient will also be unable to make it to the IV infusion center. Left AMA recently -check blood cultures 10/05/18; no growth to date -IV oxacillin as per previous ID recommendation, likely duration 8 weeks -Neurosurgery has seen and evaluated the patient. Recommend continued infectious workup. Repeat MRI of the spine 09/23 without any abscess. No surgical intervention for now. -Recommend weekly ESR/CRP. Call neurosurgery if neurologic deficit occurs. -10/11/17: Repeat MRI due to increasing complaint of pain. Thoracic spine MRI shows developing discitis at T9/T10 and T11/T12 with suspected osteomyelitis of the adjacent vertebrae at each level. Associated stenosis. No epidural abscess. -Reconsulted neurosurgery for evaluation -sx intervention still not indicated. -Appreciate ID assistance. Repeat blood cultures ordered; NGTD. -IR for biopsy on 10/14; results pending IV drug use, heroin -Monitor for withdrawals. -Clonidine patch to decrease anxiety. -Found to have illicit substance while in the inpatient setting - "heroin rock" , possible snorted vs injection, while inpatient. No visitors allowed. May have supervised visitation. D/W RN and charge nurse to move pt. closer to nurse' s station -Drug-seeking behavior has improved and patient agrees to eventual weaning. Will briefly allow Dilaudid until new stenosis and osteomyelitis identified on can be treated. Depression/anxiety Hx of Panic attacks. -Prozac daily; dose increased on 10/10. -Patient states he use to take Xanax but no script in 2 years per [facility] -Xanax 0.25 mg PO q 8 PRN anxiety. -Add Atarax Hyperthyroidism -Elevated T4 with normal T3 and borderline low normal TSH. -Thyroid ultrasound ordered -normal -Hyperthyroidism possibly secondary to heroin use and/or hepatitis -No evidence of thyroid storm but may be contributing to anxiety -Euthyroid-recommending outpatient follow-up if not resolved on own Elevated liver enzymes -AST/ALT increasing; noted to also be increased in historical labs done 12/20. -Hepatitis panel ordered -hep C reactive. Patient has no history of hepatitis treatment. -Full STI panel completed per patient request; results pending -Abdominal CT done 09/21 showed no abnormalities of liver. -Recommending outpatient follow-up; patient given information about [facility] Insomnia -Cont Ambien PRN-inc to 10 mg PO q hs Full code. SCDs. Heparin Labs reviewed Again, discussed with pt at length need for compliance. Not sure he will stay to complete treatment, he has been warned about the consequences of not completing treatment including sepsis, paralysis, poss . Patient indicates understanding and agrees to remain hospitalized for full course of treatment per Code Status: FULL CODE Discussed Condition With: RN AND PT Discharge Planning: NEEDS TO COMPLETE TREATMENT 8 weeks of abx NOT A SAFE DISCHARGE DUE TO HX OF AMA AND USING WHILE HERE IN HOSPITAL Progress Note: Quality VTE Deep Vein Thrombosis/Pulmonary Embolism Present on Admission: No
--- NOTE | 2018-10-14 16:25 | CT ---
EXAM DATE: 10/14/2018 4:21 PM EST AGE/SEX: 28 years / Male INDICATIONS: Thoracic discitis. CLINICAL DATA: This is the patient's initial encounter. Patient reports that signs and symptoms have been present for 1 day and indicates a pain score of 8/10. MEDICAL/SURGICAL HISTORY: None. None. COMPARISON: No prior exams available for comparison. BIOPSY SITE: T9 MEDICATION(S): 5mg midazolam (Versed) IV 300mcg fentanyl (Sublimaze) IV 50mg Benadryl DEVICE(S): 19 gauge Introducer 20 gauge BARD biopsy needle FLUID: Total volume of of fluid was removed. . . . PROCEDURE : CT guided drainage of the T9. The risks, benefits and alternatives to the procedure were explained and verbal and written consent w as obtained. Using automated exposure control and adjustment of the mA and/or kV according to patient size, radiation dose was kept as low as reasonably achievable to obtain optimal diagnostic quality i mages. The site was prepped in sterile fashion. Full sterile technique was used, including cap, ma sk, sterile gloves and gown and a large sterile sheet. Hand hygiene and 2% chlorhexidine and/or beta dine/alcohol prep was utilized per protocol for cutaneous antisepsis. The skin and subcutaneous tiss ues were infiltrated with local anesthetic solution. DICOM format image data is available electronic ally for review and comparison. T9-10 disc space was localized with CT and targeted. 19-gauge guiding needle was advanced into the pe ripheral disc space and multiple aspirations yielded no fluid. Therefore, a 20-gauge core biopsy was obtained and sample was submitted for laboratory analysis per request. The patient tolerated the procedure well and there were no complications. The patient tolerated the procedure well and there were no complications. The patient was sent to post anesthesia recovery in s table condition. CONCLUSION: 1. CT-guided T9-10 disc aspiration yielded no fluid. Therefore, 20-gauge core biopsy was obtained an d samples submitted per request. Electronically signed by: Jose Patino MD Board Certified Radiologist 10/14/2018 4:24 PM EST
[2018-10-15] MEDS: oxyCODONE/Acetaminophen 10/325 Tablet PO PRN ×5 (01:54→21:36)
[2018-10-15] MEDS: ALPRAZolam 0.25 MG Tablet PO PRN ×4 (01:54→21:36)
[2018-10-15] MEDS: HYDROmorphone PF Inj 1 MG/ML Ampul IV.PUSH PRN ×7 (02:03→23:20)
[2018-10-15] MEDS: Heparin - SQ 10,000 UNITS/ML Vial SQ SCH ×2 (08:03→17:15)
[2018-10-15] MEDS: Senna/Docusate Sodium 8.6/50 MG Tablet PO SCH ×2 (08:03→23:20)
[2018-10-15] MEDS: FLUoxetine 20 MG Capsule PO SCH (08:51)
--- NOTE | 2018-10-15 09:23 | P.PN ---
Subjective Interval history: Follow-up for bacteremia, thoracic discitis/osteomyelitis. The patient reports continued intractable mid to lower back pain with some radiation into bilateral buttocks. He reports an associated distal lower extremity tingling, but no numbness or weakness. He states he is still ambulating, however this exacerbates his pain. Denies fevers but does report chills. No documented fevers in the chart. He is still tolerating oral intake. He has no other medical complaints at this time including no chest pain, cough, shortness of breath, or abdominal complaints. Physical Exam Vital signs: Vital Signs 10/14/18 13:00 10/14/18 16:00 10/14/18 16:21 Temperature 98.0 F 98.0 F 97.5 F L Pulse Rate 88 88 95 H Respiratory Rate 20 20 19 Blood Pressure 117/70 117/70 110/68 Pulse Oximetry 98 98 98 10/14/18 16:51 10/14/18 19:00 10/15/18 02:05 Temperature 97.9 F 98.1 F Pulse Rate 75 63 89 Respiratory Rate 18 20 16 Blood Pressure 105/62 98/63 L 110/70 Pulse Oximetry 98 99 10/15/18 03:00 10/15/18 04:00 10/15/18 05:08 Temperature 98.0 F Pulse Rate 67 Respiratory Rate 16 18 18 Blood Pressure 100/62 Pulse Oximetry 100 10/15/18 06:50 10/15/18 07:35 Temperature 98.8 F Pulse Rate 88 Respiratory Rate 18 20 Blood Pressure 100/59 L Pulse Oximetry 100 Intake & Output 10/14/18 10/15/18 10/15/18 18:59 06:59 18:59 Intake Total 200 / 200 400 / 400 Balance 200 / 200 400 / 400 Weight 68.7 kg Intake: IV 200 / 200 400 / 400 Prostaphlin Inj 2 GM In NS Inj 200 / 200 400 / 400 100 ML @ 200 mls/hr IV.SIG Q4H [facility] Rx#:[id number] Other: # Voids 3 Date of Last Bowel Movement 10/12/18 Narrative: GENERAL: Well-nourished, well-developed young adult male in [facility]. SKIN: Warm and dry. HEAD: Atraumatic. Normocephalic. CARDIOVASCULAR: Regular rate and rhythm. No murmur appreciated. RESPIRATORY: No accessory muscle use. Clear to auscultation. Breath sounds equal bilaterally. GASTROINTESTINAL: Abdomen soft, non-tender, non-distended. Positive bowel sounds. MUSCULOSKELETAL: Extremities without clubbing, cyanosis, or edema. No obvious deformities. Tenderness along lower thoracic spine, no overlying warmth/ erythema. NEUROLOGICAL: Awake and alert. No obvious cranial nerve deficits. Motor grossly within normal limits. Normal speech. Results - Labs CBC & Chem 7: 10/12/18 05:52 10/12/18 05:52 Laboratory Results - last 24 hr 10/13/18 12:18 RPR Nonreactive Microbiology 10/11/18 20:05 Blood - Peripheral Aerobic Blood Culture - Preliminary No growth in 3 days 10/11/18 20:05 Blood - Peripheral Anaerobic Blood Culture - Preliminary No growth in 3 days 10/11/18 20:00 Blood - Peripheral Aerobic Blood Culture - Preliminary No growth in 3 days 10/11/18 20:00 Blood - Peripheral Anaerobic Blood Culture - Preliminary No growth in 3 days - Imaging Impressions Needle Aspiration CT 10/14/18 00:00 CONCLUSION: 1. CT-guided T9-10 disc aspiration yielded no fluid. Therefore, 20-gauge core biopsy was obtained and samples submitted per request. - Procedures LISA Assessment and Plan - Assessment (1) Staphylococcus aureus bacteremia Code(s): R78.81 - Bacteremia Status: Acute (2) Discitis Code(s): M46.40 - Discitis, unspecified, site unspecified Status: Acute (3) Intravenous drug abuse Code(s): F19.10 - Other psychoactive substance abuse, uncomplicated Status: Chronic - Plan 28-year-old male with a history of IV drug use who was initially admitted to the hospital on 09/21/2018 due to lower back pain as well as fever admitted to the hospital and has stayed since 09/26/18. Patient states he had a panic attack and asked his nurse if he is able to get out of his room and walk around. The nurse agreed to him that he is able to walk around the unit however the patient thought that he is able to get out of the unit and he started wandering all the way to the other building in the [facility]. He was brought back to the unit by a nurse from [facility] but because he was out of the unit for quite some time they signed him off as leaving AGAINST MEDICAL ADVICE. Came back for readmission. MSSA bacteremia IVDU Discitis -Neurosurgery reconsulted. ID reconsulted -09/23/18 Thoracic MRI showed There is diffuse mild epidural enhancement involving the mid to lower thoracic canal on examination. -Echo 60-65% ejection fraction, no endocarditis noted. -LISA showed normal LV size, wall thickness and systolic function, EF 60%l; negative for vegetation Percocet for pain control, IV morphine for breakthrough pain with bowel regimen. Encouraged nonpharmacological management of pain including K Therm. -Repeat Cultures continue to come back with staph aureus. Plan for prolonged antibiotic use. Unable to trust patient with IV access since he was even found to have illicit substance during hospitalization. Patient will also be unable to make it to the IV infusion center. Left AMA recently -Repeat blood cultures 10/05/18; no growth to date -IV oxacillin as per previous ID recommendation, likely duration 8 weeks -Neurosurgery has seen and evaluated the patient. Recommend continued infectious workup. Repeat MRI of the spine 09/23 without any abscess. No surgical intervention for now. -Recommend weekly ESR/CRP. Call neurosurgery if neurologic deficit occurs. -10/11/17: Repeat MRI due to increasing complaint of pain. Thoracic spine MRI shows developing discitis at T9/T10 and T11/T12 with suspected osteomyelitis of the adjacent vertebrae at each level. Associated stenosis. No epidural abscess. -Reconsulted neurosurgery for evaluation -sx intervention still not indicated. -Appreciate ID assistance. Repeat blood cultures ordered; NGTD. -IR performed biopsy on 10/14; results pending IV drug use, heroin -Monitor for withdrawals. -Clonidine patch to decrease anxiety. -Found to have illicit substance while in the inpatient setting - "heroin rock" , possible snorted vs injection, while inpatient. No visitors allowed. May have supervised visitation. D/W RN and charge nurse to move pt. closer to nurse' s station -Drug-seeking behavior has improved and patient agrees to eventual weaning. Will briefly allow IV Dilaudid for breakthrough pain until new stenosis and osteomyelitis identified on 10/11 can be treated. Depression/anxiety Hx of Panic attacks. -Prozac daily; dose increased on 10/10. -Patient states he use to take Xanax but no script in 2 years per [facility] -Xanax 0.25 mg PO q 8 PRN anxiety. -Added Atarax Hyperthyroidism -Elevated T4 with normal T3 and borderline low normal TSH. -Thyroid ultrasound ordered -normal -Hyperthyroidism possibly secondary to heroin use and/or hepatitis -No evidence of thyroid storm but may be contributing to anxiety -Euthyroid-recommending outpatient follow-up if not resolved on own Elevated liver enzymes -AST/ALT increasing; noted to also be increased in historical labs done 12/20. -Hepatitis panel ordered -hep C reactive. Patient has no history of hepatitis treatment. -Full STI panel completed per patient request; results pending -Abdominal CT done 09/21 showed no abnormalities of liver. -Recommending outpatient follow-up; patient given information about [facility] Insomnia -Cont Ambien PRN-inc to 10 mg PO q hs Full code. SCDs. Heparin Labs reviewed Again, discussed with pt at length need for compliance. Not sure he will stay to complete treatment, he has been warned about the consequences of not completing treatment including sepsis, paralysis, poss . Patient indicates understanding and agrees to remain hospitalized for full course of treatment. Code Status: FULL CODE Discussed Condition With: RN AND PT Discharge Planning: NEEDS TO COMPLETE TREATMENT 8 weeks of abx NOT A SAFE DISCHARGE DUE TO HX OF AMA AND DRUG USE WHILE HERE IN HOSPITAL
[2018-10-16] MEDS: oxyCODONE/Acetaminophen 10/325 Tablet PO PRN ×4 (04:31→22:30)
[2018-10-16] MEDS: Heparin - SQ 10,000 UNITS/ML Vial SQ SCH ×2 (05:39→17:45)
[2018-10-16] MEDS: HYDROmorphone PF Inj 1 MG/ML Ampul IV.PUSH PRN ×5 (05:50→21:11)
[2018-10-16] MEDS: ALPRAZolam 0.25 MG Tablet PO PRN ×2 (05:57→15:27)
[2018-10-16] MEDS: FLUoxetine 20 MG Capsule PO SCH (09:49)
[2018-10-16] MEDS: Senna/Docusate Sodium 8.6/50 MG Tablet PO SCH ×2 (10:02→21:12)
--- NOTE | 2018-10-16 11:13 | P.PN ---
Subjective Interval history: Follow up for bacteremia, thoracic discitis/osteomyelitis. The patient reports continued mid to lower back pain, rated 10/10, unchanged compared to yesterday. He states he is still able to get up and around his room, but this exacerbates his pain. Denies any significant lower extremity numbness. Denies any incontinence. He reports continued episodes of sweats/diaphoresis. No documented fevers. Denies any other medical complaints. Tolerating oral intake. Physical Exam Vital signs: Vital Signs 10/15/18 12:00 10/15/18 13:12 10/15/18 15:52 Temperature 98.7 F Pulse Rate 79 Respiratory Rate 18 16 16 Blood Pressure 106/63 Pulse Oximetry 99 10/15/18 16:30 10/15/18 16:49 10/15/18 18:48 Temperature 98.7 F Pulse Rate 90 Respiratory Rate 20 16 16 Blood Pressure 104/62 Pulse Oximetry 100 10/15/18 20:00 10/15/18 22:54 10/16/18 00:04 Temperature 97.1 F L 97.7 F Pulse Rate 78 85 Respiratory Rate 17 20 17 Blood Pressure 145/65 H 98/60 L Pulse Oximetry 100 100 10/16/18 04:00 10/16/18 05:26 10/16/18 07:56 Temperature 97.8 F 97.4 F L Pulse Rate 82 75 Respiratory Rate 20 20 18 Blood Pressure 113/69 119/68 Pulse Oximetry 100 100 Intake & Output 10/15/18 10/16/18 10/16/18 18:59 06:59 18:59 Intake Total 300 / 300 742 / 742 Balance 300 / 300 742 / 742 Weight 69.3 kg Intake: IV 300 / 300 300 / 300 Prostaphlin Inj 2 GM In NS Inj 300 / 300 300 / 300 100 ML @ 200 mls/hr IV.SIG Q4H [facility] Rx#:[id number] Oral [id number] Other: # Voids 3 2 Date of Last Bowel Movement 10/14/18 Narrative: GENERAL: Well-developed young thin adult male in [facility]. SKIN: Warm and dry. HEAD: Atraumatic. Normocephalic. CARDIOVASCULAR: Regular rate and rhythm. No murmur appreciated. RESPIRATORY: No accessory muscle use. Clear to auscultation. Breath sounds equal bilaterally. GASTROINTESTINAL: Abdomen soft, non-tender, non-distended. Positive bowel sounds. MUSCULOSKELETAL: Extremities without clubbing, cyanosis, or edema. No obvious deformities. Tenderness along lower thoracic spine, no overlying warmth/ erythema. NEUROLOGICAL: Awake and alert. No obvious cranial nerve deficits. Motor grossly within normal limits. Normal speech. Results - Labs CBC & Chem 7: 10/12/18 05:52 10/12/18 05:52 Microbiology 10/11/18 20:05 Blood - Peripheral Aerobic Blood Culture - Final No growth in 5 days 10/11/18 20:05 Blood - Peripheral Anaerobic Blood Culture - Final No growth in 5 days 10/11/18 20:00 Blood - Peripheral Aerobic Blood Culture - Final No growth in 5 days 10/11/18 20:00 Blood - Peripheral Anaerobic Blood Culture - Final No growth in 5 days 10/14/18 16:15 Tissue - Other Gram Stain - Final 10/14/18 16:15 Tissue - Other Wound Culture - Preliminary No growth in 48 hours 10/14/18 16:15 Other Acid Fast Bacilli Smear - Final No acid fast bacilli seen 10/14/18 16:15 Tissue - Other Fungal Smear - Final No fungal elements seen - Procedures LISA Assessment and Plan - Assessment (1) Staphylococcus aureus bacteremia Code(s): R78.81 - Bacteremia Status: Acute (2) Discitis Code(s): M46.40 - Discitis, unspecified, site unspecified Status: Acute (3) Intravenous drug abuse Code(s): F19.10 - Other psychoactive substance abuse, uncomplicated Status: Chronic - Plan 28-year-old male with a history of IV drug use who was initially admitted to the hospital on 09/21/2018 due to lower back pain as well as fever admitted to the hospital and has stayed since 09/26/18. Patient states he had a panic attack and asked his nurse if he is able to get out of his room and walk around. The nurse agreed to him that he is able to walk around the unit however the patient thought that he is able to get out of the unit and he started wandering all the way to the other building in the [facility] [place]. He was brought back to the unit by a nurse from [facility] but because he was out of the unit for quite some time they signed him off as leaving AGAINST MEDICAL ADVICE. Came back for readmission. MSSA bacteremia IVDU Discitis -Neurosurgery reconsulted. ID reconsulted -09/23/18 Thoracic MRI showed There is diffuse mild epidural enhancement involving the mid to lower thoracic canal on examination. -Echo 60-65% ejection fraction, no endocarditis noted. -LISA showed normal LV size, wall thickness and systolic function, EF 60%l; negative for vegetation Percocet for pain control, IV morphine for breakthrough pain with bowel regimen. Encouraged nonpharmacological management of pain including K Therm. -Repeat Cultures continue to come back with staph aureus. Plan for prolonged antibiotic use. Unable to trust patient with IV access since he was even found to have illicit substance during hospitalization. Patient will also be unable to make it to the IV infusion center. Left AMA recently -Repeat blood cultures 10/05/18; no growth to date -IV oxacillin as per previous ID recommendation, likely duration 8 weeks -Neurosurgery has seen and evaluated the patient. Recommend continued infectious workup. Repeat MRI of the spine 09/23 without any abscess. No surgical intervention for now. -Recommend weekly ESR/CRP. Call neurosurgery if neurologic deficit occurs. -10/11/17: Repeat MRI due to increasing complaint of pain. Thoracic spine MRI shows developing discitis at T9/T10 and T11/T12 with suspected osteomyelitis of the adjacent vertebrae at each level. Associated stenosis. No epidural abscess. -Reconsulted neurosurgery for evaluation -sx intervention still not indicated. -Appreciate ID assistance. Repeat blood cultures ordered; NGTD. -IR performed biopsy on 10/14; preliminary culture with NGTD IV drug use, heroin -Monitor for withdrawals. -Clonidine patch to decrease anxiety. -Found to have illicit substance while in the inpatient setting - "heroin rock" , possible snorted vs injection, while inpatient. No visitors allowed. May have supervised visitation. D/W RN and charge nurse to move pt. closer to nurse' s station -Drug-seeking behavior has improved and patient agrees to eventual weaning. Will briefly allow IV Dilaudid for breakthrough pain until new stenosis and osteomyelitis identified on 10/11 can be treated. Depression/anxiety Hx of Panic attacks. -Prozac daily; dose increased on 10/10. -Patient states he use to take Xanax but no script in 2 years per [facility] -Xanax 0.25 mg PO q 8 PRN anxiety. -Added Atarax Hyperthyroidism -Elevated T4 with normal T3 and borderline low normal TSH. -Thyroid ultrasound ordered -normal -Hyperthyroidism possibly secondary to heroin use and/or hepatitis -No evidence of thyroid storm but may be contributing to anxiety -Euthyroid-recommending outpatient follow-up if not resolved on own Elevated liver enzymes -AST/ALT increasing; noted to also be increased in historical labs done 12/20. -Hepatitis panel ordered -hep C reactive. Patient has no history of hepatitis treatment. -Full STI panel completed per patient request; results pending -Abdominal CT done 09/21 showed no abnormalities of liver. -Recommending outpatient follow-up; patient given information about [facility] Insomnia -Cont Ambien PRN-inc to 10 mg PO q hs Full code. SCDs. Heparin Labs reviewed Again, discussed with pt at length need for compliance. Not sure he will stay to complete treatment, he has been warned about the consequences of not completing treatment including sepsis, paralysis, poss . Patient indicates understanding and agrees to remain hospitalized for full course of treatment. Code Status: FULL CODE Discussed Condition With: RN AND PT Discharge Planning: NEEDS TO COMPLETE TREATMENT 8 weeks of abx NOT A SAFE DISCHARGE DUE TO HX OF AMA AND DRUG USE WHILE HERE IN HOSPITAL
[2018-10-17] MEDS: HYDROmorphone PF Inj 1 MG/ML Ampul IV.PUSH PRN ×7 (02:09→22:49)
[2018-10-17] MEDS: oxyCODONE/Acetaminophen 10/325 Tablet PO PRN ×3 (04:40→17:21)
[2018-10-17] MEDS: Heparin - SQ 10,000 UNITS/ML Vial SQ SCH ×2 (07:22→17:21)
[2018-10-17] MEDS: Senna/Docusate Sodium 8.6/50 MG Tablet PO SCH ×2 (08:55→21:16)
[2018-10-17] MEDS: FLUoxetine 20 MG Capsule PO SCH (08:56)
--- NOTE | 2018-10-17 10:39 | P.PN ---
Subjective Interval history: Follow up for bacteremia, thoracic spine discitis/osteomyelitis. Patient is seen resting in bed, awake, alert, oriented. Reports continued diffuse thoracic and low back pain with radiation into the buttocks. He is requesting a muscle relaxant as he has increased muscle spasms at night. He states he has not done well with Soma in the past, but has done okay with Flexeril. He reports continued sweats. No documented fevers. Extensively discussed his diagnosis, findings on imaging, and results of biopsy with negative cultures. All questions answered. He is tolerating oral intake. He denies any lower extremity weakness. He has been able to ambulate around his room. He has no other new medical complaints at this time. Physical Exam Vital signs: Vital Signs 10/16/18 12:00 10/16/18 16:00 10/16/18 20:00 Temperature 98.4 F 97.9 F 98.2 F Pulse Rate 64 80 78 Respiratory Rate 18 18 18 Blood Pressure 126/75 116/72 122/75 Pulse Oximetry 100 99 99 10/17/18 00:00 10/17/18 04:00 10/17/18 07:36 Temperature 97.4 F L 97.6 F 97.7 F Pulse Rate 60 72 71 Respiratory Rate 18 18 18 Blood Pressure 98/54 L 95/58 L 111/81 Pulse Oximetry 100 98 96 Intake & Output 10/16/18 10/17/18 10/17/18 18:59 06:59 18:59 Intake Total 1020 / 1020 300 / 300 580 / 580 Balance 1020 / 1020 300 / 300 580 / 580 Intake: IV 300 / 300 300 / 300 100 / 100 Prostaphlin Inj 2 GM In NS Inj 300 / 300 300 / 300 100 / 100 100 ML @ 200 mls/hr IV.SIG Q4H [facility] Rx#:[id number] Oral 720 / 720 480 / 480 Other: # Voids 4 3 Date of Last Bowel Movement 10/16/18 Narrative: GENERAL: Well-developed young thin adult male in NAD. SKIN: Warm and dry. HEAD: Atraumatic. Normocephalic. CARDIOVASCULAR: Regular rate and rhythm. No murmur appreciated. RESPIRATORY: No accessory muscle use. Clear to auscultation. Breath sounds equal bilaterally. GASTROINTESTINAL: Abdomen soft, non-tender, non-distended. Positive bowel sounds. MUSCULOSKELETAL: Extremities without clubbing, cyanosis, or edema. No obvious deformities. Tenderness along lower thoracic spine, no overlying warmth/ erythema. NEUROLOGICAL: Awake and alert. No obvious cranial nerve deficits. Motor grossly within normal limits. Moving all extremities spontaneously. Normal speech. Results - Labs CBC & Chem 7: 10/12/18 05:52 10/12/18 05:52 Microbiology 10/14/18 16:15 Tissue - Other Gram Stain - Final 10/14/18 16:15 Tissue - Other Wound Culture - Final No growth in 72 hours (aerobically and anaerobically ) 10/11/18 20:05 Blood - Peripheral Aerobic Blood Culture - Final No growth in 5 days 10/11/18 20:05 Blood - Peripheral Anaerobic Blood Culture - Final No growth in 5 days 10/11/18 20:00 Blood - Peripheral Aerobic Blood Culture - Final No growth in 5 days 10/11/18 20:00 Blood - Peripheral Anaerobic Blood Culture - Final No growth in 5 days - Procedures LISA Assessment and Plan - Assessment (1) Staphylococcus aureus bacteremia Code(s): R78.81 - Bacteremia Status: Acute (2) Discitis Code(s): M46.40 - Discitis, unspecified, site unspecified Status: Acute (3) Intravenous drug abuse Code(s): F19.10 - Other psychoactive substance abuse, uncomplicated Status: Chronic - Plan 28-year-old male with a history of IV drug use who was initially admitted to the hospital on 09/21/2018 due to lower back pain as well as fever admitted to the hospital and has stayed since 09/26/18. Patient states he had a panic attack and asked his nurse if he is able to get out of his room and walk around. The nurse agreed to him that he is able to walk around the unit however the patient thought that he is able to get out of the unit and he started wandering all the way to the other building in the [facility]. He was brought back to the unit by a nurse from [facility] but because he was out of the unit for quite some time they signed him off as leaving AGAINST MEDICAL ADVICE. Came back for readmission. MSSA bacteremia IVDU Discitis -Neurosurgery reconsulted. ID reconsulted -09/23/18 Thoracic MRI showed There is diffuse mild epidural enhancement involving the mid to lower thoracic canal on examination. -Echo 60-65% ejection fraction, no endocarditis noted. -ILSA showed normal LV size, wall thickness and systolic function, EF 60%l; negative for vegetation Percocet for pain control, IV morphine for breakthrough pain with bowel regimen. Encouraged nonpharmacological management of pain including K Therm. -Repeat Cultures continue to come back with staph aureus. Plan for prolonged antibiotic use. Unable to trust patient with IV access since he was even found to have illicit substance during hospitalization. Patient will also be unable to make it to the IV infusion center. Left AMA recently -Repeat blood cultures 10/05/18; no growth to date -IV oxacillin as per previous ID recommendation, likely duration 8 weeks -Neurosurgery has seen and evaluated the patient. Recommend continued infectious workup. Repeat MRI of the spine 09/23 without any abscess. No surgical intervention for now. -Recommend weekly ESR/CRP. Call neurosurgery if neurologic deficit occurs. -10/11/17: Repeat MRI due to increasing complaint of pain. Thoracic spine MRI shows developing discitis at T9/T10 and T11/T12 with suspected osteomyelitis of the adjacent vertebrae at each level. Associated stenosis. No epidural abscess. -Reconsulted neurosurgery for evaluation -sx intervention still not indicated. -Appreciate ID assistance. Repeat blood cultures ordered; NGTD. -IR performed biopsy on 10/14; culture with NGTD -10/17: Patient reports continued back pain and spasms, added Flexeril 10 mg at bedtime as needed for spasms IV drug use, heroin -Monitor for withdrawals. -Clonidine patch to decrease anxiety. -Found to have illicit substance while in the inpatient setting - "heroin rock" , possible snorted vs injection, while inpatient. No visitors allowed. May have supervised visitation. D/W RN and charge nurse to move pt. closer to nurse' s station -Drug-seeking behavior-slightly improved and patient agrees to eventual weaning. Briefly allowing IV Dilaudid for breakthrough pain until new stenosis and osteomyelitis identified on 10/11 can be treated. Depression/anxiety Hx of Panic attacks. -Prozac daily; dose increased on 10/10. -Patient states he use to take Xanax but no script in 2 years per [facility] -Xanax 0.25 mg PO q 8 PRN anxiety. -Added Atarax Hyperthyroidism -Elevated T4 with normal T3 and borderline low normal TSH. -Thyroid ultrasound ordered -normal -Hyperthyroidism possibly secondary to heroin use and/or hepatitis -No evidence of thyroid storm but may be contributing to anxiety -Euthyroid-recommending outpatient follow-up if not resolved on own Elevated liver enzymes -AST/ALT increasing; noted to also be increased in historical labs done 12/20. -Hepatitis panel ordered -hep C reactive. Patient has no history of hepatitis treatment. -Full STI panel completed per patient request; results pending -Abdominal CT done 09/21 showed no abnormalities of liver. -Recommending outpatient follow-up; patient given information about [facility] Insomnia -Cont Ambien PRN-inc to 10 mg PO q hs Full code. SCDs. Heparin Labs reviewed Again, discussed with pt at length need for compliance. Not sure he will stay to complete treatment, he has been warned about the consequences of not completing treatment including sepsis, paralysis, poss . Patient indicates understanding and agrees to remain hospitalized for full course of treatment. Code Status: FULL CODE Discussed Condition With: RN AND PT Discharge Planning: NEEDS TO COMPLETE TREATMENT 8 weeks of abx NOT A SAFE DISCHARGE DUE TO HX OF AMA AND DRUG USE WHILE HERE IN HOSPITAL
[2018-10-17] MEDS: ALPRAZolam 0.25 MG Tablet PO PRN ×2 (12:08→21:16)
[2018-10-18] MEDS: oxyCODONE/Acetaminophen 10/325 Tablet PO PRN ×4 (00:16→19:46)
[2018-10-18] MEDS: HYDROmorphone PF Inj 1 MG/ML Ampul IV.PUSH PRN ×5 (03:51→21:54)
[2018-10-18] MEDS: Heparin - SQ 10,000 UNITS/ML Vial SQ SCH ×2 (06:20→18:52)
[2018-10-18] MEDS: Senna/Docusate Sodium 8.6/50 MG Tablet PO SCH ×2 (08:49→20:23)
[2018-10-18] MEDS: FLUoxetine 20 MG Capsule PO SCH (08:49)
--- NOTE | 2018-10-18 09:03 | P.PN ---
Subjective Interval history: Follow up for bacteremia, thoracic spine discitis/osteomyelitis. Patient is seen resting in bed, awake, alert, oriented. Reports continued diffuse lower thoracic and upper lumbar back pain with radiation into the buttocks. He states the flexeril did not relieve the muscle spasms. He reports his night sweats have improved; hasn't had any in the past 2 nights. He advised decreased ambulation due to continued back pain, although denies lower extremity weakness. He has no other new medical complaints at this time. Physical Exam Vital signs: Vital Signs 10/17/18 12:25 10/17/18 17:00 10/17/18 20:00 Temperature 98.1 F 98.1 F 98.1 F Pulse Rate 74 83 59 L Respiratory Rate 18 20 18 Blood Pressure 105/58 L 116/73 104/56 L Pulse Oximetry 98 97 99 10/18/18 03:00 10/18/18 03:51 10/18/18 08:00 Temperature 97.6 F 98 F Pulse Rate 78 106 H 86 Respiratory Rate 18 20 Blood Pressure 100/61 132/92 H 98/67 L Pulse Oximetry 100 98 Intake & Output 10/17/18 10/18/18 10/18/18 18:59 06:59 18:59 Intake Total 780 / 780 200 / 200 100 / 100 Balance 780 / 780 200 / 200 100 / 100 Intake: IV 300 / 300 200 / 200 100 / 100 Prostaphlin Inj 2 GM In NS Inj 300 / 300 200 / 200 100 / 100 100 ML @ 200 mls/hr IV.SIG Q4H [facility] Rx#:[id number] Oral 480 / 480 Other: # Voids 2 Date of Last Bowel Movement 10/17/18 Narrative: GENERAL: Well-developed young thin adult male in NAD. SKIN: Warm and dry. HEAD: Atraumatic. Normocephalic. CARDIOVASCULAR: Regular rate and rhythm. No murmur appreciated. RESPIRATORY: No accessory muscle use. Clear to auscultation. Breath sounds equal bilaterally. GASTROINTESTINAL: Abdomen soft, non-tender, non-distended. Positive bowel sounds. MUSCULOSKELETAL: Extremities without clubbing, cyanosis, or edema. No obvious deformities. Tenderness along lower thoracic spine, no overlying warmth/ erythema. NEUROLOGICAL: Awake and alert. No obvious cranial nerve deficits. Motor grossly within normal limits. Moving all extremities spontaneously. Normal speech. Results - Labs CBC & Chem 7: 01/08/19 05:52 10/12/18 05:52 Microbiology 10/14/18 16:15 Tissue - Other Gram Stain - Final 10/14/18 16:15 Tissue - Other Wound Culture - Final No growth in 72 hours (aerobically and anaerobically ) - Procedures LISA Assessment and Plan - Assessment (1) Staphylococcus aureus bacteremia Code(s): R78.81 - Bacteremia Status: Acute (2) Discitis Code(s): M46.40 - Discitis, unspecified, site unspecified Status: Acute (3) Intravenous drug abuse Code(s): F19.10 - Other psychoactive substance abuse, uncomplicated Status: Chronic - Plan 28-year-old male with a history of IV drug use who was initially admitted to the hospital on 09/21/2018 due to lower back pain as well as fever admitted to the hospital and has stayed since 09/26/18. Patient states he had a panic attack and asked his nurse if he is able to get out of his room and walk around. The nurse agreed to him that he is able to walk around the unit however the patient thought that he is able to get out of the unit and he started wandering all the way to the other building in the [facility] [place]. He was brought back to the unit by a nurse from [facility] but because he was out of the unit for quite some time they signed him off as leaving AGAINST MEDICAL ADVICE. Came back for readmission. MSSA bacteremia IVDU Discitis -Neurosurgery reconsulted. ID reconsulted -09/23/18 Thoracic MRI showed There is diffuse mild epidural enhancement involving the mid to lower thoracic canal on examination. -Echo 60-65% ejection fraction, no endocarditis noted. -LISA showed normal LV size, wall thickness and systolic function, EF 60%l; negative for vegetation Percocet for pain control, IV morphine for breakthrough pain with bowel regimen. Encouraged nonpharmacological management of pain including K Therm. -Repeat Cultures continue to come back with staph aureus. Plan for prolonged antibiotic use. Unable to trust patient with IV access since he was even found to have illicit substance during hospitalization. Patient will also be unable to make it to the IV infusion center. Left AMA recently -Repeat blood cultures 10/05/18; no growth to date -IV oxacillin as per previous ID recommendation, likely duration 8 weeks -Neurosurgery has seen and evaluated the patient. Recommend continued infectious workup. Repeat MRI of the spine 09/23 without any abscess. No surgical intervention for now. -Recommend weekly ESR/CRP. Call neurosurgery if neurologic deficit occurs. -10/11/17: Repeat MRI due to increasing complaint of pain. Thoracic spine MRI shows developing discitis at T9/T10 and T11/T12 with suspected osteomyelitis of the adjacent vertebrae at each level. Associated stenosis. No epidural abscess. -Reconsulted neurosurgery for evaluation -sx intervention still not indicated. -Appreciate ID assistance. Repeat blood cultures ordered; NGTD. -IR performed biopsy on 10/14; culture with NGTD -10/17: Patient reports continued back pain and spasms, added Flexeril 10 mg at bedtime as needed for spasms -10/18: Patient reports flexeril did not relieve his spasms, agrees to try robaxin tonight IV drug use, heroin -Monitor for withdrawals. -Clonidine patch to decrease anxiety. -Found to have illicit substance while in the inpatient setting - "heroin rock" , possible snorted vs injection, while inpatient. No visitors allowed. May have supervised visitation. D/W RN and charge nurse to move pt. closer to nurse' s station -Drug-seeking behavior-slightly improved and patient agrees to eventual weaning. Briefly allowing IV Dilaudid for breakthrough pain until new stenosis and osteomyelitis identified on 10/11 can be treated. -10/18-discussed weaning back dilaudid, patient verbalized understanding, changed from dilaudid 1mg IV q3h prn to 0.5mg IV q4h prn. Depression/anxiety Hx of Panic attacks. -Prozac daily; dose increased on 10/10. -Patient states he use to take Xanax but no script in 2 years per [facility] -Xanax 0.25 mg PO q 8 PRN anxiety. -Added Atarax Hyperthyroidism -Elevated T4 with normal T3 and borderline low normal TSH. -Thyroid ultrasound ordered -normal -Hyperthyroidism possibly secondary to heroin use and/or hepatitis -No evidence of thyroid storm but may be contributing to anxiety -Euthyroid-recommending outpatient follow-up if not resolved on own Elevated liver enzymes -AST/ALT increasing; noted to also be increased in historical labs done 12/20. -Hepatitis panel ordered -hep C reactive. Patient has no history of hepatitis treatment. -Full STI panel completed per patient request; HIV negative, RPR negative -Abdominal CT done 09/21 showed no abnormalities of liver. -Recommending outpatient follow-up; patient given information about [facility] Insomnia -Cont Ambien 10 mg PO q6h q hs Full code. SCDs. Heparin Labs reviewed Again, discussed with pt at length need for compliance. Not sure he will stay to complete treatment, he has been warned about the consequences of not completing treatment including sepsis, paralysis, poss . Patient indicates understanding and agrees to remain hospitalized for full course of treatment. Code Status: FULL CODE Discussed Condition With: RN AND PT Discharge Planning: NEEDS TO COMPLETE TREATMENT 8 weeks of abx NOT A SAFE DISCHARGE DUE TO HX OF AMA AND DRUG USE WHILE HERE IN HOSPITAL
[2018-10-18] MEDS: ALPRAZolam 0.25 MG Tablet PO PRN ×2 (11:39→20:23)
--- NOTE | 2018-10-18 19:00 | P.PNID ---
Subjective Remarks: co worsening pain on the R side very frustated about pain and is concerned no fever culture from aspiration is negative Antibiotics: oxacillin Allergies/Adverse Reactions: Allergies No Known Allergies Allergy (Verified 09/17/18 13:40) Objective Vital Signs 10/17/18 20:00 10/18/18 03:00 10/18/18 03:51 Temperature 98.1 F 97.6 F Pulse Rate 59 L 78 106 H Respiratory Rate 18 18 Blood Pressure 104/56 L 100/61 132/92 H Pulse Oximetry 99 100 10/18/18 08:00 10/18/18 11:40 10/18/18 15:40 Temperature 98 F 98.3 F 98.2 F Pulse Rate 86 95 H 85 Respiratory Rate 20 20 18 Blood Pressure 98/67 L 127/84 116/55 L Pulse Oximetry 98 98 100 Intake & Output 10/17/18 10/18/18 10/18/18 18:59 06:59 18:59 Intake Total 780 / 780 200 / 200 1260 / 1260 Balance 780 / 780 200 / 200 1260 / 1260 Intake: IV 300 / 300 200 / 200 300 / 300 Prostaphlin Inj 2 GM In NS Inj 300 / 300 200 / 200 300 / 300 100 ML @ 200 mls/hr IV.SIG Q4H [facility] Rx#:[id number] Oral 480 / 480 960 / 960 Other: # Voids 2 2 Date of Last Bowel Movement 10/17/18 10/14/18 16:15 Tissue - Other Gram Stain - Final 10/14/18 16:15 Tissue - Other Wound Culture - Final No growth in 72 hours (aerobically and anaerobically ) 10/11/18 20:05 Blood - Peripheral Aerobic Blood Culture - Final No growth in 5 days 10/11/18 20:05 Blood - Peripheral Anaerobic Blood Culture - Final No growth in 5 days 10/11/18 20:00 Blood - Peripheral Aerobic Blood Culture - Final No growth in 5 days 10/11/18 20:00 Blood - Peripheral Anaerobic Blood Culture - Final No growth in 5 days 10/14/18 16:15 Other Acid Fast Bacilli Smear - Final No acid fast bacilli seen 10/14/18 16:15 Other Mycobacterial Culture - Pending Imaging: ITS Impressions Thyroid Ultrasound 10/09/18 00:00 CONCLUSION: 1. Normal examination. Thoracic Spine MRI 10/11/18 00:00 CONCLUSION: Developing discitis at T9/T10 and T11/T12 and with suspected early localized osteomyelitis of the adjacent vertebrae at each level. There is associated mild spinal and left greater than right foraminal stenosis. No Epidural abscess is demonstrated. Needle Aspiration CT 10/14/18 00:00 CONCLUSION: 1. CT-guided T9-10 disc aspiration yielded no fluid. Therefore, 20-gauge core biopsy was obtained and samples submitted per request. Physical Exam: GENERAL: NAD; in obvious distress when attemps to move SKIN: Warm and dry. HEAD: Atraumatic. Normocephalic. EYES: Pupils equal and round. No scleral icterus. No injection or drainage. ENT: No nasal bleeding or discharge. Mucous membranes pink and moist. NECK: Trachea midline. No JVD. CARDIOVASCULAR: Regular rate and rhythm. RESPIRATORY: No accessory muscle use. Clear to auscultation. Breath sounds equal bilaterally. GASTROINTESTINAL: Abdomen soft, non-tender, nondistended. Hepatic and splenic margins not palpable. MUSCULOSKELETAL: Extremities without clubbing, cyanosis, or edema. BACK: No obvious deformities. No edema + promiennt tenderness to palpation to the R paravertebral area NEUROLOGICAL: Awake and alert. No obvious cranial nerve deficits. Motor grossly within normal limits. Five out of 5 muscle strength in the arms and legs. Normal speech. PSYCHIATRIC: frustrated about his med condition Assessment and Plan - Plan T spine ostheomyelitis, diskitis, no epidural abscess, MSSA -MR with diffuse mild epidural enhancement involving the mid to lower thoracic canal on today's examination, however mass producing collection which had been suspected previously is not seen today. Clinicall and radiological progression MSSA bacteremia - 2/2 vertebral infection no endocarditis worsening per pt despite abx cont oxacillin Not a candidate for o/p IV abx 2/2 IVDU status repeat ESR, CRP will consider re- scanning if clinically worse and/or increasing ESR/CRP dw Dr Adriano vieira case mngr
[2018-10-18] MEDS: Methocarbamol 500 MG Tablet PO PRN (20:29)
[2018-10-19] MEDS: oxyCODONE/Acetaminophen 10/325 Tablet PO PRN ×4 (01:29→20:46)
[2018-10-19] MEDS: HYDROmorphone PF Inj 1 MG/ML Ampul IV.PUSH PRN ×4 (02:36→22:23)
[2018-10-19] MEDS: ALPRAZolam 0.25 MG Tablet PO PRN ×3 (05:20→22:23)
[2018-10-19] MEDS: Heparin - SQ 10,000 UNITS/ML Vial SQ SCH ×2 (06:48→17:18)
[2018-10-19] MEDS: FLUoxetine 20 MG Capsule PO SCH (08:05)
[2018-10-19] MEDS: Senna/Docusate Sodium 8.6/50 MG Tablet PO SCH ×2 (08:06→20:47)
[2018-10-19 10:35] LABS: Baso # (Auto) 0.1 th/mm3 (0.0-0.2); Baso % (Auto) 1.1 % (0.0-2.0); Eos # (Auto) 0.1 th/mm3 (0.0-0.4); Eos % (Auto) 2.4 % (0.0-4.0); Hematocrit 36.4 % (39.0-51.0); Hemoglobin 12.3 gm/dL (13.0-17.0); Lymph # (Auto) 1.6 th/mm3 (1.0-4.8); Lymph % (Auto) 30.7 % (9.0-44.0); Mean Corpuscular HGB Conc 33.9 % (32.0-36.0); Mean Corpuscular Hemoglobin 28.4 pg (27.0-34.0); Mono # (Auto) 0.5 th/mm3 (0.0-0.9); Mono % (Auto) 8.6 % (0.0-8.0); Neut % (Auto) 57.2 % (16.0-70.0); Platelet Count 296 th/mm3 (150-450); Red Blood Count 4.34 mil/mm3 (4.50-5.90); Red Cell Distribution Width 18.4 % (11.6-17.2); White Blood Count 5.2 th/mm3 (4.0-11.0)
[2018-10-19 10:58] LABS: Anion Gap 9 meq/L (5-15); Blood Urea Nitrogen 15 mg/dL (7-18); Calcium 9.5 mg/dL (8.5-10.1); Carbon Dioxide 26.7 meq/L (21.0-32.0); Chloride 103 meq/L (98-107); Glomerular Filtration Rate Greater Than 89 mL/min (>89); Glucose,Random 67 mg/dL (74-106); Potassium 4.1 meq/L (3.5-5.1); Sodium 139 meq/L (136-145)
--- NOTE | 2018-10-19 11:18 | P.PN ---
Subjective Interval history: Follow up for bacteremia, thoracic spine discitis/osteomyelitis. The patient is seen resting in bed. Reports continued unchanged mid to lower back pain with radiation into the buttocks. He states the robaxin helped with his spasms. Denies fevers/chills but does report an episode of sweats overnight. Denies any other medical complaints at this time. Physical Exam Vital signs: Vital Signs 10/18/18 11:40 10/18/18 15:40 10/18/18 20:00 Temperature 98.3 F 98.2 F 99.0 F Pulse Rate 95 H 85 92 H Respiratory Rate 20 18 20 Blood Pressure 127/84 116/55 L 128/70 Pulse Oximetry 98 100 100 10/19/18 00:00 10/19/18 04:00 10/19/18 07:53 Temperature 97.5 F L 97.7 F 97.8 F Pulse Rate 97 H 86 82 Respiratory Rate 20 20 20 Blood Pressure 125/65 100/66 119/81 Pulse Oximetry 99 100 100 Intake & Output 10/18/18 10/19/18 10/19/18 18:59 06:59 18:59 Intake Total 1260 / 1260 400 / 400 100 / 100 Balance 1260 / 1260 400 / 400 100 / 100 Weight 69.3 kg Intake: IV 300 / 300 400 / 400 100 / 100 Prostaphlin Inj 2 GM In NS Inj 300 / 300 400 / 400 100 / 100 100 ML @ 200 mls/hr IV.SIG Q4H [facility] Rx#:[id number] Oral 960 / 960 Other: # Voids 2 Date of Last Bowel Movement 10/17/18 10/17/18 Narrative: GENERAL: Well-developed young thin adult male in [facility]. SKIN: Warm and dry. HEAD: Atraumatic. Normocephalic. CARDIOVASCULAR: Regular rate and rhythm. No murmur appreciated. RESPIRATORY: No accessory muscle use. Clear to auscultation. Breath sounds equal bilaterally. GASTROINTESTINAL: Abdomen soft, non-tender, non-distended. Positive bowel sounds. MUSCULOSKELETAL: Extremities without clubbing, cyanosis, or edema. No obvious deformities. Tenderness along lower thoracic spine, no overlying warmth/ erythema. NEUROLOGICAL: Awake and alert. No obvious cranial nerve deficits. Motor grossly within normal limits. Moving all extremities spontaneously. Normal speech. Results - Labs CBC & Chem 7: 10/19/18 08:30 10/19/18 08:30 Laboratory Results - last 24 hr 10/18/18 10/18/18 10/19/18 20:20 20:20 08:30 WBC 5.2 RBC 4.34 L Hgb 12.3 L Hct 36.4 L MCV 84.0 MCH 28.4 MCHC 33.9 RDW 18.4 H Plt Count 296 D MPV 8.0 Neut % (Auto) 57.2 Lymph % (Auto) 30.7 Taliaferro % (Auto) 8.6 H Eos % (Auto) 2.4 Baso % (Auto) 1.1 Neut # (Auto) 3.0 Lymph # (Auto) 1.6 Taliaferro # (Auto) 0.5 Eos # (Auto) 0.1 Baso # (Auto) 0.1 WBC Differential . Differential Comment Auto diff final ESR 25 H Sodium Potassium Chloride Carbon Dioxide Anion Gap BUN Creatinine Estimated GFR Random Glucose Calcium C-Reactive Protein 0.58 H 10/19/18 08:30 WBC RBC Hgb Hct MCV MCH MCHC RDW Plt Count MPV Neut % (Auto) Lymph % (Auto) Taliaferro % (Auto) Eos % (Auto) Baso % (Auto) Neut # (Auto) Lymph # (Auto) Taliaferro # (Auto) Eos # (Auto) Baso # (Auto) WBC Differential Differential Comment ESR Sodium 139 Potassium 4.1 Chloride 103 Carbon Dioxide 26.7 Anion Gap 9 BUN 15 Creatinine 0.88 Estimated GFR Greater than 89 Random Glucose 67 L Calcium 9.5 C-Reactive Protein - Procedures LISA Assessment and Plan - Assessment (1) Staphylococcus aureus bacteremia Code(s): R78.81 - Bacteremia Status: Acute (2) Discitis Code(s): M46.40 - Discitis, unspecified, site unspecified Status: Acute (3) Intravenous drug abuse Code(s): F19.10 - Other psychoactive substance abuse, uncomplicated Status: Chronic - Plan 28-year-old male with a history of IV drug use who was initially admitted to the hospital on 09/21/2018 due to lower back pain as well as fever admitted to the hospital and has stayed since 09/26/18. Patient states he had a panic attack and asked his nurse if he is able to get out of his room and walk around. The nurse agreed to him that he is able to walk around the unit however the patient thought that he is able to get out of the unit and he started wandering all the way to the other building in the [place]. He was brought back to the unit by a nurse from [facility] but because he was out of the unit for quite some time they signed him off as leaving AGAINST MEDICAL ADVICE. Came back for readmission. MSSA bacteremia IVDU Discitis -Neurosurgery reconsulted. ID reconsulted -09/23/18 Thoracic MRI showed There is diffuse mild epidural enhancement involving the mid to lower thoracic canal on examination. -Echo 60-65% ejection fraction, no endocarditis noted. -LISA showed normal LV size, wall thickness and systolic function, EF 60%l; negative for vegetation Percocet for pain control, IV morphine for breakthrough pain with bowel regimen. Encouraged nonpharmacological management of pain including K Therm. -Repeat Cultures continue to come back with staph aureus. Plan for prolonged antibiotic use. Unable to trust patient with IV access since he was even found to have illicit substance during hospitalization. Patient will also be unable to make it to the IV infusion center. Left AMA recently -Repeat blood cultures 10/05/18; no growth to date -IV oxacillin as per previous ID recommendation, likely duration 8 weeks -Neurosurgery has seen and evaluated the patient. Recommend continued infectious workup. Repeat MRI of the spine 09/23 without any abscess. No surgical intervention for now. -Recommend weekly ESR/CRP. Call neurosurgery if neurologic deficit occurs. -10/11/17: Repeat MRI due to increasing complaint of pain. Thoracic spine MRI shows developing discitis at T9/T10 and T11/T12 with suspected osteomyelitis of the adjacent vertebrae at each level. Associated stenosis. No epidural abscess. -Reconsulted neurosurgery for evaluation -sx intervention still not indicated. -Appreciate ID assistance. Repeat blood cultures ordered; NGTD. -IR performed biopsy on 10/14; culture with NGTD -10/17: Patient reports continued back pain and spasms, added Flexeril 10 mg at bedtime as needed for spasms -10/18: Patient reports flexeril did not relieve his spasms, agrees to try robaxin tonight -10/19: Patient reports relief of spasms with robaxin last night, will continue as needed. Repeat ESR/CRP continues to improve. ID recommended continuing current antibiotic regimen IV drug use, heroin -Monitor for withdrawals. -Clonidine patch to decrease anxiety. -Found to have illicit substance while in the inpatient setting - "heroin rock" , possible snorted vs injection, while inpatient. No visitors allowed. May have supervised visitation. D/W RN and charge nurse to move pt. closer to nurse' s station -Drug-seeking behavior-slightly improved and patient agrees to eventual weaning. Briefly allowing IV Dilaudid for breakthrough pain until new stenosis and osteomyelitis identified on 10/11 can be treated. -10/18-discussed weaning back dilaudid, patient verbalized understanding, changed from dilaudid 1mg IV q3h prn to 0.5mg IV q4h prn. Depression/anxiety Hx of Panic attacks. -Prozac daily; dose increased on 10/10. -Patient states he use to take Xanax but no script in 2 years per [facility] -Xanax 0.25 mg PO q 8 PRN anxiety. -Added Atarax Hyperthyroidism -Elevated T4 with normal T3 and borderline low normal TSH. -Thyroid ultrasound ordered -normal -Hyperthyroidism possibly secondary to heroin use and/or hepatitis -No evidence of thyroid storm but may be contributing to anxiety -Euthyroid-recommending outpatient follow-up if not resolved on own Elevated liver enzymes -AST/ALT increasing; noted to also be increased in historical labs done 12/20. -Hepatitis panel ordered -hep C reactive. Patient has no history of hepatitis treatment. -Full STI panel completed per patient request; HIV negative, RPR negative -Abdominal CT done 09/21 showed no abnormalities of liver. -Recommending outpatient follow-up; patient given information about [facility] Insomnia -Cont Ambien 10 mg PO q6h q hs Full code. SCDs. Heparin Labs reviewed Again, discussed with pt at length need for compliance. Not sure he will stay to complete treatment, he has been warned about the consequences of not completing treatment including sepsis, paralysis, poss . Patient indicates understanding and agrees to remain hospitalized for full course of treatment. Code Status: FULL CODE Discussed Condition With: RN AND PT Discharge Planning: NEEDS TO COMPLETE TREATMENT 8 weeks of abx NOT A SAFE DISCHARGE DUE TO HX OF AMA AND DRUG USE WHILE HERE IN HOSPITAL
[2018-10-19] MEDS: Methocarbamol 500 MG Tablet PO PRN (20:47)
[2018-10-20] MEDS: oxyCODONE/Acetaminophen 10/325 Tablet PO PRN ×4 (02:29→20:20)
[2018-10-20] MEDS: HYDROmorphone PF Inj 1 MG/ML Ampul IV.PUSH PRN ×5 (03:40→21:28)
[2018-10-20] MEDS: ALPRAZolam 0.25 MG Tablet PO PRN ×2 (06:17→13:41)
[2018-10-20] MEDS: Heparin - SQ 10,000 UNITS/ML Vial SQ SCH ×2 (06:42→18:14)
[2018-10-20] MEDS: Senna/Docusate Sodium 8.6/50 MG Tablet PO SCH ×2 (09:57→20:14)
[2018-10-20] MEDS: FLUoxetine 20 MG Capsule PO SCH (09:57)
--- NOTE | 2018-10-20 10:41 | P.PN ---
Subjective Interval history: Follow up for bacteremia, thoracic spine discitis/osteomyelitis. Patient reports continued mid to lower back pain, unchanged compared to previous days. He states he did get some good relief last night after taking the Percocet and Robaxin. He states he was able to sleep well after that. He is requesting that the Robaxin be increased to twice a day. We also discussed plan to continue to wean off IV Dilaudid, patient agrees. Denies fevers or chills, does have occasional sweats. Denies any other medical complaints. Tolerating oral intake. Physical Exam Vital signs: Vital Signs 10/19/18 11:57 10/19/18 15:30 10/19/18 20:00 Temperature 97.6 F 99.3 F 98.5 F Pulse Rate 96 H 117 H 99 H Respiratory Rate 20 20 20 Blood Pressure 117/71 121/66 133/67 Pulse Oximetry 99 99 99 10/20/18 00:00 10/20/18 04:00 10/20/18 08:00 Temperature 98.7 F 97.8 F 97.9 F Pulse Rate 90 94 H 100 H Respiratory Rate 18 18 20 Blood Pressure 134/69 115/71 103/62 Pulse Oximetry 98 99 96 Intake & Output 10/19/18 10/20/18 10/20/18 18:59 06:59 18:59 Intake Total 200 / 200 400 / 400 Balance 200 / 200 400 / 400 Weight 150.4 kg Intake: IV 200 / 200 400 / 400 Prostaphlin Inj 2 GM In NS Inj 200 / 200 400 / 400 100 ML @ 200 mls/hr IV.SIG Q4H [facility] Rx#:[id number] Other: # Voids 1 3 Date of Last Bowel Movement 10/17/18 10/19/18 Narrative: GENERAL: Well-developed young thin adult male in [facility]. SKIN: Warm and dry. HEAD: Atraumatic. Normocephalic. CARDIOVASCULAR: Regular rate and rhythm. No murmur appreciated. RESPIRATORY: No accessory muscle use. Clear to auscultation. Breath sounds equal bilaterally. GASTROINTESTINAL: Abdomen soft, non-tender, non-distended. Positive bowel sounds. MUSCULOSKELETAL: Extremities without clubbing, cyanosis, or edema. No obvious deformities. Tenderness along lower thoracic spine, no overlying warmth/ erythema. NEUROLOGICAL: Awake and alert. No obvious cranial nerve deficits. Motor grossly within normal limits. Moving all extremities spontaneously. Normal speech. Results - Labs CBC & Chem 7: 10/19/18 08:30 10/19/18 08:30 Laboratory Results - last 24 hr 10/19/18 10/19/18 08:30 08:30 WBC 5.2 RBC 4.34 L Hgb 12.3 L Hct 36.4 L MCV 84.0 MCH 28.4 MCHC 33.9 RDW 18.4 H Plt Count 296 D MPV 8.0 Neut % (Auto) 57.2 Lymph % (Auto) 30.7 Pierce % (Auto) 8.6 H Eos % (Auto) 2.4 Baso % (Auto) 1.1 Neut # (Auto) 3.0 Lymph # (Auto) 1.6 Pierce # (Auto) 0.5 Eos # (Auto) 0.1 Baso # (Auto) 0.1 WBC Differential . Differential Comment Auto diff final Sodium 139 Potassium 4.1 Chloride 103 Carbon Dioxide 26.7 Anion Gap 9 BUN 15 Creatinine 0.88 Estimated GFR Greater than 89 Random Glucose 67 L Calcium 9.5 - Procedures LISA Assessment and Plan - Assessment (1) Staphylococcus aureus bacteremia Code(s): R78.81 - Bacteremia Status: Acute (2) Discitis Code(s): M46.40 - Discitis, unspecified, site unspecified Status: Acute (3) Intravenous drug abuse Code(s): F19.10 - Other psychoactive substance abuse, uncomplicated Status: Chronic - Plan 28-year-old male with a history of IV drug use who was initially admitted to the hospital on 09/21/2018 due to lower back pain as well as fever admitted to the hospital and has stayed since 09/26/18. Patient states he had a panic attack and asked his nurse if he is able to get out of his room and walk around. The nurse agreed to him that he is able to walk around the unit however the patient thought that he is able to get out of the unit and he started wandering all the way to the other building in the [place]. He was brought back to the unit by a nurse from [facility] but because he was out of the unit for quite some time they signed him off as leaving AGAINST MEDICAL ADVICE. Came back for readmission. MSSA bacteremia IVDU Discitis -Neurosurgery reconsulted. ID reconsulted -09/23/18 Thoracic MRI showed There is diffuse mild epidural enhancement involving the mid to lower thoracic canal on examination. -Echo 60-65% ejection fraction, no endocarditis noted. -LISA showed normal LV size, wall thickness and systolic function, EF 60%l; negative for vegetation Percocet for pain control, IV morphine for breakthrough pain with bowel regimen. Encouraged nonpharmacological management of pain including K Therm. -Repeat Cultures continue to come back with staph aureus. Plan for prolonged antibiotic use. Unable to trust patient with IV access since he was even found to have illicit substance during hospitalization. Patient will also be unable to make it to the IV infusion center. Left AMA recently -Repeat blood cultures 10/05/18; no growth to date -IV oxacillin as per previous ID recommendation, likely duration 8 weeks -Neurosurgery has seen and evaluated the patient. Recommend continued infectious workup. Repeat MRI of the spine 09/23 without any abscess. No surgical intervention for now. -Recommend weekly ESR/CRP. Call neurosurgery if neurologic deficit occurs. -10/11/17: Repeat MRI due to increasing complaint of pain. Thoracic spine MRI shows developing discitis at T9/T10 and T11/T12 with suspected osteomyelitis of the adjacent vertebrae at each level. Associated stenosis. No epidural abscess. -Reconsulted neurosurgery for evaluation -sx intervention still not indicated. -Appreciate ID assistance. Repeat blood cultures ordered; NGTD. -IR performed biopsy on 10/14; culture with NGTD -10/17: Patient reports continued back pain and spasms, added Flexeril 10 mg at bedtime as needed for spasms -10/18: Patient reports flexeril did not relieve his spasms, agrees to try robaxin tonight -10/19: Patient reports relief of spasms with robaxin last night, will continue as needed. Repeat ESR/CRP continues to improve. ID recommended continuing current antibiotic regimen -10/20: Muscle spasms relieved by Robaxin, will increase to bid per patient request, with plan to wean IV dilaudid further over next few days IV drug use, heroin -Monitor for withdrawals. -Clonidine patch to decrease anxiety. -Found to have illicit substance while in the inpatient setting - "heroin rock" , possible snorted vs injection, while inpatient. No visitors allowed. May have supervised visitation. D/W RN and charge nurse to move pt. closer to nurse' s station -Drug-seeking behavior-slightly improved and patient agrees to eventual weaning. Briefly allowing IV Dilaudid for breakthrough pain until new stenosis and osteomyelitis identified on 10/11 can be treated. -10/18-discussed weaning back dilaudid, patient verbalized understanding, changed from dilaudid 1mg IV q3h prn to 0.5mg IV q4h prn. -10/20-discussed weaning Dilaudid further over the next few days, patient requesting Robaxin be increased bid today, then plan to wean IV Dilaudid further. Depression/anxiety Hx of Panic attacks. -Prozac daily; dose increased on 10/10. -Patient states he use to take Xanax but no script in 2 years per [facility] -Xanax 0.25 mg PO q 8 PRN anxiety. -Added Atarax Hyperthyroidism -Elevated T4 with normal T3 and borderline low normal TSH. -Thyroid ultrasound ordered -normal -Hyperthyroidism possibly secondary to heroin use and/or hepatitis -No evidence of thyroid storm but may be contributing to anxiety -Euthyroid-recommending outpatient follow-up if not resolved on own Elevated liver enzymes -AST/ALT increasing; noted to also be increased in historical labs done 12/20. -Hepatitis panel ordered -hep C reactive. Patient has no history of hepatitis treatment. -Full STI panel completed per patient request; HIV negative, RPR negative -Abdominal CT done 09/21 showed no abnormalities of liver. -Recommending outpatient follow-up; patient given information about [facility] Insomnia -Cont Ambien 10 mg PO q6h q hs Full code. SCDs. Heparin Labs reviewed Again, discussed with pt at length need for compliance. Not sure he will stay to complete treatment, he has been warned about the consequences of not completing treatment including sepsis, paralysis, poss . Patient indicates understanding and agrees to remain hospitalized for full course of treatment. Code Status: FULL CODE Discussed Condition With: RN AND PT Discharge Planning: NEEDS TO COMPLETE TREATMENT 8 weeks of abx NOT A SAFE DISCHARGE DUE TO HX OF AMA AND DRUG USE WHILE HERE IN HOSPITAL
[2018-10-20] MEDS: Methocarbamol 500 MG Tablet PO PRN (20:20)
[2018-10-21] MEDS: oxyCODONE/Acetaminophen 10/325 Tablet PO PRN ×3 (02:29→18:03)
[2018-10-21] MEDS: HYDROmorphone PF Inj 1 MG/ML Ampul IV.PUSH PRN ×2 (05:35→10:12)
[2018-10-21] MEDS: Senna/Docusate Sodium 8.6/50 MG Tablet PO SCH ×2 (08:46→20:55)
[2018-10-21] MEDS: Methocarbamol 500 MG Tablet PO PRN ×2 (08:59→18:04)
[2018-10-21] MEDS: FLUoxetine 20 MG Capsule PO SCH (08:59)
--- NOTE | 2018-10-21 11:25 | P.PNIM ---
Subjective Interval history: Patient seen lying in bed. Still has ongoing complaint of back pain. Has not been doing much physical therapy. Discussed the importance of continuing to wean him off narcotics prior to discharge as he will not be DC' d with any controlled substances. He agrees. Says that Robaxin has helped. Agrees to reduce dose of narcotics and trial gabapentin instead. Physical Exam Vital signs: Vital Signs 10/20/18 12:00 10/20/18 16:00 10/20/18 19:57 Temperature 97.7 F 98.0 F 98.8 F Pulse Rate 82 98 H 90 Respiratory Rate 20 21 20 Blood Pressure 112/63 117/64 122/72 Pulse Oximetry 99 99 97 10/21/18 00:25 10/21/18 06:32 10/21/18 08:00 Temperature 97.4 F L 97.5 F L 97.6 F Pulse Rate 83 67 81 Respiratory Rate 20 20 20 Blood Pressure 121/75 128/67 120/79 Pulse Oximetry 100 100 100 Intake & Output 10/20/18 10/21/18 10/21/18 18:59 06:59 18:59 Intake Total 300 / 300 780 / 780 Output Total 750 / 750 Balance -450 / -450 780 / 780 Intake: IV 300 / 300 300 / 300 Prostaphlin Inj 2 GM In NS Inj 300 / 300 300 / 300 100 ML @ 200 mls/hr IV.SIG Q4H [facility] Rx#:[id number] Oral 480 / 480 Output: Urine 750 / 750 Other: # Voids 3 Date of Last Bowel Movement 10/19/18 10/19/18 Narrative: GENERAL: Well-nourished, well-developed adult male in mild distress. SKIN: Warm and dry. HEAD: Atraumatic. Normocephalic. CARDIOVASCULAR: Regular rate and rhythm. RESPIRATORY: No accessory muscle use. Clear to auscultation. Breath sounds equal bilaterally. GASTROINTESTINAL: Abdomen soft, non-tender, non-distended. Positive bowel sounds. MUSCULOSKELETAL: Extremities without clubbing, cyanosis, or edema. No obvious deformities. Tenderness along thoracic spine. NEUROLOGICAL: Awake and alert. No obvious cranial nerve deficits. Motor grossly within normal limits. Normal speech. Results Labs CBC & Chem 7: 10/19/18 08:30 10/19/18 08:30 Procedures Procedures: LISA Assessment and Plan (1) Staphylococcus aureus bacteremia: Code(s): R78.81 - Bacteremia Status: Acute (2) Discitis: Code(s): M46.40 - Discitis, unspecified, site unspecified Status: Acute (3) Intravenous drug abuse: Code(s): F19.10 - Other psychoactive substance abuse, uncomplicated Status: Chronic Plan 28-year-old male with a history of IV drug use who was initially admitted to the hospital on 09/21/2018 due to lower back pain as well as fever admitted to the hospital and has stayed since 09/26/18. Patient states he had a panic attack and asked his nurse if he is able to get out of his room and walk around. The nurse agreed to him that he is able to walk around the unit however the patient thought that he is able to get out of the unit and he started wandering all the way to the other building in the [place]. He was brought back to the unit by a nurse from [facility] but because he was out of the unit for quite some time they signed him off as leaving AGAINST MEDICAL ADVICE. Came back for readmission. MSSA bacteremia IVDU Discitis -Neurosurgery reconsulted. ID reconsulted -09/23/18 Thoracic MRI showed There is diffuse mild epidural enhancement involving the mid to lower thoracic canal on examination. -Echo 60-65% ejection fraction, no endocarditis noted. -LISA showed normal LV size, wall thickness and systolic function, EF 60%l; negative for vegetation Percocet for pain control, IV morphine for breakthrough pain with bowel regimen. Encouraged nonpharmacological management of pain including K Therm. -Repeat Cultures continue to come back with staph aureus. Plan for prolonged antibiotic use. Unable to trust patient with IV access since he was even found to have illicit substance during hospitalization. Patient will also be unable to make it to the IV infusion center. Left AMA recently -Repeat blood cultures 10/05/18; no growth to date -IV oxacillin as per previous ID recommendation, likely duration 8 weeks -Neurosurgery has seen and evaluated the patient. Recommend continued infectious workup. Repeat MRI of the spine 09/23 without any abscess. No surgical intervention for now. -Recommend weekly ESR/CRP. Call neurosurgery if neurologic deficit occurs. -10/11/17: Repeat MRI due to increasing complaint of pain. Thoracic spine MRI shows developing discitis at T9/T10 and T11/T12 with suspected osteomyelitis of the adjacent vertebrae at each level. Associated stenosis. No epidural abscess. -Reconsulted neurosurgery for evaluation -sx intervention still not indicated. -Appreciate ID assistance. Repeat blood cultures ordered; NGTD. -IR performed biopsy on 10/14; culture with NGTD -10/17: Patient reports continued back pain and spasms, added Flexeril 10 mg at bedtime as needed for spasms -10/18: Patient reports flexeril did not relieve his spasms, agrees to try robaxin tonight -10/19: Patient reports relief of spasms with robaxin last night, will continue as needed. Repeat ESR/CRP continues to improve. ID recommended continuing current antibiotic regimen -10/20: Muscle spasms relieved by Robaxin, will increase to bid per patient request, with plan to wean IV dilaudid further over next few days -10/21: Patient continues to do well with Robaxin. Agrees to further narcotic weaning; reduced Dilaudid to Q6 and Percocet to Q8. Start trial of gabapentin as alternative to narcotics. Reconsult PT. IV drug use, heroin -Monitor for withdrawals. -Clonidine patch to decrease anxiety. -Found to have illicit substance while in the inpatient setting - "heroin rock" , possible snorted vs injection, while inpatient. No visitors allowed. May have supervised visitation. D/W RN and charge nurse to move pt. closer to nurse' s station -Drug-seeking behavior-slightly improved and patient agrees to eventual weaning. Depression/anxiety Hx of Panic attacks. -Prozac daily; dose increased on 10/10. -Patient states he use to take Xanax but no script in 2 years per [facility] -Xanax 0.25 mg PO q 8 PRN anxiety. -Added Atarax Hyperthyroidism -Elevated T4 with normal T3 and borderline low normal TSH. -Thyroid ultrasound ordered -normal -Hyperthyroidism possibly secondary to heroin use and/or hepatitis -No evidence of thyroid storm but may be contributing to anxiety -Euthyroid-recommending outpatient follow-up if not resolved on own Elevated liver enzymes -AST/ALT increasing; noted to also be increased in historical labs done 12/20. -Hepatitis panel ordered -hep C reactive. Patient has no history of hepatitis treatment. -Full STI panel completed per patient request; HIV negative, RPR negative -Abdominal CT done 09/21 showed no abnormalities of liver. -Recommending outpatient follow-up; patient given information about [facility] Insomnia -Cont Ambien 10 mg PO q6h q hs Full code. SCDs. Heparin Labs reviewed Again, discussed with pt at length need for compliance. Not sure he will stay to complete treatment, he has been warned about the consequences of not completing treatment including sepsis, paralysis, poss . Patient indicates understanding and agrees to remain hospitalized for full course of treatment. Code Status: FULL CODE Discussed Condition With: RN AND PT Discharge Planning: NEEDS TO COMPLETE TREATMENT 8 weeks of abx NOT A SAFE DISCHARGE DUE TO HX OF AMA AND DRUG USE WHILE HERE IN HOSPITAL Progress Note: Quality VTE Deep Vein Thrombosis/Pulmonary Embolism Present on Admission: No _ (1) Discitis Qualifiers: Spinal region:
[2018-10-21] MEDS: Gabapentin 300 MG Capsule PO SCH ×2 (12:53→18:03)
[2018-10-21] MEDS: ALPRAZolam 0.25 MG Tablet PO PRN ×2 (12:53→20:55)
[2018-10-21] MEDS: Heparin - SQ 10,000 UNITS/ML Vial SQ SCH (18:06)
[2018-10-21] MEDS: HYDROmorphone PF Inj 0.5 MG/0.5 ML Syringe IV.PUSH PRN (18:52)
[2018-10-22] MEDS: HYDROmorphone PF Inj 0.5 MG/0.5 ML Syringe IV.PUSH PRN ×4 (01:05→19:12)
[2018-10-22] MEDS: oxyCODONE/Acetaminophen 10/325 Tablet PO PRN ×3 (02:25→18:35)
[2018-10-22] MEDS: ALPRAZolam 0.25 MG Tablet PO PRN ×2 (06:46→21:11)
[2018-10-22] MEDS: Heparin - SQ 10,000 UNITS/ML Vial SQ SCH ×2 (06:47→19:11)
[2018-10-22] MEDS: FLUoxetine 20 MG Capsule PO SCH (09:34)
[2018-10-22] MEDS: Senna/Docusate Sodium 8.6/50 MG Tablet PO SCH ×2 (09:34→21:11)
[2018-10-22] MEDS: Gabapentin 300 MG Capsule PO SCH ×3 (09:34→17:53)
[2018-10-22] MEDS: Methocarbamol 500 MG Tablet PO PRN ×2 (10:29→18:35)
--- NOTE | 2018-10-22 10:39 | P.PNIM ---
Subjective Interval history: Patient is seen sitting up in chair. He tells me that he is forcing himself to be up despite the increasing pain. Tells me his back pain has not improved and is actually worse. Describes it as a deep throbbing pain within the spine. He has been working with physical therapy and is requiring a walker in order to ambulate. Plan is to try a cane today. prior baseline was normal ambulation with no assistive devices. Complaining of some chills and sweating. Physical Exam Vital signs: Vital Signs 10/21/18 12:00 10/21/18 16:00 10/21/18 20:00 Temperature 98.6 F 98.1 F 98.6 F Pulse Rate 86 85 87 Respiratory Rate 20 20 18 Blood Pressure 119/66 108/63 125/75 Pulse Oximetry 99 99 96 10/22/18 00:05 10/22/18 04:00 10/22/18 08:25 Temperature 97.6 F 97.8 F 97.9 F Pulse Rate 74 87 Respiratory Rate 18 18 20 Blood Pressure 117/77 117/56 L 116/79 Pulse Oximetry 99 99 100 Intake & Output 10/21/18 10/22/18 10/22/18 18:59 06:59 18:59 Intake Total 200 / 200 400 / 400 Balance 200 / 200 400 / 400 Intake: IV 200 / 200 400 / 400 Prostaphlin Inj 2 GM In NS Inj 200 / 200 400 / 400 100 ML @ 200 mls/hr IV.SIG Q4H [facility] Rx#:[id number] Other: # Voids 4 Date of Last Bowel Movement 10/20/18 10/20/18 Narrative: GENERAL: Well-nourished, well-developed adult male in mild distress. SKIN: Warm and dry. HEAD: Atraumatic. Normocephalic. CARDIOVASCULAR: Regular rate and rhythm. RESPIRATORY: No accessory muscle use. Clear to auscultation. Breath sounds equal bilaterally. GASTROINTESTINAL: Abdomen soft, non-tender, non-distended. Positive bowel sounds. MUSCULOSKELETAL: Extremities without clubbing, cyanosis, or edema. No obvious deformities. Tenderness along thoracic spine. NEUROLOGICAL: Awake and alert. No obvious cranial nerve deficits. Motor grossly within normal limits. Normal speech. Results Labs CBC & Chem 7: 10/19/18 08:30 10/19/18 08:30 Labs: Microbiology 10/14/18 16:15 Tissue - Other Fungal Smear - Final No fungal elements seen 10/14/18 16:15 Tissue - Other Fungal Culture - Preliminary No growth in 1 week 10/14/18 16:15 Other Acid Fast Bacilli Smear - Final No acid fast bacilli seen 10/14/18 16:15 Other Mycobacterial Culture - Preliminary No growth in 1 week Procedures Procedures: LISA Assessment and Plan (1) Staphylococcus aureus bacteremia: Code(s): R78.81 - Bacteremia Status: Acute (2) Discitis: Code(s): M46.40 - Discitis, unspecified, site unspecified Status: Acute (3) Intravenous drug abuse: Code(s): F19.10 - Other psychoactive substance abuse, uncomplicated Status: Chronic Plan 28-year-old male with a history of IV drug use who was initially admitted to the hospital on 09/21/2018 due to lower back pain as well as fever admitted to the hospital and has stayed since 09/26/18. Patient states he had a panic attack and asked his nurse if he is able to get out of his room and walk around. The nurse agreed to him that he is able to walk around the unit however the patient thought that he is able to get out of the unit and he started wandering all the way to the other building in the [facility]. He was brought back to the unit by a nurse from [facility] but because he was out of the unit for quite some time they signed him off as leaving AGAINST MEDICAL ADVICE. Came back for readmission. MSSA bacteremia IVDU Discitis -Neurosurgery reconsulted. ID reconsulted -09/23/18 Thoracic MRI showed There is diffuse mild epidural enhancement involving the mid to lower thoracic canal on examination. -Echo 60-65% ejection fraction, no endocarditis noted. -LISA showed normal LV size, wall thickness and systolic function, EF 60%l; negative for vegetation Percocet for pain control, IV morphine for breakthrough pain with bowel regimen. Encouraged nonpharmacological management of pain including K Therm. -Repeat Cultures continue to come back with staph aureus. Plan for prolonged antibiotic use. Unable to trust patient with IV access since he was even found to have illicit substance during hospitalization. Patient will also be unable to make it to the IV infusion center. Left AMA recently -Repeat blood cultures 10/05/18; no growth to date -IV oxacillin as per previous ID recommendation, likely duration 8 weeks -Neurosurgery has seen and evaluated the patient. Recommend continued infectious workup. Repeat MRI of the spine 09/23 without any abscess. No surgical intervention for now. -Recommend weekly ESR/CRP. Call neurosurgery if neurologic deficit occurs. -10/11/17: Repeat MRI due to increasing complaint of pain. Thoracic spine MRI shows developing discitis at T9/T10 and T11/T12 with suspected osteomyelitis of the adjacent vertebrae at each level. Associated stenosis. No epidural abscess. -Reconsulted neurosurgery for evaluation -sx intervention still not indicated. -Appreciate ID assistance. Repeat blood cultures ordered; NGTD. -IR performed biopsy on 10/14; culture with NGTD -10/17: Patient reports continued back pain and spasms, added Flexeril 10 mg at bedtime as needed for spasms -10/18: Patient reports flexeril did not relieve his spasms, agrees to try robaxin tonight -10/19: Patient reports relief of spasms with robaxin last night, will continue as needed. Repeat ESR/CRP continues to improve. ID recommended continuing current antibiotic regimen -10/20: Muscle spasms relieved by Robaxin, will increase to bid per patient request, with plan to wean IV dilaudid further over next few days -10/21: Patient continues to do well with Robaxin. Agrees to further narcotic weaning; reduced Dilaudid to Q6 and Percocet to Q8. Start trial of gabapentin as alternative to narcotics. Reconsult PT. -10/22: Patient requiring assistive device in order to walk. Prior baseline was normal. Continues to complain of increased pain. Will repeat MRI. Will also add short course of Decadron. IV drug use, heroin -Monitor for withdrawals. -Clonidine patch to decrease anxiety. -Found to have illicit substance while in the inpatient setting - "heroin rock" , possible snorted vs injection, while inpatient. No visitors allowed. May have supervised visitation. D/W RN and charge nurse to move pt. closer to nurse' s station -Drug-seeking behavior-slightly improved and patient agrees to eventual weaning. Depression/anxiety Hx of Panic attacks. -Prozac daily; dose increased on 10/10. -Patient states he use to take Xanax but no script in 2 years per [facility] -Xanax 0.25 mg PO q 8 PRN anxiety. -Added Atarax Hyperthyroidism -Elevated T4 with normal T3 and borderline low normal TSH. -Thyroid ultrasound ordered -normal -Hyperthyroidism possibly secondary to heroin use and/or hepatitis -No evidence of thyroid storm but may be contributing to anxiety -Euthyroid-recommending outpatient follow-up if not resolved on own Elevated liver enzymes -AST/ALT increasing; noted to also be increased in historical labs done 12/20. -Hepatitis panel ordered -hep C reactive. Patient has no history of hepatitis treatment. -Full STI panel completed per patient request; HIV negative, RPR negative -Abdominal CT done 09/21 showed no abnormalities of liver. -Recommending outpatient follow-up; patient given information about [facility] Insomnia -Cont Ambien 10 mg PO q6h q hs Full code. SCDs. Heparin Labs reviewed Again, discussed with pt at length need for compliance. Not sure he will stay to complete treatment, he has been warned about the consequences of not completing treatment including sepsis, paralysis, poss . Patient indicates understanding and agrees to remain hospitalized for full course of treatment. Code Status: FULL CODE Discussed Condition With: RN AND PT Discharge Planning: NEEDS TO COMPLETE TREATMENT 8 weeks of abx NOT A SAFE DISCHARGE DUE TO HX OF AMA AND DRUG USE WHILE HERE IN HOSPITAL Progress Note: Quality VTE Deep Vein Thrombosis/Pulmonary Embolism Present on Admission: No _ (1) Discitis Qualifiers: Spinal region:
[2018-10-22] MEDS ORDERED: Gadobutrol PF 7.5 MMOL/7.5 ML Vial (for RAD) IV.SIG ONE (15:42)
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
[2018-10-23] MEDS: HYDROmorphone PF Inj 0.5 MG/0.5 ML Syringe IV.PUSH PRN ×4 (01:11→19:35)
[2018-10-23] MEDS: oxyCODONE/Acetaminophen 10/325 Tablet PO PRN ×3 (02:30→18:33)
[2018-10-23] MEDS: ALPRAZolam 0.25 MG Tablet PO PRN ×2 (05:06→21:13)
[2018-10-23 05:39] LABS: Baso % (Auto) 0.1 % (0.0-2.0); Hematocrit 36.8 % (39.0-51.0); Hemoglobin 11.9 gm/dL (13.0-17.0); Lymph # (Auto) 1.2 th/mm3 (1.0-4.8); Lymph % (Auto) 13.2 % (9.0-44.0); Mean Corpuscular HGB Conc 32.2 % (32.0-36.0); Mean Corpuscular Hemoglobin 27.4 pg (27.0-34.0); Mean Corpuscular Volume 84.8 fL (80.0-100.0); Mono # (Auto) 0.4 th/mm3 (0.0-0.9); Mono % (Auto) 4.2 % (0.0-8.0); Neut # (Auto) 7.3 th/mm3 (1.8-7.7); Neut % (Auto) 82.5 % (16.0-70.0); Platelet Count 329 th/mm3 (150-450); Red Blood Count 4.33 mil/mm3 (4.50-5.90); Red Cell Distribution Width 19.1 % (11.6-17.2); White Blood Count 8.8 th/mm3 (4.0-11.0)
[2018-10-23] MEDS: Heparin - SQ 10,000 UNITS/ML Vial SQ SCH ×3 (07:02→17:47)
[2018-10-23] MEDS: Senna/Docusate Sodium 8.6/50 MG Tablet PO SCH ×2 (09:06→21:14)
[2018-10-23] MEDS: FLUoxetine 20 MG Capsule PO SCH (09:07)
[2018-10-23] MEDS: Gabapentin 300 MG Capsule PO SCH ×3 (09:07→18:33)
[2018-10-23] MEDS: Methocarbamol 500 MG Tablet PO PRN ×2 (10:36→18:33)
--- NOTE | 2018-10-23 11:00 | P.PNIM ---
Subjective Interval history: Patient seen lying in bed. Tells me that the steroids seem to be helping with his back pain. He also tells me that he is working to arrange a spot at a drug rehab prior to his discharge. He has asked that I speak directly to the director of the rehab concerning his medical history and condition. no other new complaints or concerns. Physical Exam Vital signs: Vital Signs 10/22/18 11:52 10/22/18 16:00 10/22/18 20:00 Temperature 97.4 F L 98.0 F 98.3 F Pulse Rate 104 H 93 H 85 Respiratory Rate 20 20 18 Blood Pressure 134/76 127/76 123/71 Pulse Oximetry 99 94 L 97 10/22/18 23:59 10/23/18 00:00 10/23/18 04:00 Temperature 97.5 F L 98.8 F Pulse Rate 63 88 Respiratory Rate 18 18 20 Blood Pressure 113/72 141/67 H Pulse Oximetry 98 98 10/23/18 07:35 Temperature 98.0 F Pulse Rate 71 Respiratory Rate 20 Blood Pressure 122/72 Pulse Oximetry 98 Intake & Output 10/22/18 10/23/18 10/23/18 18:59 06:59 18:59 Intake Total 300 / 300 300 / 300 Balance 300 / 300 300 / 300 Intake: IV 300 / 300 300 / 300 Prostaphlin Inj 2 GM In NS Inj 300 / 300 300 / 300 100 ML @ 200 mls/hr IV.SIG Q4H [facility] Rx#:[id number] Other: # Voids 3 3 Date of Last Bowel Movement 10/21/18 Narrative: GENERAL: Well-nourished, well-developed adult male in mild distress. SKIN: Warm and dry. HEAD: Atraumatic. Normocephalic. CARDIOVASCULAR: Regular rate and rhythm. RESPIRATORY: No accessory muscle use. Clear to auscultation. Breath sounds equal bilaterally. GASTROINTESTINAL: Abdomen soft, non-tender, non-distended. Positive bowel sounds. MUSCULOSKELETAL: Extremities without clubbing, cyanosis, or edema. No obvious deformities. Tenderness along thoracic spine. NEUROLOGICAL: Awake and alert. No obvious cranial nerve deficits. Motor grossly within normal limits. Normal speech. Results Labs CBC & Chem 7: 10/23/18 04:42 10/19/18 08:30 Imaging Imaging: Impressions Thoracic Spine MRI 10/22/18 00:00 CONCLUSION: 1. Stable examination with some bony edema in the vertebral bodies from T9 through T12. 2. In addition, some enhancement of the intervertebral discs at T9-T10 and T11- T12 are concerning for early discitis. No significant change from prior. 3. Spinal canal remains patent without cord compromise. Procedures Procedures: LISA Assessment and Plan (1) Staphylococcus aureus bacteremia: Code(s): R78.81 - Bacteremia Status: Acute (2) Discitis: Code(s): M46.40 - Discitis, unspecified, site unspecified Status: Acute (3) Intravenous drug abuse: Code(s): F19.10 - Other psychoactive substance abuse, uncomplicated Status: Chronic Plan 28-year-old male with a history of IV drug use who was initially admitted to the hospital on 09/21/2018 due to lower back pain as well as fever admitted to the hospital and has stayed since 09/26/18. Patient states he had a panic attack and asked his nurse if he is able to get out of his room and walk around. The nurse agreed to him that he is able to walk around the unit however the patient thought that he is able to get out of the unit and he started wandering all the way to the other building in the [place]. He was brought back to the unit by a nurse from [facility] but because he was out of the unit for quite some time they signed him off as leaving AGAINST MEDICAL ADVICE. Came back for readmission. MSSA bacteremia IVDU Discitis -Neurosurgery reconsulted. ID reconsulted -09/23/18 Thoracic MRI showed There is diffuse mild epidural enhancement involving the mid to lower thoracic canal on examination. -Echo 60-65% ejection fraction, no endocarditis noted. -LISA showed normal LV size, wall thickness and systolic function, EF 60%l; negative for vegetation Percocet for pain control, IV morphine for breakthrough pain with bowel regimen. Encouraged nonpharmacological management of pain including K Therm. -Repeat Cultures continue to come back with staph aureus. Plan for prolonged antibiotic use. Unable to trust patient with IV access since he was even found to have illicit substance during hospitalization. Patient will also be unable to make it to the IV infusion center. Left AMA recently -Repeat blood cultures 10/05/18; no growth to date -IV oxacillin as per previous ID recommendation, likely duration 8 weeks -Neurosurgery has seen and evaluated the patient. Recommend continued infectious workup. Repeat MRI of the spine 09/23 without any abscess. No surgical intervention for now. -Recommend weekly ESR/CRP. Call neurosurgery if neurologic deficit occurs. -10/11/17: Repeat MRI due to increasing complaint of pain. Thoracic spine MRI shows developing discitis at T9/T10 and T11/T12 with suspected osteomyelitis of the adjacent vertebrae at each level. Associated stenosis. No epidural abscess. -Reconsulted neurosurgery for evaluation -sx intervention still not indicated. -Appreciate ID assistance. Repeat blood cultures ordered; NGTD. -IR performed biopsy on 10/14; culture with NGTD -10/17: Patient reports continued back pain and spasms, added Flexeril 10 mg at bedtime as needed for spasms -10/18: Patient reports flexeril did not relieve his spasms, agrees to try robaxin tonight -10/19: Patient reports relief of spasms with robaxin last night, will continue as needed. Repeat ESR/CRP continues to improve. ID recommended continuing current antibiotic regimen -10/20: Muscle spasms relieved by Robaxin, will increase to bid per patient request, with plan to wean IV dilaudid further over next few days -10/21: Patient continues to do well with Robaxin. Agrees to further narcotic weaning; reduced Dilaudid to Q6 and Percocet to Q8. Start trial of gabapentin as alternative to narcotics. Reconsult PT. -10/22: Patient requiring assistive device in order to walk. Prior baseline was normal. Continues to complain of increased pain. Will repeat MRI. Will also add short course of Decadron. -10/23: MRI results indicate no new or increased infection. Primarily inflammation with bone edema. Reassurance provided to patient. Decadron working; will continue for short course. Avoid long-term use. IV drug use, heroin -Monitor for withdrawals. -Clonidine patch to decrease anxiety. -Found to have illicit substance while in the inpatient setting - "heroin rock" , possible snorted vs injection, while inpatient. No visitors allowed. May have supervised visitation. D/W RN and charge nurse to move pt. closer to nurse' s station -Drug-seeking behavior-slightly improved and patient agrees to eventual weaning. Depression/anxiety Hx of Panic attacks. -Prozac daily; dose increased on 10/10. -Patient states he use to take Xanax but no script in 2 years per [facility] -Xanax 0.25 mg PO q 8 PRN anxiety. -Added Atarax Hyperthyroidism -Elevated T4 with normal T3 and borderline low normal TSH. -Thyroid ultrasound ordered -normal -Hyperthyroidism possibly secondary to heroin use and/or hepatitis -No evidence of thyroid storm but may be contributing to anxiety -Euthyroid-recommending outpatient follow-up if not resolved on own Elevated liver enzymes -AST/ALT increasing; noted to also be increased in historical labs done 12/20. -Hepatitis panel ordered -hep C reactive. Patient has no history of hepatitis treatment. -Full STI panel completed per patient request; HIV negative, RPR negative -Abdominal CT done 09/21 showed no abnormalities of liver. -Recommending outpatient follow-up; patient given information about [facility] Insomnia -Cont Ambien 10 mg PO q6h q hs Full code. SCDs. Heparin Labs reviewed Again, discussed with pt at length need for compliance. Not sure he will stay to complete treatment, he has been warned about the consequences of not completing treatment including sepsis, paralysis, poss . Patient indicates understanding and agrees to remain hospitalized for full course of treatment. Code Status: FULL CODE Discussed Condition With: RN AND PT Discharge Planning: NEEDS TO COMPLETE TREATMENT 8 weeks of abx NOT A SAFE DISCHARGE DUE TO HX OF AMA AND DRUG USE WHILE HERE IN HOSPITAL Progress Note: Quality VTE Deep Vein Thrombosis/Pulmonary Embolism Present on Admission: No _ (1) Discitis Qualifiers: Spinal region:
[2018-10-24] MEDS: HYDROmorphone PF Inj 0.5 MG/0.5 ML Syringe IV.PUSH PRN ×4 (01:04→19:21)
[2018-10-24] MEDS: oxyCODONE/Acetaminophen 10/325 Tablet PO PRN ×3 (01:59→18:12)
[2018-10-24] MEDS: Heparin - SQ 10,000 UNITS/ML Vial SQ SCH ×2 (05:49→18:50)
[2018-10-24] MEDS: Gabapentin 300 MG Capsule PO SCH ×3 (08:50→18:12)
[2018-10-24] MEDS: Senna/Docusate Sodium 8.6/50 MG Tablet PO SCH ×2 (08:50→20:50)
[2018-10-24] MEDS: FLUoxetine 20 MG Capsule PO SCH (08:50)
[2018-10-24] MEDS: Methocarbamol 500 MG Tablet PO PRN ×2 (10:04→18:12)
[2018-10-24] MEDS: ALPRAZolam 0.25 MG Tablet PO PRN (13:46)
--- NOTE | 2018-10-24 16:47 | P.PNIM ---
Subjective Interval history: Seen lying in bed. Reports he continues to do better now that he has the steroid. Steroid is making him somewhat jittery and he is having some insomnia. It is tolerable per his report. No other new concerns. Physical Exam Vital signs: Vital Signs 10/23/18 20:00 10/24/18 00:00 10/24/18 04:00 Temperature 98.0 F 98.5 F 98.1 F Pulse Rate 72 71 70 Respiratory Rate 19 18 16 Blood Pressure 131/69 120/64 124/64 Pulse Oximetry 99 98 99 10/24/18 08:00 10/24/18 12:00 Temperature 99.4 F 98.2 F Pulse Rate 73 84 Respiratory Rate 20 20 Blood Pressure 141/72 H 133/73 Pulse Oximetry 96 96 Intake & Output 10/23/18 10/24/18 10/24/18 18:59 06:59 18:59 Intake Total 1020 / 1020 300 / 300 200 / 200 Balance 1020 / 1020 300 / 300 200 / 200 Weight 66.2 kg Intake: IV 300 / 300 300 / 300 200 / 200 Prostaphlin Inj 2 GM In NS Inj 300 / 300 300 / 300 200 / 200 100 ML @ 200 mls/hr IV.SIG Q4H SETH Rx#:[id number] Oral 720 / 720 Other: # Voids 4 Date of Last Bowel Movement 10/22/18 10/22/18 Narrative: GENERAL: Well-nourished, well-developed adult male in mild distress. SKIN: Warm and dry. HEAD: Atraumatic. Normocephalic. CARDIOVASCULAR: Regular rate and rhythm. RESPIRATORY: No accessory muscle use. Clear to auscultation. Breath sounds equal bilaterally. GASTROINTESTINAL: Abdomen soft, non-tender, non-distended. Positive bowel sounds. MUSCULOSKELETAL: Extremities without clubbing, cyanosis, or edema. No obvious deformities. Tenderness along thoracic spine. NEUROLOGICAL: Awake and alert. No obvious cranial nerve deficits. Motor grossly within normal limits. Normal speech. Results Labs CBC & Chem 7: 10/23/18 04:42 10/19/18 08:30 Procedures Procedures: LISA Assessment and Plan (1) Staphylococcus aureus bacteremia: Code(s): R78.81 - Bacteremia Status: Acute (2) Discitis: Code(s): M46.40 - Discitis, unspecified, site unspecified Status: Acute (3) Intravenous drug abuse: Code(s): F19.10 - Other psychoactive substance abuse, uncomplicated Status: Chronic Plan 28-year-old male with a history of IV drug use who was initially admitted to the hospital on 09/21/2018 due to lower back pain as well as fever admitted to the hospital and has stayed since 09/26/18. Patient states he had a panic attack and asked his nurse if he is able to get out of his room and walk around. The nurse agreed to him that he is able to walk around the unit however the patient thought that he is able to get out of the unit and he started wandering all the way to the other building in the [place]. He was brought back to the unit by a nurse from [facility] but because he was out of the unit for quite some time they signed him off as leaving AGAINST MEDICAL ADVICE. Came back for readmission. MSSA bacteremia IVDU Discitis -Neurosurgery reconsulted. ID reconsulted -09/23/18 Thoracic MRI showed There is diffuse mild epidural enhancement involving the mid to lower thoracic canal on examination. -Echo 60-65% ejection fraction, no endocarditis noted. -LISA showed normal LV size, wall thickness and systolic function, EF 60%l; negative for vegetation Percocet for pain control, IV morphine for breakthrough pain with bowel regimen. Encouraged nonpharmacological management of pain including K Therm. -Repeat Cultures continue to come back with staph aureus. Plan for prolonged antibiotic use. Unable to trust patient with IV access since he was even found to have illicit substance during hospitalization. Patient will also be unable to make it to the IV infusion center. Left AMA recently -Repeat blood cultures 10/05/18; no growth to date -IV oxacillin as per previous ID recommendation, likely duration 8 weeks -Neurosurgery has seen and evaluated the patient. Recommend continued infectious workup. Repeat MRI of the spine 09/23 without any abscess. No surgical intervention for now. -Recommend weekly ESR/CRP. Call neurosurgery if neurologic deficit occurs. -10/11/17: Repeat MRI due to increasing complaint of pain. Thoracic spine MRI shows developing discitis at T9/T10 and T11/T12 with suspected osteomyelitis of the adjacent vertebrae at each level. Associated stenosis. No epidural abscess. -Reconsulted neurosurgery for evaluation -sx intervention still not indicated. -Appreciate ID assistance. Repeat blood cultures ordered; NGTD. -IR performed biopsy on 10/14; culture with NGTD -10/17: Patient reports continued back pain and spasms, added Flexeril 10 mg at bedtime as needed for spasms -10/18: Patient reports flexeril did not relieve his spasms, agrees to try robaxin tonight -10/19: Patient reports relief of spasms with robaxin last night, will continue as needed. Repeat ESR/CRP continues to improve. ID recommended continuing current antibiotic regimen -10/20: Muscle spasms relieved by Robaxin, will increase to bid per patient request, with plan to wean IV dilaudid further over next few days -10/21: Patient continues to do well with Robaxin. Agrees to further narcotic weaning; reduced Dilaudid to Q6 and Percocet to Q8. Start trial of gabapentin as alternative to narcotics. Reconsult PT. -10/22: Patient requiring assistive device in order to walk. Prior baseline was normal. Continues to complain of increased pain. Will repeat MRI. Will also add short course of Decadron. -10/23: MRI results indicate no new or increased infection. Primarily inflammation with bone edema. Reassurance provided to patient. Decadron working; will continue for short course. Avoid long-term use. -10/24: Continue narcotic weaning -reduced Dilaudid to q8 and will stop tomorrow. IV drug use, heroin -Monitor for withdrawals. -Clonidine patch to decrease anxiety. -Found to have illicit substance while in the inpatient setting - "heroin rock" , possible snorted vs injection, while inpatient. No visitors allowed. May have supervised visitation. D/W RN and charge nurse to move pt. closer to nurse' s station -Drug-seeking behavior-slightly improved and patient agrees to eventual weaning. Depression/anxiety Hx of Panic attacks. -Prozac daily; dose increased on 10/10. -Patient states he use to take Xanax but no script in 2 years per [facility] -Xanax 0.25 mg PO q 8 PRN anxiety. -Added Atarax Hyperthyroidism -Elevated T4 with normal T3 and borderline low normal TSH. -Thyroid ultrasound ordered -normal -Hyperthyroidism possibly secondary to heroin use and/or hepatitis -No evidence of thyroid storm but may be contributing to anxiety -Euthyroid-recommending outpatient follow-up if not resolved on own Elevated liver enzymes -AST/ALT increasing; noted to also be increased in historical labs done 12/20. -Hepatitis panel ordered -hep C reactive. Patient has no history of hepatitis treatment. -Full STI panel completed per patient request; HIV negative, RPR negative -Abdominal CT done 09/21 showed no abnormalities of liver. -Recommending outpatient follow-up; patient given information about [facility] Insomnia -Cont Ambien 10 mg PO q6h q hs Full code. SCDs. Heparin Labs reviewed Again, discussed with pt at length need for compliance. Not sure he will stay to complete treatment, he has been warned about the consequences of not completing treatment including sepsis, paralysis, poss . Patient indicates understanding and agrees to remain hospitalized for full course of treatment. Code Status: FULL CODE Discussed Condition With: RN AND PT Discharge Planning: NEEDS TO COMPLETE TREATMENT 8 weeks of abx NOT A SAFE DISCHARGE DUE TO HX OF AMA AND DRUG USE WHILE HERE IN HOSPITAL Progress Note: Quality VTE Deep Vein Thrombosis/Pulmonary Embolism Present on Admission: No _ (1) Discitis Qualifiers: Spinal region:
[2018-10-25] MEDS: ALPRAZolam 0.25 MG Tablet PO PRN ×3 (00:19→23:34)
[2018-10-25] MEDS: oxyCODONE/Acetaminophen 10/325 Tablet PO PRN ×3 (02:42→18:00)
[2018-10-25] MEDS: HYDROmorphone PF Inj 0.5 MG/0.5 ML Syringe IV.PUSH PRN ×3 (04:20→18:52)
[2018-10-25] MEDS: Heparin - SQ 10,000 UNITS/ML Vial SQ SCH ×2 (05:24→19:54)
[2018-10-25] MEDS: Gabapentin 300 MG Capsule PO SCH ×3 (08:54→18:04)
[2018-10-25] MEDS: FLUoxetine 20 MG Capsule PO SCH (08:54)
[2018-10-25] MEDS: Senna/Docusate Sodium 8.6/50 MG Tablet PO SCH ×2 (08:54→21:14)
[2018-10-25] MEDS: Methocarbamol 500 MG Tablet PO PRN ×2 (10:09→18:01)
[2018-10-25] MEDS: Lidocaine 5% Patch T-DERMAL SCH (12:11)
--- NOTE | 2018-10-25 17:28 | P.PNIM ---
Subjective Interval history: Patient is seen sitting up in chair eating breakfast. Reports that the steroids continue to help. Did sleep better last night. Discussed nonnarcotic options for future management of back pain. Will try lidocaine patch. Also recommend patient consider muscle creams as outpatient. Advised to avoid Tylenol due to elevated liver enzymes and positive hep C. NSAIDs in moderation; avoid excessive. Physical Exam Vital signs: Vital Signs 10/24/18 20:05 10/24/18 23:45 10/25/18 03:15 Temperature 98.4 F 97.9 F Pulse Rate 76 72 Respiratory Rate 18 18 16 Blood Pressure 128/78 120/67 Pulse Oximetry 95 95 10/25/18 04:05 10/25/18 08:00 10/25/18 09:30 Temperature 97.7 F 98.2 F Pulse Rate 58 L 85 Respiratory Rate 17 16 20 Blood Pressure 135/76 148/71 H Pulse Oximetry 99 99 10/25/18 11:45 10/25/18 12:24 Temperature 98.3 F Pulse Rate 80 Respiratory Rate 20 Blood Pressure 140/72 Pulse Oximetry 99 97 Intake & Output 10/24/18 10/25/18 10/25/18 18:59 06:59 18:59 Intake Total 300 / 300 1800 / 1800 200 / 200 Balance 300 / 300 1800 / 1800 200 / 200 Weight 66.2 kg Intake: IV 300 / 300 300 / 300 200 / 200 Prostaphlin Inj 2 GM In NS Inj 300 / 300 300 / 300 200 / 200 100 ML @ 200 mls/hr IV.SIG Q4H SETH Rx#:[id number] Oral 1500 / 1500 Other: # Voids 3 3 Date of Last Bowel Movement 10/22/18 10/22/18 # Bowel Movements 0 Narrative: GENERAL: Well-nourished, well-developed adult male in mild distress. SKIN: Warm and dry. HEAD: Atraumatic. Normocephalic. CARDIOVASCULAR: Regular rate and rhythm. RESPIRATORY: No accessory muscle use. Clear to auscultation. Breath sounds equal bilaterally. GASTROINTESTINAL: Abdomen soft, non-tender, non-distended. Positive bowel sounds. MUSCULOSKELETAL: Extremities without clubbing, cyanosis, or edema. No obvious deformities. Tenderness along thoracic spine. NEUROLOGICAL: Awake and alert. No obvious cranial nerve deficits. Motor grossly within normal limits. Normal speech. Results Labs CBC & Chem 7: 10/23/18 04:42 10/19/18 08:30 Procedures Procedures: LISA Assessment and Plan (1) Staphylococcus aureus bacteremia: Code(s): R78.81 - Bacteremia Status: Acute (2) Discitis: Code(s): M46.40 - Discitis, unspecified, site unspecified Status: Acute (3) Intravenous drug abuse: Code(s): F19.10 - Other psychoactive substance abuse, uncomplicated Status: Chronic Plan 28-year-old male with a history of IV drug use who was initially admitted to the hospital on 09/21/2018 due to lower back pain as well as fever admitted to the hospital and has stayed since 09/26/18. Patient states he had a panic attack and asked his nurse if he is able to get out of his room and walk around. The nurse agreed to him that he is able to walk around the unit however the patient thought that he is able to get out of the unit and he started wandering all the way to the other building in the [place]. He was brought back to the unit by a nurse from [facility] but because he was out of the unit for quite some time they signed him off as leaving AGAINST MEDICAL ADVICE. Came back for readmission. MSSA bacteremia IVDU Discitis -Neurosurgery reconsulted. ID reconsulted -09/23/18 Thoracic MRI showed There is diffuse mild epidural enhancement involving the mid to lower thoracic canal on examination. -Echo 60-65% ejection fraction, no endocarditis noted. -LISA showed normal LV size, wall thickness and systolic function, EF 60%l; negative for vegetation Percocet for pain control, IV morphine for breakthrough pain with bowel regimen. Encouraged nonpharmacological management of pain including K Therm. -Repeat Cultures continue to come back with staph aureus. Plan for prolonged antibiotic use. Unable to trust patient with IV access since he was even found to have illicit substance during hospitalization. Patient will also be unable to make it to the IV infusion center. Left AMA recently -Repeat blood cultures 10/05/18; no growth to date -IV oxacillin as per previous ID recommendation, likely duration 8 weeks -Neurosurgery has seen and evaluated the patient. Recommend continued infectious workup. Repeat MRI of the spine 09/23 without any abscess. No surgical intervention for now. -Recommend weekly ESR/CRP. Call neurosurgery if neurologic deficit occurs. -10/11/17: Repeat MRI due to increasing complaint of pain. Thoracic spine MRI shows developing discitis at T9/T10 and T11/T12 with suspected osteomyelitis of the adjacent vertebrae at each level. Associated stenosis. No epidural abscess. -Reconsulted neurosurgery for evaluation -sx intervention still not indicated. -Appreciate ID assistance. Repeat blood cultures ordered; NGTD. -IR performed biopsy on 10/14; culture with NGTD -10/17: Patient reports continued back pain and spasms, added Flexeril 10 mg at bedtime as needed for spasms -10/18: Patient reports flexeril did not relieve his spasms, agrees to try robaxin tonight -10/19: Patient reports relief of spasms with robaxin last night, will continue as needed. Repeat ESR/CRP continues to improve. ID recommended continuing current antibiotic regimen -10/20: Muscle spasms relieved by Robaxin, will increase to bid per patient request, with plan to wean IV dilaudid further over next few days -10/21: Patient continues to do well with Robaxin. Agrees to further narcotic weaning; reduced Dilaudid to Q6 and Percocet to Q8. Start trial of gabapentin as alternative to narcotics. Reconsult PT. -10/22: Patient requiring assistive device in order to walk. Prior baseline was normal. Continues to complain of increased pain. Will repeat MRI. Will also add short course of Decadron. -10/23: MRI results indicate no new or increased infection. Primarily inflammation with bone edema. Reassurance provided to patient. Decadron working; will continue for short course. Avoid long-term use. -10/24: Continue narcotic weaning -reduced Dilaudid to q8 and will stop tomorrow. -10/25: Add lidocaine patch. Education provided on nonnarcotic options. Encouraged patient to continue to work on setting up drug rehab prior to discharge. IV drug use, heroin -Monitor for withdrawals. -Clonidine patch to decrease anxiety. -Found to have illicit substance while in the inpatient setting - "heroin rock" , possible snorted vs injection, while inpatient. No visitors allowed. May have supervised visitation. D/W RN and charge nurse to move pt. closer to nurse' s station -Drug-seeking behavior-slightly improved and patient agrees to eventual weaning. Depression/anxiety Hx of Panic attacks. -Prozac daily; dose increased on 10/10. -Patient states he use to take Xanax but no script in 2 years per [facility] -Xanax 0.25 mg PO q 8 PRN anxiety. -Added Atarax Hyperthyroidism -Elevated T4 with normal T3 and borderline low normal TSH. -Thyroid ultrasound ordered -normal -Hyperthyroidism possibly secondary to heroin use and/or hepatitis -No evidence of thyroid storm but may be contributing to anxiety -Euthyroid-recommending outpatient follow-up if not resolved on own Elevated liver enzymes -AST/ALT increasing; noted to also be increased in historical labs done 12/20. -Hepatitis panel ordered -hep C reactive. Patient has no history of hepatitis treatment. -Full STI panel completed per patient request; HIV negative, RPR negative -Abdominal CT done 09/21 showed no abnormalities of liver. -Recommending outpatient follow-up; patient given information about [facility] Insomnia -Cont Ambien 10 mg PO q6h q hs Full code. SCDs. Heparin Labs reviewed Again, discussed with pt at length need for compliance. Not sure he will stay to complete treatment, he has been warned about the consequences of not completing treatment including sepsis, paralysis, poss . Patient indicates understanding and agrees to remain hospitalized for full course of treatment. Code Status: FULL CODE Discussed Condition With: RN AND PT Discharge Planning: NEEDS TO COMPLETE TREATMENT 8 weeks of abx NOT A SAFE DISCHARGE DUE TO HX OF AMA AND DRUG USE WHILE HERE IN HOSPITAL Progress Note: Quality VTE Deep Vein Thrombosis/Pulmonary Embolism Present on Admission: No _ (1) Discitis Qualifiers: Spinal region:
[2018-10-26] MEDS: oxyCODONE/Acetaminophen 10/325 Tablet PO PRN ×3 (01:24→17:03)
[2018-10-26] MEDS: Heparin - SQ 10,000 UNITS/ML Vial SQ SCH ×2 (06:23→19:43)
[2018-10-26] MEDS: FLUoxetine 20 MG Capsule PO SCH (09:13)
[2018-10-26] MEDS: Lidocaine 5% Patch T-DERMAL SCH (09:13)
[2018-10-26] MEDS: Gabapentin 300 MG Capsule PO SCH ×3 (09:13→17:04)
[2018-10-26] MEDS: Senna/Docusate Sodium 8.6/50 MG Tablet PO SCH ×2 (09:13→20:45)
[2018-10-26] MEDS: Methocarbamol 500 MG Tablet PO PRN ×2 (09:14→17:18)
--- NOTE | 2018-10-26 11:05 | P.PNIM ---
Subjective Interval history: Follow-up for MSSA bacteremia, lower back pain,Anxiety and depression. Patient seen and examined laying in bed, complains of pain in his spine stated hip infections and stated that he wants his Dilaudid although we already talked about weaning Dilaudid yesterday but he did not want it to be cut off today. Patient discusses waiting to be weaned down off pain medication however stated, but not while he is here. Patient denies any fever however complains of some chills. Patient denies any headache or dizziness, denies any abdominal pain, nausea, vomiting, diarrhea or constipation. Physical Exam Vital signs: Vital Signs 10/25/18 11:45 10/25/18 12:24 10/25/18 16:00 Temperature 98.3 F 98.2 F Pulse Rate 80 79 Respiratory Rate 20 20 Blood Pressure 140/72 138/69 Pulse Oximetry 99 97 98 10/25/18 20:00 10/26/18 00:00 10/26/18 04:00 Temperature 97.3 F L 98.6 F 97.8 F Pulse Rate 66 99 H 59 L Respiratory Rate 20 20 20 Blood Pressure 125/81 133/71 114/62 Pulse Oximetry 100 98 100 10/26/18 07:39 10/26/18 08:00 Temperature 98.0 F Pulse Rate 73 Respiratory Rate 18 16 Blood Pressure 119/81 Pulse Oximetry 99 Intake & Output 10/25/18 10/26/18 10/26/18 18:59 06:59 18:59 Intake Total 300 / 300 200 / 200 100 / 100 Balance 300 / 300 200 / 200 100 / 100 Weight 159.2 kg Intake: IV 300 / 300 200 / 200 100 / 100 Prostaphlin Inj 2 GM In NS Inj 300 / 300 200 / 200 100 / 100 100 ML @ 200 mls/hr IV.SIG Q4H SETH Rx#:[id number] Other: # Voids 3 1 Date of Last Bowel Movement 10/22/18 10/25/18 10/25/18 Narrative: GENERAL: Well-developed, well-nourished, young male in no acute distress SKIN: Warm and dry. HEAD: Atraumatic. Normocephalic. EYES: Pupils equal and round. No scleral icterus. No injection or drainage. ENT: No nasal bleeding or discharge. Mucous membranes pink and moist. NECK: Trachea midline. No JVD. CARDIOVASCULAR: Regular rate and rhythm. RESPIRATORY: No accessory muscle use. Clear to auscultation. Breath sounds equal bilaterally. GASTROINTESTINAL: Abdomen soft, non-tender, nondistended. Hepatic and splenic margins not palpable. MUSCULOSKELETAL: Extremities without clubbing, cyanosis, or edema. No obvious deformities. Some tenderness in lower back NEUROLOGICAL: Awake and alert. No obvious cranial nerve deficits. Motor grossly within normal limits. Five out of 5 muscle strength in the arms and legs. Normal speech. PSYCHIATRIC: Appropriate mood and affect; insight and judgment normal. Results Labs CBC & Chem 7: 10/23/18 04:42 10/19/18 08:30 Procedures Procedures: LISA Assessment and Plan (1) Staphylococcus aureus bacteremia: Code(s): R78.81 - Bacteremia Status: Acute (2) Discitis: Code(s): M46.40 - Discitis, unspecified, site unspecified Status: Acute (3) Intravenous drug abuse: Code(s): F19.10 - Other psychoactive substance abuse, uncomplicated Status: Chronic Plan 28-year-old male with a history of IV drug use who was initially admitted to the hospital on 09/21/2018 due to lower back pain as well as fever admitted to the hospital and has stayed since 09/26/18. Patient states he had a panic attack and asked his nurse if he is able to get out of his room and walk around. The nurse agreed to him that he is able to walk around the unit however the patient thought that he is able to get out of the unit and he started wandering all the way to the other building in the [address]. He was brought back to the unit by a nurse from [facility] but because he was out of the unit for quite some time they signed him off as leaving AGAINST MEDICAL ADVICE. Came back for readmission. MSSA bacteremia IVDU Discitis -Echo 60-65% ejection fraction, no endocarditis noted. -LISA : EF 60%l; negative for vegetation -Repeat Cultures continue to come back with staph aureus. Plan for prolonged antibiotic use. Unable to trust patient with IV access since he was even found to have illicit substance during hospitalization. Patient will also be unable to make it to the IV infusion center. Left AMA recently -Repeat blood cultures 10/05/18; no growth to date -IV oxacillin as per previous ID recommendation, likely duration 8 weeks -Recommend weekly ESR/CRP. Call neurosurgery if neurologic deficit occurs. -10/11/17: Repeat MRI due to increasing complaint of pain. Thoracic spine MRI shows developing discitis at T9/T10 and T11/T12 with suspected osteomyelitis of the adjacent vertebrae at each level. Associated stenosis. No epidural abscess. -Reconsulted neurosurgery for evaluation -sx intervention still not indicated. -Appreciate ID assistance. Repeat blood cultures ordered; NGTD. -IR performed biopsy on 10/14; culture with NGTD -weaned down Dilaudid, continue Percocet prn fpr pain, gabapentin, lidoderm patch and Robaxin prn IV drug use, heroin -Monitor for withdrawals. -Clonidine patch to decrease anxiety. -Found to have illicit substance while in the inpatient setting - "heroin rock" , possible snorted vs injection, while inpatient. No visitors allowed. May have supervised visitation. D/W RN and charge nurse to move pt. closer to nurse' s station -education on IVDU cessation Depression/anxiety Hx of Panic attacks. -Patient states he use to take Xanax but no script in 2 years per [facility] -continue Prozac, Xanax prn and Atarax prn Hyperthyroidism -Elevated T4 with normal T3 and borderline low normal TSH. -Thyroid ultrasound ordered -normal -Hyperthyroidism possibly secondary to heroin use and/or hepatitis -No evidence of thyroid storm but may be contributing to anxiety -Euthyroid-recommending outpatient follow-up if not resolved on own -monitor TSH and T4 Elevated liver enzymes -AST/ALT increasing; noted to also be increased in historical labs done 12/20. -Hepatitis panel ordered -hep C reactive. Patient has no history of hepatitis treatment. -Full STI panel completed per patient request; HIV negative, RPR negative -Abdominal CT done 09/21 showed no abnormalities of liver. -Recommending outpatient follow-up; patient given information about [facility] Insomnia -Cont Ambien Full code. SCDs. Heparin Code Status: full code Discussed Condition With: patient and nurse Discharge Planning: NEEDS TO COMPLETE TREATMENT 8 weeks of abx NOT A SAFE DISCHARGE DUE TO HX OF AMA AND DRUG USE WHILE HERE IN HOSPITAL Progress Note: Quality VTE Deep Vein Thrombosis/Pulmonary Embolism Present on Admission: No _ (1) Discitis Qualifiers: Spinal region:
[2018-10-26] MEDS: ALPRAZolam 0.25 MG Tablet PO PRN (20:40)
[2018-10-27] MEDS: oxyCODONE/Acetaminophen 10/325 Tablet PO PRN ×5 (00:59→21:05)
[2018-10-27] MEDS: ALPRAZolam 0.25 MG Tablet PO PRN ×3 (05:12→22:31)
[2018-10-27] MEDS: Heparin - SQ 10,000 UNITS/ML Vial SQ SCH ×2 (06:11→18:15)
[2018-10-27] MEDS: Gabapentin 300 MG Capsule PO SCH ×3 (08:45→17:31)
[2018-10-27] MEDS: Senna/Docusate Sodium 8.6/50 MG Tablet PO SCH ×2 (08:45→21:04)
[2018-10-27] MEDS: Methocarbamol 500 MG Tablet PO PRN ×2 (08:45→17:40)
[2018-10-27] MEDS: FLUoxetine 20 MG Capsule PO SCH (08:45)
[2018-10-27 08:48] LABS: Baso # (Auto) 0.1 th/mm3 (0.0-0.2); Eos # (Auto) 0.1 th/mm3 (0.0-0.4); Eos % (Auto) 1.2 % (0.0-4.0); Hematocrit 37.7 % (39.0-51.0); Hemoglobin 12.1 gm/dL (13.0-17.0); Lymph # (Auto) 2.8 th/mm3 (1.0-4.8); Lymph % (Auto) 32.9 % (9.0-44.0); Mean Corpuscular HGB Conc 32.2 % (32.0-36.0); Mean Corpuscular Hemoglobin 27.5 pg (27.0-34.0); Mean Corpuscular Volume 85.3 fL (80.0-100.0); Mean Platelet Volume 8.1 fL (7.0-11.0); Mono # (Auto) 0.8 th/mm3 (0.0-0.9); Mono % (Auto) 9.7 % (0.0-8.0); Neut # (Auto) 4.8 th/mm3 (1.8-7.7); Neut % (Auto) 55.2 % (16.0-70.0); Platelet Count 300 th/mm3 (150-450); Red Blood Count 4.41 mil/mm3 (4.50-5.90); Red Cell Distribution Width 19.3 % (11.6-17.2); White Blood Count 8.7 th/mm3 (4.0-11.0)
[2018-10-27] MEDS: Lidocaine 5% Patch T-DERMAL SCH (08:48)
[2018-10-27 09:18] LABS: Albumin 3.4 g/dL (3.4-5.0); Anion Gap 5 meq/L (5-15); Aspartate Aminotransferase 104 U/L (15-37); Blood Urea Nitrogen 14 mg/dL (7-18); Calcium 8.7 mg/dL (8.5-10.1); Carbon Dioxide 28.7 meq/L (21.0-32.0); Chloride 106 meq/L (98-107); Glomerular Filtration Rate Greater Than 89 mL/min (>89); Glucose,Random 70 mg/dL (74-106); Potassium 3.8 meq/L (3.5-5.1); Sodium 140 meq/L (136-145)
[2018-10-27 09:19] LABS: Alanine Aminotransferase 240 U/L (12-78)
[2018-10-27 09:22] LABS: Alkaline Phosphatase 87 U/L (45-117); Total Protein 7.5 g/dL (6.4-8.2)
--- NOTE | 2018-10-27 10:03 | P.PNIM ---
Subjective Interval history: Follow-up for MSSA bacteremia, lower back pain, anxiety and depression. Patient seen and examined laying in bed, complaining of lower back pain, stated he needed the Dilaudid for breakthrough pain with the Percocet complaining he is withdrawing. Patient stated he is shaking and sweating, patient stated that he is a drug addict but he does not want any IV drug use anymore however needed something for now for his low back pain. Discussed weaning down off the Dilaudid and it was of since a day ago however patient stated the pain medication Percocet does not get through over 8 hours. She states that he is getting panic attacks from low back pain. Patient denies any headache or dizziness, denies nausea or vomiting. Patient denies any fever or chills Discussed medication adjustment however plan to wean down pain medication as possible. Patient agreed with the plan. Discussed pain medication management with tenderness Discussed pain management with Dr. Campbell Physical Exam Vital signs: Vital Signs 10/26/18 12:05 10/26/18 16:46 10/26/18 20:00 Temperature 98.2 F 98.4 F 97.3 F L Pulse Rate 74 105 H 113 H Respiratory Rate 20 18 20 Blood Pressure 126/71 113/77 127/81 Pulse Oximetry 99 99 98 10/27/18 00:00 10/27/18 04:00 10/27/18 07:35 Temperature 97.1 F L 98.2 F 98.4 F Pulse Rate 74 81 97 H Respiratory Rate 18 17 20 Blood Pressure 94/51 L 114/74 140/88 Pulse Oximetry 99 100 98 Intake & Output 10/26/18 10/27/18 10/27/18 18:59 06:59 18:59 Intake Total 400 / 400 200 / 200 100 / 100 Balance 400 / 400 200 / 200 100 / 100 Weight 71.2 kg Intake: IV 400 / 400 200 / 200 100 / 100 Prostaphlin Inj 2 GM In NS Inj 400 / 400 200 / 200 100 / 100 100 ML @ 200 mls/hr IV.SIG Q4H [facility] Rx#:[id number] Other: # Voids 2 Date of Last Bowel Movement 10/25/18 10/27/18 # Bowel Movements 1 Narrative: GENERAL: Well-developed, well-nourished, young male in no acute distress SKIN: Warm and dry. HEAD: Atraumatic. Normocephalic. EYES: Pupils equal and round. No scleral icterus. No injection or drainage. ENT: No nasal bleeding or discharge. Mucous membranes pink and moist. NECK: Trachea midline. No JVD. CARDIOVASCULAR: Regular rate and rhythm. RESPIRATORY: No accessory muscle use. Clear to auscultation. Breath sounds equal bilaterally. GASTROINTESTINAL: Abdomen soft, non-tender, nondistended. Hepatic and splenic margins not palpable. MUSCULOSKELETAL: Extremities without clubbing, cyanosis, or edema. No obvious deformities. Some tenderness in lower back NEUROLOGICAL: Awake and alert. No obvious cranial nerve deficits. Motor grossly within normal limits. Five out of 5 muscle strength in the arms and legs. Normal speech. PSYCHIATRIC: Appropriate mood and affect; insight and judgment normal. Results Labs CBC & Chem 7: 10/27/18 07:40 10/27/18 07:40 Procedures Procedures: LISA Assessment and Plan (1) Staphylococcus aureus bacteremia: Code(s): R78.81 - Bacteremia Status: Acute (2) Discitis: Code(s): M46.40 - Discitis, unspecified, site unspecified Status: Acute (3) Intravenous drug abuse: Code(s): F19.10 - Other psychoactive substance abuse, uncomplicated Status: Chronic Plan 28-year-old male with a history of IV drug use who was initially admitted to the hospital on 09/21/2018 due to lower back pain as well as fever admitted to the hospital and has stayed since 09/26/18. Patient states he had a panic attack and asked his nurse if he is able to get out of his room and walk around. The nurse agreed to him that he is able to walk around the unit however the patient thought that he is able to get out of the unit and he started wandering all the way to the other building in the [place]. He was brought back to the unit by a nurse from [facility] but because he was out of the unit for quite some time they signed him off as leaving AGAINST MEDICAL ADVICE. Came back for readmission. MSSA bacteremia IVDU Discitis Low back pain -Echo 60-65% ejection fraction, no endocarditis noted. -LISA : EF 60%l; negative for vegetation -Repeat Cultures continue to come back with staph aureus. Plan for prolonged antibiotic use. Unable to trust patient with IV access since he was even found to have illicit substance during hospitalization. Patient will also be unable to make it to the IV infusion center. Left AMA recently -Repeat blood cultures 10/05/18; no growth to date -Recommend weekly ESR/CRP. Call neurosurgery if neurologic deficit occurs. -10/11/17: Repeat MRI due to increasing complaint of pain. Thoracic spine MRI shows developing discitis at T9/T10 and T11/T12 with suspected osteomyelitis of the adjacent vertebrae at each level. Associated stenosis. No epidural abscess. -Reconsulted neurosurgery for evaluation -sx intervention still not indicated. -Appreciate ID assistance. Repeat blood cultures ordered; NGTD. -IR performed biopsy on 10/14; culture with NGTD -weaned down Dilaudid, continue Percocet prn for pain, discussed pain management , patient agreed -continue gabapentin, lidoderm patch and Robaxin prn -monitor CBC, CMP and CRP weekly while on antbx IV drug use, heroin -Monitor for withdrawals. -Clonidine patch to decrease anxiety. -Found to have illicit substance while in the inpatient setting - "heroin rock" , possible snorted vs injection, while inpatient. No visitors allowed. May have supervised visitation. D/W RN and charge nurse to move pt. closer to nurse' s station -education on IVDU cessation Depression/anxiety Hx of Panic attacks. -Patient states he use to take Xanax but no script in 2 years per [facility] -continue Prozac, Xanax prn and Atarax prn Hyperthyroidism -Elevated T4 with normal T3 and borderline low normal TSH. -Thyroid ultrasound ordered -normal -Hyperthyroidism possibly secondary to heroin use and/or hepatitis -No evidence of thyroid storm but may be contributing to anxiety -Euthyroid-recommending outpatient follow-up if not resolved on own -monitor TSH and T4 Elevated liver enzymes -AST/ALT increasing; noted to also be increased in historical labs done 12/20. -Hepatitis panel ordered -hep C reactive. Patient has no history of hepatitis treatment. -Full STI panel completed per patient request; HIV negative, RPR negative -Abdominal CT done 09/21 showed no abnormalities of liver. -Recommending outpatient follow-up; patient given information about [facility] Insomnia -Cont Ambien Full code. SCDs. Heparin Discharge Planning: NEEDS TO COMPLETE TREATMENT 8 weeks of abx NOT A SAFE DISCHARGE DUE TO HX OF AMA AND DRUG USE WHILE HERE IN HOSPITAL Progress Note: Quality VTE Deep Vein Thrombosis/Pulmonary Embolism Present on Admission: No _ (1) Discitis Qualifiers: Spinal region:
--- NOTE | 2018-10-27 18:43 | P.PNID ---
Subjective Remarks: Another MR done on Oct 22: no change afebrile pain slightly better, allowing him better ambulation Antibiotics: oxacillin Allergies/Adverse Reactions: Allergies No Known Allergies Allergy (Verified 09/17/18 13:40) Objective Vital Signs 10/26/18 20:00 10/27/18 00:00 10/27/18 04:00 Temperature 97.3 F L 97.1 F L 98.2 F Pulse Rate 113 H 74 81 Respiratory Rate 20 18 17 Blood Pressure 127/81 94/51 L 114/74 Pulse Oximetry 98 99 100 10/27/18 07:35 10/27/18 08:00 10/27/18 12:05 Temperature 98.4 F 97.4 F L Pulse Rate 97 H 97 H Respiratory Rate 20 20 Blood Pressure 140/88 125/84 Pulse Oximetry 98 99 99 10/27/18 16:00 Temperature 98.4 F Pulse Rate 91 H Respiratory Rate 20 Blood Pressure 112/57 L Pulse Oximetry 97 Intake & Output 10/26/18 10/27/18 10/27/18 18:59 06:59 18:59 Intake Total 400 / 400 200 / 200 1180 / 1180 Balance 400 / 400 200 / 200 1180 / 1180 Weight 71.2 kg Intake: IV 400 / 400 200 / 200 300 / 300 Prostaphlin Inj 2 GM In NS Inj 400 / 400 200 / 200 300 / 300 100 ML @ 200 mls/hr IV.SIG Q4H [facility] Rx#:[id number] Oral 880 / 880 Other: # Voids 2 5 Date of Last Bowel Movement 10/25/18 10/27/18 10/26/18 # Bowel Movements 1 Lab - Hematology Results 10/26/18 10/27/18 13:58 07:40 WBC 8.7 RBC 4.41 L Hgb 12.1 L Hct 37.7 L MCV 85.3 MCH 27.5 MCHC 32.2 RDW 19.3 H Plt Count 300 MPV 8.1 Neut % (Auto) 55.2 Lymph % (Auto) 32.9 Lyman % (Auto) 9.7 H Eos % (Auto) 1.2 Baso % (Auto) 1.0 Neut # (Auto) 4.8 Lymph # (Auto) 2.8 Lyman # (Auto) 0.8 Eos # (Auto) 0.1 Baso # (Auto) 0.1 WBC Differential . Differential Comment Auto diff final ESR 13 Lab - Chemistry Results 10/27/18 07:40 Sodium 140 Potassium 3.8 Chloride 106 Carbon Dioxide 28.7 Anion Gap 5 BUN 14 Creatinine 0.83 Estimated GFR Greater than 89 Random Glucose 70 L Calcium 8.7 Total Bilirubin 0.3 AST 104 H ALT 240 H Alkaline Phosphatase 87 C-Reactive Protein Less than 0.29 Total Protein 7.5 Albumin 3.4 Imaging: ITS Impressions Thyroid Ultrasound 10/09/18 00:00 CONCLUSION: 1. Normal examination. Needle Aspiration CT 10/14/18 00:00 CONCLUSION: 1. CT-guided T9-10 disc aspiration yielded no fluid. Therefore, 20-gauge core biopsy was obtained and samples submitted per request. Thoracic Spine MRI 10/22/18 00:00 CONCLUSION: 1. Stable examination with some bony edema in the vertebral bodies from T9 through T12. 2. In addition, some enhancement of the intervertebral discs at T9-T10 and T11- T12 are concerning for early discitis. No significant change from prior. 3. Spinal canal remains patent without cord compromise. Physical Exam: GENERAL: NAD; in obvious distress when attemps to move SKIN: Warm and dry. no rash EYES: Pupils equal and round. No scleral icterus. No injection or drainage. ENT: No nasal bleeding or discharge. Mucous membranes pink and moist. NECK: Trachea midline. No JVD. CARDIOVASCULAR: Regular rate and rhythm. RESPIRATORY: No accessory muscle use. Clear to auscultation. Breath sounds equal bilaterally. GASTROINTESTINAL: Abdomen soft, non-tender, nondistended. Hepatic and splenic margins not palpable. MUSCULOSKELETAL: Extremities without clubbing, cyanosis, or edema. BACK: No obvious deformities. No edema no tenderness to palpation NEUROLOGICAL: Awake and alert. Non focal Normal speech. PSYCHIATRIC: calm and cooperatve Assessment and Plan - Plan T spine ostheomyelitis, diskitis, no epidural abscess, MSSA -MR with diffuse mild epidural enhancement involving the mid to lower thoracic canal on today's examination, however mass producing collection which had been suspected previously is not seen today. Clinical improvement, radiologically stable MSSA bacteremia - 2/2 vertebral infection no endocarditis cont oxacillin x 4 more wks presuming ongoing clinical improvement Not a candidate for o/p IV abx 2/2 IVDU status fu weekly CBC CMP ESR, CRP
[2018-10-28] MEDS: oxyCODONE/Acetaminophen 10/325 Tablet PO PRN ×6 (01:00→22:09)
--- NOTE | 2018-10-28 09:03 | P.PNIM ---
Subjective Interval history: Follow-up for MSSA bacteremia, lower back pain, anxiety and depression.. Patient seen and examined laying in bed, stated his pain is a little better, but still complaining of the lower back pain. However it is better controlled than usual. Patient denies any headache or dizziness, denies any chest pain or shortness of breath. Patient denies any abdominal pain, nausea, vomiting, diarrhea or constipation. Patient denies any fever or chills. Nurse denies any acute concerns overnight Physical Exam Vital signs: Vital Signs 10/27/18 12:05 10/27/18 16:00 10/27/18 20:00 Temperature 97.4 F L 98.4 F 98.1 F Pulse Rate 97 H 91 H 107 H Respiratory Rate 20 20 18 Blood Pressure 125/84 112/57 L 129/88 Pulse Oximetry 99 97 99 10/28/18 00:00 10/28/18 01:53 10/28/18 04:00 Temperature 97.6 F 97.8 F Pulse Rate 80 81 Respiratory Rate 18 16 18 Blood Pressure 127/66 108/68 Pulse Oximetry 99 100 10/28/18 07:00 Temperature 97.7 F Pulse Rate 68 Respiratory Rate 20 Blood Pressure 118/74 Pulse Oximetry 100 Intake & Output 10/27/18 10/28/18 10/28/18 18:59 06:59 18:59 Intake Total 1180 / 1180 400 / 400 Balance 1180 / 1180 400 / 400 Weight 73.2 kg Intake: IV 300 / 300 400 / 400 Prostaphlin Inj 2 GM In NS Inj 300 / 300 400 / 400 100 ML @ 200 mls/hr IV.SIG Q4H [facility] Rx#:[id number] Oral 880 / 880 Other: # Voids 5 4 Date of Last Bowel Movement 10/26/18 Narrative: GENERAL: Well-developed, well-nourished, young male in no acute distress SKIN: Warm and dry. HEAD: Atraumatic. Normocephalic. EYES: Pupils equal and round. No scleral icterus. No injection or drainage. ENT: No nasal bleeding or discharge. Mucous membranes pink and moist. NECK: Trachea midline. No JVD. CARDIOVASCULAR: Regular rate and rhythm. RESPIRATORY: No accessory muscle use. Clear to auscultation. Breath sounds equal bilaterally. GASTROINTESTINAL: Abdomen soft, non-tender, nondistended. Hepatic and splenic margins not palpable. MUSCULOSKELETAL: Extremities without clubbing, cyanosis, or edema. No obvious deformities. Some tenderness in lower back NEUROLOGICAL: Awake and alert. No obvious cranial nerve deficits. Motor grossly within normal limits. Five out of 5 muscle strength in the arms and legs. Normal speech. PSYCHIATRIC: Appropriate mood and affect; insight and judgment normal. Results Labs CBC & Chem 7: 10/27/18 07:40 10/27/18 07:40 Procedures Procedures: LISA Assessment and Plan (1) Staphylococcus aureus bacteremia: Code(s): R78.81 - Bacteremia Status: Acute (2) Discitis: Code(s): M46.40 - Discitis, unspecified, site unspecified Status: Acute (3) Intravenous drug abuse: Code(s): F19.10 - Other psychoactive substance abuse, uncomplicated Status: Chronic Plan 28-year-old male with a history of IV drug use who was initially admitted to the hospital on 09/21/2018 due to lower back pain as well as fever admitted to the hospital and has stayed since 09/26/18. Patient states he had a panic attack and asked his nurse if he is able to get out of his room and walk around. The nurse agreed to him that he is able to walk around the unit however the patient thought that he is able to get out of the unit and he started wandering all the way to the other building in the [place]. He was brought back to the unit by a nurse from [facility] but because he was out of the unit for quite some time they signed him off as leaving AGAINST MEDICAL ADVICE. Came back for readmission. MSSA bacteremia IVDU Discitis, T Spine Osteomyelitis Low back pain -Echo 60-65% ejection fraction, no endocarditis noted. -LISA : EF 60%l; negative for vegetation -Repeat Cultures continue to come back with staph aureus. Plan for prolonged antibiotic use. Unable to trust patient with IV access since he was even found to have illicit substance during hospitalization. Patient will also be unable to make it to the IV infusion center. Left AMA recently -Repeat blood cultures 10/05/18; no growth to date -Recommend weekly ESR/CRP. Call neurosurgery if neurologic deficit occurs. -10/11/17: Repeat MRI due to increasing complaint of pain. Thoracic spine MRI shows developing discitis at T9/T10 and T11/T12 with suspected osteomyelitis of the adjacent vertebrae at each level. Associated stenosis. No epidural abscess. -Reconsulted neurosurgery for evaluation -sx intervention still not indicated. -IR performed biopsy on 10/14; culture with NGTD -MR Thoracic Spine 10/22/18 : Stable examination with some bony edema in the vertebral bodies from T9 through T12. Some enhancement of the intervertebral discs at T9-T10 and T11-T12 are concerning for early discitis. No significant change from prior. Spinal canal remains patent without cord compromise. Cord signal is normal throughout. T1-T2: The thecal sac has a normal diameter. No evidence of disc bulge or protrusion. -weaned down Dilaudid, continue Percocet prn for pain, discussed pain management , patient agreed -continue gabapentin, lidoderm patch and Robaxin prn - ID following, appreciate assistance. Recommended continue Oxacillin x 4 more weeks ( until possibly week of 11/25/18) presuming ongoing clinical improvement, not a candidate for outpatient IV antibiotics secondary to IVDU status -monitor CBC, CMP, ESR and CRP weekly while on antbx IV drug use, heroin -Recent AMA in 09/26/19 -Monitor for withdrawals. -Clonidine patch to decrease anxiety. -Found to have illicit substance while in the inpatient setting - "heroin rock" , possible snorted vs injection, while inpatient. No visitors allowed. May have supervised visitation. D/W RN and charge nurse to move pt. closer to nurse' s station -education on IVDU cessation Depression/anxiety Hx of Panic attacks. -Patient states he use to take Xanax but no script in 2 years per [facility] -continue Prozac, Xanax prn and Atarax prn -Anxiety improving Hyperthyroidism -Elevated T4 with normal T3 and borderline low normal TSH. -Thyroid ultrasound ordered -normal -Hyperthyroidism possibly secondary to heroin use and/or hepatitis -No evidence of thyroid storm but may be contributing to anxiety -Euthyroid-recommending outpatient follow-up if not resolved on own -monitor TSH and T4 Elevated liver enzymes -AST/ALT increasing; noted to also be increased in historical labs done 12/20. -Hepatitis panel ordered -hep C reactive. Patient has no history of hepatitis treatment. -Full STI panel completed per patient request; HIV negative, RPR negative -Abdominal CT done 12/18 showed no abnormalities of liver. -Recommending outpatient follow-up; patient given information about [facility] Insomnia -Cont Ambien Full code. SCDs. Heparin Discharge Planning: NEEDS TO COMPLETE TREATMENT 8 weeks of abx NOT A SAFE DISCHARGE DUE TO HX OF AMA AND DRUG USE WHILE HERE IN HOSPITAL Progress Note: Quality VTE Deep Vein Thrombosis/Pulmonary Embolism Present on Admission: No _ (1) Discitis Qualifiers: Spinal region:
[2018-10-28] MEDS: Methocarbamol 500 MG Tablet PO PRN ×2 (09:04→17:41)
[2018-10-28] MEDS: Gabapentin 300 MG Capsule PO SCH ×3 (09:04→17:41)
[2018-10-28] MEDS: FLUoxetine 20 MG Capsule PO SCH (09:05)
[2018-10-28] MEDS: Lidocaine 5% Patch T-DERMAL SCH (09:06)
[2018-10-28] MEDS: Senna/Docusate Sodium 8.6/50 MG Tablet PO SCH ×2 (09:07→20:22)
[2018-10-28] MEDS: ALPRAZolam 0.25 MG Tablet PO PRN ×2 (13:46→22:08)
[2018-10-28] MEDS: Sod Chloride 0.9% Inj 1,000 ML IV.CONT SCH (18:37)
[2018-10-28] MEDS: Heparin - SQ 10,000 UNITS/ML Vial SQ SCH ×2 (19:57→19:59)
[2018-10-29] MEDS: Sod Chloride 0.9% Inj 1,000 ML IV.CONT SCH ×2 (01:37→11:15)
[2018-10-29] MEDS: oxyCODONE/Acetaminophen 10/325 Tablet PO PRN ×6 (01:50→22:25)
[2018-10-29] MEDS: Heparin - SQ 10,000 UNITS/ML Vial SQ SCH ×2 (05:29→18:11)
[2018-10-29] MEDS: ALPRAZolam 0.25 MG Tablet PO PRN ×3 (05:38→22:25)
[2018-10-29] MEDS: Lidocaine 5% Patch T-DERMAL SCH (08:40)
[2018-10-29] MEDS: Senna/Docusate Sodium 8.6/50 MG Tablet PO SCH ×2 (08:41→20:11)
[2018-10-29] MEDS: FLUoxetine 20 MG Capsule PO SCH (08:41)
[2018-10-29] MEDS: Gabapentin 300 MG Capsule PO SCH ×3 (08:41→18:11)
[2018-10-29] MEDS: Methocarbamol 500 MG Tablet PO PRN ×2 (09:43→18:30)
--- NOTE | 2018-10-29 10:33 | P.PNIM ---
Subjective Interval history: Follow-up for MSSA bacteremia, lower back pain, anxiety and depression. Patient seen and examined laying in bed, stated pain in the lower back is better but it still there. Patient is afraid that we are going to wean down pain medication. He stated that he did not want to be on any medication when he goes home but he wants his pain controlled while he is here. Discussed the plan and reminded him that agreement to wean down pain medication while he is here. Patient understand and agreed. Also discussed the plan for antibiotic treatment per ID recommendation. Nurse in room listening to the conversation. Patient denies any headache or dizziness, denies any chest pain or shortness of breath, Physical Exam Vital signs: Vital Signs 10/28/18 12:30 10/28/18 15:05 10/28/18 20:00 Temperature 97.9 F 97.9 F 99.0 F Pulse Rate 87 99 H 77 Respiratory Rate 20 20 18 Blood Pressure 99/58 L 112/68 119/74 Pulse Oximetry 97 99 96 10/29/18 00:00 10/29/18 03:07 10/29/18 04:00 Temperature 98.2 F 97.7 F Pulse Rate 89 78 Respiratory Rate 18 16 18 Blood Pressure 105/57 L 111/61 Pulse Oximetry 99 99 10/29/18 08:20 Temperature 97.6 F Pulse Rate 55 L Respiratory Rate 20 Blood Pressure 100/74 Pulse Oximetry 97 Intake & Output 10/28/18 10/29/18 10/29/18 18:59 06:59 18:59 Intake Total 1180 / 1180 200 / 200 Balance 1180 / 1180 200 / 200 Weight 73.3 kg Intake: IV 300 / 300 200 / 200 Prostaphlin Inj 2 GM In NS Inj 300 / 300 200 / 200 100 ML @ 200 mls/hr IV.SIG Q4H [facility] Rx#:[id number] Oral 880 / 880 Other: # Voids 5 3 Date of Last Bowel Movement 10/27/18 10/28/18 Narrative: GENERAL: Well-developed, well-nourished, young male in no acute distress SKIN: Warm and dry. HEAD: Atraumatic. Normocephalic. EYES: Pupils equal and round. No scleral icterus. No injection or drainage. ENT: No nasal bleeding or discharge. Mucous membranes pink and moist. NECK: Trachea midline. No JVD. CARDIOVASCULAR: Regular rate and rhythm. RESPIRATORY: No accessory muscle use. Clear to auscultation. Breath sounds equal bilaterally. GASTROINTESTINAL: Abdomen soft, non-tender, nondistended. Hepatic and splenic margins not palpable. MUSCULOSKELETAL: Extremities without clubbing, cyanosis, or edema. No obvious deformities. Some tenderness in lower back, no redness no edema. NEUROLOGICAL: Awake and alert. No obvious cranial nerve deficits. Motor grossly within normal limits. Five out of 5 muscle strength in the arms and legs. Normal speech. PSYCHIATRIC: Appropriate mood and affect; insight and judgment normal. Results Labs CBC & Chem 7: 10/27/18 07:40 10/27/18 07:40 Labs: Microbiology 10/14/18 16:15 Tissue - Other Fungal Smear - Final No fungal elements seen 10/14/18 16:15 Tissue - Other Fungal Culture - Preliminary No growth in 2 weeks 10/14/18 16:15 Other Acid Fast Bacilli Smear - Final No acid fast bacilli seen 10/14/18 16:15 Other Mycobacterial Culture - Preliminary No growth in 2 weeks Procedures Procedures: LISA Assessment and Plan (1) Staphylococcus aureus bacteremia: Code(s): R78.81 - Bacteremia Status: Acute (2) Discitis: Code(s): M46.40 - Discitis, unspecified, site unspecified Status: Acute (3) Intravenous drug abuse: Code(s): F19.10 - Other psychoactive substance abuse, uncomplicated Status: Chronic Plan 28-year-old male with a history of IV drug use who was initially admitted to the hospital on 09/21/2018 due to lower back pain as well as fever admitted to the hospital and has stayed since 09/26/18. Patient states he had a panic attack and asked his nurse if he is able to get out of his room and walk around. The nurse agreed to him that he is able to walk around the unit however the patient thought that he is able to get out of the unit and he started wandering all the way to the other building in the [place] [facility]. He was brought back to the unit by a nurse from [facility] but because he was out of the unit for quite some time they signed him off as leaving AGAINST MEDICAL ADVICE. Came back for readmission. MSSA bacteremia IVDU Discitis, T Spine Osteomyelitis Low back pain -Echo 60-65% ejection fraction, no endocarditis noted. -LISA : EF 60%l; negative for vegetation -Repeat Cultures continue to come back with staph aureus. Plan for prolonged antibiotic use. Unable to trust patient with IV access since he was even found to have illicit substance during hospitalization. Patient will also be unable to make it to the IV infusion center. Left AMA recently -Repeat blood cultures 10/05/18; no growth to date -Recommend weekly ESR/CRP. Call neurosurgery if neurologic deficit occurs. -10/11/17: Repeat MRI due to increasing complaint of pain. Thoracic spine MRI shows developing discitis at T9/T10 and T11/T12 with suspected osteomyelitis of the adjacent vertebrae at each level. Associated stenosis. No epidural abscess. -Reconsulted neurosurgery for evaluation -sx intervention still not indicated. -IR performed biopsy on 10/14; culture with NGTD -MR Thoracic Spine 10/22/18 : Stable examination with some bony edema in the vertebral bodies from T9 through T12. Some enhancement of the intervertebral discs at T9-T10 and T11-T12 are concerning for early discitis. No significant change from prior. Spinal canal remains patent without cord compromise. Cord signal is normal throughout. T1-T2: The thecal sac has a normal diameter. No evidence of disc bulge or protrusion. -weaned down Dilaudid, continue Percocet prn for pain, discussed pain management , patient agreed. Plan to wean down dose of pain medication -continue gabapentin, lidoderm patch and Robaxin prn - ID following, appreciate assistance. Recommended continue Oxacillin x 4 more weeks ( until possibly week of 11/25/18) presuming ongoing clinical improvement, not a candidate for outpatient IV antibiotics secondary to IVDU status -monitor CBC, CMP, ESR and CRP weekly while on antbx IV drug use, heroin -Recent AMA in 09/26/19 -Monitor for withdrawals. -Clonidine patch to decrease anxiety. -Found to have illicit substance while in the inpatient setting - "heroin rock" , possible snorted vs injection, while inpatient. No visitors allowed. May have supervised visitation. D/W RN and charge nurse to move pt. closer to nurse' s station -education on IVDU cessation provided Depression/anxiety Hx of Panic attacks. -Patient states he use to take Xanax but no script in 2 years per [facility] -continue Prozac, Xanax prn and Atarax prn -Anxiety improving Hyperthyroidism -Elevated T4 with normal T3 and borderline low normal TSH. -Thyroid ultrasound ordered -normal -Hyperthyroidism possibly secondary to heroin use and/or hepatitis -No evidence of thyroid storm but may be contributing to anxiety -Euthyroid-recommending outpatient follow-up if not resolved on own -monitor TSH and T4 Elevated liver enzymes -AST/ALT increasing; noted to also be increased in historical labs done 12/20. -Hepatitis panel ordered -hep C reactive. Patient has no history of hepatitis treatment. -Full STI panel completed per patient request; HIV negative, RPR negative -Abdominal CT done 09/21 showed no abnormalities of liver. -Recommending outpatient follow-up; patient given information about [facility] Insomnia -Cont Ambien Full code. SCDs. Heparin Discharge Planning: NEEDS TO COMPLETE TREATMENT 8 weeks of abx NOT A SAFE DISCHARGE DUE TO HX OF AMA AND DRUG USE WHILE HERE IN HOSPITAL Progress Note: Quality VTE Deep Vein Thrombosis/Pulmonary Embolism Present on Admission: No _ (1) Discitis Qualifiers: Spinal region:
[2018-10-30] MEDS: oxyCODONE/Acetaminophen 10/325 Tablet PO PRN ×5 (04:11→21:15)
[2018-10-30] MEDS: ALPRAZolam 0.25 MG Tablet PO PRN ×3 (06:14→22:18)
[2018-10-30] MEDS: Heparin - SQ 10,000 UNITS/ML Vial SQ SCH ×2 (08:29→18:31)
[2018-10-30] MEDS: Senna/Docusate Sodium 8.6/50 MG Tablet PO SCH ×2 (08:29→21:15)
[2018-10-30] MEDS: Gabapentin 300 MG Capsule PO SCH ×3 (08:29→17:19)
[2018-10-30] MEDS: FLUoxetine 20 MG Capsule PO SCH (08:30)
[2018-10-30] MEDS: Methocarbamol 500 MG Tablet PO PRN ×2 (08:30→17:36)
[2018-10-30] MEDS: Lidocaine 5% Patch T-DERMAL SCH (08:33)
--- NOTE | 2018-10-30 11:02 | P.PNIM ---
Subjective Interval history: Follow-up MSSA, IVDU and low back pain Patient still complaining of low back pain, requesting for his pain medication and not to be decreased. Patient stated he wants to be on a pain medication while he is here, patient stated please do not take him off all pain medication while he is here as he do not want to suffer. Discussed the patient not to expect pain medication upon discharge, patient agreed Discussed with nursing Physical Exam Vital signs: Vital Signs 10/29/18 11:25 10/29/18 16:00 10/29/18 20:00 Temperature 98.2 F 98.1 F 97.1 F L Pulse Rate 100 H 99 H 98 H Respiratory Rate 20 20 16 Blood Pressure 128/81 124/79 112/69 Pulse Oximetry 98 98 99 10/29/18 23:56 10/30/18 00:00 10/30/18 04:00 Temperature 97.2 F L 97.7 F Pulse Rate 88 84 Respiratory Rate 17 19 19 Blood Pressure 106/65 116/56 L Pulse Oximetry 99 99 10/30/18 08:15 Temperature 98.0 F Pulse Rate 83 Respiratory Rate 20 Blood Pressure 116/59 L Pulse Oximetry 99 Intake & Output 10/29/18 10/30/18 10/30/18 18:59 06:59 18:59 Intake Total 200 / 200 1063 / 1063 100 / 100 Balance 200 / 200 1063 / 1063 100 / 100 Weight 75.1 kg Intake: IV 200 / 200 400 / 400 100 / 100 Prostaphlin Inj 2 GM In NS Inj 200 / 200 400 / 400 100 / 100 100 ML @ 200 mls/hr IV.SIG Q4H [facility] Rx#:[id number] Oral 663 / 663 Other: # Voids 5 2 Date of Last Bowel Movement 10/29/18 10/29/18 # Bowel Movements 1 1 Narrative: GENERAL: Well-developed, well-nourished, young male in no acute distress SKIN: Warm and dry. HEAD: Atraumatic. Normocephalic. EYES: Pupils equal and round. No scleral icterus. No injection or drainage. ENT: No nasal bleeding or discharge. Mucous membranes pink and moist. NECK: Trachea midline. No JVD. CARDIOVASCULAR: Regular rate and rhythm. RESPIRATORY: No accessory muscle use. Clear to auscultation. Breath sounds equal bilaterally. GASTROINTESTINAL: Abdomen soft, non-tender, nondistended. Hepatic and splenic margins not palpable. MUSCULOSKELETAL: Extremities without clubbing, cyanosis, or edema. No obvious deformities. Some tenderness in lower back, no redness no edema. NEUROLOGICAL: Awake and alert. No obvious cranial nerve deficits. Motor grossly within normal limits. Five out of 5 muscle strength in the arms and legs. Normal speech. PSYCHIATRIC: Appropriate mood and affect; insight and judgment normal. Results Labs CBC & Chem 7: 10/27/18 07:40 10/27/18 07:40 Procedures Procedures: LISA Assessment and Plan (1) Staphylococcus aureus bacteremia: Code(s): R78.81 - Bacteremia Status: Acute (2) Discitis: Code(s): M46.40 - Discitis, unspecified, site unspecified Status: Acute (3) Intravenous drug abuse: Code(s): F19.10 - Other psychoactive substance abuse, uncomplicated Status: Chronic Plan 28-year-old male with a history of IV drug use who was initially admitted to the hospital on 09/21/2018 due to lower back pain as well as fever admitted to the hospital and has stayed since 09/26/18. Patient states he had a panic attack and asked his nurse if he is able to get out of his room and walk around. The nurse agreed to him that he is able to walk around the unit however the patient thought that he is able to get out of the unit and he started wandering all the way to the other building in the [place]. He was brought back to the unit by a nurse from [facility] but because he was out of the unit for quite some time they signed him off as leaving AGAINST MEDICAL ADVICE. Came back for readmission. MSSA bacteremia IVDU Discitis, T Spine Osteomyelitis Low back pain -Echo 60-65% ejection fraction, no endocarditis noted. -LISA : EF 60%l; negative for vegetation -Repeat Cultures continue to come back with staph aureus. Plan for prolonged antibiotic use. Unable to trust patient with IV access since he was even found to have illicit substance during hospitalization. Patient will also be unable to make it to the IV infusion center. Left AMA recently -Repeat blood cultures 10/05/18; no growth to date -Recommend weekly ESR/CRP. Call neurosurgery if neurologic deficit occurs. -10/11/17: Repeat MRI due to increasing complaint of pain. Thoracic spine MRI shows developing discitis at T9/T10 and T11/T12 with suspected osteomyelitis of the adjacent vertebrae at each level. Associated stenosis. No epidural abscess. -Reconsulted neurosurgery for evaluation -sx intervention still not indicated. -IR performed biopsy on 10/14; culture with NGTD -MR Thoracic Spine 10/22/18 : Stable examination with some bony edema in the vertebral bodies from T9 through T12. Some enhancement of the intervertebral discs at T9-T10 and T11-T12 are concerning for early discitis. No significant change from prior. Spinal canal remains patent without cord compromise. Cord signal is normal throughout. T1-T2: The thecal sac has a normal diameter. No evidence of disc bulge or protrusion. -weaned down Dilaudid, continue Percocet prn for pain, discussed pain management , patient agreed. Plan to wean down dose of pain medication -continue gabapentin, lidoderm patch and Robaxin prn - ID following, appreciate assistance. Recommended continue Oxacillin x 4 more weeks ( until possibly week of 11/25/18) presuming ongoing clinical improvement, not a candidate for outpatient IV antibiotics secondary to IVDU status -monitor CBC, CMP, ESR and CRP weekly while on antbx -Discussed antibiotic course with patient and low back pain management. IV drug use, heroin -Recent AMA in 09/26/19 -Monitor for withdrawals. -Clonidine patch to decrease anxiety. -Found to have illicit substance while in the inpatient setting - "heroin rock" , possible snorted vs injection, while inpatient. No visitors allowed. May have supervised visitation. D/W RN and charge nurse to move pt. closer to nurse' s station -education on IVDU cessation provided Depression/anxiety Hx of Panic attacks. -Patient states he use to take Xanax but no script in 2 years per [facility] -continue Prozac, Xanax prn and Atarax prn -Anxiety improving Hyperthyroidism -Elevated T4 with normal T3 and borderline low normal TSH. -Thyroid ultrasound ordered -normal -Hyperthyroidism possibly secondary to heroin use and/or hepatitis -No evidence of thyroid storm but may be contributing to anxiety -Euthyroid-recommending outpatient follow-up if not resolved on own -monitor TSH and T4 Elevated liver enzymes -AST/ALT increasing; noted to also be increased in historical labs done 12/20. -Hepatitis panel ordered -hep C reactive. Patient has no history of hepatitis treatment. -Full STI panel completed per patient request; HIV negative, RPR negative -Abdominal CT done 09/21 showed no abnormalities of liver. -Recommending outpatient follow-up; patient given information about [facility] Insomnia -Cont Ambien Full code. SCDs. Heparin Discharge Planning: NEEDS TO COMPLETE TREATMENT 8 weeks of abx NOT A SAFE DISCHARGE DUE TO HX OF AMA AND DRUG USE WHILE HERE IN HOSPITAL Progress Note: Quality VTE Deep Vein Thrombosis/Pulmonary Embolism Present on Admission: No _ (1) Discitis Qualifiers: Spinal region:
[2018-10-31] MEDS: oxyCODONE/Acetaminophen 10/325 Tablet PO PRN ×6 (01:17→21:51)
[2018-10-31] MEDS: Methocarbamol 500 MG Tablet PO PRN ×2 (05:42→17:44)
[2018-10-31] MEDS: ALPRAZolam 0.25 MG Tablet PO PRN ×3 (06:21→23:00)
[2018-10-31] MEDS: Heparin - SQ 10,000 UNITS/ML Vial SQ SCH ×2 (09:34→18:46)
[2018-10-31] MEDS: Lidocaine 5% Patch T-DERMAL SCH (09:35)
[2018-10-31] MEDS: FLUoxetine 20 MG Capsule PO SCH (09:35)
[2018-10-31] MEDS: Gabapentin 300 MG Capsule PO SCH ×3 (09:35→17:44)
[2018-10-31] MEDS: Senna/Docusate Sodium 8.6/50 MG Tablet PO SCH ×2 (09:35→21:51)
--- NOTE | 2018-10-31 10:36 | P.PNIM ---
Subjective Interval history: Follow-up for low back pain, MSSA, and IVDU. Patient seen and examined sitting on his bed, eating breakfast. Patient stated he still have some back pain,Patient stated pain is worse with ambulating and moving around.. Patient requested for some muscle relaxant that he had taken before, requesting to change muscle relaxant medication Robaxin to Flexeril. Discussed the patient we need to wean him off this medications and not to start with anything else. Discussed the patient we will keep what we he had right now and we will start to wean him off slowly. Patient stated pain is worse with ambulating and moving around. However stated the Percocet he had right now every 4 hours is working fine. Patient denies any headache or dizziness, denies any chest pain or shortness of breath, denies any abdominal pain, nausea, vomiting, diarrhea or constipation. Physical Exam Vital signs: Vital Signs 10/30/18 12:00 10/30/18 15:40 10/31/18 01:17 Temperature 98.1 F 98.1 F 98.0 F Pulse Rate 84 80 99 H Respiratory Rate 20 20 20 Blood Pressure 119/64 114/59 L 114/71 Pulse Oximetry 100 100 99 10/31/18 05:45 10/31/18 06:45 10/31/18 09:29 Temperature 98.0 F 98.7 F Pulse Rate 70 91 H Respiratory Rate 20 20 Blood Pressure 138/69 117/79 Pulse Oximetry 100 97 97 Intake & Output 10/30/18 10/31/18 10/31/18 18:59 06:59 18:59 Intake Total 200 / 200 300 / 300 100 / 100 Balance 200 / 200 300 / 300 100 / 100 Intake: IV 200 / 200 300 / 300 100 / 100 Prostaphlin Inj 2 GM In NS Inj 200 / 200 300 / 300 100 / 100 100 ML @ 200 mls/hr IV.SIG Q4H [facility] Rx#:[id number] Other: # Voids 1 3 Narrative: GENERAL: Well-developed, well-nourished, young male in no acute distress SKIN: Warm and dry. HEAD: Atraumatic. Normocephalic. EYES: Pupils equal and round. No scleral icterus. No injection or drainage. ENT: No nasal bleeding or discharge. Mucous membranes pink and moist. NECK: Trachea midline. No JVD. CARDIOVASCULAR: Regular rate and rhythm. RESPIRATORY: No accessory muscle use. Clear to auscultation. Breath sounds equal bilaterally. GASTROINTESTINAL: Abdomen soft, non-tender, nondistended. Hepatic and splenic margins not palpable. MUSCULOSKELETAL: Extremities without clubbing, cyanosis, or edema. No obvious deformities. Some tenderness in lower back, no redness no edema. Lidocaine patch in place NEUROLOGICAL: Awake and alert. No obvious cranial nerve deficits. Motor grossly within normal limits. Five out of 5 muscle strength in the arms and legs. Normal speech. PSYCHIATRIC: Appropriate mood and affect; insight and judgment normal. Results Labs CBC & Chem 7: 10/27/18 07:40 10/27/18 07:40 Procedures Procedures: LISA Assessment and Plan (1) Staphylococcus aureus bacteremia: Code(s): R78.81 - Bacteremia Status: Acute (2) Discitis: Code(s): M46.40 - Discitis, unspecified, site unspecified Status: Acute (3) Intravenous drug abuse: Code(s): F19.10 - Other psychoactive substance abuse, uncomplicated Status: Chronic Plan 28-year-old male with a history of IV drug use who was initially admitted to the hospital on 09/21/2018 due to lower back pain as well as fever admitted to the hospital and has stayed since 09/26/18. Patient states he had a panic attack and asked his nurse if he is able to get out of his room and walk around. The nurse agreed to him that he is able to walk around the unit however the patient thought that he is able to get out of the unit and he started wandering all the way to the other building in the [place]. He was brought back to the unit by a nurse from [facility] but because he was out of the unit for quite some time they signed him off as leaving AGAINST MEDICAL ADVICE. Came back for readmission. MSSA bacteremia IVDU Discitis, T Spine Osteomyelitis Low back pain -Echo 60-65% ejection fraction, no endocarditis noted. -LISA : EF 60%l; negative for vegetation -Repeat Cultures continue to come back with staph aureus. Plan for prolonged antibiotic use. Unable to trust patient with IV access since he was even found to have illicit substance during hospitalization. Patient will also be unable to make it to the IV infusion center. Left AMA recently -Repeat blood cultures 10/05/18; no growth to date -Recommend weekly ESR/CRP. Call neurosurgery if neurologic deficit occurs. -10/11/17: Repeat MRI due to increasing complaint of pain. Thoracic spine MRI shows developing discitis at T9/T10 and T11/T12 with suspected osteomyelitis of the adjacent vertebrae at each level. Associated stenosis. No epidural abscess. -Reconsulted neurosurgery for evaluation -sx intervention still not indicated. -IR performed biopsy on 10/14; culture with NGTD -MR Thoracic Spine 10/22/18 : Stable examination with some bony edema in the vertebral bodies from T9 through T12. Some enhancement of the intervertebral discs at T9-T10 and T11-T12 are concerning for early discitis. No significant change from prior. Spinal canal remains patent without cord compromise. Cord signal is normal throughout. T1-T2: The thecal sac has a normal diameter. No evidence of disc bulge or protrusion. -weaned down Dilaudid, continue Percocet prn for pain, discussed pain management , patient agreed. Plan to wean down dose of pain medication -continue gabapentin, lidoderm patch, prn [place] and Robaxin prn, with bowel regimen - ID following, appreciate assistance. Recommended continue Oxacillin x 4 more weeks total of 8 weeks (estimated end date Nov 19, 2018) presuming ongoing clinical improvement, not a candidate for outpatient IV antibiotics secondary to IVDU status -monitor CBC, CMP, ESR and CRP weekly while on antbx -Discussed antibiotic course with patient and low back pain management. IV drug use, heroin -Recent AMA in 09/26/19 -Monitor for withdrawals. -Clonidine patch to decrease anxiety. -Found to have illicit substance while in the inpatient setting - "heroin rock" , possible snorted vs injection, while inpatient. No visitors allowed. May have supervised visitation. D/W RN and charge nurse to move pt. closer to nurse' s station -education on IVDU cessation provided Depression/anxiety Hx of Panic attacks. -Patient states he use to take Xanax but no script in 2 years per [facility] -continue Prozac, Xanax prn and Atarax prn -Anxiety improving Hyperthyroidism -Elevated T4 with normal T3 and borderline low normal TSH. -Thyroid ultrasound ordered -normal -Hyperthyroidism possibly secondary to heroin use and/or hepatitis -No evidence of thyroid storm but may be contributing to anxiety -Euthyroid-recommending outpatient follow-up if not resolved on own -monitor TSH and T4 Elevated liver enzymes -AST/ALT increasing; noted to also be increased in historical labs done 12/20. -Hepatitis panel ordered -hep C reactive. Patient has no history of hepatitis treatment. -Full STI panel completed per patient request; HIV negative, RPR negative -Abdominal CT done 09/21 showed no abnormalities of liver. -Recommending outpatient follow-up; patient given information about [facility] Insomnia -Cont Ambien Full code. SCDs. Heparin Code Status: Full code Discussed Condition With: Patient, family/mother, and nurse Discharge Planning: NEEDS TO COMPLETE TREATMENT 8 weeks of abx (estimated end date Nov 19, 2018) NOT A SAFE DISCHARGE DUE TO HX OF AMA AND DRUG USE WHILE HERE IN HOSPITAL Progress Note: Quality VTE Deep Vein Thrombosis/Pulmonary Embolism Present on Admission: No _ (1) Discitis Qualifiers: Spinal region:
[2018-11-01] MEDS: oxyCODONE/Acetaminophen 10/325 Tablet PO PRN ×5 (02:10→20:44)
[2018-11-01] MEDS: Heparin - SQ 10,000 UNITS/ML Vial SQ SCH ×2 (06:05→18:07)
[2018-11-01] MEDS: Methocarbamol 500 MG Tablet PO PRN ×2 (06:48→16:28)
[2018-11-01 07:04] LABS: Baso # (Auto) 0.1 th/mm3 (0.0-0.2); Eos # (Auto) 0.2 th/mm3 (0.0-0.4); Eos % (Auto) 3.4 % (0.0-4.0); Hematocrit 36.9 % (39.0-51.0); Hemoglobin 12.3 gm/dL (13.0-17.0); Lymph # (Auto) 2.1 th/mm3 (1.0-4.8); Lymph % (Auto) 30.5 % (9.0-44.0); Mean Corpuscular HGB Conc 33.2 % (32.0-36.0); Mean Corpuscular Hemoglobin 28.4 pg (27.0-34.0); Mean Corpuscular Volume 85.4 fL (80.0-100.0); Mean Platelet Volume 7.9 fL (7.0-11.0); Mono # (Auto) 0.7 th/mm3 (0.0-0.9); Neut # (Auto) 3.7 th/mm3 (1.8-7.7); Neut % (Auto) 55.1 % (16.0-70.0); Platelet Count 333 th/mm3 (150-450); Red Blood Count 4.32 mil/mm3 (4.50-5.90); Red Cell Distribution Width 19.6 % (11.6-17.2); White Blood Count 6.7 th/mm3 (4.0-11.0)
[2018-11-01 07:28] LABS: Alanine Aminotransferase 198 U/L (12-78); Albumin 3.3 g/dL (3.4-5.0); Anion Gap 8 meq/L (5-15); Aspartate Aminotransferase 86 U/L (15-37); Blood Urea Nitrogen 13 mg/dL (7-18); Calcium 8.8 mg/dL (8.5-10.1); Carbon Dioxide 27.7 meq/L (21.0-32.0); Chloride 108 meq/L (98-107); Glomerular Filtration Rate Greater Than 89 mL/min (>89); Glucose,Random 77 mg/dL (74-106); Sodium 144 meq/L (136-145)
[2018-11-01 07:31] LABS: Alkaline Phosphatase 92 U/L (45-117); Total Protein 7.3 g/dL (6.4-8.2)
[2018-11-01] MEDS: Gabapentin 300 MG Capsule PO SCH ×3 (08:20→18:04)
[2018-11-01] MEDS: ALPRAZolam 0.25 MG Tablet PO PRN ×2 (08:20→18:05)
[2018-11-01] MEDS: Senna/Docusate Sodium 8.6/50 MG Tablet PO SCH ×2 (08:20→22:05)
[2018-11-01] MEDS: FLUoxetine 20 MG Capsule PO SCH (08:20)
[2018-11-01] MEDS: Lidocaine 5% Patch T-DERMAL SCH (08:21)
--- NOTE | 2018-11-01 11:43 | P.PNIM ---
Subjective Interval history: Follow-up for low back pain, MSSA, and IVDU. Patient seen and examined sitting on his chair, eating breakfast, stated he is feeling better. Patient stated he woke around 1 left last night however it increases the pain in his back so he stopped walking. Patient stated he still needs his pain medication, is been working good but he needed another one before 6 hours. Patient stated he wanted him to wean himself off the pain medications, and does not want to to the use of IV drugs anymore when he goes home. Patient stated he want to go to rehab however now the rehab will not take him because of his back infection. Patient stated the plan is for him to go to this rehab in [place] however they will not take him if he is on pain medication. Patient denies any headache or dizziness at this time, denies any chest pain or shortness of breath, denies any abdominal pain,diarrhea or constipation. Patient stated he had some nausea but no vomiting. Has been getting Zofran with it. Patient denies any fever however stated he had some chills at night. Nurse reported no acute concerns other than request for pain medication every 4 hours. Physical Exam Vital signs: Vital Signs 10/31/18 14:40 10/31/18 19:46 11/01/18 00:00 Temperature 97.9 F 98.2 F 97.6 F Pulse Rate 89 78 84 Respiratory Rate 20 14 20 Blood Pressure 106/56 L 118/74 93/55 L Pulse Oximetry 99 99 96 11/01/18 04:00 11/01/18 07:35 11/01/18 08:24 Temperature 98.0 F 98.2 F Pulse Rate 80 108 H Respiratory Rate 13 22 20 Blood Pressure 98/61 L 121/80 Pulse Oximetry 100 100 Intake & Output 10/31/18 11/01/18 11/01/18 18:59 06:59 18:59 Intake Total 310 / 310 300 / 300 100 / 100 Balance 310 / 310 300 / 300 100 / 100 Weight 74.8 kg Intake: IV 310 / 310 300 / 300 100 / 100 Prostaphlin Inj 2 GM In NS Inj 310 / 310 300 / 300 100 / 100 100 ML @ 200 mls/hr IV.SIG Q4H [facility] Rx#:[id number] Other: # Voids 4 3 Date of Last Bowel Movement 10/31/18 # Bowel Movements 1 Narrative: GENERAL: Well-developed, well-nourished, young male sitting in the chair in no acute distress SKIN: Warm and dry. HEAD: Atraumatic. Normocephalic. EYES: Pupils equal and round. No scleral icterus. No injection or drainage. ENT: No nasal bleeding or discharge. Mucous membranes pink and moist. NECK: Trachea midline. No JVD. CARDIOVASCULAR: Regular rate and rhythm. RESPIRATORY: No accessory muscle use. Clear to auscultation. Breath sounds equal bilaterally. GASTROINTESTINAL: Abdomen soft, non-tender, nondistended. Hepatic and splenic margins not palpable. MUSCULOSKELETAL: Extremities without clubbing, cyanosis, or edema. No obvious deformities. Some tenderness in lower back, no redness no edema. Lidocaine patch in place NEUROLOGICAL: Awake and alert. No obvious cranial nerve deficits. Motor grossly within normal limits. Five out of 5 muscle strength in the arms and legs. Normal speech. PSYCHIATRIC: Appropriate mood and affect; insight and judgment normal. Results Labs CBC & Chem 7: 11/01/18 06:16 11/01/18 06:16 Procedures Procedures: LISA Assessment and Plan (1) Staphylococcus aureus bacteremia: Code(s): R78.81 - Bacteremia Status: Acute (2) Discitis: Code(s): M46.40 - Discitis, unspecified, site unspecified Status: Acute (3) Intravenous drug abuse: Code(s): F19.10 - Other psychoactive substance abuse, uncomplicated Status: Chronic Plan This is a 28-year-old young male with a history of IV drug use who was initially admitted to the hospital on 09/21/2018 due to lower back pain as well as fever admitted to the hospital and has stayed since 09/26/18. Patient states he had a panic attack and asked his nurse if he is able to get out of his room and walk around. The nurse agreed to him that he is able to walk around the unit however the patient thought that he is able to get out of the unit and he started wandering all the way to the other building in the [place]. He was brought back to the unit by a nurse from [facility] but because he was out of the unit for quite some time they signed him off as leaving AGAINST MEDICAL ADVICE. Came back for readmission. MSSA bacteremia IVDU Discitis, T Spine Osteomyelitis Low back pain -Echo 60-65% ejection fraction, no endocarditis noted. -LISA : EF 60%l; negative for vegetation -Repeat Cultures continue to come back with staph aureus. Plan for prolonged antibiotic use. Unable to trust patient with IV access since he was even found to have illicit substance during hospitalization. Patient will also be unable to make it to the IV infusion center. Left AMA recently -Repeat blood cultures 10/05/18; no growth to date -Recommend weekly ESR/CRP. Call neurosurgery if neurologic deficit occurs. -10/11/17: Repeat MRI due to increasing complaint of pain. Thoracic spine MRI shows developing discitis at T9/T10 and T11/T12 with suspected osteomyelitis of the adjacent vertebrae at each level. Associated stenosis. No epidural abscess. -Reconsulted neurosurgery for evaluation -sx intervention still not indicated. -IR performed biopsy on 10/14; culture with NGTD -MR Thoracic Spine 10/22/18 : Stable examination with some bony edema in the vertebral bodies from T9 through T12. Some enhancement of the intervertebral discs at T9-T10 and T11-T12 are concerning for early discitis. No significant change from prior. Spinal canal remains patent without cord compromise. Cord signal is normal throughout. T1-T2: The thecal sac has a normal diameter. No evidence of disc bulge or protrusion. -weaned down Dilaudid, continue Percocet prn for pain, discussed pain management , patient agreed. Plan to wean down dose of pain medication -continue gabapentin, lidoderm patch, prn [place] and Robaxin prn, with bowel regimen - ID following, appreciate assistance. Recommended continue Oxacillin x 4 more weeks total of 8 weeks (estimated end date Nov 19, 2018) presuming ongoing clinical improvement, not a candidate for outpatient IV antibiotics secondary to IVDU status -monitor CBC, CMP, ESR and CRP weekly while on antbx -Discussed antibiotic course with patient and low back pain management. -No fever, with slightly elevated heart rate and low blood pressure last night, give IVF times 1 L IV drug use, heroin -Recent AMA in 09/26/19 -Monitor for withdrawals. -Clonidine patch to decrease anxiety. -Found to have illicit substance while in the inpatient setting - "heroin rock" , possible snorted vs injection, while inpatient. No visitors allowed. May have supervised visitation. D/W RN and charge nurse to move pt. closer to nurse' s station -education on IVDU cessation provided -Wean down on pain pain medication Depression/anxiety Hx of Panic attacks. -Patient states he use to take Xanax but no script in 2 years per [facility] -continue Prozac, Xanax prn and Atarax prn -Anxiety improving Hyperthyroidism -Elevated T4 with normal T3 and borderline low normal TSH. -Thyroid ultrasound ordered -normal -Hyperthyroidism possibly secondary to heroin use and/or hepatitis -No evidence of thyroid storm but may be contributing to anxiety -Euthyroid-recommending outpatient follow-up if not resolved on own -monitor TSH and T4 Elevated liver enzymes -AST/ALT increasing; noted to also be increased in historical labs done 12/20. -Hepatitis panel ordered -hep C reactive. Patient has no history of hepatitis treatment. -Full STI panel completed per patient request; HIV negative, RPR negative -Abdominal CT done 09/21 showed no abnormalities of liver. -Recommending outpatient follow-up; patient given information about [facility] Insomnia -Cont Ambien Full code. SCDs. Heparin Discharge Planning: NEEDS TO COMPLETE TREATMENT 8 weeks of abx (estimated end date Nov 19, 2018) NOT A SAFE DISCHARGE DUE TO HX OF AMA AND DRUG USE WHILE HERE IN HOSPITAL Progress Note: Quality VTE Deep Vein Thrombosis/Pulmonary Embolism Present on Admission: No _ (1) Discitis Qualifiers: Spinal region:
[2018-11-01] MEDS: Sodium Chloride 0.45 % Inj 1,000 ML IV.CONT SCH ×2 (16:14→22:09)
[2018-11-02] MEDS: oxyCODONE/Acetaminophen 10/325 Tablet PO PRN ×6 (01:00→23:18)
[2018-11-02] MEDS: ALPRAZolam 0.25 MG Tablet PO PRN ×2 (03:04→16:32)
[2018-11-02] MEDS: Methocarbamol 500 MG Tablet PO PRN ×2 (05:15→19:01)
[2018-11-02] MEDS: Heparin - SQ 10,000 UNITS/ML Vial SQ SCH ×2 (05:49→18:08)
[2018-11-02] MEDS: Sodium Chloride 0.45 % Inj 1,000 ML IV.CONT SCH ×2 (08:00→17:32)
[2018-11-02] MEDS: Lidocaine 5% Patch T-DERMAL SCH (09:17)
[2018-11-02] MEDS: Gabapentin 300 MG Capsule PO SCH ×3 (09:17→18:02)
[2018-11-02] MEDS: FLUoxetine 20 MG Capsule PO SCH (09:18)
[2018-11-02] MEDS: Senna/Docusate Sodium 8.6/50 MG Tablet PO SCH ×2 (09:18→21:12)
--- NOTE | 2018-11-02 12:00 | P.PNIM ---
Subjective Interval history: Follow-up for low back pain, MSSA, and IVDU. Patient resting in bed. Complains of back pain. RN states patients friend came to visit yesterday evening. According to staff this is the same friend who previously provided patient with heroin while in the hospital. RN states friend was escorted out fairly quickly. Patient reports night sweats that are not new in onset. Denies cough or fevers. Physical Exam Vital signs: Vital Signs 11/01/18 12:20 11/01/18 13:21 11/01/18 16:00 Temperature 98.0 F 98.8 F Pulse Rate 87 102 H Respiratory Rate 20 18 20 Blood Pressure 100/57 L 141/79 H Pulse Oximetry 99 100 11/01/18 17:16 11/01/18 20:00 11/02/18 00:00 Temperature 98.7 F 98.2 F Pulse Rate 95 H 102 H Respiratory Rate 19 20 20 Blood Pressure 128/77 121/71 Pulse Oximetry 98 98 11/02/18 04:00 11/02/18 07:05 11/02/18 09:26 Temperature 98.0 F 98.2 F Pulse Rate 97 H 79 Respiratory Rate 20 20 Blood Pressure 129/80 117/60 Pulse Oximetry 99 98 98 Intake & Output 11/01/18 11/02/18 11/02/18 18:59 06:59 18:59 Intake Total 300 / 300 300 / 300 100 / 100 Balance 300 / 300 300 / 300 100 / 100 Weight 74.2 kg Intake: IV 300 / 300 300 / 300 100 / 100 Prostaphlin Inj 2 GM In NS Inj 300 / 300 300 / 300 100 / 100 100 ML @ 200 mls/hr IV.SIG Q4H [facility] Rx#:[id number] Other: # Voids 2 Narrative: GENERAL: Well-developed, well-nourished, young male sitting in the chair in no acute distress SKIN: Warm and dry. HEAD: Atraumatic. Normocephalic. EYES: Pupils equal and round. No scleral icterus. No injection or drainage. ENT: No nasal bleeding or discharge. Mucous membranes pink and moist. NECK: Trachea midline. No JVD. CARDIOVASCULAR: Regular rate and rhythm. RESPIRATORY: No accessory muscle use. Clear to auscultation. Breath sounds equal bilaterally. GASTROINTESTINAL: Abdomen soft, non-tender, nondistended. Hepatic and splenic margins not palpable. MUSCULOSKELETAL: Extremities without clubbing, cyanosis, or edema. No obvious deformities. Some tenderness in lower back, no redness no edema. Lidocaine patch in place NEUROLOGICAL: Awake and alert. No obvious cranial nerve deficits. Motor grossly within normal limits. Five out of 5 muscle strength in the arms and legs. Normal speech. PSYCHIATRIC: Appropriate mood and affect; insight and judgment normal. Results Labs CBC & Chem 7: 11/01/18 06:16 11/01/18 06:16 Procedures Procedures: LISA Assessment and Plan (1) Staphylococcus aureus bacteremia: Code(s): R78.81 - Bacteremia Status: Acute (2) Discitis: Code(s): M46.40 - Discitis, unspecified, site unspecified Status: Acute (3) Intravenous drug abuse: Code(s): F19.10 - Other psychoactive substance abuse, uncomplicated Status: Chronic Plan 28-year-old male with a history of IV drug use who was initially admitted to the hospital on 09/21/2018 due to lower back pain as well as fever admitted to the hospital and has stayed since 09/26/18. Patient states he had a panic attack and asked his nurse if he is able to get out of his room and walk around. The nurse agreed to him that he is able to walk around the unit however the patient thought that he is able to get out of the unit and he started wandering all the way to the other building in the [place]. He was brought back to the unit by a nurse from [facility] but because he was out of the unit for quite some time they signed him off as leaving AGAINST MEDICAL ADVICE. Came back for readmission. MSSA bacteremia IVDU Discitis -Neurosurgery consulted and signed off. ID consulted and following. -09/23/18 Thoracic MRI showed diffuse mild epidural enhancement involving the mid to lower thoracic canal on examination. -Echo 60-65% ejection fraction, no endocarditis noted. -LISA was done showing normal LV size, wall thickness and systolic function, EF 60%; negative for vegetation Percocet for pain control, IV morphine for breakthrough pain with bowel regimen -Repeat Cultures kept coming back with staph aureus. Plan for prolonged antibiotic use. Unable to trust patient with IV access since he was even found to have illicit substance during hospitalization. Patient will also be unable to make it to the IV infusion center. Left AMA recently. -blood cultures 10/11/18 clear -IV oxacillin as per previous ID recommendation, likely duration 8 weeks -Neurosurgery has seen and evaluated the patient. Recommend continued infectious workup. MRI of the spine without any abscess. No surgical intervention for now. -Recommend weekly ESR/CRP. To call neurosurgery if neurologic deficit occurs. Patient currently is ambulatory -Sed rate 18 (11/01/18), CRP 1.3 (11/01/18) IV drug use, heroin -Monitor for withdrawals -Clonidine patch to decrease anxiety. -Found to have illicit substance while in the inpatient setting - "heroin rock" , possible snorted vs injection, while inpatient. No visitors allowed. May have supervised visitation. D/W RN and charge nurse to move pt. closer to nurse' s station -Continues with drug seeking behavior, discussed with pt at length, meds will not be increased and will be slowly weaned down. Fungal rash vs drug rash -urticaria underneath left armpit and right forearm -Miconazole cream BID to affected area Depression/anxiety Hx of Panic attacks. -Prozac daily -Patient states he use to take Xanax but no script in 2 years per [facility] -Xanax 0.25 mg PO q 8 PRN anxiety. Insomnia -Cont Ambien PRN-inc to 10 mg PO q hs Full code. SCDs. Heparin Labs reviewed Again, discussed with pt at length need for compliance. Not sure he will stay to complete treatment, he has been warned about the consequences of not completing treatment including sepsis, paralysis, poss . MDM: self Code Status: FULL CODE DVT ppx: Heparin Subcu Discussed Condition With: RN AND PT Discharge Planning: NEEDS TO COMPLETE TREATMENT 8 weeks of abx NOT A SAFE DISCHARGE DUE TO HX OF AMA AND USING WHILE HERE IN HOSPITAL Progress Note: Quality VTE Deep Vein Thrombosis/Pulmonary Embolism Present on Admission: No _ (1) Discitis Qualifiers: Spinal region:
[2018-11-02] MEDS: Miconazole 2% Cream 15 GM Tube TOPICAL SCH (21:11)
[2018-11-03] MEDS: ALPRAZolam 0.25 MG Tablet PO PRN ×3 (00:44→18:55)
[2018-11-03] MEDS: Sodium Chloride 0.45 % Inj 1,000 ML IV.CONT SCH ×2 (03:38→14:11)
[2018-11-03] MEDS: oxyCODONE/Acetaminophen 10/325 Tablet PO PRN ×5 (03:50→22:12)
[2018-11-03] MEDS: Heparin - SQ 10,000 UNITS/ML Vial SQ SCH ×2 (05:23→18:17)
[2018-11-03] MEDS: FLUoxetine 20 MG Capsule PO SCH (08:02)
[2018-11-03] MEDS: Senna/Docusate Sodium 8.6/50 MG Tablet PO SCH ×2 (08:02→22:13)
[2018-11-03] MEDS: Methocarbamol 500 MG Tablet PO PRN ×2 (08:02→18:55)
[2018-11-03] MEDS: Gabapentin 300 MG Capsule PO SCH ×3 (08:02→17:46)
[2018-11-03] MEDS: Miconazole 2% Cream 15 GM Tube TOPICAL SCH ×2 (08:03→22:15)
[2018-11-03] MEDS: Lidocaine 5% Patch T-DERMAL SCH (08:03)
--- NOTE | 2018-11-03 13:25 | P.PNIM ---
Subjective Interval history: Follow-up for low back pain, MSSA, and IVDU. Patient complains of back pain. He is requesting for his Mother to be able to come and visit. Discussed with patient and charge nurse at bedside that he would be able to have his Mother come and visit supervised. He is in agreement with plan of care. Physical Exam Vital signs: Vital Signs 11/02/18 16:00 11/02/18 17:30 11/02/18 20:00 Temperature 98.1 F 97.9 F Pulse Rate 92 H 103 H Respiratory Rate 20 18 20 Blood Pressure 95/53 L 121/77 Pulse Oximetry 99 98 11/03/18 00:00 11/03/18 04:00 11/03/18 07:05 Temperature 97.9 F 97.6 F 97.2 F L Pulse Rate 90 70 113 H Respiratory Rate 17 20 20 Blood Pressure 111/66 105/61 124/58 L Pulse Oximetry 98 99 97 11/03/18 09:05 Temperature Pulse Rate Respiratory Rate 18 Blood Pressure Pulse Oximetry Intake & Output 11/02/18 11/03/18 11/03/18 18:59 06:59 18:59 Intake Total 1080 / 1080 400 / 400 100 / 100 Balance 1080 / 1080 400 / 400 100 / 100 Weight 72 kg Intake: IV 200 / 200 400 / 400 100 / 100 Prostaphlin Inj 2 GM In NS Inj 200 / 200 400 / 400 100 / 100 100 ML @ 200 mls/hr IV.SIG Q4H [facility] Rx#:[id number] Oral 880 / 880 Other: # Voids 4 4 Date of Last Bowel Movement 11/02/18 # Bowel Movements 1 Narrative: GENERAL: Well-developed, well-nourished, young male sitting in the chair in no acute distress SKIN: Warm and dry. HEAD: Atraumatic. Normocephalic. EYES: Pupils equal and round. No scleral icterus. No injection or drainage. ENT: No nasal bleeding or discharge. Mucous membranes pink and moist. NECK: Trachea midline. No JVD. CARDIOVASCULAR: Regular rate and rhythm. RESPIRATORY: No accessory muscle use. Clear to auscultation. Breath sounds equal bilaterally. GASTROINTESTINAL: Abdomen soft, non-tender, nondistended. Hepatic and splenic margins not palpable. MUSCULOSKELETAL: Extremities without clubbing, cyanosis, or edema. No obvious deformities. Some tenderness in lower back, no redness no edema. Lidocaine patch in place NEUROLOGICAL: Awake and alert. No obvious cranial nerve deficits. Motor grossly within normal limits. Five out of 5 muscle strength in the arms and legs. Normal speech. PSYCHIATRIC: Appropriate mood and affect; insight and judgment normal. Results Labs CBC & Chem 7: 11/01/18 06:16 11/01/18 06:16 Procedures Procedures: LISA Assessment and Plan (1) Staphylococcus aureus bacteremia: Code(s): R78.81 - Bacteremia Status: Acute (2) Discitis: Code(s): M46.40 - Discitis, unspecified, site unspecified Status: Acute (3) Intravenous drug abuse: Code(s): F19.10 - Other psychoactive substance abuse, uncomplicated Status: Chronic Plan 28-year-old male with a history of IV drug use who was initially admitted to the hospital on 09/21/2018 due to lower back pain as well as fever admitted to the hospital and has stayed since 09/26/18. Patient states he had a panic attack and asked his nurse if he is able to get out of his room and walk around. The nurse agreed to him that he is able to walk around the unit however the patient thought that he is able to get out of the unit and he started wandering all the way to the other building in the [place]. He was brought back to the unit by a nurse from [facility] but because he was out of the unit for quite some time they signed him off as leaving AGAINST MEDICAL ADVICE. Came back for readmission. MSSA bacteremia IVDU Discitis -ID consulted and following. -09/23/18 Thoracic MRI showed diffuse mild epidural enhancement involving the mid to lower thoracic canal on examination. -Echo 60-65% ejection fraction, no endocarditis noted. -LISA was done showing normal LV size, wall thickness and systolic function, EF 60%; negative for vegetation Percocet PRN for pain control -Repeat Cultures kept coming back with staph aureus. Plan for prolonged antibiotic use. -blood cultures 10/11/18 clear -IV oxacillin as per previous ID recommendation, likely duration 8 weeks -Neurosurgery has seen and evaluated the patient. Recommend continued infectious workup. MRI of the spine without any abscess. No surgical intervention for now. -Recommend weekly ESR/CRP. To call neurosurgery if neurologic deficit occurs. Patient currently is ambulatory -Sed rate 18 (11/01/18), CRP 1.3 (11/01/18) IV drug use, heroin -Monitor for withdrawals -Clonidine patch to decrease anxiety. -Found to have illicit substance while in the inpatient setting - "heroin rock" , possible snorted vs injection, while inpatient. No visitors allowed. May have supervised visitation. D/W RN and charge nurse to move pt. closer to nurse' s station -Continues with drug seeking behavior, discussed with pt at length, meds will not be increased and will be slowly weaned down. Fungal rash vs drug rash -urticaria underneath left armpit and right forearm -Miconazole cream BID to affected area -Nystatin powder armpit Depression/anxiety Hx of Panic attacks. -Prozac daily -Patient states he use to take Xanax but no script in 2 years per [facility] -Xanax 0.25 mg PO q 8 PRN anxiety. Insomnia -Cont Ambien PRN-inc to 10 mg PO q hs Full code. SCDs. Heparin Labs reviewed Again, discussed with pt at length need for compliance. Not sure he will stay to complete treatment, he has been warned about the consequences of not completing treatment including sepsis, paralysis, poss . MDM: self Code Status: FULL CODE DVT ppx: Heparin Subcu Discussed Condition With: RN AND PT Discharge Planning: NEEDS TO COMPLETE TREATMENT 8 weeks of abx NOT A SAFE DISCHARGE DUE TO HX OF AMA AND USING WHILE HERE IN HOSPITAL Progress Note: Quality VTE Deep Vein Thrombosis/Pulmonary Embolism Present on Admission: No _ (1) Discitis Qualifiers: Spinal region:
[2018-11-03] MEDS: Nystatin 100,000 UNITS/GM Powder 15 GM Bottle TOPICAL SCH ×2 (14:44→22:12)
[2018-11-04] MEDS: Sodium Chloride 0.45 % Inj 1,000 ML IV.CONT SCH ×3 (00:19→20:59)
[2018-11-04] MEDS: oxyCODONE/Acetaminophen 10/325 Tablet PO PRN ×5 (02:53→20:56)
[2018-11-04] MEDS: Heparin - SQ 10,000 UNITS/ML Vial SQ SCH ×2 (05:18→17:23)
[2018-11-04] MEDS: ALPRAZolam 0.25 MG Tablet PO PRN ×2 (06:53→18:28)
[2018-11-04] MEDS: Methocarbamol 500 MG Tablet PO PRN ×3 (06:53→18:28)
[2018-11-04] MEDS: Lidocaine 5% Patch T-DERMAL SCH (08:42)
[2018-11-04] MEDS: FLUoxetine 20 MG Capsule PO SCH (08:43)
[2018-11-04] MEDS: Senna/Docusate Sodium 8.6/50 MG Tablet PO SCH ×2 (08:43→20:56)
[2018-11-04] MEDS: Miconazole 2% Cream 15 GM Tube TOPICAL SCH ×2 (08:44→21:00)
[2018-11-04] MEDS: Gabapentin 300 MG Capsule PO SCH ×3 (08:44→18:28)
[2018-11-04] MEDS: Nystatin 100,000 UNITS/GM Powder 15 GM Bottle TOPICAL SCH ×2 (09:00→21:00)
--- NOTE | 2018-11-04 10:14 | P.PNIM ---
Subjective Interval history: Follow-up for low back pain, MSSA, and IVDU Patient resting in bed. He complains of back pain. States he was able to visit with his Mother yesterday evening for a short while. Expresses concern over his spine infection. Patient encouraged to remain in the hospital for duration of antibiotic treatment and to refrain from using illicit drugs. He verbalized understanding. Physical Exam Vital signs: Vital Signs 11/03/18 12:10 11/03/18 16:05 11/03/18 18:16 Temperature 97.6 F 96.1 F L Pulse Rate 99 H 99 H Respiratory Rate 20 20 18 Blood Pressure 121/65 117/79 Pulse Oximetry 98 99 11/03/18 20:00 11/04/18 00:05 11/04/18 00:10 Temperature 97.8 F 98.3 F Pulse Rate 97 H 94 H Respiratory Rate 20 20 8 L Blood Pressure 135/85 113/65 Pulse Oximetry 98 96 11/04/18 04:05 11/04/18 07:20 Temperature 97.4 F L 97.4 F L Pulse Rate 83 115 H Respiratory Rate 20 20 Blood Pressure 99/57 L 122/77 Pulse Oximetry 96 99 Intake & Output 11/03/18 11/04/18 11/04/18 18:59 06:59 18:59 Intake Total 1180 / 1180 300 / 300 Balance 1180 / 1180 300 / 300 Weight 72.5 kg Intake: IV 300 / 300 300 / 300 Prostaphlin Inj 2 GM In NS Inj 300 / 300 300 / 300 100 ML @ 200 mls/hr IV.SIG Q4H [facility] Rx#:[id number] Oral 880 / 880 Other: # Voids 5 3 # Bowel Movements 1 Narrative: GENERAL: Well-developed, well-nourished, young male lying in bed, no acute distress SKIN: Warm and dry. HEAD: Atraumatic. Normocephalic. EYES: Pupils equal and round. No scleral icterus. No injection or drainage. ENT: No nasal bleeding or discharge. Mucous membranes pink and moist. NECK: Trachea midline. No JVD. CARDIOVASCULAR: Regular rate and rhythm. RESPIRATORY: No accessory muscle use. Clear to auscultation. Breath sounds equal bilaterally. GASTROINTESTINAL: Abdomen soft, non-tender, nondistended. MUSCULOSKELETAL: Extremities without clubbing, cyanosis, or edema. No obvious deformities. Some tenderness in lower back, no redness no edema. NEUROLOGICAL: Awake and alert. No obvious cranial nerve deficits. Motor grossly within normal limits. Five out of 5 muscle strength in the arms and legs. Normal speech. PSYCHIATRIC: Appropriate mood and affect; insight and judgment normal. Results Labs CBC & Chem 7: 11/01/18 06:16 11/01/18 06:16 Procedures Procedures: LISA Assessment and Plan (1) Staphylococcus aureus bacteremia: Code(s): R78.81 - Bacteremia Status: Acute (2) Discitis: Code(s): M46.40 - Discitis, unspecified, site unspecified Status: Acute (3) Intravenous drug abuse: Code(s): F19.10 - Other psychoactive substance abuse, uncomplicated Status: Chronic Plan 28-year-old male with a history of IV drug use who was initially admitted to the hospital on 09/21/2018 due to lower back pain as well as fever admitted to the hospital and has stayed since 09/26/18. Patient states he had a panic attack and asked his nurse if he is able to get out of his room and walk around. The nurse agreed to him that he is able to walk around the unit however the patient thought that he is able to get out of the unit and he started wandering all the way to the other building in the [place]. He was brought back to the unit by a nurse from [facility] but because he was out of the unit for quite some time they signed him off as leaving AGAINST MEDICAL ADVICE. Came back for readmission. MSSA bacteremia IVDU Discitis -ID consulted and following. -09/23/18 Thoracic MRI showed diffuse mild epidural enhancement involving the mid to lower thoracic canal on examination. -Echo 60-65% ejection fraction, no endocarditis noted. -LISA was done showing normal LV size, wall thickness and systolic function, EF 60%; negative for vegetation Percocet PRN for pain control, Robaxin PRN -repeat Cultures kept coming back with staph aureus. Plan for prolonged antibiotic use. -blood cultures 10/11/18 clear -IV oxacillin as per previous ID recommendation, likely duration 8 weeks -Neurosurgery has seen and evaluated the patient. Recommend continued infectious workup. MRI of the spine without any abscess. No surgical intervention for now. -Recommend weekly ESR/CRP. To call neurosurgery if neurologic deficit occurs. Patient currently ambulatory. -Sed rate 18 (11/01/18), CRP 1.3 (11/01/18) IV drug use, heroin -Monitor for withdrawals -Clonidine patch to decrease anxiety. -Found to have illicit substance while in the inpatient setting - "heroin rock" , possible snorted vs injection, while inpatient. No visitors allowed. May have supervised visitation. D/W RN and charge nurse to move pt. closer to nurse' s station -Continues with drug seeking behavior, discussed with pt at length, meds will not be increased and will be slowly weaned down. Fungal rash vs drug rash - improved -urticaria underneath left armpit and right forearm -Miconazole cream BID to affected area (forearm) -Nystatin powder armpit Depression/anxiety Hx of Panic attacks. -Prozac daily -Patient states he use to take Xanax but no script in 2 years per [facility] -Xanax 0.25 mg PO q 8 PRN anxiety. Insomnia -Cont Ambien PRN-inc to 10 mg PO q hs Full code. SCDs. Heparin Labs reviewed Again, discussed with pt at length need for compliance. Not sure he will stay to complete treatment, he has been warned about the consequences of not completing treatment including sepsis, paralysis, poss . MDM: self Code Status: FULL CODE DVT ppx: Heparin Subcu Discussed Condition With: RN AND PT Discharge Planning: NEEDS TO COMPLETE TREATMENT 8 weeks of abx NOT A SAFE DISCHARGE DUE TO HX OF AMA AND USING WHILE HERE IN HOSPITAL Progress Note: Quality VTE Deep Vein Thrombosis/Pulmonary Embolism Present on Admission: No _ (1) Discitis Qualifiers: Spinal region:
[2018-11-05] MEDS: oxyCODONE/Acetaminophen 10/325 Tablet PO PRN ×6 (01:03→21:32)
[2018-11-05] MEDS: ALPRAZolam 0.25 MG Tablet PO PRN ×2 (05:33→21:33)
[2018-11-05] MEDS: Methocarbamol 500 MG Tablet PO PRN ×3 (05:33→21:34)
[2018-11-05] MEDS: Heparin - SQ 10,000 UNITS/ML Vial SQ SCH ×2 (06:23→18:30)
[2018-11-05] MEDS: Sodium Chloride 0.45 % Inj 1,000 ML IV.CONT SCH ×2 (06:23→21:23)
[2018-11-05] MEDS: Lidocaine 5% Patch T-DERMAL SCH (09:00)
[2018-11-05] MEDS: Miconazole 2% Cream 15 GM Tube TOPICAL SCH ×2 (09:00→21:24)
[2018-11-05] MEDS: Nystatin 100,000 UNITS/GM Powder 15 GM Bottle TOPICAL SCH ×2 (09:00→21:24)
[2018-11-05] MEDS: FLUoxetine 20 MG Capsule PO SCH (09:17)
[2018-11-05] MEDS: Senna/Docusate Sodium 8.6/50 MG Tablet PO SCH ×2 (09:17→21:32)
[2018-11-05] MEDS: Gabapentin 300 MG Capsule PO SCH ×3 (09:17→17:42)
--- NOTE | 2018-11-05 09:25 | P.PNIM ---
Subjective Interval history: Follow-up for low back pain, MSSA, and IVDU Patient is sitting up in bed eating. He reports back pain that is currently controlled. No acute events overnight. Good appetite, tolerating PO intake. Physical Exam Vital signs: Vital Signs 11/04/18 11:10 11/04/18 15:35 11/04/18 20:00 Temperature 97.6 F 97.9 F Pulse Rate 82 88 Respiratory Rate 20 20 20 Blood Pressure 110/64 101/56 L Pulse Oximetry 97 96 11/04/18 20:05 11/05/18 00:05 11/05/18 04:05 Temperature 98.7 F 98.2 F 98 F Pulse Rate 92 H 83 Respiratory Rate 20 20 20 Blood Pressure 114/69 111/61 104/60 Pulse Oximetry 96 96 96 11/05/18 06:23 Temperature Pulse Rate Respiratory Rate 20 Blood Pressure Pulse Oximetry Intake & Output 11/04/18 11/05/18 11/05/18 18:59 06:59 18:59 Intake Total 1080 / 1080 842 / 842 Balance 1080 / 1080 842 / 842 Weight 72.8 kg Intake: IV 200 / 200 400 / 400 Prostaphlin Inj 2 GM In NS Inj 200 / 200 400 / 400 100 ML @ 200 mls/hr IV.SIG Q4H [facility] Rx#:[id number] Oral 880 / 880 442 / 442 Other: # Voids 4 3 Date of Last Bowel Movement 11/02/18 11/03/18 Narrative: GENERAL: Well-developed, well-nourished, young male lying in bed, no acute distress SKIN: Warm and dry. HEAD: Atraumatic. Normocephalic. EYES: Pupils equal and round. No scleral icterus. No injection or drainage. ENT: No nasal bleeding or discharge. Mucous membranes pink and moist. NECK: Trachea midline. No JVD. CARDIOVASCULAR: Regular rate and rhythm. RESPIRATORY: No accessory muscle use. Clear to auscultation. Breath sounds equal bilaterally. GASTROINTESTINAL: Abdomen soft, non-tender, nondistended. MUSCULOSKELETAL: Extremities without clubbing, cyanosis, or edema. No obvious deformities. Some tenderness in lower back, no redness no edema. NEUROLOGICAL: Awake and alert. No obvious cranial nerve deficits. Motor grossly within normal limits. Five out of 5 muscle strength in the arms and legs. Normal speech. PSYCHIATRIC: Appropriate mood and affect; insight and judgment normal. Results Labs CBC & Chem 7: 11/01/18 06:16 11/01/18 06:16 Labs: Microbiology 10/14/18 16:15 Tissue - Other Fungal Smear - Final No fungal elements seen 10/14/18 16:15 Tissue - Other Fungal Culture - Preliminary No growth in 3 weeks 10/14/18 16:15 Other Acid Fast Bacilli Smear - Final No acid fast bacilli seen 10/14/18 16:15 Other Mycobacterial Culture - Preliminary No growth in 3 weeks Procedures Procedures: LISA Assessment and Plan (1) Staphylococcus aureus bacteremia: Code(s): R78.81 - Bacteremia Status: Acute (2) Discitis: Code(s): M46.40 - Discitis, unspecified, site unspecified Status: Acute (3) Intravenous drug abuse: Code(s): F19.10 - Other psychoactive substance abuse, uncomplicated Status: Chronic Plan 28-year-old male with a history of IV drug use who was initially admitted to the hospital on 09/21/2018 due to lower back pain as well as fever admitted to the hospital and has stayed since 09/26/18. Patient states he had a panic attack and asked his nurse if he is able to get out of his room and walk around. The nurse agreed to him that he is able to walk around the unit however the patient thought that he is able to get out of the unit and he started wandering all the way to the other building in the [place]. He was brought back to the unit by a nurse from [facility] but because he was out of the unit for quite some time they signed him off as leaving AGAINST MEDICAL ADVICE. Came back for readmission. Evaluated 11/05/18 - reviewed treatment plan and no changes needed at present time. MSSA bacteremia IVDU Discitis -ID consulted and following. -09/23/18 Thoracic MRI showed diffuse mild epidural enhancement involving the mid to lower thoracic canal on examination. -Echo 60-65% ejection fraction, no endocarditis noted. -LISA was done showing normal LV size, wall thickness and systolic function, EF 60%; negative for vegetation -Percocet PRN for pain control, Robaxin PRN -repeat Cultures kept coming back with staph aureus. Plan for prolonged antibiotic use. -blood cultures 10/11/18 clear -IV oxacillin as per previous ID recommendation, likely duration 8 weeks -Neurosurgery has seen and evaluated the patient. Recommend continued infectious workup. MRI of the spine without any abscess. No surgical intervention for now. -Recommend weekly ESR/CRP. To call neurosurgery if neurologic deficit occurs. Patient currently ambulatory. -Sed rate 18 (11/01/18), CRP 1.3 (11/01/18) IV drug use, heroin -Monitor for withdrawals -Clonidine patch to decrease anxiety. -Found to have illicit substance while in the inpatient setting - "heroin rock" , possible snorted vs injection, while inpatient. No visitors allowed. May have supervised visitation. D/W RN and charge nurse to move pt. closer to nurse' s station -Continues with drug seeking behavior, discussed with pt at length, meds will not be increased and will be slowly weaned down. Fungal rash vs drug rash - improved -urticaria underneath left armpit and right forearm -Miconazole cream BID to affected area (forearm) -Nystatin powder armpit Depression/anxiety Hx of Panic attacks. -Prozac daily -Patient states he use to take Xanax but no script in 2 years per [facility] -Xanax 0.25 mg PO q 8 PRN anxiety. Insomnia -Cont Ambien PRN-inc to 10 mg PO q hs Full code. SCDs. Heparin Labs reviewed Again, discussed with pt at length need for compliance. Not sure he will stay to complete treatment, he has been warned about the consequences of not completing treatment including sepsis, paralysis, poss . MDM: self Code Status: FULL CODE DVT ppx: Heparin Subcu Discussed Condition With: RN AND PT Discharge Planning: NEEDS TO COMPLETE TREATMENT 8 weeks of abx NOT A SAFE DISCHARGE DUE TO HX OF AMA AND USING WHILE HERE IN HOSPITAL Progress Note: Quality VTE Deep Vein Thrombosis/Pulmonary Embolism Present on Admission: No _ (1) Discitis Qualifiers: Spinal region:
[2018-11-06] MEDS: oxyCODONE/Acetaminophen 10/325 Tablet PO PRN ×5 (01:30→20:27)
[2018-11-06] MEDS: Sodium Chloride 0.45 % Inj 1,000 ML IV.CONT SCH ×3 (01:54→22:13)
[2018-11-06] MEDS: ALPRAZolam 0.25 MG Tablet PO PRN ×3 (05:33→23:28)
[2018-11-06] MEDS: Heparin - SQ 10,000 UNITS/ML Vial SQ SCH ×2 (06:10→18:28)
[2018-11-06] MEDS: Lidocaine 5% Patch T-DERMAL SCH (10:07)
[2018-11-06] MEDS: Gabapentin 300 MG Capsule PO SCH ×3 (10:08→17:44)
[2018-11-06] MEDS: FLUoxetine 20 MG Capsule PO SCH (10:08)
[2018-11-06] MEDS: Senna/Docusate Sodium 8.6/50 MG Tablet PO SCH ×2 (10:08→20:26)
[2018-11-06] MEDS: Nystatin 100,000 UNITS/GM Powder 15 GM Bottle TOPICAL SCH ×2 (10:09→20:32)
[2018-11-06] MEDS: Miconazole 2% Cream 15 GM Tube TOPICAL SCH ×2 (10:09→20:33)
[2018-11-06] MEDS: Methocarbamol 500 MG Tablet PO PRN ×3 (10:10→23:28)
--- NOTE | 2018-11-06 12:55 | P.PNIM ---
Subjective Interval history: Follow-up for low back pain, MSSA, and IVDU Patient is sitting up in a recliner chair. He reports pulsating back pain and states that his back pain seems worse. He states the night nurse told him to ask for a CT of his back. No neurological deficits noted. Patient able to move all extremities. Sitting in chair with leg crossed over his other knee. No distress noted. Patient denies difficulty ambulating. No numbness or tingling to any of his extremities. No fevers or chills. Physical Exam Vital signs: Vital Signs 11/05/18 15:54 11/05/18 20:00 11/06/18 00:00 Temperature 98.4 F 98.1 F 98.3 F Pulse Rate 78 90 91 H Respiratory Rate 18 20 20 Blood Pressure 116/70 127/79 103/60 Pulse Oximetry 91 L 99 98 11/06/18 04:00 11/06/18 07:19 11/06/18 10:48 Temperature 97.7 F 98.1 F Pulse Rate 85 76 Respiratory Rate 20 18 18 Blood Pressure 103/64 118/59 L Pulse Oximetry 92 L 98 11/06/18 12:14 Temperature 98.2 F Pulse Rate 77 Respiratory Rate 18 Blood Pressure 109/75 Pulse Oximetry 97 Intake & Output 11/05/18 11/06/18 11/06/18 18:59 06:59 18:59 Intake Total 300 / 300 1184 / 1184 100 / 100 Balance 300 / 300 1184 / 1184 100 / 100 Weight 72.5 kg Intake: IV 300 / 300 300 / 300 100 / 100 Prostaphlin Inj 2 GM In NS Inj 300 / 300 300 / 300 100 / 100 100 ML @ 200 mls/hr IV.SIG Q4H [facility] Rx#:[id number] Oral 884 / 884 Other: # Voids 4 Date of Last Bowel Movement 11/03/18 11/04/18 11/03/18 Narrative: GENERAL: Well-developed, well-nourished, young male lying in bed, no acute distress SKIN: Warm and dry. HEAD: Atraumatic. Normocephalic. EYES: Pupils equal and round. No scleral icterus. No injection or drainage. ENT: No nasal bleeding or discharge. Mucous membranes pink and moist. NECK: Trachea midline. No JVD. CARDIOVASCULAR: Regular rate and rhythm. RESPIRATORY: No accessory muscle use. Clear to auscultation. Breath sounds equal bilaterally. GASTROINTESTINAL: Abdomen soft, non-tender, nondistended. MUSCULOSKELETAL: Extremities without clubbing, cyanosis, or edema. No obvious deformities. Some tenderness in lower back, no redness no edema. NEUROLOGICAL: Awake and alert. No obvious cranial nerve deficits. Motor grossly within normal limits. Five out of 5 muscle strength in the arms and legs. Normal speech. PSYCHIATRIC: Appropriate mood and affect; insight and judgment normal. Results Labs CBC & Chem 7: 11/01/18 06:16 11/01/18 06:16 Procedures Procedures: LISA Assessment and Plan (1) Staphylococcus aureus bacteremia: Code(s): R78.81 - Bacteremia Status: Acute (2) Discitis: Code(s): M46.40 - Discitis, unspecified, site unspecified Status: Acute (3) Intravenous drug abuse: Code(s): F19.10 - Other psychoactive substance abuse, uncomplicated Status: Chronic Plan 28-year-old male with a history of IV drug use who was initially admitted to the hospital on 09/21/2018 due to lower back pain as well as fever admitted to the hospital and has stayed since 09/26/18. Patient states he had a panic attack and asked his nurse if he is able to get out of his room and walk around. The nurse agreed to him that he is able to walk around the unit however the patient thought that he is able to get out of the unit and he started wandering all the way to the other building in the [place]. He was brought back to the unit by a nurse from [facility] but because he was out of the unit for quite some time they signed him off as leaving AGAINST MEDICAL ADVICE. Came back for readmission. Evaluated 11/06/18 - reviewed treatment plan and no changes needed at present time. MSSA bacteremia IVDU Discitis -ID consulted and following. -09/23/18 Thoracic MRI showed diffuse mild epidural enhancement involving the mid to lower thoracic canal on examination. -Echo 60-65% ejection fraction, no endocarditis noted. -LISA was done showing normal LV size, wall thickness and systolic function, EF 60%; negative for vegetation -Percocet PRN for pain control, Robaxin PRN -repeat Cultures kept coming back with staph aureus. Plan for prolonged antibiotic use. -blood cultures 10/11/18 clear -IV oxacillin as per previous ID recommendation, likely duration 8 weeks -Neurosurgery has seen and evaluated the patient. Recommend continued infectious workup. MRI of the spine without any abscess. No surgical intervention for now. -Recommend weekly ESR/CRP. To call neurosurgery if neurologic deficit occurs. Patient currently ambulatory. -Sed rate 18 (11/01/18), CRP 1.3 (11/01/18) IV drug use, heroin -Monitor for withdrawals -Clonidine patch to decrease anxiety. -Found to have illicit substance while in the inpatient setting - "heroin rock" , possible snorted vs injection, while inpatient. No visitors allowed. May have supervised visitation. D/W RN and charge nurse to move pt. closer to nurse' s station -Continues with drug seeking behavior, discussed with pt at length, meds will not be increased and will be slowly weaned down. Fungal rash vs drug rash - improved -urticaria underneath left armpit and right forearm -Miconazole cream BID to affected area (forearm) -Nystatin powder armpit Depression/anxiety Hx of Panic attacks. -Prozac daily -Patient states he use to take Xanax but no script in 2 years per [facility] -Xanax 0.25 mg PO q 8 PRN anxiety. Insomnia -Cont Ambien PRN-inc to 10 mg PO q hs Full code. SCDs. Heparin Labs reviewed Again, discussed with pt at length need for compliance. Not sure he will stay to complete treatment, he has been warned about the consequences of not completing treatment including sepsis, paralysis, poss . MDM: self Code Status: FULL CODE DVT ppx: Heparin Subcu Discussed Condition With: RN AND PT Discharge Planning: NEEDS TO COMPLETE TREATMENT 8 weeks of abx NOT A SAFE DISCHARGE DUE TO HX OF AMA AND USING WHILE HERE IN HOSPITAL Progress Note: Quality VTE Deep Vein Thrombosis/Pulmonary Embolism Present on Admission: No _ (1) Discitis Qualifiers: Spinal region:
[2018-11-07] MEDS: oxyCODONE/Acetaminophen 10/325 Tablet PO PRN ×5 (00:35→20:16)
[2018-11-07] MEDS: Heparin - SQ 10,000 UNITS/ML Vial SQ SCH ×2 (06:30→20:17)
[2018-11-07] MEDS: Sodium Chloride 0.45 % Inj 1,000 ML IV.CONT SCH ×2 (07:21→17:54)
[2018-11-07] MEDS: Gabapentin 300 MG Capsule PO SCH ×3 (09:53→18:05)
[2018-11-07] MEDS: Methocarbamol 500 MG Tablet PO PRN ×3 (09:53→20:12)
[2018-11-07] MEDS: FLUoxetine 20 MG Capsule PO SCH (09:54)
[2018-11-07] MEDS: Nystatin 100,000 UNITS/GM Powder 15 GM Bottle TOPICAL SCH ×2 (09:54→20:18)
[2018-11-07] MEDS: Lidocaine 5% Patch T-DERMAL SCH (09:54)
[2018-11-07] MEDS: Senna/Docusate Sodium 8.6/50 MG Tablet PO SCH ×2 (09:54→20:12)
[2018-11-07] MEDS: Miconazole 2% Cream 15 GM Tube TOPICAL SCH ×2 (09:54→20:18)
[2018-11-07] MEDS: ALPRAZolam 0.25 MG Tablet PO PRN ×2 (11:13→20:12)
--- NOTE | 2018-11-07 14:24 | P.PNIM ---
Subjective Interval history: Follow-up for low back pain, MSSA, and IVDU Patient lying in bed using facebook on his phone. He does not appear to be in any distress. Patient states he continues to experience pain in his back. He received Ibuprofen yesterday and states that really helped. Tolerating diet. No cough, fevers or chills. Physical Exam Vital signs: Vital Signs 11/06/18 15:23 11/06/18 16:19 11/06/18 17:25 Temperature 99.0 F Pulse Rate 90 Respiratory Rate 16 18 18 Blood Pressure 128/68 Pulse Oximetry 97 11/06/18 20:00 11/06/18 21:15 11/07/18 00:56 Temperature 98.0 F 98.6 F Pulse Rate 88 89 Respiratory Rate 18 18 18 Blood Pressure 111/60 126/78 Pulse Oximetry 100 100 11/07/18 01:16 11/07/18 04:00 11/07/18 07:24 Temperature 98.1 F 99.3 F Pulse Rate 77 62 Respiratory Rate 18 18 16 Blood Pressure 110/70 107/65 Pulse Oximetry 99 98 11/07/18 07:38 11/07/18 10:47 11/07/18 11:07 Temperature 98.2 F Pulse Rate 84 Respiratory Rate 17 18 16 Blood Pressure 127/80 Pulse Oximetry 95 Intake & Output 11/06/18 11/07/18 11/07/18 18:59 06:59 18:59 Intake Total 300 / 300 964 / 964 100 / 100 Balance 300 / 300 964 / 964 100 / 100 Weight 74.9 kg Intake: IV 300 / 300 300 / 300 100 / 100 Prostaphlin Inj 2 GM In NS Inj 300 / 300 300 / 300 100 / 100 100 ML @ 200 mls/hr IV.SIG Q4H [facility] Rx#:[id number] Oral 664 / 664 Other: # Voids 3 Date of Last Bowel Movement 11/03/18 11/06/18 11/06/18 # Bowel Movements 1 Narrative: GENERAL: Well-developed, well-nourished, young male lying in bed, no acute distress SKIN: Warm and dry. HEAD: Atraumatic. Normocephalic. EYES: Pupils equal and round. No scleral icterus. No injection or drainage. ENT: No nasal bleeding or discharge. Mucous membranes pink and moist. NECK: Trachea midline. No JVD. CARDIOVASCULAR: Regular rate and rhythm. RESPIRATORY: No accessory muscle use. Clear to auscultation. Breath sounds equal bilaterally. GASTROINTESTINAL: Abdomen soft, non-tender, nondistended. MUSCULOSKELETAL: Extremities without clubbing, cyanosis, or edema. No obvious deformities. Some tenderness in lower back, no redness no edema. NEUROLOGICAL: Awake and alert. No obvious cranial nerve deficits. Motor grossly within normal limits. Five out of 5 muscle strength in the arms and legs. Normal speech. PSYCHIATRIC: Appropriate mood and affect; insight and judgment normal. Results Labs CBC & Chem 7: 11/01/18 06:16 11/01/18 06:16 Procedures Procedures: LISA Assessment and Plan (1) Staphylococcus aureus bacteremia: Code(s): R78.81 - Bacteremia Status: Acute (2) Discitis: Code(s): M46.40 - Discitis, unspecified, site unspecified Status: Acute (3) Intravenous drug abuse: Code(s): F19.10 - Other psychoactive substance abuse, uncomplicated Status: Chronic Plan 28-year-old male with a history of IV drug use who was initially admitted to the hospital on 09/21/2018 due to lower back pain as well as fever admitted to the hospital and has stayed since 09/26/18. Patient states he had a panic attack and asked his nurse if he is able to get out of his room and walk around. The nurse agreed to him that he is able to walk around the unit however the patient thought that he is able to get out of the unit and he started wandering all the way to the other building in the [place]. He was brought back to the unit by a nurse from [facility] but because he was out of the unit for quite some time they signed him off as leaving AGAINST MEDICAL ADVICE. Came back for readmission. Evaluated 11/07/18 - reviewed treatment plan and no changes needed at present time. MSSA bacteremia IVDU Discitis -ID consulted and following. -09/23/18 Thoracic MRI showed diffuse mild epidural enhancement involving the mid to lower thoracic canal on examination. -Echo 60-65% ejection fraction, no endocarditis noted. -LISA was done showing normal LV size, wall thickness and systolic function, EF 60%; negative for vegetation -Percocet PRN for pain control, Robaxin PRN -repeat Cultures kept coming back with staph aureus. Plan for prolonged antibiotic use. -blood cultures 10/11/18 clear -IV oxacillin as per previous ID recommendation, likely duration 8 weeks -Neurosurgery has seen and evaluated the patient. Recommend continued infectious workup. MRI of the spine without any abscess. No surgical intervention for now. -Recommend weekly ESR/CRP. To call neurosurgery if neurologic deficit occurs. Patient currently ambulatory. -Sed rate 18 (11/01/18), CRP 1.3 (11/01/18) IV drug use, heroin -Monitor for withdrawals -Clonidine patch to decrease anxiety. -Found to have illicit substance while in the inpatient setting - "heroin rock" , possible snorted vs injection, while inpatient. No visitors allowed. May have supervised visitation. D/W RN and charge nurse to move pt. closer to nurse' s station -Continues with drug seeking behavior, discussed with pt at length, meds will not be increased and will be slowly weaned down. Fungal rash vs drug rash - improved -urticaria underneath left armpit and right forearm -Miconazole cream BID to affected area (forearm) -Nystatin powder armpit Depression/anxiety Hx of Panic attacks. -Prozac daily -Patient states he use to take Xanax but no script in 2 years per [facility] -Xanax 0.25 mg PO q 8 PRN anxiety. Insomnia -Cont Ambien PRN-inc to 10 mg PO q hs Full code. SCDs. Heparin Labs reviewed Again, discussed with pt at length need for compliance. Not sure he will stay to complete treatment, he has been warned about the consequences of not completing treatment including sepsis, paralysis, poss . MDM: self Code Status: FULL CODE DVT ppx: Heparin Subcu Discussed Condition With: RN AND PT Discharge Planning: NEEDS TO COMPLETE TREATMENT 8 weeks of abx NOT A SAFE DISCHARGE DUE TO HX OF AMA AND USING WHILE HERE IN HOSPITAL Progress Note: Quality VTE Deep Vein Thrombosis/Pulmonary Embolism Present on Admission: No _ (1) Discitis Qualifiers: Spinal region:
[2018-11-08] MEDS: oxyCODONE/Acetaminophen 10/325 Tablet PO PRN ×6 (00:17→20:29)
[2018-11-08] MEDS: Heparin - SQ 10,000 UNITS/ML Vial SQ SCH ×2 (06:23→18:36)
[2018-11-08] MEDS: FLUoxetine 20 MG Capsule PO SCH (08:22)
[2018-11-08] MEDS: Senna/Docusate Sodium 8.6/50 MG Tablet PO SCH ×2 (08:22→20:29)
[2018-11-08] MEDS: Gabapentin 300 MG Capsule PO SCH ×3 (08:22→18:34)
[2018-11-08] MEDS: Methocarbamol 500 MG Tablet PO PRN ×3 (08:24→20:29)
[2018-11-08] MEDS: Nystatin 100,000 UNITS/GM Powder 15 GM Bottle TOPICAL SCH ×2 (08:28→20:30)
[2018-11-08] MEDS: Miconazole 2% Cream 15 GM Tube TOPICAL SCH ×2 (08:28→20:30)
--- NOTE | 2018-11-08 10:02 | P.PNIM ---
Subjective Interval history: Follow-up for low back pain, MSSA, and IVDU Patient lying on his side in bed. He states back pain decreases to a 6/10 with Percocet. Discussed discharge planning and pain management with patient. Patient educated that pain medications would be weaned off prior to him being discharged. When asked if patient would return to using street drugs post discharge he states if he was in his current level of pain and couldn't receive prescription pain meds he probably would, even though he does not want to return to that lifestyle. Patient expresses interest in attending rehabilitation programs and states he looked into one but was advised that he would have to be able to work without restrictions post discharge from the hospital. He thinks his current back pain may prohibit him from entering that program. Patient advised that symptoms may continue to improve once infection is clear. Physical Exam Vital signs: Vital Signs 11/07/18 10:47 11/07/18 11:07 11/07/18 15:54 Temperature 98.2 F 98.0 F Pulse Rate 84 86 Respiratory Rate 18 16 16 Blood Pressure 127/80 104/57 L Pulse Oximetry 95 97 11/07/18 15:56 11/07/18 20:06 11/08/18 00:10 Temperature 98.4 F 98.1 F Pulse Rate 87 88 Respiratory Rate 18 18 18 Blood Pressure 143/59 H 114/65 Pulse Oximetry 99 99 11/08/18 04:20 11/08/18 07:00 Temperature 98 F 98.3 F Pulse Rate 84 79 Respiratory Rate 18 20 Blood Pressure 100/57 L 113/59 L Pulse Oximetry 100 97 Intake & Output 11/07/18 11/08/18 11/08/18 18:59 06:59 18:59 Intake Total 300 / 300 300 / 300 Balance 300 / 300 300 / 300 Weight 74.8 kg Intake: IV 300 / 300 300 / 300 Prostaphlin Inj 2 GM In NS Inj 300 / 300 300 / 300 100 ML @ 200 mls/hr IV.SIG Q4H [facility] Rx#:[id number] Other: # Voids 3 Date of Last Bowel Movement 11/06/18 11/07/18 Narrative: GENERAL: Well-developed, well-nourished, young male lying in bed, no acute distress SKIN: Warm and dry. HEAD: Atraumatic. Normocephalic. EYES: Pupils equal and round. No scleral icterus. No injection or drainage. ENT: No nasal bleeding or discharge. Mucous membranes pink and moist. NECK: Trachea midline. No JVD. CARDIOVASCULAR: Regular rate and rhythm. RESPIRATORY: No accessory muscle use. Clear to auscultation. Breath sounds equal bilaterally. GASTROINTESTINAL: Abdomen soft, non-tender, nondistended. MUSCULOSKELETAL: Extremities without clubbing, cyanosis, or edema. No obvious deformities. Some tenderness in lower back, no redness no edema. NEUROLOGICAL: Awake and alert. No obvious cranial nerve deficits. Motor grossly within normal limits. Five out of 5 muscle strength in the arms and legs. Normal speech. PSYCHIATRIC: Appropriate mood and affect; insight and judgment normal. Results Labs CBC & Chem 7: 11/08/18 11:22 11/08/18 11:22 Procedures Procedures: LISA Assessment and Plan (1) Staphylococcus aureus bacteremia: Code(s): R78.81 - Bacteremia Status: Acute (2) Discitis: Code(s): M46.40 - Discitis, unspecified, site unspecified Status: Acute (3) Intravenous drug abuse: Code(s): F19.10 - Other psychoactive substance abuse, uncomplicated Status: Chronic Plan 28-year-old male with a history of IV drug use who was initially admitted to the hospital on 09/21/2018 due to lower back pain as well as fever admitted to the hospital and has stayed since 09/26/18. Patient states he had a panic attack and asked his nurse if he is able to get out of his room and walk around. The nurse agreed to him that he is able to walk around the unit however the patient thought that he is able to get out of the unit and he started wandering all the way to the other building in the [place]. He was brought back to the unit by a nurse from [facility] but because he was out of the unit for quite some time they signed him off as leaving AGAINST MEDICAL ADVICE. Came back for readmission. Evaluated 11/08/18 - labs ordered CBC, CMP, ESR and CRP. Will follow up on results. Discussed pain management strategies with patient including managing with current order and occasional Ibuprofen if needed. MSSA bacteremia IVDU Discitis -ID consulted and following. -09/23/18 Thoracic MRI showed diffuse mild epidural enhancement involving the mid to lower thoracic canal on examination. -Echo 60-65% ejection fraction, no endocarditis noted. -LISA was done showing normal LV size, wall thickness and systolic function, EF 60%; negative for vegetation -Percocet PRN for pain control, Robaxin PRN -repeat Cultures kept coming back with staph aureus. Plan for prolonged antibiotic use. -blood cultures 10/11/18 clear -IV oxacillin as per previous ID recommendation, likely duration 8 weeks -Neurosurgery has seen and evaluated the patient. Recommend continued infectious workup. MRI of the spine without any abscess. No surgical intervention for now. -Recommend weekly ESR/CRP. To call neurosurgery if neurologic deficit occurs. Patient currently ambulatory. -ESR 15, CRP < 0.29 (11/08/18) IV drug use, heroin -Monitor for withdrawals -Clonidine patch to decrease anxiety. -Found to have illicit substance while in the inpatient setting - "heroin rock" , possible snorted vs injection, while inpatient. No visitors allowed. May have supervised visitation. D/W RN and charge nurse to move pt. closer to nurse' s station -Continues with drug seeking behavior, discussed with pt at length, meds will not be increased and will be slowly weaned down. Fungal rash vs drug rash - improved -urticaria underneath left armpit and right forearm -Miconazole cream BID to affected area (forearm) -Nystatin powder armpit Depression/anxiety Hx of Panic attacks. -Prozac daily -Patient states he use to take Xanax but no script in 2 years per [facility] -Xanax 0.25 mg PO q 8 PRN anxiety. Insomnia -Cont Ambien PRN-inc to 10 mg PO q hs Full code. SCDs. Heparin Labs reviewed Again, discussed with pt at length need for compliance. Not sure he will stay to complete treatment, he has been warned about the consequences of not completing treatment including sepsis, paralysis, poss . MDM: self Code Status: FULL CODE DVT ppx: Heparin Subcu Discussed Condition With: RN AND PT Discharge Planning: NEEDS TO COMPLETE TREATMENT 8 weeks of abx NOT A SAFE DISCHARGE DUE TO HX OF AMA AND USING WHILE HERE IN HOSPITAL Progress Note: Quality VTE Deep Vein Thrombosis/Pulmonary Embolism Present on Admission: No _ (1) Discitis Qualifiers: Spinal region:
[2018-11-08] MEDS: ALPRAZolam 0.25 MG Tablet PO PRN ×2 (11:43→20:29)
[2018-11-08 11:53] LABS: Baso # (Auto) 0.1 th/mm3 (0.0-0.2); Baso % (Auto) 1.2 % (0.0-2.0); Eos # (Auto) 0.1 th/mm3 (0.0-0.4); Eos % (Auto) 1.6 % (0.0-4.0); Hematocrit 38.8 % (39.0-51.0); Lymph # (Auto) 1.9 th/mm3 (1.0-4.8); Lymph % (Auto) 24.3 % (9.0-44.0); Mean Corpuscular HGB Conc 33.5 % (32.0-36.0); Mean Corpuscular Hemoglobin 28.1 pg (27.0-34.0); Mean Platelet Volume 7.4 fL (7.0-11.0); Mono # (Auto) 0.6 th/mm3 (0.0-0.9); Mono % (Auto) 7.2 % (0.0-8.0); Neut # (Auto) 5.1 th/mm3 (1.8-7.7); Neut % (Auto) 65.7 % (16.0-70.0); Platelet Count 359 th/mm3 (150-450); Red Blood Count 4.62 mil/mm3 (4.50-5.90); Red Cell Distribution Width 19.8 % (11.6-17.2); White Blood Count 7.8 th/mm3 (4.0-11.0)
[2018-11-08] MEDS: Lidocaine 5% Patch T-DERMAL SCH (12:20)
[2018-11-08 12:22] LABS: Erythrocyte Sedimentation Rate 15 mm/hr (0-15)
[2018-11-08 12:34] LABS: Alanine Aminotransferase 234 U/L (12-78); Albumin 3.9 g/dL (3.4-5.0); Anion Gap 8 meq/L (5-15); Aspartate Aminotransferase 115 U/L (15-37); Blood Urea Nitrogen 14 mg/dL (7-18); Calcium 9.2 mg/dL (8.5-10.1); Carbon Dioxide 26.9 meq/L (21.0-32.0); Chloride 108 meq/L (98-107); Glomerular Filtration Rate Greater Than 89 mL/min (>89); Glucose,Random 106 mg/dL (74-106); Sodium 143 meq/L (136-145)
[2018-11-08 12:37] LABS: Alkaline Phosphatase 94 U/L (45-117)
[2018-11-09] MEDS: oxyCODONE/Acetaminophen 10/325 Tablet PO PRN ×6 (01:43→22:38)
[2018-11-09] MEDS: Methocarbamol 500 MG Tablet PO PRN ×3 (06:02→22:38)
[2018-11-09] MEDS: Heparin - SQ 10,000 UNITS/ML Vial SQ SCH ×2 (06:07→18:20)
[2018-11-09] MEDS: FLUoxetine 20 MG Capsule PO SCH (09:25)
[2018-11-09] MEDS: Gabapentin 300 MG Capsule PO SCH ×3 (09:28→17:38)
[2018-11-09] MEDS: Senna/Docusate Sodium 8.6/50 MG Tablet PO SCH ×2 (09:28→21:47)
[2018-11-09] MEDS: Nystatin 100,000 UNITS/GM Powder 15 GM Bottle TOPICAL SCH ×2 (09:28→21:48)
[2018-11-09] MEDS: Miconazole 2% Cream 15 GM Tube TOPICAL SCH ×2 (09:28→21:48)
[2018-11-09] MEDS: Lidocaine 5% Patch T-DERMAL SCH (09:29)
[2018-11-09] MEDS: ALPRAZolam 0.25 MG Tablet PO PRN ×2 (10:35→21:46)
--- NOTE | 2018-11-09 15:58 | P.PNIM ---
Subjective Interval history: Patient reports that pain continues. Denies any chest pain or shortness of breath. Has been walking around the unit without difficulty. Physical Exam Vital signs: Vital Signs 11/08/18 16:00 11/08/18 20:26 11/09/18 00:50 Temperature 98.4 F 98.2 F 98.3 F Pulse Rate 87 82 85 Respiratory Rate 18 18 16 Blood Pressure 105/62 122/74 123/72 Pulse Oximetry 99 98 98 11/09/18 05:20 11/09/18 07:55 11/09/18 10:12 Temperature 98.2 F 98.9 F Pulse Rate 74 80 Respiratory Rate 18 20 18 Blood Pressure 120/59 L 105/59 L Pulse Oximetry 100 99 11/09/18 11:45 11/09/18 14:52 Temperature 97.9 F Pulse Rate 80 Respiratory Rate 20 18 Blood Pressure 120/58 L Pulse Oximetry 98 Intake & Output 11/08/18 11/09/18 11/09/18 18:59 06:59 18:59 Intake Total 1640 / 1640 200 / 200 100 / 100 Balance 1640 / 1640 200 / 200 100 / 100 Weight 74.7 kg Intake: IV 200 / 200 200 / 200 100 / 100 Prostaphlin Inj 2 GM In NS Inj 200 / 200 200 / 200 100 / 100 100 ML @ 200 mls/hr IV.SIG Q4H [facility] Rx#:[id number] Oral 1440 / 1440 Other: # Voids 5 2 Date of Last Bowel Movement 11/07/18 11/08/18 11/08/18 Narrative: GENERAL: Patient lying in bed. Appears comfortable. Also observed him walking around unit. SKIN: Warm and dry. HEAD: Normocephalic. EYES: No scleral icterus. No injection or drainage. NECK: Supple, trachea midline. No JVD. CARDIOVASCULAR: Regular rate and rhythm without murmurs, gallops, or rubs. RESPIRATORY: Breath sounds equal bilaterally. No accessory muscle use. GASTROINTESTINAL: Abdomen soft, non-tender, nondistended. MUSCULOSKELETAL: No cyanosis, or edema. Patient does report lumbar tenderness, however this is distractible. BACK: Nontender without obvious deformity. No CVA tenderness. Results - Labs CBC & Chem 7: 11/08/18 11:22 11/08/18 11:22 - Procedures LISA Assessment and Plan - Assessment (1) Staphylococcus aureus bacteremia Code(s): R78.81 - Bacteremia Status: Acute (2) Discitis Code(s): M46.40 - Discitis, unspecified, site unspecified Status: Acute (3) Intravenous drug abuse Code(s): F19.10 - Other psychoactive substance abuse, uncomplicated Status: Chronic - Plan 28-year-old male with a history of IV drug use who was initially admitted to the hospital on 09/21/2018 due to lower back pain as well as fever admitted to the hospital and has stayed since 09/26/18. Patient states he had a panic attack and asked his nurse if he is able to get out of his room and walk around. The nurse agreed to him that he is able to walk around the unit however the patient thought that he is able to get out of the unit and he started wandering all the way to the other building in the [place]. He was brought back to the unit by a nurse from [facility] but because he was out of the unit for quite some time they signed him off as leaving AGAINST MEDICAL ADVICE. Came back for readmission. Evaluated 11/09/18 - ESR, CRP not elevated. Anemia resolved. Continue IV antibiotics. Recheck CRP, ESR next week //MSSA bacteremia //IVDU //Discitis -ID consulted and following. -09/23/18 Thoracic MRI showed diffuse mild epidural enhancement involving the mid to lower thoracic canal on examination. -Echo 60-65% ejection fraction, no endocarditis noted. -LISA was done showing normal LV size, wall thickness and systolic function, EF 60%; negative for vegetation -Percocet PRN for pain control, Robaxin PRN -repeat Cultures kept coming back with staph aureus. Plan for prolonged antibiotic use. -blood cultures 10/11/18 clear -IV oxacillin as per previous ID recommendation, likely duration 8 weeks -Neurosurgery has seen and evaluated the patient. Recommend continued infectious workup. MRI of the spine without any abscess. No surgical intervention for now. -Recommend weekly ESR/CRP. To call neurosurgery if neurologic deficit occurs. Patient currently ambulatory. -ESR 15, CRP < 0.29 (11/08/18) = Most recent positive blood culture 09/26/18, most recent negative blood culture 10/05/18. continue oxacillin as per ID, with tentative stop date 11/26/18. check ESR and CRP weekly //IV drug use, heroin -Monitor for withdrawals -Clonidine patch to decrease anxiety. -Found to have illicit substance while in the inpatient setting - "heroin rock" , possible snorted vs injection, while inpatient. No visitors allowed. May have supervised visitation. D/W RN and charge nurse to move pt. closer to nurse' s station -Continues with drug seeking behavior, discussed with pt at length, meds will not be increased and will be slowly weaned down. = Continue current pain regimen. Plan to wean //Fungal rash vs drug rash - improved -urticaria underneath left armpit and right forearm -Miconazole cream BID to affected area (forearm) -Nystatin powder armpit //Depression/anxiety Hx of Panic attacks. -Prozac daily -Patient states he use to take Xanax but no script in 2 years per [facility] -Xanax 0.25 mg PO q 8 PRN anxiety. //Insomnia -Cont Ambien PRN-inc to 10 mg PO q hs //Full code. SCDs. Heparin MDM: self Code Status: FULL CODE DVT ppx: Patient refusing heparin Discussed Condition With: RN AND PT Discharge Planning: NEEDS TO COMPLETE TREATMENT 8 weeks of abx NOT A SAFE DISCHARGE DUE TO HX OF AMA AND USING WHILE HERE IN HOSPITAL Discussed Condition With: Patient, nurse Discharge Planning: IV drug user. High risk for misuse of PICC line at home IV antibiotics with tentative stop date 11/26
[2018-11-09] MEDS: Montelukast 10 MG Tablet PO SCH (21:46)
[2018-11-10] MEDS: oxyCODONE/Acetaminophen 10/325 Tablet PO PRN ×6 (02:50→22:24)
[2018-11-10] MEDS: Heparin - SQ 10,000 UNITS/ML Vial SQ SCH ×2 (06:11→18:34)
[2018-11-10] MEDS: Methocarbamol 500 MG Tablet PO PRN ×4 (06:49→22:24)
[2018-11-10] MEDS: Senna/Docusate Sodium 8.6/50 MG Tablet PO SCH ×2 (08:34→20:35)
[2018-11-10] MEDS: Gabapentin 300 MG Capsule PO SCH ×3 (08:34→18:34)
[2018-11-10] MEDS: FLUoxetine 20 MG Capsule PO SCH (08:35)
[2018-11-10] MEDS: ALPRAZolam 0.25 MG Tablet PO PRN ×2 (08:35→22:24)
[2018-11-10] MEDS: Miconazole 2% Cream 15 GM Tube TOPICAL SCH ×2 (08:37→20:37)
[2018-11-10] MEDS: Lidocaine 5% Patch T-DERMAL SCH (08:37)
[2018-11-10] MEDS: Nystatin 100,000 UNITS/GM Powder 15 GM Bottle TOPICAL SCH ×2 (08:37→20:37)
--- NOTE | 2018-11-10 15:22 | P.PNIM ---
Subjective Interval history: Patient says he is feeling all right. Denies any chest pain or shortness of breath. Reports pain continues but has not worsened. Reports poor sleep at night. We discussed keeping the blinds open, lights on during the day, however patient says he is not interested. Patient had itching yesterday of left AC after placement of IV. This has improved. Physical Exam Vital signs: Vital Signs 11/09/18 17:30 11/09/18 18:19 11/09/18 22:00 Temperature 98 F 98.0 F Pulse Rate 89 95 H Respiratory Rate 20 18 19 Blood Pressure 140/71 129/73 Pulse Oximetry 100 98 11/10/18 00:55 11/10/18 05:35 11/10/18 07:40 Temperature 98.1 F 97.9 F 98.4 F Pulse Rate 101 H 81 72 Respiratory Rate 19 16 20 Blood Pressure 127/62 116/74 124/74 Pulse Oximetry 100 98 97 11/10/18 11:55 Temperature 97.9 F Pulse Rate 75 Respiratory Rate 20 Blood Pressure 109/58 L Pulse Oximetry 99 Intake & Output 11/09/18 11/10/18 11/10/18 18:59 06:59 18:59 Intake Total 200 / 200 200 / 200 200 / 200 Balance 200 / 200 200 / 200 200 / 200 Weight 73.9 kg Intake: IV 200 / 200 200 / 200 200 / 200 Prostaphlin Inj 2 GM In NS Inj 200 / 200 200 / 200 200 / 200 100 ML @ 200 mls/hr IV.SIG Q4H [facility] Rx#:[id number] Other: # Voids 2 Date of Last Bowel Movement 11/08/18 11/08/18 11/10/18 Narrative: GENERAL: Patient lying in bed. Sleeping, wakes up for exam. Appears comfortable. SKIN: Warm and dry. Rash under right AC where IV dressing is been removed. Does not appear to involve actual IV site. Left AC with similar rash in early stage. Appears better than yesterday. No broken skin. HEAD: Normocephalic. EYES: No scleral icterus. No injection or drainage. NECK: Supple, trachea midline. No JVD. CARDIOVASCULAR: Regular rate and rhythm without murmurs, gallops, or rubs. RESPIRATORY: Breath sounds equal bilaterally. No accessory muscle use. GASTROINTESTINAL: Abdomen soft, non-tender, nondistended. MUSCULOSKELETAL: No cyanosis, or edema. No lumbar spine tenderness today. BACK: Nontender without obvious deformity. No CVA tenderness. Results - Labs CBC & Chem 7: 11/08/18 11:22 11/08/18 11:22 - Procedures LISA Assessment and Plan - Assessment (1) Staphylococcus aureus bacteremia Code(s): R78.81 - Bacteremia Status: Acute (2) Discitis Code(s): M46.40 - Discitis, unspecified, site unspecified Status: Acute (3) Intravenous drug abuse Code(s): F19.10 - Other psychoactive substance abuse, uncomplicated Status: Chronic - Plan 28-year-old male with a history of IV drug use who was initially admitted to the hospital on 09/21/2018 due to lower back pain as well as fever admitted to the hospital and has stayed since 09/26/18. Patient states he had a panic attack and asked his nurse if he is able to get out of his room and walk around. The nurse agreed to him that he is able to walk around the unit however the patient thought that he is able to get out of the unit and he started wandering all the way to the other building in the [place]. He was brought back to the unit by a nurse from [facility] but because he was out of the unit for quite some time they signed him off as leaving AGAINST MEDICAL ADVICE. Came back for readmission. 11/10. Pain stable. Had a rash of the left AC after placement of IV line. Patient appears to have an allergic skin reaction. Appears stable. I have added Singulair in addition to hydroxyzine. Continue IV antibiotics. Plan to wean narcotics. Evaluated 11/09/18 - ESR, CRP not elevated. Anemia resolved. Continue IV antibiotics. Recheck CRP, ESR next week //MSSA bacteremia //IVDU //Discitis -ID consulted and following. -09/23/18 Thoracic MRI showed diffuse mild epidural enhancement involving the mid to lower thoracic canal on examination. -Echo 60-65% ejection fraction, no endocarditis noted. -LISA was done showing normal LV size, wall thickness and systolic function, EF 60%; negative for vegetation -Percocet PRN for pain control, Robaxin PRN -repeat Cultures kept coming back with staph aureus. Plan for prolonged antibiotic use. -blood cultures 10/11/18 clear -IV oxacillin as per previous ID recommendation, likely duration 8 weeks -Neurosurgery has seen and evaluated the patient. Recommend continued infectious workup. MRI of the spine without any abscess. No surgical intervention for now. -Recommend weekly ESR/CRP. To call neurosurgery if neurologic deficit occurs. Patient currently ambulatory. -ESR 15, CRP < 0.29 (11/08/18) = Most recent positive blood culture 09/26/18, most recent negative blood culture 10/05/18. continue oxacillin as per ID, with tentative stop date around . check ESR and CRP weekly //IV drug use, heroin -Monitor for withdrawals -Clonidine patch to decrease anxiety. -Found to have illicit substance while in the inpatient setting - "heroin rock" , possible snorted vs injection, while inpatient. No visitors allowed. May have supervised visitation. D/W RN and charge nurse to move pt. closer to nurse' s station -Continues with drug seeking behavior, discussed with pt at length, meds will not be increased and will be slowly weaned down. = Continue current pain regimen. Plan to wean //Fungal rash vs drug rash - improved /Adhesive allergy/ -urticaria underneath left armpit and right forearm -Miconazole cream BID to affected area (forearm) -Nystatin powder armpit = 11/10. Discussed with IV team nurse on 11/09, regarding options for other kinds of adhesives, however did not appear to be alternatives according to IV nurse.. On hydroxyzine as needed, as well as added Singulair on 11/09. //Depression/anxiety Hx of Panic attacks. -Prozac daily -Patient states he use to take Xanax but no script in 2 years per [facility] -Xanax 0.25 mg PO q 8 PRN anxiety. //Insomnia -Cont Ambien PRN-inc to 10 mg PO q hs //Full code. SCDs. Heparin MDM: self Code Status: FULL CODE DVT ppx: Patient refusing heparin Discussed Condition With: RN AND PT Discharge Planning: NEEDS TO COMPLETE TREATMENT 8 weeks of abx NOT A SAFE DISCHARGE DUE TO HX OF AMA AND USING WHILE HERE IN HOSPITAL Discussed Condition With: Patient, nurse Discharge Planning: IV drug user. High risk for misuse of PICC line at home IV antibiotics with tentative stop date 11/26
[2018-11-10] MEDS: Montelukast 10 MG Tablet PO SCH (20:35)
[2018-11-11] MEDS: oxyCODONE/Acetaminophen 10/325 Tablet PO PRN ×5 (02:28→20:02)
[2018-11-11] MEDS: Methocarbamol 500 MG Tablet PO PRN ×3 (06:56→21:52)
[2018-11-11] MEDS: Heparin - SQ 10,000 UNITS/ML Vial SQ SCH ×2 (06:57→17:22)
[2018-11-11] MEDS: ALPRAZolam 0.25 MG Tablet PO PRN ×2 (06:57→15:30)
[2018-11-11] MEDS: Senna/Docusate Sodium 8.6/50 MG Tablet PO SCH ×2 (08:14→20:02)
[2018-11-11] MEDS: Gabapentin 300 MG Capsule PO SCH ×3 (08:14→17:04)
[2018-11-11] MEDS: Lidocaine 5% Patch T-DERMAL SCH (08:14)
[2018-11-11] MEDS: Nystatin 100,000 UNITS/GM Powder 15 GM Bottle TOPICAL SCH ×2 (08:15→20:03)
[2018-11-11] MEDS: Miconazole 2% Cream 15 GM Tube TOPICAL SCH ×2 (08:15→20:05)
[2018-11-11] MEDS: FLUoxetine 20 MG Capsule PO SCH (08:15)
--- NOTE | 2018-11-11 15:59 | P.PN ---
Subjective Interval history: Follow-up infective discitis/MSSA bacteremia/history of IV drug use November 11, 2018-patient seen and examined, complains of poorly controlled back pain, otherwise no other issues. Physical Exam Vital signs: Vital Signs 11/10/18 20:00 11/11/18 00:00 11/11/18 04:00 Temperature 98 F 97.5 F L 97.6 F Pulse Rate 75 104 H 63 Respiratory Rate 18 18 18 Blood Pressure 132/59 L 139/67 100/52 L Pulse Oximetry 98 98 96 11/11/18 07:55 11/11/18 08:13 11/11/18 11:28 Temperature 98.2 F Pulse Rate 79 Respiratory Rate 20 16 16 Blood Pressure 113/72 Pulse Oximetry 98 11/11/18 12:00 Temperature 98.2 F Pulse Rate 89 Respiratory Rate 20 Blood Pressure 118/56 L Pulse Oximetry 98 Intake & Output 11/10/18 11/11/18 11/11/18 18:59 06:59 18:59 Intake Total 2400 / 2400 200 / 200 300 / 300 Balance 2400 / 2400 200 / 200 300 / 300 Weight 73.7 kg Intake: IV 400 / 400 200 / 200 300 / 300 Prostaphlin Inj 2 GM In NS Inj 400 / 400 200 / 200 300 / 300 100 ML @ 200 mls/hr IV.SIG Q4H [facility] Rx#:[id number] Oral 1999 Other: # Voids 3 4 Date of Last Bowel Movement 11/10/18 11/10/18 # Bowel Movements 1 Narrative: GENERAL: NAD SKIN: Warm and dry. HEAD: Atraumatic. Normocephalic. EYES: Pupils equal and round. No scleral icterus. No injection or drainage. ENT: No nasal bleeding or discharge. Mucous membranes pink and moist. NECK: Trachea midline. No JVD. CARDIOVASCULAR: Regular rate and rhythm. RESPIRATORY: No accessory muscle use. Clear to auscultation. Breath sounds equal bilaterally. GASTROINTESTINAL: Abdomen soft, non-tender, nondistended. Hepatic and splenic margins not palpable. MUSCULOSKELETAL: Extremities without clubbing, cyanosis, or edema. No obvious deformities. NEUROLOGICAL: Awake and alert. No obvious cranial nerve deficits. Motor grossly within normal limits. Five out of 5 muscle strength in the arms and legs. Normal speech. PSYCHIATRIC: Appropriate mood and affect; insight and judgment normal. Results - Labs CBC & Chem 7: 02/04/19 11:22 11/08/18 11:22 Microbiology 10/14/18 16:15 Tissue - Other Fungal Smear - Final No fungal elements seen 10/14/18 16:15 Tissue - Other Fungal Culture - Final No growth in 4 weeks 10/14/18 16:15 Other Acid Fast Bacilli Smear - Final No acid fast bacilli seen 10/14/18 16:15 Other Mycobacterial Culture - Preliminary No growth in 4 weeks - Procedures LISA Assessment and Plan - Assessment (1) Staphylococcus aureus bacteremia Code(s): R78.81 - Bacteremia Status: Acute (2) Discitis Code(s): M46.40 - Discitis, unspecified, site unspecified Status: Acute (3) Intravenous drug abuse Code(s): F19.10 - Other psychoactive substance abuse, uncomplicated Status: Chronic - Plan 28-year-old man with MSSA bacteremia IVDU Infective discitis -Echo 60-65% ejection fraction, no endocarditis noted. -LISA was done showing normal LV size, wall thickness and systolic function, EF 60%; negative for vegetation -Neurosurgery has seen and evaluated the patient. Recommend continued infectious workup. MRI of the spine without any abscess. No surgical intervention for now. -Recommend weekly ESR/CRP. To call neurosurgery if neurologic deficit occurs. Patient currently ambulatory. Most recent positive blood culture 09/26/18, most recent negative blood culture 10/05/18. continue oxacillin as per ID, with tentative stop date around 11/26/18. check ESR and CRP weekly IV drug use, heroin -Monitor for withdrawals -Clonidine patch to decrease anxiety. -Found to have illicit substance while in the inpatient setting - "heroin rock" , possible snorted vs injection, while inpatient. No visitors allowed. -Continues with drug seeking behavior -Continue current pain regimen. Fungal rash vs drug rash - improved -urticaria underneath left armpit and right forearm -Miconazole cream BID to affected area (forearm) -Nystatin powder armpit -On hydroxyzine as needed, as well as added Singulair on 11/09. Depression/anxiety Hx of Panic attacks. -Prozac daily -Patient states he use to take Xanax but no script in 2 years per [facility] -Xanax 0.25 mg PO q 8 PRN anxiety. Insomnia -Cont Ambien PRN-inc to 10 mg PO q hs Full code. SCDs. Heparin DVT ppx: Patient refusing heparin Discussed Condition With: RN AND PT Discharge Planning: NEEDS TO COMPLETE TREATMENT 8 weeks of abx NOT A SAFE DISCHARGE DUE TO HX OF AMA AND USING WHILE HERE IN HOSPITAL
[2018-11-11] MEDS: Montelukast 10 MG Tablet PO SCH (20:02)
[2018-11-12] MEDS: ALPRAZolam 0.25 MG Tablet PO PRN ×3 (00:27→17:02)
[2018-11-12] MEDS: oxyCODONE/Acetaminophen 10/325 Tablet PO PRN ×6 (00:29→22:10)
[2018-11-12] MEDS: Methocarbamol 500 MG Tablet PO PRN ×3 (06:10→20:41)
[2018-11-12] MEDS: Heparin - SQ 10,000 UNITS/ML Vial SQ SCH ×2 (06:16→17:35)
[2018-11-12] MEDS: Lidocaine 5% Patch T-DERMAL SCH (08:04)
[2018-11-12] MEDS: Senna/Docusate Sodium 8.6/50 MG Tablet PO SCH ×2 (08:05→20:41)
[2018-11-12] MEDS: Gabapentin 300 MG Capsule PO SCH ×3 (08:05→17:02)
[2018-11-12] MEDS: FLUoxetine 20 MG Capsule PO SCH (08:05)
[2018-11-12] MEDS: Nystatin 100,000 UNITS/GM Powder 15 GM Bottle TOPICAL SCH ×2 (08:06→20:41)
[2018-11-12] MEDS: Miconazole 2% Cream 15 GM Tube TOPICAL SCH ×2 (08:06→20:42)
--- NOTE | 2018-11-12 11:11 | P.PN ---
Subjective Interval history: Follow-up infective discitis/MSSA bacteremia/history of IV drug use November 11, 2018-patient seen and examined, complains of poorly controlled back pain, otherwise no other issues. November 12, 2018-patient seen and examined, no acute event overnight. Positive for back pain. Afebrile. Physical Exam Vital signs: Vital Signs 11/11/18 11:28 11/11/18 12:00 11/11/18 15:35 Temperature 98.2 F 98 F Pulse Rate 89 82 Respiratory Rate 16 20 20 Blood Pressure 118/56 L 141/76 H Pulse Oximetry 98 98 11/11/18 16:18 11/11/18 19:37 11/11/18 21:50 Temperature 97.7 F Pulse Rate 58 L Respiratory Rate 16 18 18 Blood Pressure 124/70 Pulse Oximetry 98 11/12/18 00:00 11/12/18 05:10 11/12/18 06:16 Temperature 97.6 F 97.8 F Pulse Rate 72 79 Respiratory Rate 18 18 18 Blood Pressure 106/57 L 133/59 L Pulse Oximetry 98 99 11/12/18 06:17 11/12/18 07:49 11/12/18 08:51 Temperature 98.1 F Pulse Rate 73 Respiratory Rate 18 18 16 Blood Pressure 112/60 Pulse Oximetry 100 Intake & Output 11/11/18 11/12/18 11/12/18 18:59 06:59 18:59 Intake Total 400 / 400 820 / 820 100 / 100 Balance 400 / 400 820 / 820 100 / 100 Weight 73.7 kg Intake: IV 400 / 400 300 / 300 100 / 100 Prostaphlin Inj 2 GM In NS Inj 400 / 400 300 / 300 100 / 100 100 ML @ 200 mls/hr IV.SIG Q4H [facility] Rx#:[id number] Other 520 / 520 Other: # Voids 3 Date of Last Bowel Movement 11/10/18 Narrative: GENERAL: NAD SKIN: Warm and dry. HEAD: Atraumatic. Normocephalic. EYES: Pupils equal and round. No scleral icterus. No injection or drainage. ENT: No nasal bleeding or discharge. Mucous membranes pink and moist. NECK: Trachea midline. No JVD. CARDIOVASCULAR: Regular rate and rhythm. RESPIRATORY: No accessory muscle use. Clear to auscultation. Breath sounds equal bilaterally. GASTROINTESTINAL: Abdomen soft, non-tender, nondistended. Hepatic and splenic margins not palpable. MUSCULOSKELETAL: Extremities without clubbing, cyanosis, or edema. No obvious deformities. NEUROLOGICAL: Awake and alert. No obvious cranial nerve deficits. Motor grossly within normal limits. Five out of 5 muscle strength in the arms and legs. Normal speech. PSYCHIATRIC: Appropriate mood and affect; insight and judgment normal. Results - Labs CBC & Chem 7: 11/08/18 11:22 11/08/18 11:22 Microbiology 10/14/18 16:15 Tissue - Other Fungal Smear - Final No fungal elements seen 10/14/18 16:15 Tissue - Other Fungal Culture - Final No growth in 4 weeks 10/14/18 16:15 Other Acid Fast Bacilli Smear - Final No acid fast bacilli seen 10/14/18 16:15 Other Mycobacterial Culture - Preliminary No growth in 4 weeks - Procedures LISA Assessment and Plan - Assessment (1) Staphylococcus aureus bacteremia Code(s): R78.81 - Bacteremia Status: Acute (2) Discitis Code(s): M46.40 - Discitis, unspecified, site unspecified Status: Acute (3) Intravenous drug abuse Code(s): F19.10 - Other psychoactive substance abuse, uncomplicated Status: Chronic - Plan 28-year-old man with MSSA bacteremia IVDU Infective discitis -Echo 60-65% ejection fraction, no endocarditis noted. -LISA was done showing normal LV size, wall thickness and systolic function, EF 60%; negative for vegetation -Neurosurgery has seen and evaluated the patient. Recommend continued infectious workup. MRI of the spine without any abscess. No surgical intervention for now. -Recommend weekly ESR/CRP. To call neurosurgery if neurologic deficit occurs. Patient currently ambulatory. Most recent positive blood culture 09/26/18, most recent negative blood culture 10/05/18. continue oxacillin as per ID, with tentative stop date around 11/26/18. check ESR and CRP weekly IV drug use, heroin -Monitor for withdrawals -Clonidine patch to decrease anxiety. -Found to have illicit substance while in the inpatient setting - "heroin rock" , possible snorted vs injection, while inpatient. No visitors allowed. -Continues with drug seeking behavior -Continue current pain regimen. Fungal rash vs drug rash - improved -urticaria underneath left armpit and right forearm -Miconazole cream BID to affected area (forearm) -Nystatin powder armpit -On hydroxyzine as needed, as well as added Singulair on 11/09. Depression/anxiety Hx of Panic attacks. -Prozac daily -Patient states he use to take Xanax but no script in 2 years per [facility] -Xanax 0.25 mg PO q 8 PRN anxiety. Insomnia -Cont Ambien PRN-inc to 10 mg PO q hs Full code. SCDs. Heparin DVT ppx: Patient refusing heparin Discussed Condition With: RN AND PT Discharge Planning: NEEDS TO COMPLETE TREATMENT 8 weeks of abx NOT A SAFE DISCHARGE DUE TO HX OF AMA AND USING WHILE HERE IN HOSPITAL Continue current treatment as of November 12, 2018
[2018-11-12] MEDS: Montelukast 10 MG Tablet PO SCH (20:41)
[2018-11-13] MEDS: oxyCODONE/Acetaminophen 10/325 Tablet PO PRN ×5 (03:30→22:30)
[2018-11-13] MEDS: ALPRAZolam 0.25 MG Tablet PO PRN ×3 (03:37→22:30)
[2018-11-13] MEDS: Methocarbamol 500 MG Tablet PO PRN ×3 (04:58→21:30)
[2018-11-13] MEDS: Heparin - SQ 10,000 UNITS/ML Vial SQ SCH ×2 (05:33→17:52)
[2018-11-13] MEDS: Lidocaine 5% Patch T-DERMAL SCH (09:07)
[2018-11-13] MEDS: FLUoxetine 20 MG Capsule PO SCH (09:09)
[2018-11-13] MEDS: Senna/Docusate Sodium 8.6/50 MG Tablet PO SCH ×2 (09:09→21:31)
[2018-11-13] MEDS: Gabapentin 300 MG Capsule PO SCH ×3 (09:09→17:38)
--- NOTE | 2018-11-13 10:26 | P.PN ---
Subjective Interval history: Follow-up infective discitis/MSSA bacteremia/history of IV drug use November 11, 2018-patient seen and examined, complains of poorly controlled back pain, otherwise no other issues. November 12, 2018-patient seen and examined, no acute event overnight. Positive for back pain. Afebrile. November 13, 2018-patient seen and examined, no change, stable. Physical Exam Vital signs: Vital Signs 11/12/18 11:55 11/12/18 12:48 11/12/18 16:03 Temperature 98.8 F 98.6 F Pulse Rate 88 80 Respiratory Rate 16 16 18 Blood Pressure 96/55 L 102/57 L Pulse Oximetry 97 99 11/12/18 17:35 11/12/18 20:00 11/13/18 00:00 Temperature 98.3 F 97.9 F Pulse Rate 115 H 107 H Respiratory Rate 16 18 17 Blood Pressure 136/89 106/65 Pulse Oximetry 98 99 11/13/18 04:00 11/13/18 07:11 Temperature 97.5 F L 98.2 F Pulse Rate 87 75 Respiratory Rate 18 16 Blood Pressure 121/67 104/58 L Pulse Oximetry 99 98 Intake & Output 11/12/18 11/13/18 11/13/18 18:59 06:59 18:59 Intake Total 300 / 300 300 / 300 Balance 300 / 300 300 / 300 Weight 74.3 kg Intake: IV 300 / 300 300 / 300 Prostaphlin Inj 2 GM In NS Inj 300 / 300 300 / 300 100 ML @ 200 mls/hr IV.SIG Q4H [facility] Rx#:[id number] Other: # Voids 4 Date of Last Bowel Movement 11/12/18 Narrative: GENERAL: NAD SKIN: Warm and dry. HEAD: Atraumatic. Normocephalic. EYES: Pupils equal and round. No scleral icterus. No injection or drainage. ENT: No nasal bleeding or discharge. Mucous membranes pink and moist. NECK: Trachea midline. No JVD. CARDIOVASCULAR: Regular rate and rhythm. RESPIRATORY: No accessory muscle use. Clear to auscultation. Breath sounds equal bilaterally. GASTROINTESTINAL: Abdomen soft, non-tender, nondistended. Hepatic and splenic margins not palpable. MUSCULOSKELETAL: Extremities without clubbing, cyanosis, or edema. No obvious deformities. NEUROLOGICAL: Awake and alert. No obvious cranial nerve deficits. Motor grossly within normal limits. Five out of 5 muscle strength in the arms and legs. Normal speech. PSYCHIATRIC: Appropriate mood and affect; insight and judgment normal. Results - Labs CBC & Chem 7: 11/08/18 11:22 11/08/18 11:22 - Procedures LISA Assessment and Plan - Assessment (1) Staphylococcus aureus bacteremia Code(s): R78.81 - Bacteremia Status: Acute (2) Discitis Code(s): M46.40 - Discitis, unspecified, site unspecified Status: Acute (3) Intravenous drug abuse Code(s): F19.10 - Other psychoactive substance abuse, uncomplicated Status: Chronic - Plan 28-year-old man with MSSA bacteremia IVDU Infective discitis -Echo 60-65% ejection fraction, no endocarditis noted. -LISA was done showing normal LV size, wall thickness and systolic function, EF 60%; negative for vegetation -Neurosurgery has seen and evaluated the patient. Recommend continued infectious workup. MRI of the spine without any abscess. No surgical intervention for now. -Recommend weekly ESR/CRP. To call neurosurgery if neurologic deficit occurs. Patient currently ambulatory. Most recent positive blood culture 09/26/18, most recent negative blood culture 10/05/18. continue oxacillin as per ID, with tentative stop date around 11/26/18. check ESR and CRP weekly IV drug use, heroin -Monitor for withdrawals -Clonidine patch to decrease anxiety. -Found to have illicit substance while in the inpatient setting - "heroin rock" , possible snorted vs injection, while inpatient. No visitors allowed. -Continues with drug seeking behavior -Continue current pain regimen. Fungal rash vs drug rash - improved -urticaria underneath left armpit and right forearm -Miconazole cream BID to affected area (forearm) -Nystatin powder armpit -On hydroxyzine as needed, as well as added Singulair on 11/09. Depression/anxiety Hx of Panic attacks. -Prozac daily -Patient states he use to take Xanax but no script in 2 years per [facility] -Xanax 0.25 mg PO q 8 PRN anxiety. Insomnia -Cont Ambien PRN-inc to 10 mg PO q hs Full code. SCDs. Heparin DVT ppx: Patient refusing heparin Discussed Condition With: RN AND PT Discharge Planning: NEEDS TO COMPLETE TREATMENT 8 weeks of abx NOT A SAFE DISCHARGE DUE TO HX OF AMA AND USING WHILE HERE IN HOSPITAL Continue current treatment as of November 13, 2018
[2018-11-13] MEDS: Nystatin 100,000 UNITS/GM Powder 15 GM Bottle TOPICAL SCH ×2 (13:27→21:31)
[2018-11-13] MEDS: Miconazole 2% Cream 15 GM Tube TOPICAL SCH ×2 (13:27→21:31)
[2018-11-13] MEDS: Montelukast 10 MG Tablet PO SCH (21:30)
[2018-11-14] MEDS: oxyCODONE/Acetaminophen 10/325 Tablet PO PRN ×5 (02:55→22:25)
[2018-11-14] MEDS: Heparin - SQ 10,000 UNITS/ML Vial SQ SCH ×2 (06:08→18:23)
[2018-11-14] MEDS: Methocarbamol 500 MG Tablet PO PRN ×3 (07:08→22:25)
[2018-11-14] MEDS: FLUoxetine 20 MG Capsule PO SCH (09:16)
[2018-11-14] MEDS: Gabapentin 300 MG Capsule PO SCH ×3 (09:16→18:22)
[2018-11-14] MEDS: Senna/Docusate Sodium 8.6/50 MG Tablet PO SCH ×2 (09:16→21:16)
[2018-11-14] MEDS: Nystatin 100,000 UNITS/GM Powder 15 GM Bottle TOPICAL SCH ×2 (09:17→21:16)
[2018-11-14] MEDS: Lidocaine 5% Patch T-DERMAL SCH (09:17)
[2018-11-14] MEDS: Miconazole 2% Cream 15 GM Tube TOPICAL SCH ×2 (09:18→21:16)
[2018-11-14] MEDS: ALPRAZolam 0.25 MG Tablet PO PRN ×2 (09:23→18:22)
--- NOTE | 2018-11-14 11:27 | P.PN ---
Subjective Interval history: Follow-up infective discitis/MSSA bacteremia/history of IV drug use November 11, 2018-patient seen and examined, complains of poorly controlled back pain, otherwise no other issues. November 12, 2018-patient seen and examined, no acute event overnight. Positive for back pain. Afebrile. November 13, 2018-patient seen and examined, no change, stable. November 14, 2018-patient seen and examined, states he is very anxious because of his possible date of release November 26. He is also requesting adjustment of his pain medication Physical Exam Vital signs: Vital Signs 11/13/18 11:34 11/13/18 14:00 11/13/18 15:34 Temperature 98.1 F Pulse Rate 119 H Respiratory Rate 16 16 18 Blood Pressure 132/77 Pulse Oximetry 98 11/13/18 19:27 11/13/18 20:00 11/14/18 00:00 Temperature 98.4 F 97.9 F Pulse Rate 113 H 116 H Respiratory Rate 18 18 19 Blood Pressure 121/78 102/63 Pulse Oximetry 97 99 11/14/18 04:00 11/14/18 07:38 11/14/18 08:25 Temperature 97.7 F 98.1 F Pulse Rate 82 78 Respiratory Rate 18 16 18 Blood Pressure 111/56 L 116/61 Pulse Oximetry 99 99 Intake & Output 11/13/18 11/14/18 11/14/18 18:59 06:59 18:59 Intake Total 200 / 200 400 / 400 100 / 100 Balance 200 / 200 400 / 400 100 / 100 Weight 74.2 kg Intake: IV 200 / 200 400 / 400 100 / 100 Prostaphlin Inj 2 GM In NS Inj 200 / 200 400 / 400 100 / 100 100 ML @ 200 mls/hr IV.SIG Q4H [facility] Rx#:[id number] Other: # Voids 6 Date of Last Bowel Movement 11/12/18 11/12/18 Narrative: GENERAL: NAD SKIN: Warm and dry. HEAD: Atraumatic. Normocephalic. EYES: Pupils equal and round. No scleral icterus. No injection or drainage. ENT: No nasal bleeding or discharge. Mucous membranes pink and moist. NECK: Trachea midline. No JVD. CARDIOVASCULAR: Regular rate and rhythm. RESPIRATORY: No accessory muscle use. Clear to auscultation. Breath sounds equal bilaterally. GASTROINTESTINAL: Abdomen soft, non-tender, nondistended. Hepatic and splenic margins not palpable. MUSCULOSKELETAL: Extremities without clubbing, cyanosis, or edema. No obvious deformities. NEUROLOGICAL: Awake and alert. No obvious cranial nerve deficits. Motor grossly within normal limits. Five out of 5 muscle strength in the arms and legs. Normal speech. PSYCHIATRIC: Appropriate mood and affect; insight and judgment normal. Results - Labs CBC & Chem 7: 11/08/18 11:22 11/08/18 11:22 - Procedures LISA Assessment and Plan - Assessment (1) Staphylococcus aureus bacteremia Code(s): R78.81 - Bacteremia Status: Acute (2) Discitis Code(s): M46.40 - Discitis, unspecified, site unspecified Status: Acute (3) Intravenous drug abuse Code(s): F19.10 - Other psychoactive substance abuse, uncomplicated Status: Chronic - Plan 28-year-old man with MSSA bacteremia IVDU Infective discitis -Echo 60-65% ejection fraction, no endocarditis noted. -LISA was done showing normal LV size, wall thickness and systolic function, EF 60%; negative for vegetation -Neurosurgery has seen and evaluated the patient. Recommend continued infectious workup. MRI of the spine without any abscess. No surgical intervention for now. -Recommend weekly ESR/CRP. To call neurosurgery if neurologic deficit occurs. Patient currently ambulatory. Most recent positive blood culture 09/26/18, most recent negative blood culture 10/05/18. continue oxacillin as per ID, with tentative stop date around 11/26/18. check ESR and CRP weekly IV drug use, heroin -Monitor for withdrawals -Clonidine patch to decrease anxiety. -Found to have illicit substance while in the inpatient setting - "heroin rock" , possible snorted vs injection, while inpatient. No visitors allowed. -Continues with drug seeking behavior -Continue current pain regimen. Fungal rash vs drug rash - improved -urticaria underneath left armpit and right forearm -Miconazole cream BID to affected area (forearm) -Nystatin powder armpit -On hydroxyzine as needed, as well as added Singulair on 11/09. Depression/anxiety Hx of Panic attacks. -Prozac daily -Patient states he use to take Xanax but no script in 2 years per [facility] -Xanax 0.25 mg PO q 8 PRN anxiety. Insomnia -Cont Ambien PRN 10 mg PO q hs Full code. SCDs. Heparin DVT ppx: Patient refusing heparin Discussed Condition With: RN AND PT Discharge Planning: NEEDS TO COMPLETE TREATMENT 8 weeks of abx NOT A SAFE DISCHARGE DUE TO HX OF AMA AND USING WHILE HERE IN HOSPITAL Continue current treatment as of November 14, 2018
[2018-11-14] MEDS: Montelukast 10 MG Tablet PO SCH (21:16)
[2018-11-15] MEDS: ALPRAZolam 0.25 MG Tablet PO PRN ×3 (04:52→20:19)
[2018-11-15] MEDS: oxyCODONE/Acetaminophen 10/325 Tablet PO PRN ×5 (04:53→20:19)
[2018-11-15] MEDS: Heparin - SQ 10,000 UNITS/ML Vial SQ SCH ×2 (05:27→17:18)
[2018-11-15] MEDS: Methocarbamol 500 MG Tablet PO PRN ×3 (06:41→22:10)
[2018-11-15 08:27] LABS: Albumin 3.2 g/dL (3.4-5.0); Anion Gap 6 meq/L (5-15); Aspartate Aminotransferase 97 U/L (15-37); Blood Urea Nitrogen 11 mg/dL (7-18); Calcium 8.7 mg/dL (8.5-10.1); Carbon Dioxide 28.3 meq/L (21.0-32.0); Chloride 106 meq/L (98-107); Glomerular Filtration Rate Greater Than 89 mL/min (>89); Glucose,Random 74 mg/dL (74-106); Potassium 4.4 meq/L (3.5-5.1); Sodium 140 meq/L (136-145)
[2018-11-15 08:28] LABS: Alanine Aminotransferase 180 U/L (12-78)
[2018-11-15 08:31] LABS: Alkaline Phosphatase 107 U/L (45-117)
[2018-11-15] MEDS: FLUoxetine 20 MG Capsule PO SCH (08:32)
[2018-11-15] MEDS: Lidocaine 5% Patch T-DERMAL SCH (08:33)
[2018-11-15] MEDS: Senna/Docusate Sodium 8.6/50 MG Tablet PO SCH ×2 (08:34→20:19)
[2018-11-15] MEDS: Gabapentin 300 MG Capsule PO SCH ×3 (08:34→17:06)
[2018-11-15] MEDS: Nystatin 100,000 UNITS/GM Powder 15 GM Bottle TOPICAL SCH ×2 (08:34→20:21)
[2018-11-15] MEDS: Miconazole 2% Cream 15 GM Tube TOPICAL SCH ×2 (08:34→20:21)
--- NOTE | 2018-11-15 11:34 | P.PNIM ---
Subjective Interval history: Follow-up infective discitis/MSSA bacteremia/history of IV drug use November 15, 2018patient seen and examined, he was in the position and was requesting more narcotics, which is a recurrent theme for this patient. Otherwise no acute event overnight. Physical Exam Vital signs: Vital Signs 11/14/18 11:42 11/14/18 15:43 11/14/18 19:04 Temperature 97.9 F 98.1 F Pulse Rate 80 98 H Respiratory Rate 18 16 16 Blood Pressure 110/56 L 98/53 L Pulse Oximetry 99 98 11/14/18 20:00 11/15/18 00:00 11/15/18 04:00 Temperature 97.5 F L 97.8 F 97.4 F L Pulse Rate 123 H 85 92 H Respiratory Rate 18 18 18 Blood Pressure 121/62 146/61 H 101/63 Pulse Oximetry 98 97 97 11/15/18 07:05 Temperature 98.0 F Pulse Rate 104 H Respiratory Rate 20 Blood Pressure 114/66 Pulse Oximetry 99 Intake & Output 11/14/18 11/15/18 11/15/18 18:59 06:59 18:59 Intake Total 2200 / 2200 1900 / 1900 100 / 100 Balance 2200 / 2200 1900 / 1900 100 / 100 Intake: IV 200 / 200 400 / 400 100 / 100 Prostaphlin Inj 2 GM In NS Inj 200 / 200 400 / 400 100 / 100 100 ML @ 200 mls/hr IV.SIG Q4H [facility] Rx#:[id number] Oral 1999 / 1999 1500 / 1500 Other: # Voids 3 5 Date of Last Bowel Movement 11/13/18 11/12/18 11/15/18 Narrative: GENERAL: NAD SKIN: Warm and dry. HEAD: Atraumatic. Normocephalic. EYES: Pupils equal and round. No scleral icterus. No injection or drainage. ENT: No nasal bleeding or discharge. Mucous membranes pink and moist. NECK: Trachea midline. No JVD. CARDIOVASCULAR: Regular rate and rhythm. RESPIRATORY: No accessory muscle use. Clear to auscultation. Breath sounds equal bilaterally. GASTROINTESTINAL: Abdomen soft, non-tender, nondistended. Hepatic and splenic margins not palpable. MUSCULOSKELETAL: Extremities without clubbing, cyanosis, or edema. No obvious deformities. NEUROLOGICAL: Awake and alert. No obvious cranial nerve deficits. Motor grossly within normal limits. Five out of 5 muscle strength in the arms and legs. Normal speech. PSYCHIATRIC: Appropriate mood and affect; insight and judgment normal. Results Labs CBC & Chem 7: 11/08/18 11:22 11/15/18 07:20 Procedures Procedures: LISA Assessment and Plan (1) Staphylococcus aureus bacteremia: Code(s): R78.81 - Bacteremia Status: Acute (2) Discitis: Code(s): M46.40 - Discitis, unspecified, site unspecified Status: Acute (3) Intravenous drug abuse: Code(s): F19.10 - Other psychoactive substance abuse, uncomplicated Status: Chronic Plan 28-year-old man with MSSA bacteremia IVDU Infective discitis -Echo 60-65% ejection fraction, no endocarditis noted. -LISA was done showing normal LV size, wall thickness and systolic function, EF 60%; negative for vegetation -Neurosurgery has seen and evaluated the patient. Recommend continued infectious workup. MRI of the spine without any abscess. No surgical intervention for now. -Recommend weekly ESR/CRP. To call neurosurgery if neurologic deficit occurs. Patient currently ambulatory. Most recent positive blood culture 09/26/18, most recent negative blood culture 10/05/18. continue oxacillin as per ID, with tentative stop date around 11/26/18. check ESR and CRP weekly IV drug use, heroin -Monitor for withdrawals -Clonidine patch to decrease anxiety. -Found to have illicit substance while in the inpatient setting - "heroin [place]" , possible snorted vs injection, while inpatient. No visitors allowed. -Continues with drug seeking behavior -Continue current pain regimen. Fungal rash vs drug rash - improved -urticaria underneath left armpit and right forearm -Miconazole cream BID to affected area (forearm) -Nystatin powder armpit -On hydroxyzine as needed, as well as added Singulair on 11/09. Depression/anxiety Hx of Panic attacks. -Prozac daily -Patient states he use to take Xanax but no script in 2 years per [facility] -Xanax 0.25 mg PO q 8 PRN anxiety. Insomnia -Cont Ambien PRN 10 mg PO q hs Full code. SCDs. Heparin DVT ppx: Patient refusing heparin Discussed Condition With: RN AND PT Discharge Planning: NEEDS TO COMPLETE TREATMENT 8 weeks of abx NOT A SAFE DISCHARGE DUE TO HX OF AMA AND USING WHILE HERE IN HOSPITAL Continue current treatment as of November 15, 2018 Progress Note: Quality VTE Deep Vein Thrombosis/Pulmonary Embolism Present on Admission: No _ (1) Discitis Qualifiers: Spinal region:
[2018-11-15] MEDS: Montelukast 10 MG Tablet PO SCH (20:32)
[2018-11-16] MEDS: oxyCODONE/Acetaminophen 10/325 Tablet PO PRN ×6 (01:13→21:02)
[2018-11-16] MEDS: ALPRAZolam 0.25 MG Tablet PO PRN ×3 (05:24→21:01)
[2018-11-16] MEDS: Methocarbamol 500 MG Tablet PO PRN ×3 (06:16→22:18)
[2018-11-16] MEDS: Heparin - SQ 10,000 UNITS/ML Vial SQ SCH ×2 (06:47→17:28)
[2018-11-16] MEDS: Gabapentin 300 MG Capsule PO SCH ×3 (08:21→17:27)
[2018-11-16] MEDS: Lidocaine 5% Patch T-DERMAL SCH (08:21)
[2018-11-16] MEDS: FLUoxetine 20 MG Capsule PO SCH (08:21)
[2018-11-16] MEDS: Nystatin 100,000 UNITS/GM Powder 15 GM Bottle TOPICAL SCH ×2 (08:21→21:03)
[2018-11-16] MEDS: Miconazole 2% Cream 15 GM Tube TOPICAL SCH ×2 (08:21→21:03)
[2018-11-16] MEDS: Senna/Docusate Sodium 8.6/50 MG Tablet PO SCH ×2 (08:21→21:02)
--- NOTE | 2018-11-16 10:13 | P.PNIM ---
Subjective Interval history: Follow-up infective discitis/MSSA bacteremia November 16, 2018-patient seen and examined, still complains of low back pain otherwise stable. Afebrile. Physical Exam Vital signs: Vital Signs 11/15/18 11:35 11/15/18 15:51 11/15/18 20:00 Temperature 97.1 F L 98.0 F 97.6 F Pulse Rate 92 H 73 87 Respiratory Rate 20 20 20 Blood Pressure 137/73 108/59 L 116/69 Pulse Oximetry 97 98 99 11/16/18 00:00 11/16/18 01:30 11/16/18 03:32 Temperature 97.7 F Pulse Rate 77 Respiratory Rate 20 16 16 Blood Pressure 110/60 Pulse Oximetry 98 11/16/18 04:00 11/16/18 07:35 Temperature 98.0 F 98.8 F Pulse Rate 81 86 Respiratory Rate 20 20 Blood Pressure 100/56 L 107/69 Pulse Oximetry 100 97 Intake & Output 11/15/18 11/16/18 11/16/18 18:59 06:59 18:59 Intake Total 2200 / 2200 200 / 200 100 / 100 Balance 2200 / 2200 200 / 200 100 / 100 Intake: IV 200 / 200 200 / 200 100 / 100 Prostaphlin Inj 2 GM In NS Inj 200 / 200 200 / 200 100 / 100 100 ML @ 200 mls/hr IV.SIG Q4H [facility] Rx#:[id number] Oral 1999 Other: # Voids 3 Date of Last Bowel Movement 11/15/18 # Bowel Movements 1 Narrative: GENERAL: NAD SKIN: Warm and dry. HEAD: Atraumatic. Normocephalic. EYES: Pupils equal and round. No scleral icterus. No injection or drainage. ENT: No nasal bleeding or discharge. Mucous membranes pink and moist. NECK: Trachea midline. No JVD. CARDIOVASCULAR: Regular rate and rhythm. RESPIRATORY: No accessory muscle use. Clear to auscultation. Breath sounds equal bilaterally. GASTROINTESTINAL: Abdomen soft, non-tender, nondistended. Hepatic and splenic margins not palpable. MUSCULOSKELETAL: Extremities without clubbing, cyanosis, or edema. No obvious deformities. NEUROLOGICAL: Awake and alert. No obvious cranial nerve deficits. Motor grossly within normal limits. Five out of 5 muscle strength in the arms and legs. Normal speech. PSYCHIATRIC: Appropriate mood and affect; insight and judgment normal. Results Labs CBC & Chem 7: 11/08/18 11:22 11/15/18 07:20 Procedures Procedures: LISA Assessment and Plan (1) Staphylococcus aureus bacteremia: Code(s): R78.81 - Bacteremia Status: Acute (2) Discitis: Code(s): M46.40 - Discitis, unspecified, site unspecified Status: Acute (3) Intravenous drug abuse: Code(s): F19.10 - Other psychoactive substance abuse, uncomplicated Status: Chronic Plan 28-year-old man with MSSA bacteremia IVDU Infective discitis -Echo 60-65% ejection fraction, no endocarditis noted. -LISA was done showing normal LV size, wall thickness and systolic function, EF 60%; negative for vegetation -Neurosurgery has seen and evaluated the patient. Recommend continued infectious workup. MRI of the spine without any abscess. No surgical intervention for now. -Recommend weekly ESR/CRP. To call neurosurgery if neurologic deficit occurs. Patient currently ambulatory. Most recent positive blood culture 09/26/18, most recent negative blood culture 10/05/18. continue oxacillin as per ID, with tentative stop date around 11/26/18. check ESR and CRP weekly IV drug use, heroin -Monitor for withdrawals -Clonidine patch to decrease anxiety. -Found to have illicit substance while in the inpatient setting - "heroin rock" , possible snorted vs injection, while inpatient. No visitors allowed. -Continues with drug seeking behavior -Continue current pain regimen. Fungal rash vs drug rash - improved -urticaria underneath left armpit and right forearm -Miconazole cream BID to affected area (forearm) -Nystatin powder armpit -On hydroxyzine as needed, as well as added Singulair on 11/09. Depression/anxiety Hx of Panic attacks. -Prozac daily -Patient states he use to take Xanax but no script in 2 years per [facility] -Xanax 0.25 mg PO q 8 PRN anxiety. Insomnia -Cont Ambien PRN 10 mg PO q hs Full code. SCDs. Heparin DVT ppx: Patient refusing heparin Discussed Condition With: RN AND PT Discharge Planning: NEEDS TO COMPLETE TREATMENT 8 weeks of abx NOT A SAFE DISCHARGE DUE TO HX OF AMA AND USING WHILE HERE IN HOSPITAL Continue current treatment as of November 16, 2018 Progress Note: Quality VTE Deep Vein Thrombosis/Pulmonary Embolism Present on Admission: No _ (1) Discitis Qualifiers: Spinal region:
[2018-11-16] MEDS: Montelukast 10 MG Tablet PO SCH (21:01)
[2018-11-17] MEDS: oxyCODONE/Acetaminophen 10/325 Tablet PO PRN ×6 (01:18→22:34)
[2018-11-17] MEDS: Heparin - SQ 10,000 UNITS/ML Vial SQ SCH ×2 (05:37→17:44)
[2018-11-17] MEDS: ALPRAZolam 0.25 MG Tablet PO PRN ×3 (05:44→21:46)
[2018-11-17] MEDS: Methocarbamol 500 MG Tablet PO PRN ×3 (06:19→22:34)
[2018-11-17] MEDS: Gabapentin 300 MG Capsule PO SCH ×3 (08:10→18:11)
[2018-11-17] MEDS: FLUoxetine 20 MG Capsule PO SCH (08:10)
[2018-11-17] MEDS: Lidocaine 5% Patch T-DERMAL SCH (08:11)
[2018-11-17] MEDS: Miconazole 2% Cream 15 GM Tube TOPICAL SCH ×2 (08:11→22:00)
[2018-11-17] MEDS: Nystatin 100,000 UNITS/GM Powder 15 GM Bottle TOPICAL SCH ×2 (08:11→22:00)
[2018-11-17] MEDS: Senna/Docusate Sodium 8.6/50 MG Tablet PO SCH ×2 (08:12→22:00)
--- NOTE | 2018-11-17 09:22 | P.PNIM ---
Subjective Interval history: Follow-up infective discitis/MSSA bacteremia November 17, 2018patient seen and examined, stable, afebrile. Physical Exam Vital signs: Vital Signs 11/16/18 11:30 11/16/18 15:25 11/16/18 20:24 Temperature 97.7 F 98.2 F 97.8 F Pulse Rate 62 67 85 Respiratory Rate 20 20 20 Blood Pressure 102/53 L 93/54 L 114/66 Pulse Oximetry 99 96 99 11/17/18 00:27 11/17/18 02:18 11/17/18 05:57 Temperature 97.9 F 97.5 F L Pulse Rate 113 H 83 Respiratory Rate 20 16 20 Blood Pressure 104/61 111/59 L Pulse Oximetry 99 99 11/17/18 07:40 Temperature 97.7 F Pulse Rate 81 Respiratory Rate 20 Blood Pressure 107/64 Pulse Oximetry 99 Intake & Output 11/16/18 11/17/18 11/17/18 18:59 06:59 18:59 Intake Total 1900 / 1900 200 / 200 100 / 100 Balance 1900 / 1900 200 / 200 100 / 100 Intake: IV 400 / 400 200 / 200 100 / 100 Prostaphlin Inj 2 GM In NS Inj 400 / 400 200 / 200 100 / 100 100 ML @ 200 mls/hr IV.SIG Q4H SETH Rx#:[id number] Oral 1500 / 1500 Other: # Voids 3 3 Date of Last Bowel Movement 11/16/18 11/16/18 # Bowel Movements 1 Narrative: GENERAL: NAD SKIN: Warm and dry. HEAD: Atraumatic. Normocephalic. EYES: Pupils equal and round. No scleral icterus. No injection or drainage. ENT: No nasal bleeding or discharge. Mucous membranes pink and moist. NECK: Trachea midline. No JVD. CARDIOVASCULAR: Regular rate and rhythm. RESPIRATORY: No accessory muscle use. Clear to auscultation. Breath sounds equal bilaterally. GASTROINTESTINAL: Abdomen soft, non-tender, nondistended. Hepatic and splenic margins not palpable. MUSCULOSKELETAL: Extremities without clubbing, cyanosis, or edema. No obvious deformities. NEUROLOGICAL: Awake and alert. No obvious cranial nerve deficits. Motor grossly within normal limits. Five out of 5 muscle strength in the arms and legs. Normal speech. PSYCHIATRIC: Appropriate mood and affect; insight and judgment normal. Results Labs CBC & Chem 7: 11/08/18 11:22 11/15/18 07:20 Procedures Procedures: LISA Assessment and Plan (1) Staphylococcus aureus bacteremia: Code(s): R78.81 - Bacteremia Status: Acute (2) Discitis: Code(s): M46.40 - Discitis, unspecified, site unspecified Status: Acute (3) Intravenous drug abuse: Code(s): F19.10 - Other psychoactive substance abuse, uncomplicated Status: Chronic Plan 28-year-old man with MSSA bacteremia IVDU Infective discitis -Echo 60-65% ejection fraction, no endocarditis noted. -LISA was done showing normal LV size, wall thickness and systolic function, EF 60%; negative for vegetation -Neurosurgery has seen and evaluated the patient. Recommend continued infectious workup. MRI of the spine without any abscess. No surgical intervention for now. -Recommend weekly ESR/CRP. To call neurosurgery if neurologic deficit occurs. Patient currently ambulatory. Most recent positive blood culture 09/26/18, most recent negative blood culture 10/05/18. continue oxacillin as per ID, with tentative stop date around 11/26/18. check ESR and CRP weekly IV drug use, heroin -Monitor for withdrawals -Clonidine patch to decrease anxiety. -Found to have illicit substance while in the inpatient setting - "heroin rock" , possible snorted vs injection, while inpatient. No visitors allowed. -Continues with drug seeking behavior -Continue current pain regimen. Fungal rash vs drug rash - improved -urticaria underneath left armpit and right forearm -Miconazole cream BID to affected area (forearm) -Nystatin powder armpit -On hydroxyzine as needed, as well as added Singulair on 11/09. Depression/anxiety Hx of Panic attacks. -Prozac daily -Patient states he use to take Xanax but no script in 2 years per [facility] -Xanax 0.25 mg PO q 8 PRN anxiety. Insomnia -Cont Ambien PRN 10 mg PO q hs Full code. SCDs. Heparin DVT ppx: Patient refusing heparin Discussed Condition With: RN AND PT Discharge Planning: NEEDS TO COMPLETE TREATMENT 8 weeks of abx NOT A SAFE DISCHARGE DUE TO HX OF AMA AND USING WHILE HERE IN HOSPITAL Continue current treatment as of November 17, 2018 Progress Note: Quality VTE Deep Vein Thrombosis/Pulmonary Embolism Present on Admission: No _ (1) Discitis Qualifiers: Spinal region:
[2018-11-17] MEDS: Montelukast 10 MG Tablet PO SCH (21:51)
[2018-11-18] MEDS: oxyCODONE/Acetaminophen 10/325 Tablet PO PRN ×6 (03:06→23:10)
[2018-11-18] MEDS: ALPRAZolam 0.25 MG Tablet PO PRN ×3 (05:52→22:26)
[2018-11-18] MEDS: Heparin - SQ 10,000 UNITS/ML Vial SQ SCH ×2 (05:55→17:39)
[2018-11-18] MEDS: Methocarbamol 500 MG Tablet PO PRN ×3 (07:00→22:26)
[2018-11-18] MEDS: Gabapentin 300 MG Capsule PO SCH ×3 (08:43→18:49)
[2018-11-18] MEDS: FLUoxetine 20 MG Capsule PO SCH (08:43)
[2018-11-18] MEDS: Senna/Docusate Sodium 8.6/50 MG Tablet PO SCH ×2 (08:43→20:18)
[2018-11-18] MEDS: Lidocaine 5% Patch T-DERMAL SCH (09:34)
--- NOTE | 2018-11-18 09:59 | P.PNIM ---
Subjective Interval history: Follow-up infective discitis/ MSSA bacteremia November 18, 2018patient seen and examined, no complaint, no chest pain or shortness of breath. Discussed with patient regarding allowing possible a visit from family member this Physical Exam Vital signs: Vital Signs 11/17/18 11:40 11/17/18 15:50 11/17/18 20:17 Temperature 97.4 F L 97.9 F 98.3 F Pulse Rate 93 H 86 92 H Respiratory Rate 20 20 20 Blood Pressure 130/59 L 101/55 L 110/61 Pulse Oximetry 99 98 98 11/18/18 00:25 11/18/18 04:06 11/18/18 04:46 Temperature 97.6 F 97.5 F L Pulse Rate 103 H 80 Respiratory Rate 20 16 20 Blood Pressure 115/69 107/55 L Pulse Oximetry 98 97 11/18/18 08:18 Temperature 97.8 F Pulse Rate 79 Respiratory Rate 18 Blood Pressure 114/57 L Pulse Oximetry 98 Intake & Output 11/17/18 11/18/18 11/18/18 18:59 06:59 18:59 Intake Total 2400 / 2400 300 / 300 Balance 2400 / 2400 300 / 300 Intake: IV 400 / 400 300 / 300 Prostaphlin Inj 2 GM In NS Inj 400 / 400 300 / 300 100 ML @ 200 mls/hr IV.SIG Q4H SETH Rx#:[id number] Oral 1999 Other: # Voids 3 3 Date of Last Bowel Movement 11/17/18 11/17/18 # Bowel Movements 1 Narrative: GENERAL: NAD SKIN: Warm and dry. HEAD: Atraumatic. Normocephalic. EYES: Pupils equal and round. No scleral icterus. No injection or drainage. ENT: No nasal bleeding or discharge. Mucous membranes pink and moist. NECK: Trachea midline. No JVD. CARDIOVASCULAR: Regular rate and rhythm. RESPIRATORY: No accessory muscle use. Clear to auscultation. Breath sounds equal bilaterally. GASTROINTESTINAL: Abdomen soft, non-tender, nondistended. Hepatic and splenic margins not palpable. MUSCULOSKELETAL: Extremities without clubbing, cyanosis, or edema. No obvious deformities. NEUROLOGICAL: Awake and alert. No obvious cranial nerve deficits. Motor grossly within normal limits. Five out of 5 muscle strength in the arms and legs. Normal speech. PSYCHIATRIC: Appropriate mood and affect; insight and judgment normal. Results Labs CBC & Chem 7: 11/08/18 11:22 11/15/18 07:20 Procedures Procedures: LISA Assessment and Plan (1) Staphylococcus aureus bacteremia: Code(s): R78.81 - Bacteremia Status: Acute (2) Discitis: Code(s): M46.40 - Discitis, unspecified, site unspecified Status: Acute (3) Intravenous drug abuse: Code(s): F19.10 - Other psychoactive substance abuse, uncomplicated Status: Chronic Plan 28-year-old man with MSSA bacteremia IVDU Infective discitis -Echo 60-65% ejection fraction, no endocarditis noted. -LISA was done showing normal LV size, wall thickness and systolic function, EF 60%; negative for vegetation -Neurosurgery has seen and evaluated the patient. Recommend continued infectious workup. MRI of the spine without any abscess. No surgical intervention for now. -Recommend weekly ESR/CRP. To call neurosurgery if neurologic deficit occurs. Patient currently ambulatory. Most recent positive blood culture 09/26/18, most recent negative blood culture 10/05/18. continue oxacillin as per ID, with tentative stop date around 11/26/18. check ESR and CRP weekly IV drug use, heroin -Monitor for withdrawals -Clonidine patch to decrease anxiety. -Found to have illicit substance while in the inpatient setting - "heroin rock" , possible snorted vs injection, while inpatient. No visitors allowed. -Continues with drug seeking behavior -Continue current pain regimen. Fungal rash vs drug rash - improved -urticaria underneath left armpit and right forearm -Miconazole cream BID to affected area (forearm) -Nystatin powder armpit -On hydroxyzine as needed, as well as added Singulair on 11/09. Depression/anxiety Hx of Panic attacks. -Prozac daily -Patient states he use to take Xanax but no script in 2 years per [facility] -Xanax 0.25 mg PO q 8 PRN anxiety. Insomnia -Cont Ambien PRN 10 mg PO q hs Full code. SCDs. Heparin DVT ppx: Patient refusing heparin Discussed Condition With: RN AND PT Discharge Planning: NEEDS TO COMPLETE TREATMENT 8 weeks of abx NOT A SAFE DISCHARGE DUE TO HX OF AMA AND USING WHILE HERE IN HOSPITAL Continue current treatment as of November 18, 2018 Progress Note: Quality VTE Deep Vein Thrombosis/Pulmonary Embolism Present on Admission: No _ (1) Discitis Qualifiers: Spinal region:
[2018-11-18] MEDS: Miconazole 2% Cream 15 GM Tube TOPICAL SCH ×2 (10:35→22:28)
[2018-11-18] MEDS: Nystatin 100,000 UNITS/GM Powder 15 GM Bottle TOPICAL SCH ×2 (10:35→22:28)
[2018-11-18] MEDS: Sodium Chloride 0.45 % Inj 1,000 ML IV.CONT SCH ×4 (19:02→23:00)
[2018-11-18] MEDS: Montelukast 10 MG Tablet PO SCH (20:17)
[2018-11-19] MEDS: oxyCODONE/Acetaminophen 10/325 Tablet PO PRN ×5 (02:49→22:21)
[2018-11-19] MEDS: Heparin - SQ 10,000 UNITS/ML Vial SQ SCH ×2 (05:56→19:59)
[2018-11-19] MEDS: Methocarbamol 500 MG Tablet PO PRN ×2 (06:21→14:15)
[2018-11-19] MEDS: ALPRAZolam 0.25 MG Tablet PO PRN ×3 (07:20→22:21)
[2018-11-19] MEDS: FLUoxetine 20 MG Capsule PO SCH (09:27)
[2018-11-19] MEDS: Senna/Docusate Sodium 8.6/50 MG Tablet PO SCH ×2 (09:27→22:21)
[2018-11-19] MEDS: Gabapentin 300 MG Capsule PO SCH ×3 (09:27→18:16)
[2018-11-19] MEDS: Lidocaine 5% Patch T-DERMAL SCH (10:03)
[2018-11-19] MEDS: Nystatin 100,000 UNITS/GM Powder 15 GM Bottle TOPICAL SCH ×2 (10:08→22:28)
[2018-11-19] MEDS: Miconazole 2% Cream 15 GM Tube TOPICAL SCH ×2 (10:08→22:28)
--- NOTE | 2018-11-19 10:51 | P.PNIM ---
Subjective Interval history: Follow-up infective discitis/MSSA bacteremia November 19, 2018patient seen and examined, he is looking forward meeting with his son today otherwise stable. Physical Exam Vital signs: Vital Signs 11/18/18 11:56 11/18/18 16:00 11/18/18 20:19 Temperature 98.0 F 97.6 F 97.5 F L Pulse Rate 80 80 91 H Respiratory Rate 18 20 18 Blood Pressure 113/56 L 98/63 L 120/70 Pulse Oximetry 97 97 99 11/19/18 00:00 11/19/18 04:54 11/19/18 07:15 Temperature 97.6 F 97.7 F 98.2 F Pulse Rate 90 72 89 Respiratory Rate 18 18 20 Blood Pressure 129/58 L 109/69 115/71 Pulse Oximetry 99 95 98 Intake & Output 11/18/18 11/19/18 11/19/18 18:59 06:59 18:59 Intake Total 200 / 200 300 / 300 100 / 100 Output Total 3 / 3 100 / 100 Balance 200 / 200 297 / 297 0 / 0 Weight 68.2 kg Intake: IV 200 / 200 300 / 300 100 / 100 Prostaphlin Inj 2 GM In NS Inj 200 / 200 300 / 300 100 / 100 100 ML @ 200 mls/hr IV.SIG Q4H SETH Rx#:[id number] Output: Urine 3 / 3 Wound Vac Amount 100 / 100 Right Posterior Back 100 / 100 Other: Mode Setting Right Posterior Back Continuous # Voids 2 Date of Last Bowel Movement 11/17/18 11/18/18 Narrative: GENERAL: NAD SKIN: Warm and dry. HEAD: Atraumatic. Normocephalic. EYES: Pupils equal and round. No scleral icterus. No injection or drainage. ENT: No nasal bleeding or discharge. Mucous membranes pink and moist. NECK: Trachea midline. No JVD. CARDIOVASCULAR: Regular rate and rhythm. RESPIRATORY: No accessory muscle use. Clear to auscultation. Breath sounds equal bilaterally. GASTROINTESTINAL: Abdomen soft, non-tender, nondistended. Hepatic and splenic margins not palpable. MUSCULOSKELETAL: Extremities without clubbing, cyanosis, or edema. No obvious deformities. NEUROLOGICAL: Awake and alert. No obvious cranial nerve deficits. Motor grossly within normal limits. Five out of 5 muscle strength in the arms and legs. Normal speech. PSYCHIATRIC: Appropriate mood and affect; insight and judgment normal. Results Labs CBC & Chem 7: 11/08/18 11:22 11/15/18 07:20 Labs: Microbiology 10/14/18 16:15 Other Acid Fast Bacilli Smear - Final No acid fast bacilli seen 10/14/18 16:15 Other Mycobacterial Culture - Preliminary No growth in 5 weeks Procedures Procedures: LISA Assessment and Plan (1) Staphylococcus aureus bacteremia: Code(s): R78.81 - Bacteremia Status: Acute (2) Discitis: Code(s): M46.40 - Discitis, unspecified, site unspecified Status: Acute (3) Intravenous drug abuse: Code(s): F19.10 - Other psychoactive substance abuse, uncomplicated Status: Chronic Plan 28-year-old man with MSSA bacteremia IVDU Infective discitis -Echo 60-65% ejection fraction, no endocarditis noted. -LISA was done showing normal LV size, wall thickness and systolic function, EF 60%; negative for vegetation -Neurosurgery has seen and evaluated the patient. Recommend continued infectious workup. MRI of the spine without any abscess. No surgical intervention for now. -Recommend weekly ESR/CRP. To call neurosurgery if neurologic deficit occurs. Patient currently ambulatory. Most recent positive blood culture 09/26/18, most recent negative blood culture 10/05/18. continue oxacillin as per ID, with tentative stop date around 11/26/18. check ESR and CRP weekly IV drug use, heroin -Monitor for withdrawals -Clonidine patch to decrease anxiety. -Found to have illicit substance while in the inpatient setting - "heroin rock" , possible snorted vs injection, while inpatient. No visitors allowed. -Continues with drug seeking behavior -Continue current pain regimen. Fungal rash vs drug rash - improved -urticaria underneath left armpit and right forearm -Miconazole cream BID to affected area (forearm) -Nystatin powder armpit -On hydroxyzine as needed, as well as added Singulair on 11/09. Depression/anxiety Hx of Panic attacks. -Prozac daily -Patient states he use to take Xanax but no script in 2 years per [facility] -Xanax 0.25 mg PO q 8 PRN anxiety. Insomnia -Cont Ambien PRN 10 mg PO q hs Full code. SCDs. Heparin DVT ppx: Patient refusing heparin Discussed Condition With: RN AND PT Discharge Planning: NEEDS TO COMPLETE TREATMENT 8 weeks of abx NOT A SAFE DISCHARGE DUE TO HX OF AMA AND USING WHILE HERE IN HOSPITAL Continue current treatment as of November 19, 2018 Progress Note: Quality VTE Deep Vein Thrombosis/Pulmonary Embolism Present on Admission: No _ (1) Discitis Qualifiers: Spinal region:
[2018-11-19] MEDS: Montelukast 10 MG Tablet PO SCH (22:21)
[2018-11-20] MEDS: Methocarbamol 500 MG Tablet PO PRN ×4 (00:05→22:07)
[2018-11-20] MEDS: oxyCODONE/Acetaminophen 10/325 Tablet PO PRN ×5 (02:29→20:23)
[2018-11-20] MEDS: Heparin - SQ 10,000 UNITS/ML Vial SQ SCH ×2 (06:11→18:12)
[2018-11-20] MEDS: ALPRAZolam 0.25 MG Tablet PO PRN ×2 (06:16→15:42)
[2018-11-20] MEDS: Senna/Docusate Sodium 8.6/50 MG Tablet PO SCH ×2 (08:34→20:22)
[2018-11-20] MEDS: Gabapentin 300 MG Capsule PO SCH ×3 (08:35→17:34)
[2018-11-20] MEDS: FLUoxetine 20 MG Capsule PO SCH (09:04)
[2018-11-20] MEDS: Nystatin 100,000 UNITS/GM Powder 15 GM Bottle TOPICAL SCH ×2 (09:04→20:21)
[2018-11-20] MEDS: Lidocaine 5% Patch T-DERMAL SCH (09:04)
[2018-11-20] MEDS: Miconazole 2% Cream 15 GM Tube TOPICAL SCH ×2 (09:06→20:21)
--- NOTE | 2018-11-20 09:37 | P.PNIM ---
Subjective Interval history: Follow-up infective discitis/MSSA bacteremia November 20, 2018patient seen and examined, no change, no complaint, afebrile. Physical Exam Vital signs: Vital Signs 11/19/18 10:25 11/19/18 15:15 11/19/18 20:50 Temperature 98.1 F 98.1 F 97.5 F L Pulse Rate 84 82 83 Respiratory Rate 20 20 19 Blood Pressure 112/76 122/72 130/53 L Pulse Oximetry 98 97 99 11/19/18 23:18 11/20/18 01:35 11/20/18 03:23 Temperature 97.4 F L Pulse Rate 94 H Respiratory Rate 19 20 18 Blood Pressure 100/60 Pulse Oximetry 96 11/20/18 06:05 11/20/18 06:45 11/20/18 07:15 Temperature 98.1 F 97.6 F Pulse Rate 84 106 H Respiratory Rate 20 18 20 Blood Pressure 107/60 109/67 Pulse Oximetry 100 98 Intake & Output 11/19/18 11/20/18 11/20/18 18:59 06:59 18:59 Intake Total 300 / 300 400 / 400 Output Total 100 / 100 Balance 200 / 200 400 / 400 Intake: IV 300 / 300 400 / 400 Prostaphlin Inj 2 GM In NS Inj 300 / 300 400 / 400 100 ML @ 200 mls/hr IV.SIG Q4H SETH Rx#:[id number] Output: Wound Vac Amount 100 / 100 Right Posterior Back 100 / 100 Other: Mode Setting Right Posterior Back Continuous # Voids 4 3 Date of Last Bowel Movement 11/18/18 11/18/18 Narrative: GENERAL: NAD SKIN: Warm and dry. HEAD: Atraumatic. Normocephalic. EYES: Pupils equal and round. No scleral icterus. No injection or drainage. ENT: No nasal bleeding or discharge. Mucous membranes pink and moist. NECK: Trachea midline. No JVD. CARDIOVASCULAR: Regular rate and rhythm. RESPIRATORY: No accessory muscle use. Clear to auscultation. Breath sounds equal bilaterally. GASTROINTESTINAL: Abdomen soft, non-tender, nondistended. Hepatic and splenic margins not palpable. MUSCULOSKELETAL: Extremities without clubbing, cyanosis, or edema. No obvious deformities. NEUROLOGICAL: Awake and alert. No obvious cranial nerve deficits. Motor grossly within normal limits. Five out of 5 muscle strength in the arms and legs. Normal speech. PSYCHIATRIC: Appropriate mood and affect; insight and judgment normal. Results Labs CBC & Chem 7: 11/08/18 11:22 11/15/18 07:20 Procedures Procedures: LISA Assessment and Plan (1) Staphylococcus aureus bacteremia: Code(s): R78.81 - Bacteremia Status: Acute (2) Discitis: Code(s): M46.40 - Discitis, unspecified, site unspecified Status: Acute (3) Intravenous drug abuse: Code(s): F19.10 - Other psychoactive substance abuse, uncomplicated Status: Chronic Plan 28-year-old man with MSSA bacteremia IVDU Infective discitis -Echo 60-65% ejection fraction, no endocarditis noted. -LISA was done showing normal LV size, wall thickness and systolic function, EF 60%; negative for vegetation -Neurosurgery has seen and evaluated the patient. Recommend continued infectious workup. MRI of the spine without any abscess. No surgical intervention for now. -Recommend weekly ESR/CRP. To call neurosurgery if neurologic deficit occurs. Patient currently ambulatory. Most recent positive blood culture 09/26/18, most recent negative blood culture 10/05/18. continue oxacillin as per ID, with tentative stop date around 11/26/18. check ESR and CRP weekly IV drug use, heroin -Monitor for withdrawals -Clonidine patch to decrease anxiety. -Found to have illicit substance while in the inpatient setting - "heroin rock" , possible snorted vs injection, while inpatient. No visitors allowed. -Continues with drug seeking behavior -Continue current pain regimen. Fungal rash vs drug rash - improved -urticaria underneath left armpit and right forearm -Miconazole cream BID to affected area (forearm) -Nystatin powder armpit -On hydroxyzine as needed, as well as added Singulair on 11/09. Depression/anxiety Hx of Panic attacks. -Prozac daily -Patient states he use to take Xanax but no script in 2 years per [facility] -Xanax 0.25 mg PO q 8 PRN anxiety. Insomnia -Cont Ambien PRN 10 mg PO q hs Full code. SCDs. Heparin DVT ppx: Patient refusing heparin Discussed Condition With: RN AND PT Discharge Planning: NEEDS TO COMPLETE TREATMENT 8 weeks of abx NOT A SAFE DISCHARGE DUE TO HX OF AMA AND USING WHILE HERE IN HOSPITAL Continue current treatment as of November 20, 2018 Progress Note: Quality VTE Deep Vein Thrombosis/Pulmonary Embolism Present on Admission: No _ (1) Discitis Qualifiers: Spinal region:
[2018-11-20] MEDS: Montelukast 10 MG Tablet PO SCH (20:23)
[2018-11-21] MEDS: oxyCODONE/Acetaminophen 10/325 Tablet PO PRN ×5 (01:20→21:20)
[2018-11-21] MEDS: ALPRAZolam 0.25 MG Tablet PO PRN ×3 (01:20→19:52)
[2018-11-21] MEDS: Heparin - SQ 10,000 UNITS/ML Vial SQ SCH ×2 (07:52→18:23)
[2018-11-21] MEDS: Methocarbamol 500 MG Tablet PO PRN ×2 (07:54→17:23)
[2018-11-21] MEDS: Senna/Docusate Sodium 8.6/50 MG Tablet PO SCH ×2 (08:00→20:38)
[2018-11-21] MEDS: Miconazole 2% Cream 15 GM Tube TOPICAL SCH ×2 (08:00→20:39)
[2018-11-21] MEDS: FLUoxetine 20 MG Capsule PO SCH (08:00)
[2018-11-21] MEDS: Gabapentin 300 MG Capsule PO SCH ×3 (08:00→17:19)
[2018-11-21] MEDS: Lidocaine 5% Patch T-DERMAL SCH (08:00)
[2018-11-21] MEDS: Nystatin 100,000 UNITS/GM Powder 15 GM Bottle TOPICAL SCH ×2 (08:01→20:39)
--- NOTE | 2018-11-21 09:25 | P.PNIM ---
Subjective Interval history: Follow-up infective discitis/MSSA bacteremia November 21, 2018patient seen and examined, he did not receive his p.m. dose of IV antibiotics, awaiting for vascular team to access peripheral. Otherwise patient stable and denies any left arm pain. Physical Exam Vital signs: Vital Signs 11/20/18 11:25 11/20/18 15:35 11/20/18 19:30 Temperature 98.1 F 98.1 F 97.5 F L Pulse Rate 99 H 78 88 Respiratory Rate 20 20 20 Blood Pressure 107/63 124/81 101/57 L Pulse Oximetry 99 95 97 11/20/18 23:35 11/21/18 02:17 11/21/18 04:20 Temperature 97.7 F 97.1 F L Pulse Rate 78 81 Respiratory Rate 18 18 19 Blood Pressure 101/59 L 110/64 Pulse Oximetry 99 98 11/21/18 08:00 Temperature 97.6 F Pulse Rate 81 Respiratory Rate 20 Blood Pressure 143/89 H Pulse Oximetry 97 Intake & Output 11/20/18 11/21/18 11/21/18 18:59 06:59 18:59 Intake Total 300 / 300 100 / 100 Balance 300 / 300 100 / 100 Intake: IV 300 / 300 100 / 100 Prostaphlin Inj 2 GM In NS Inj 300 / 300 100 / 100 100 ML @ 200 mls/hr IV.SIG Q4H SETH Rx#:[id number] Other: # Voids 4 3 Narrative: GENERAL: NAD SKIN: Warm and dry. HEAD: Atraumatic. Normocephalic. EYES: Pupils equal and round. No scleral icterus. No injection or drainage. ENT: No nasal bleeding or discharge. Mucous membranes pink and moist. NECK: Trachea midline. No JVD. CARDIOVASCULAR: Regular rate and rhythm. RESPIRATORY: No accessory muscle use. Clear to auscultation. Breath sounds equal bilaterally. GASTROINTESTINAL: Abdomen soft, non-tender, nondistended. Hepatic and splenic margins not palpable. MUSCULOSKELETAL: Extremities without clubbing, cyanosis, or edema. No obvious deformities. NEUROLOGICAL: Awake and alert. No obvious cranial nerve deficits. Motor grossly within normal limits. Five out of 5 muscle strength in the arms and legs. Normal speech. PSYCHIATRIC: Appropriate mood and affect; insight and judgment normal. Results Labs CBC & Chem 7: 11/08/18 11:22 11/15/18 07:20 Procedures Procedures: LISA Assessment and Plan (1) Staphylococcus aureus bacteremia: Code(s): R78.81 - Bacteremia Status: Acute (2) Discitis: Code(s): M46.40 - Discitis, unspecified, site unspecified Status: Acute (3) Intravenous drug abuse: Code(s): F19.10 - Other psychoactive substance abuse, uncomplicated Status: Chronic Plan 28-year-old man with MSSA bacteremia IVDU Infective discitis -Echo 60-65% ejection fraction, no endocarditis noted. -LISA was done showing normal LV size, wall thickness and systolic function, EF 60%; negative for vegetation -Neurosurgery has seen and evaluated the patient. Recommend continued infectious workup. MRI of the spine without any abscess. No surgical intervention for now. -Recommend weekly ESR/CRP. To call neurosurgery if neurologic deficit occurs. Patient currently ambulatory. Most recent positive blood culture 09/26/18, most recent negative blood culture 10/05/18. continue oxacillin as per ID, with tentative stop date around 11/26/18. check ESR and CRP weekly IV drug use, heroin -Monitor for withdrawals -Clonidine patch to decrease anxiety. -Found to have illicit substance while in the inpatient setting - "heroin rock" , possible snorted vs injection, while inpatient. No visitors allowed. -Continues with drug seeking behavior -Continue current pain regimen. Fungal rash vs drug rash - improved -urticaria underneath left armpit and right forearm -Miconazole cream BID to affected area (forearm) -Nystatin powder armpit -On hydroxyzine as needed, as well as added Singulair on 11/09. Depression/anxiety Hx of Panic attacks. -Prozac daily -Patient states he use to take Xanax but no script in 2 years per [facility] -Xanax 0.25 mg PO q 8 PRN anxiety. Insomnia -Cont Ambien PRN 10 mg PO q hs Full code. SCDs. Heparin DVT ppx: Patient refusing heparin Discussed Condition With: RN AND PT Discharge Planning: NEEDS TO COMPLETE TREATMENT 8 weeks of abx NOT A SAFE DISCHARGE DUE TO HX OF AMA AND USING WHILE HERE IN HOSPITAL Continue current treatment as of November 21, 2018 Please allow patient to have a visit from his son next weekend November 27 Progress Note: Quality VTE Deep Vein Thrombosis/Pulmonary Embolism Present on Admission: No _ (1) Discitis Qualifiers: Spinal region:
--- NOTE | 2018-11-21 19:17 | P.PNIM ---
Subjective Interval history: Not seen. Follow-up for infective discitis and MSSA bacteremia Physical Exam Vital signs: Vital Signs 11/20/18 19:30 11/20/18 23:35 11/21/18 02:17 Temperature 97.5 F L 97.7 F Pulse Rate 88 78 Respiratory Rate 20 18 18 Blood Pressure 101/57 L 101/59 L Pulse Oximetry 97 99 11/21/18 04:20 11/21/18 08:00 11/21/18 12:00 Temperature 97.1 F L 97.6 F 97.6 F Pulse Rate 81 81 83 Respiratory Rate 19 14 20 Blood Pressure 110/64 143/89 H 119/64 Pulse Oximetry 98 97 98 11/21/18 16:00 Temperature 98.5 F Pulse Rate 71 Respiratory Rate 20 Blood Pressure 104/56 L Pulse Oximetry 99 Intake & Output 11/21/18 11/21/18 11/22/18 06:59 18:59 06:59 Intake Total 100 / 100 1260 / 1260 Balance 100 / 100 1260 / 1260 Intake: IV 100 / 100 300 / 300 Prostaphlin Inj 2 GM In NS Inj 100 / 100 300 / 300 100 ML @ 200 mls/hr IV.SIG Q4H SETH Rx#:[id number] Oral 960 / 960 Other: # Voids 3 2 Narrative: GENERAL: NAD SKIN: Warm and dry. HEAD: Atraumatic. Normocephalic. EYES: Pupils equal and round. No scleral icterus. No injection or drainage. ENT: No nasal bleeding or discharge. Mucous membranes pink and moist. NECK: Trachea midline. No JVD. CARDIOVASCULAR: Regular rate and rhythm. RESPIRATORY: No accessory muscle use. Clear to auscultation. Breath sounds equal bilaterally. GASTROINTESTINAL: Abdomen soft, non-tender, nondistended. MUSCULOSKELETAL: Extremities without clubbing, cyanosis, or edema. No obvious deformities. NEUROLOGICAL: Awake and alert. No obvious cranial nerve deficits. Motor grossly within normal limits. Five out of 5 muscle strength in the arms and legs. Normal speech. PSYCHIATRIC: Appropriate mood and affect; insight and judgment normal. Results Labs CBC & Chem 7: 11/08/18 11:22 11/15/18 07:20 Imaging Imaging: ITS Impressions Thyroid Ultrasound 10/09/18 00:00 CONCLUSION: 1. Normal examination. Needle Aspiration CT 10/14/18 00:00 CONCLUSION: 1. CT-guided T9-10 disc aspiration yielded no fluid. Therefore, 20-gauge core biopsy was obtained and samples submitted per request. Thoracic Spine MRI 10/22/18 00:00 CONCLUSION: 1. Stable examination with some bony edema in the vertebral bodies from T9 through T12. 2. In addition, some enhancement of the intervertebral discs at T9-T10 and T11- T12 are concerning for early discitis. No significant change from prior. 3. Spinal canal remains patent without cord compromise. Procedures Procedures: LISA Assessment and Plan (1) Staphylococcus aureus bacteremia: Code(s): R78.81 - Bacteremia Status: Acute (2) Discitis: Code(s): M46.40 - Discitis, unspecified, site unspecified Status: Acute (3) Intravenous drug abuse: Code(s): F19.10 - Other psychoactive substance abuse, uncomplicated Status: Chronic Plan 28-year-old man with MSSA bacteremia IVDU Infective discitis -Echo 60-65% ejection fraction, no endocarditis noted. -LISA was done showing normal LV size, wall thickness and systolic function, EF 60%; negative for vegetation -Neurosurgery has seen and evaluated the patient. Recommend continued infectious workup. MRI of the spine without any abscess. No surgical intervention for now. -Recommend weekly ESR/CRP. To call neurosurgery if neurologic deficit occurs. Patient currently ambulatory. Most recent positive blood culture 09/26/18, most recent negative blood culture 10/05/18. continue oxacillin as per ID, with tentative stop date around 11/26/18. check ESR and CRP weekly IV drug use, heroin -Monitor for withdrawals -Clonidine patch to decrease anxiety. -Found to have illicit substance while in the inpatient setting - "heroin rock" , possible snorted vs injection, while inpatient. No visitors allowed. -Continues with drug seeking behavior -Continue current pain regimen. Fungal rash vs drug rash - improved -urticaria underneath left armpit and right forearm -Miconazole cream BID to affected area (forearm) -Nystatin powder armpit -On hydroxyzine as needed, as well as added Singulair on 11/09. Depression/anxiety Hx of Panic attacks. -Prozac daily -Patient states he use to take Xanax but no script in 2 years per [facility] -Xanax 0.25 mg PO q 8 PRN anxiety. Insomnia -Cont Ambien PRN 10 mg PO q hs Full code. SCDs. Heparin DVT ppx: Patient refusing heparin Discussed Condition With: RN AND PT Discharge Planning: NEEDS TO COMPLETE TREATMENT 8 weeks of abx NOT A SAFE DISCHARGE DUE TO HX OF AMA AND USING WHILE HERE IN HOSPITAL Continue current treatment as of November 21, 2018 Please allow patient to have a visit from his son next weekend November 27- Progress Note: Quality VTE Deep Vein Thrombosis/Pulmonary Embolism Present on Admission: No _ (1) Discitis Qualifiers: Spinal region:
[2018-11-21] MEDS: Montelukast 10 MG Tablet PO SCH (20:38)
[2018-11-22] MEDS: oxyCODONE/Acetaminophen 10/325 Tablet PO PRN ×6 (01:03→21:50)
[2018-11-22] MEDS: Heparin - SQ 10,000 UNITS/ML Vial SQ SCH ×2 (05:41→18:50)
[2018-11-22] MEDS: Methocarbamol 500 MG Tablet PO PRN ×3 (06:51→21:49)
[2018-11-22] MEDS: ALPRAZolam 0.25 MG Tablet PO PRN ×3 (06:51→23:14)
[2018-11-22] MEDS: Senna/Docusate Sodium 8.6/50 MG Tablet PO SCH ×2 (08:38→21:49)
[2018-11-22] MEDS: FLUoxetine 20 MG Capsule PO SCH (08:38)
[2018-11-22] MEDS: Gabapentin 300 MG Capsule PO SCH ×3 (08:38→17:09)
[2018-11-22 09:36] LABS: Baso % (Auto) 0.8 % (0.0-2.0); Eos # (Auto) 0.1 th/mm3 (0.0-0.4); Eos % (Auto) 1.7 % (0.0-4.0); Hematocrit 38.4 % (39.0-51.0); Hemoglobin 12.7 gm/dL (13.0-17.0); Lymph # (Auto) 2.2 th/mm3 (1.0-4.8); Lymph % (Auto) 35.4 % (9.0-44.0); Mean Corpuscular Hemoglobin 28.1 pg (27.0-34.0); Mean Corpuscular Volume 85.2 fL (80.0-100.0); Mean Platelet Volume 7.8 fL (7.0-11.0); Mono # (Auto) 0.7 th/mm3 (0.0-0.9); Mono % (Auto) 11.9 % (0.0-8.0); Neut # (Auto) 3.1 th/mm3 (1.8-7.7); Neut % (Auto) 50.2 % (16.0-70.0); Platelet Count 322 th/mm3 (150-450); Red Cell Distribution Width 19.6 % (11.6-17.2); White Blood Count 6.1 th/mm3 (4.0-11.0)
[2018-11-22 09:51] LABS: Erythrocyte Sedimentation Rate 9 mm/hr (0-15)
[2018-11-22 10:00] LABS: Albumin 3.6 g/dL (3.4-5.0); Anion Gap 7 meq/L (5-15); Aspartate Aminotransferase 139 U/L (15-37); Blood Urea Nitrogen 18 mg/dL (7-18); Calcium 9.1 mg/dL (8.5-10.1); Carbon Dioxide 25.7 meq/L (21.0-32.0); Chloride 108 meq/L (98-107); Glomerular Filtration Rate 88 mL/min (>89); Glucose,Random 66 mg/dL (74-106); Potassium 4.1 meq/L (3.5-5.1); Sodium 141 meq/L (136-145)
[2018-11-22 10:01] LABS: Alanine Aminotransferase 289 U/L (12-78)
[2018-11-22 10:03] LABS: Alkaline Phosphatase 88 U/L (45-117); Total Protein 7.7 g/dL (6.4-8.2)
[2018-11-22] MEDS: Lidocaine 5% Patch T-DERMAL SCH (10:39)
[2018-11-22] MEDS: Miconazole 2% Cream 15 GM Tube TOPICAL SCH ×2 (10:40→21:57)
[2018-11-22] MEDS: Nystatin 100,000 UNITS/GM Powder 15 GM Bottle TOPICAL SCH ×2 (10:40→21:57)
--- NOTE | 2018-11-22 13:10 | P.PNIM ---
Subjective Interval history: Follow-up infected discitis. Patient has no new complaints. Discussed with nursing. Physical Exam Vital signs: Vital Signs 11/21/18 16:00 11/21/18 19:45 11/21/18 23:35 Temperature 98.5 F 97.7 F 97.9 F Pulse Rate 71 74 80 Respiratory Rate 20 17 19 Blood Pressure 104/56 L 119/61 110/56 L Pulse Oximetry 99 99 97 11/22/18 04:15 11/22/18 07:25 11/22/18 11:45 Temperature 97.5 F L 98.3 F 97.9 F Pulse Rate 80 88 73 Respiratory Rate 18 20 20 Blood Pressure 126/94 H 114/63 121/68 Pulse Oximetry 98 94 L 99 Intake & Output 11/21/18 11/22/18 11/22/18 18:59 06:59 18:59 Intake Total 1260 / 1260 300 / 300 100 / 100 Balance 1260 / 1260 300 / 300 100 / 100 Intake: IV 300 / 300 300 / 300 100 / 100 Prostaphlin Inj 2 GM In NS Inj 300 / 300 300 / 300 100 / 100 100 ML @ 200 mls/hr IV.SIG Q4H SETH Rx#:[id number] Oral 960 / 960 Other: # Voids 2 3 Narrative: GENERAL: NAD SKIN: Warm and dry. CARDIOVASCULAR: Regular rate and rhythm. RESPIRATORY: No accessory muscle use. Clear to auscultation. Breath sounds equal bilaterally. GASTROINTESTINAL: Abdomen soft, non-tender, nondistended. MUSCULOSKELETAL: Extremities without clubbing, cyanosis, or edema. No obvious deformities. NEUROLOGICAL: Awake and alert. No obvious cranial nerve deficits. Motor grossly within normal limits. Five out of 5 muscle strength in the arms and legs. Normal speech. PSYCHIATRIC: Appropriate mood and affect; insight and judgment normal. Results Labs CBC & Chem 7: 11/22/18 08:47 11/22/18 08:47 Imaging Imaging: ITS Impressions Thyroid Ultrasound 10/09/18 00:00 CONCLUSION: 1. Normal examination. Needle Aspiration CT 10/14/18 00:00 CONCLUSION: 1. CT-guided T9-10 disc aspiration yielded no fluid. Therefore, 20-gauge core biopsy was obtained and samples submitted per request. Thoracic Spine MRI 10/22/18 00:00 CONCLUSION: 1. Stable examination with some bony edema in the vertebral bodies from T9 through T12. 2. In addition, some enhancement of the intervertebral discs at T9-T10 and T11- T12 are concerning for early discitis. No significant change from prior. 3. Spinal canal remains patent without cord compromise. Procedures Procedures: LISA Assessment and Plan (1) Staphylococcus aureus bacteremia: Code(s): R78.81 - Bacteremia Status: Acute (2) Discitis: Code(s): M46.40 - Discitis, unspecified, site unspecified Status: Acute (3) Intravenous drug abuse: Code(s): F19.10 - Other psychoactive substance abuse, uncomplicated Status: Chronic Plan 28-year-old man with MSSA bacteremia IVDU Infective discitis -Echo 60-65% ejection fraction, no endocarditis noted. -LISA was done showing normal LV size, wall thickness and systolic function, EF 60%; negative for vegetation -Neurosurgery has seen and evaluated the patient. Recommend continued infectious workup. MRI of the spine without any abscess. No surgical intervention for now. -Recommend weekly CBC as well as ESR/CRP both WNL. To call neurosurgery if neurologic deficit occurs. Patient currently ambulatory. Most recent positive blood culture 09/26/18, most recent negative blood culture 10/05/18. continue oxacillin as per ID, with tentative stop date around 11/26/18. IV drug use, heroin -Monitor for withdrawals -Found to have illicit substance while in the inpatient setting - "heroin rock" , possible snorted vs injection, while inpatient. No visitors allowed. -Continues with drug seeking behavior -Continue current pain regimen. Fungal rash vs drug rash - improved -urticaria underneath left armpit and right forearm -Miconazole cream BID to affected area (forearm) -Nystatin powder armpit -On hydroxyzine as needed, as well as added Singulair on 11/09. Depression/anxiety Hx of Panic attacks. -Prozac daily -Patient states he use to take Xanax but no script in 2 years per [facility] -Xanax 0.25 mg PO q 8 PRN anxiety. Insomnia -Cont Ambien PRN 10 mg PO q hs Full code. SCDs. Heparin DVT ppx: Patient refusing heparin Discussed Condition With: RN AND PT Discharge Planning: NEEDS TO COMPLETE TREATMENT 8 weeks of abx NOT A SAFE DISCHARGE DUE TO HX OF AMA AND USING WHILE HERE IN HOSPITAL Please allow patient to have a visit from [facility] next weekend November 27- Progress Note: Quality VTE Deep Vein Thrombosis/Pulmonary Embolism Present on Admission: No _ (1) Discitis Qualifiers: Spinal region:
[2018-11-22] MEDS: Montelukast 10 MG Tablet PO SCH (21:49)
[2018-11-23] MEDS: oxyCODONE/Acetaminophen 10/325 Tablet PO PRN ×5 (04:17→23:55)
[2018-11-23] MEDS: Heparin - SQ 10,000 UNITS/ML Vial SQ SCH ×2 (06:11→19:08)
[2018-11-23] MEDS: Senna/Docusate Sodium 8.6/50 MG Tablet PO SCH ×2 (08:41→21:55)
[2018-11-23] MEDS: FLUoxetine 20 MG Capsule PO SCH (08:41)
[2018-11-23] MEDS: Gabapentin 300 MG Capsule PO SCH ×3 (08:41→17:54)
[2018-11-23] MEDS: Lidocaine 5% Patch T-DERMAL SCH (08:51)
[2018-11-23] MEDS: Nystatin 100,000 UNITS/GM Powder 15 GM Bottle TOPICAL SCH ×2 (08:55→21:54)
[2018-11-23] MEDS: Miconazole 2% Cream 15 GM Tube TOPICAL SCH ×2 (08:59→21:54)
[2018-11-23] MEDS: Methocarbamol 500 MG Tablet PO PRN ×2 (10:27→21:55)
[2018-11-23] MEDS: ALPRAZolam 0.25 MG Tablet PO PRN ×2 (10:29→21:55)
--- NOTE | 2018-11-23 14:54 | P.PNIM ---
Subjective Interval history: Follow-up discitis. He has no new complaints. Patient advised we need to start tapering his narcotics and benzodiazepines Physical Exam Vital signs: Vital Signs 11/22/18 15:45 11/22/18 21:00 11/23/18 01:00 Temperature 98.5 F 97.5 F L 97.6 F Pulse Rate 78 80 87 Respiratory Rate 20 17 19 Blood Pressure 117/64 133/77 114/55 L Pulse Oximetry 99 96 98 11/23/18 05:25 11/23/18 07:45 11/23/18 08:45 Temperature 97.4 F L 98.1 F Pulse Rate 64 63 Respiratory Rate 17 20 20 Blood Pressure 100/51 L 101/52 L Pulse Oximetry 99 98 11/23/18 12:55 Temperature 97.4 F L Pulse Rate 70 Respiratory Rate 20 Blood Pressure 135/67 Pulse Oximetry 97 Intake & Output 11/22/18 11/23/18 11/23/18 18:59 06:59 18:59 Intake Total 1180 / 1180 200 / 200 300 / 300 Balance 1180 / 1180 200 / 200 300 / 300 Intake: IV 300 / 300 200 / 200 300 / 300 Prostaphlin Inj 2 GM In NS Inj 300 / 300 200 / 200 300 / 300 100 ML @ 200 mls/hr IV.SIG Q4H SETH Rx#:[id number] Oral 880 / 880 Other: # Voids 4 2 Date of Last Bowel Movement 11/22/18 11/22/18 11/22/18 # Bowel Movements 1 1 Narrative: GENERAL: Well-developed and well-nourished in no distress SKIN: Warm and dry. CARDIOVASCULAR: Regular rate and rhythm. RESPIRATORY: No accessory muscle use. Clear to auscultation. Breath sounds equal bilaterally. GASTROINTESTINAL: Abdomen soft, non-tender, nondistended. MUSCULOSKELETAL: Extremities without clubbing, cyanosis, or edema. No obvious deformities. NEUROLOGICAL: Awake and alert. No obvious cranial nerve deficits. Motor grossly within normal limits. Five out of 5 muscle strength in the arms and legs. Normal speech. PSYCHIATRIC: Appropriate mood and affect; insight and judgment normal. Results Labs CBC & Chem 7: 11/22/18 08:47 11/22/18 08:47 Assessment and Plan (1) Staphylococcus aureus bacteremia: Code(s): R78.81 - Bacteremia Status: Acute (2) Discitis: Code(s): M46.40 - Discitis, unspecified, site unspecified Status: Acute (3) Intravenous drug abuse: Code(s): F19.10 - Other psychoactive substance abuse, uncomplicated Status: Chronic Plan 28-year-old man with MSSA bacteremia IVDU Infective discitis -Echo 60-65% ejection fraction, no endocarditis noted. -LISA was done showing normal LV size, wall thickness and systolic function, EF 60%; negative for vegetation -Neurosurgery has seen and evaluated the patient. Recommend continued infectious workup. MRI of the spine without any abscess. No surgical intervention for now. -Recommend weekly CBC as well as ESR/CRP both WNL. To call neurosurgery if neurologic deficit occurs. Patient currently ambulatory. Most recent positive blood culture 09/26/18, most recent negative blood culture 10/05/18. continue oxacillin as per ID, with tentative stop date around 11/26/18. IV drug use, heroin -Monitor for withdrawals -Found to have illicit substance while in the inpatient setting - "heroin rock" , possible snorted vs injection, while inpatient. No visitors allowed. -Continues with drug seeking behavior -Continue current pain regimen. Agrees to be tapered Fungal rash vs drug rash - improved -urticaria underneath left armpit and right forearm -Miconazole cream BID to affected area (forearm) -Nystatin powder armpit -On hydroxyzine as needed, as well as added Singulair on 11/09. Depression/anxiety Hx of Panic attacks. -Prozac daily -Patient states he use to take Xanax but no script in 2 years per [facility] -Taper Xanax Insomnia -Discontinue Ambien patient on Xanax Full code. SCDs. Heparin DVT ppx: Patient refusing heparin Discussed Condition With: RN AND PT Discharge Planning: NEEDS TO COMPLETE TREATMENT 8 weeks of abx NOT A SAFE DISCHARGE DUE TO HX OF AMA AND USING WHILE HERE IN HOSPITAL Please allow patient to have a visit from his son next weekend November 27- [place] Prescription Drug Monitoring Database has been queried and verified prior to prescribing the controlled subsection. Patient is having significant pain caused by [discitis] which will last more than 3 days. Trial of alternative treatment options other than prescribed opioids has not helped. I believe that it is medically necessary to treat the patients pain because it is affecting patients ability to [do ADL]. Progress Note: Quality VTE Deep Vein Thrombosis/Pulmonary Embolism Present on Admission: No _ (1) Discitis Qualifiers: Spinal region:
[2018-11-23] MEDS: Montelukast 10 MG Tablet PO SCH (21:55)
[2018-11-24] MEDS: oxyCODONE/Acetaminophen 10/325 Tablet PO PRN ×3 (06:48→19:15)
[2018-11-24] MEDS: Heparin - SQ 10,000 UNITS/ML Vial SQ SCH ×2 (06:48→19:49)
[2018-11-24] MEDS: Methocarbamol 500 MG Tablet PO PRN ×3 (06:49→23:00)
[2018-11-24] MEDS: ALPRAZolam 0.25 MG Tablet PO PRN (09:53)
[2018-11-24] MEDS: Gabapentin 300 MG Capsule PO SCH ×3 (09:54→17:12)
[2018-11-24] MEDS: Lidocaine 5% Patch T-DERMAL SCH (09:54)
[2018-11-24] MEDS: FLUoxetine 20 MG Capsule PO SCH (09:54)
[2018-11-24] MEDS: Senna/Docusate Sodium 8.6/50 MG Tablet PO SCH ×2 (10:06→20:24)
[2018-11-24] MEDS: Miconazole 2% Cream 15 GM Tube TOPICAL SCH ×2 (10:07→20:23)
[2018-11-24] MEDS: Nystatin 100,000 UNITS/GM Powder 15 GM Bottle TOPICAL SCH ×2 (10:07→20:23)
--- NOTE | 2018-11-24 12:29 | P.PNIM ---
Subjective Interval history: Follow-up infected discitis. Patient requesting Ambien and to discontinue Xanax Physical Exam Vital signs: Vital Signs 11/23/18 12:55 11/23/18 16:00 11/24/18 01:00 Temperature 97.4 F L 97.3 F L 98.0 F Pulse Rate 70 84 72 Respiratory Rate 20 20 18 Blood Pressure 135/67 126/56 L 111/79 Pulse Oximetry 97 98 99 11/24/18 02:22 11/24/18 05:30 11/24/18 08:00 Temperature 97.9 F 97.9 F Pulse Rate 59 L 84 Respiratory Rate 18 18 16 Blood Pressure 104/58 L 98/61 L Pulse Oximetry 99 98 11/24/18 10:08 Temperature Pulse Rate Respiratory Rate 18 Blood Pressure Pulse Oximetry Intake & Output 11/23/18 11/24/18 11/24/18 18:59 06:59 18:59 Intake Total 1280 / 1280 200 / 200 100 / 100 Balance 1280 / 1280 200 / 200 100 / 100 Weight 68 kg Intake: IV 400 / 400 200 / 200 100 / 100 Prostaphlin Inj 2 GM In NS Inj 400 / 400 200 / 200 100 / 100 100 ML @ 200 mls/hr IV.SIG Q4H SETH Rx#:[id number] Oral 880 / 880 Other: # Voids 4 3 Date of Last Bowel Movement 11/22/18 11/22/18 # Bowel Movements 1 Narrative: GENERAL: Well-developed and well-nourished in no distress SKIN: Warm and dry. CARDIOVASCULAR: Regular rate and rhythm. RESPIRATORY: No accessory muscle use. Clear to auscultation. Breath sounds equal bilaterally. GASTROINTESTINAL: Abdomen soft, non-tender, nondistended. MUSCULOSKELETAL: Extremities without clubbing, cyanosis, or edema. No obvious deformities. NEUROLOGICAL: Awake and alert. No obvious cranial nerve deficits. Motor grossly within normal limits. Five out of 5 muscle strength in the arms and legs. Normal speech. PSYCHIATRIC: Appropriate mood and affect; insight and judgment normal. Results Labs CBC & Chem 7: 11/22/18 08:47 11/22/18 08:47 Assessment and Plan (1) Staphylococcus aureus bacteremia: Code(s): R78.81 - Bacteremia Status: Acute (2) Discitis: Code(s): M46.40 - Discitis, unspecified, site unspecified Status: Acute (3) Intravenous drug abuse: Code(s): F19.10 - Other psychoactive substance abuse, uncomplicated Status: Chronic Plan 28-year-old man with MSSA bacteremia IVDU Infective discitis -Echo 60-65% ejection fraction, no endocarditis noted. -LISA was done showing normal LV size, wall thickness and systolic function, EF 60%; negative for vegetation -Neurosurgery has seen and evaluated the patient. Recommend continued infectious workup. MRI of the spine without any abscess. No surgical intervention for now. -Recommend weekly CBC as well as ESR/CRP both WNL. To call neurosurgery if neurologic deficit occurs. Patient currently ambulatory. Most recent positive blood culture 09/26/18, most recent negative blood culture 10/05/18. continue oxacillin as per ID, with tentative stop date around 11/26/18. IV drug use, heroin -Monitor for withdrawals -Found to have illicit substance while in the inpatient setting - "heroin rock" , possible snorted vs injection, while inpatient. No visitors allowed. -Continues with drug seeking behavior -Continue current pain regimen. Agrees to be tapered Fungal rash vs drug rash - improved -urticaria underneath left armpit and right forearm -Miconazole cream BID to affected area (forearm) -Nystatin powder armpit -On hydroxyzine as needed, as well as added Singulair on 11/09. Depression/anxiety Hx of Panic attacks. -Prozac daily -Patient states he use to take Xanax but no script in 2 years per [facility] -Discontinue Xanax Insomnia -Restart Jeannette, patient counseled Full code. SCDs. Heparin DVT ppx: Patient refusing heparin Discussed Condition With: RN AND PT Discharge Planning: NEEDS TO COMPLETE TREATMENT 8 weeks of abx NOT A SAFE DISCHARGE DUE TO HX OF AMA AND USING WHILE HERE IN HOSPITAL Please allow patient to have a visit from his son next weekend November 27- [email or web address] Prescription Drug Monitoring Database has been queried and verified prior to prescribing the controlled subsection. Patient is having significant pain caused by [discitis] which will last more than 3 days. Trial of alternative treatment options other than prescribed opioids has not helped. I believe that it is medically necessary to treat the patients pain because it is affecting patients ability to [do ADL]. Progress Note: Quality VTE Deep Vein Thrombosis/Pulmonary Embolism Present on Admission: No _ (1) Discitis Qualifiers: Spinal region:
[2018-11-24] MEDS: Montelukast 10 MG Tablet PO SCH (20:24)
[2018-11-24] MEDS: Acetaminophen 325 MG Tablet PO PRN (20:40)
[2018-11-25] MEDS: oxyCODONE/Acetaminophen 10/325 Tablet PO PRN ×4 (00:59→18:53)
[2018-11-25] MEDS: Heparin - SQ 10,000 UNITS/ML Vial SQ SCH ×2 (06:07→19:04)
[2018-11-25] MEDS: Methocarbamol 500 MG Tablet PO PRN ×2 (07:07→18:54)
[2018-11-25] MEDS: FLUoxetine 20 MG Capsule PO SCH (09:16)
[2018-11-25] MEDS: Senna/Docusate Sodium 8.6/50 MG Tablet PO SCH ×2 (09:16→21:14)
[2018-11-25] MEDS: Gabapentin 300 MG Capsule PO SCH ×3 (09:16→18:53)
[2018-11-25] MEDS: Lidocaine 5% Patch T-DERMAL SCH (09:18)
[2018-11-25] MEDS: Nystatin 100,000 UNITS/GM Powder 15 GM Bottle TOPICAL SCH ×2 (09:21→21:22)
[2018-11-25] MEDS: Miconazole 2% Cream 15 GM Tube TOPICAL SCH ×2 (09:22→21:23)
--- NOTE | 2018-11-25 11:57 | P.PNIM ---
Subjective Interval history: Follow-up discitis. Patient has no new complaints ambulating in the hallway. Slept well last night Physical Exam Vital signs: Vital Signs 11/24/18 16:00 11/24/18 20:35 11/25/18 00:35 Temperature 97.9 F 98.3 F 97.7 F Pulse Rate 89 86 70 Respiratory Rate 20 18 18 Blood Pressure 128/70 113/77 114/65 Pulse Oximetry 99 98 98 11/25/18 05:05 11/25/18 07:07 11/25/18 08:30 Temperature 97.8 F Pulse Rate 77 78 Respiratory Rate 18 20 Blood Pressure 100/53 L 110/69 124/76 Pulse Oximetry 97 95 Intake & Output 11/24/18 11/25/18 11/25/18 18:59 06:59 18:59 Intake Total 800 / 800 400 / 400 Balance 800 / 800 400 / 400 Weight 68.3 kg Intake: IV 300 / 300 400 / 400 Prostaphlin Inj 2 GM In NS Inj 300 / 300 400 / 400 100 ML @ 200 mls/hr IV.SIG Q4H SETH Rx#:[id number] Oral 500 / 500 Other: # Voids 3 Date of Last Bowel Movement 11/24/18 Narrative: GENERAL: Well-developed and well-nourished in no distress SKIN: Warm and dry. CARDIOVASCULAR: Regular rate and rhythm. RESPIRATORY: No accessory muscle use. Clear to auscultation. Breath sounds equal bilaterally. MUSCULOSKELETAL: Extremities without clubbing, cyanosis, or edema. No obvious deformities. NEUROLOGICAL: Awake and alert. No obvious cranial nerve deficits. Motor grossly within normal limits. Five out of 5 muscle strength in the arms and legs. Normal speech. PSYCHIATRIC: Appropriate mood and affect; insight and judgment normal. Results Labs CBC & Chem 7: 11/22/18 08:47 11/22/18 08:47 Assessment and Plan (1) Staphylococcus aureus bacteremia: Code(s): R78.81 - Bacteremia Status: Acute (2) Discitis: Code(s): M46.40 - Discitis, unspecified, site unspecified Status: Acute (3) Intravenous drug abuse: Code(s): F19.10 - Other psychoactive substance abuse, uncomplicated Status: Chronic Plan 28-year-old man with MSSA bacteremia IVDU Infective discitis -Echo 60-65% ejection fraction, no endocarditis noted. -LISA was done showing normal LV size, wall thickness and systolic function, EF 60%; negative for vegetation -Neurosurgery has seen and evaluated the patient. Recommend continued infectious workup. MRI of the spine without any abscess. No surgical intervention for now. -Recommend weekly CBC as well as ESR/CRP both WNL. To call neurosurgery if neurologic deficit occurs. Patient currently ambulatory. Most recent positive blood culture 09/26/18, most recent negative blood culture 10/05/18. continue oxacillin as per ID, with tentative stop date around 11/26/18. Will alert ID IV drug use, heroin -Monitor for withdrawals -Found to have illicit substance while in the inpatient setting - "heroin rock" , possible snorted vs injection, while inpatient. No visitors allowed. -Continues with drug seeking behavior -Continue current pain regimen. Agrees to be tapered Fungal rash vs drug rash - improved -urticaria underneath left armpit and right forearm -Miconazole cream BID to affected area (forearm) -Nystatin powder armpit -On hydroxyzine as needed, as well as added Singulair on 11/09. Depression/anxiety Hx of Panic attacks. -Prozac daily -Patient states he use to take Xanax but no script in 2 years per [facility] -Discontinue Xanax Insomnia -Restart Sisiien, patient counseled Full code. SCDs. Heparin DVT ppx: Patient refusing heparin Discussed Condition With: RN AND PT Discharge Planning: NEEDS TO COMPLETE TREATMENT 8 weeks of abx NOT A SAFE DISCHARGE DUE TO HX OF AMA AND USING WHILE HERE IN HOSPITAL Please allow patient to have a visit from his son next weekend November 27- [employer] Prescription Drug Monitoring Database has been queried and verified prior to prescribing the controlled subsection. Patient is having significant pain caused by [discitis] which will last more than 3 days. Trial of alternative treatment options other than prescribed opioids has not helped. I believe that it is medically necessary to treat the patients pain because it is affecting patients ability to [do ADL]. Progress Note: Quality VTE Deep Vein Thrombosis/Pulmonary Embolism Present on Admission: No _ (1) Discitis Qualifiers: Spinal region:
[2018-11-25] MEDS: Montelukast 10 MG Tablet PO SCH (21:14)
[2018-11-26 01:32] VITALS: RESP 18
[2018-11-26] MEDS: oxyCODONE/Acetaminophen 10/325 Tablet PO PRN ×3 (02:05→14:09)
[2018-11-26] MEDS: Methocarbamol 500 MG Tablet PO PRN ×2 (03:12→10:55)
[2018-11-26] MEDS: Heparin - SQ 10,000 UNITS/ML Vial SQ SCH (07:21)
[2018-11-26 07:50] VITALS: PULSE 84
[2018-11-26] MEDS: Gabapentin 300 MG Capsule PO SCH ×2 (08:30→14:09)
[2018-11-26] MEDS: FLUoxetine 20 MG Capsule PO SCH (08:30)
[2018-11-26] MEDS: Lidocaine 5% Patch T-DERMAL SCH (08:31)
[2018-11-26] MEDS: Miconazole 2% Cream 15 GM Tube TOPICAL SCH (08:35)
[2018-11-26] MEDS: Nystatin 100,000 UNITS/GM Powder 15 GM Bottle TOPICAL SCH (08:35)
[2018-11-26] MEDS: Senna/Docusate Sodium 8.6/50 MG Tablet PO SCH (10:29)
[2018-11-26 11:36] VITALS: BP 108/59; TEMP 97.4; O2SAT 98
--- NOTE | 2018-11-26 11:45 | P.PNIM ---
Subjective Interval history: Follow-up discitis. He is doing okay but getting anxious wants to leave early to get his paycheck from his employer which closes at 5 PM today. Discussed with nursing. Also discussed with infectious disease yesterday if there are additional recommendations prior to discharge Physical Exam Vital signs: Vital Signs 11/25/18 16:00 11/25/18 20:00 11/26/18 01:07 Temperature 98.2 F 98.7 F 98.7 F Pulse Rate 80 100 H 82 Respiratory Rate 20 20 18 Blood Pressure 114/67 111/71 108/57 L Pulse Oximetry 98 99 95 11/26/18 04:57 11/26/18 07:50 11/26/18 08:00 Temperature 98.8 F 97.4 F L 97.4 F L Pulse Rate 82 84 84 Respiratory Rate 18 18 18 Blood Pressure 108/57 L 121/63 121/63 Pulse Oximetry 98 100 100 11/26/18 11:35 Temperature 97.4 F L Pulse Rate 84 Respiratory Rate 18 Blood Pressure 108/59 L Pulse Oximetry 98 Intake & Output 11/25/18 11/26/18 11/26/18 18:59 06:59 18:59 Intake Total 200 / 200 1080 / 1080 Output Total 500 / 500 Balance -300 / -300 1080 / 1080 Weight 24.9 kg Intake: IV 200 / 200 300 / 300 Prostaphlin Inj 2 GM In NS Inj 200 / 200 300 / 300 100 ML @ 200 mls/hr IV.SIG Q4H SETH Rx#:[id number] Other 780 / 780 Output: Urine 500 / 500 Other: # Voids 2 4 Date of Last Bowel Movement 11/24/18 11/24/18 Narrative: GENERAL: Well-developed and well-nourished in no distress SKIN: Warm and dry. CARDIOVASCULAR: Regular rate and rhythm. RESPIRATORY: No accessory muscle use. Clear to auscultation. Breath sounds equal bilaterally. MUSCULOSKELETAL: Extremities without clubbing, cyanosis, or edema. No obvious deformities. NEUROLOGICAL: Awake and alert. No obvious cranial nerve deficits. Motor grossly within normal limits. Five out of 5 muscle strength in the arms and legs. Normal speech. 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 -LISA was done showing normal LV size, wall thickness and systolic function, EF 60%; negative for vegetation -Neurosurgery has seen and evaluated the patient. Recommend continued infectious workup. MRI of the spine without any abscess. No surgical intervention for now. -Recommend weekly CBC as well as ESR/CRP both WNL. To call neurosurgery if neurologic deficit occurs. Patient currently ambulatory. Most recent positive blood culture 09/26/18, most recent negative blood culture 10/05/18. continue oxacillin as per ID, with stop date today 11/26/18. No p.o. antibiotic recommended. Repeat T-spine MRI in 3-4 months prescription given to patient IV drug use, heroin -Monitor for withdrawals -Found to have illicit substance while in the inpatient setting - "heroin rock" , possible snorted vs injection, while inpatient. No visitors allowed. -Continues with drug seeking behavior -Continue current pain regimen. Agrees to be tapered Fungal rash vs drug rash - improved -urticaria underneath left armpit and right forearm -Miconazole cream BID to affected area (forearm) -Nystatin powder armpit -On hydroxyzine as needed, as well as added Singulair on 11/09. Depression/anxiety Hx of Panic attacks. -Prozac daily -Patient states he use to take Xanax but no script in 2 years per [employer] -Discontinue Xanax Insomnia -Restart Jeannette, patient counseled Full code. SCDs. Heparin DVT ppx: Patient refusing heparin Discharge Planning: NEEDS TO COMPLETE TREATMENT 8 weeks of abx [employer] Prescription Drug Monitoring Database has been queried and verified prior to prescribing the controlled subsection. Patient is having significant pain caused by [discitis] which will last more than 3 days. Trial of alternative treatment options other than prescribed opioids has not helped. I believe that it is medically necessary to treat the patients pain because it is affecting patients ability to [do ADL]. Progress Note: Quality VTE Deep Vein Thrombosis/Pulmonary Embolism Present on Admission: No _ (1) Discitis Qualifiers: Spinal region:
--- NOTE | 2018-11-26 14:30 | P.PNADD ---
Addendum to Inpatient Note Additional information: Pt completed his abx today ESR, CRP are wnl OK to dc abx repeat ESR, CRP every 3-4 weeks x 3 mos MRI in 2-3 mos (earlier if clinically indicated) Jian IRIZARRY
--- NOTE | 2018-11-26 14:46 | P.DS ---
DS: Providers Date of admission: 09/26/18 17:55 Primary care physician: No Primary Care Physician Consults: 10/11/18 17:35 Consult to Neurosurgery Routine Consulting Provider: Douglas Oh Reason for Consultation: Reconsult-increasing pain and new changes on thoracic spine MRI Notified:: Physician Spoke with:: Dr Oh Date Notified:: 10/11/18 Time Notified:: 17:50 Ordering Provider: ADRIANA 10/12/18 08:18 Consult to Infectious Diseases Routine Consulting Provider: Geeta Mejia Reason for Consultation: re-consult; MRI changes Notified:: Service Spoke with:: Carmencita Date Notified:: 10/12/18 Time Notified:: 08:42 Ordering Provider: ADRIANA 09/26/18 18:14 Consult to Infectious Diseases Routine Consulting Provider: Geeta Mejia Preferred Rider Ticket Worker:: Geeta Mejia Patient known to:: Geeta Mejia Reason for Consultation: AMA, came back same day. Staph bacteremia on oxacillin. LISA was done Notified:: Service Spoke with:: Hattie Date Notified:: 09/26/18 Time Notified:: 19:03 Ordering Provider: NAV 09/26/18 18:37 Consult to Neurosurgery Routine Consulting Provider: Douglas Oh Patient known to:: Collin Vinas Reason for Consultation: Previously seen in the inpatient. Signed out AMA. Readmitted. Recent and has contrast MRI done, pending neurosurgery recommendation for any surgical intervention Notified:: Physician Spoke with:: Date Notified:: 09/26/18 Time Notified:: 19:11 Ordering Provider: NAV Brief History from admission: 28-year-old male with a history of IV drug use who was initially admitted to the hospital on 09/21/2018 due to lower back pain as well as fever admitted to the hospital and has stayed since today 09/26/18. Patient states he had a panic attack and asked his nurse if he is able to get out of his room and walk around. The nurse agreed to him that he is able to walk around the unit however the patient thought that he is able to get out of the unit and he started wandering all the way to the other building in the [facility] [place]. He was brought back to the unit by a nurse from [facility] but because he was out of the unit for quite some time they signed him off as leaving AGAINST MEDICAL ADVICE. Patient states that he got lost and went back to the ED. States that he did not inject any drugs on him. As per report from ED attending , on the triage patient's heart rate is at the 148. Adamant that he did not do any drugs when he was away from the hospital. He was probably out of the hospital approximately about 2 hours. On exam patient's heart rate is in sinus rhythm rate in the 80s. Patient also had episode of having visitors giving him drugs and apparently was caught by nurse to be locked in the bathroom and all of a sudden started to pace in the room became tachycardic in the 140s. They found her when a rock in his possession. Patient states that he will not leave AGAINST MEDICAL ADVICE again. States that he knows he needs help and he is trying his best to stay in the hospital. He is been requesting for Xanax instead of Ativan. Discussed with patient extensively that he will continue with Ativan for now and we are going to add Zoloft for depression and also would help him with his anxiety. He will continue his antibiotics of oxacillin. He just completed LISA today. Patient states he is hungry. He also states that if he could get something for sleep as he has been trouble sleeping at night is probably making him more anxious. We will continue with no visitor policy for now. Denies SOB/ dyspnea. Denies chest pain, palpitations, headaches, dizziness. Denies fevers, chills, n/v/d. Denies hematuria, dysuria. EKG sinus rhythm with atrial enlargement DS: Diagnosis Discharge Diagnosis (1) Staphylococcus aureus bacteremia: Status: Acute (2) Discitis: Status: Acute (3) Intravenous drug abuse: Status: Chronic DS: Summary 28-year-old man with MSSA bacteremia IVDU Infective T spine discitis -Echo 60-65% ejection fraction, no endocarditis noted. -LISA was done showing normal LV size, wall thickness and systolic function, EF 60%; negative for vegetation -Neurosurgery has seen and evaluated the patient. Recommend continued infectious workup. MRI of the spine without any abscess. No surgical intervention for now. -Recommend weekly CBC as well as ESR/CRP both WNL. To call neurosurgery if neurologic deficit occurs. Patient currently ambulatory. Most recent positive blood culture 12/23/18, most recent negative blood culture 10/05/18. continue oxacillin as per ID, with stop date today 11/26/18. No p.o. antibiotic recommended. Repeat T-spine MRI in 3-4 months prescription given to patient IV drug use, heroin -Monitor for withdrawals -Found to have illicit substance while in the inpatient setting - "heroin rock" , possible snorted vs injection, while inpatient. No visitors allowed. -Continues with drug seeking behavior -Continue current pain regimen. Agrees to be tapered Fungal rash vs drug rash - improved -urticaria underneath left armpit and right forearm -Miconazole cream BID to affected area (forearm) -Nystatin powder armpit -On hydroxyzine as needed, as well as added Singulair on 11/09. Depression/anxiety Hx of Panic attacks. -Prozac daily -Patient states he use to take Xanax but no script in 2 years per [employer] -Discontinue Xanax Insomnia -Restart Sisiien, patient counseled Full code. SCDs. Heparin DVT ppx: Patient refusing heparin Discharge Planning: NEEDS TO COMPLETE TREATMENT 8 weeks of abx [place] Prescription Drug Monitoring Database has been queried and verified prior to prescribing the controlled subsection. Patient is having significant pain caused by [discitis] which will last more than 3 days. Trial of alternative treatment options other than prescribed opioids has not helped. I believe that it is medically necessary to treat the patients pain because it is affecting patients ability to [do ADL]. Time Spent with Patient Total time spent providing and/or coordinating discharge services: Greater than 30 minutes Quality: VTE Deep Vein Thrombosis/Pulmonary Embolism Present on Admission: No Exam Narrative Exam Narrative: GENERAL: This is a well-nourished, well-developed patient, in no apparent distress. CARDIOVASCULAR: Regular rate and rhythm without murmurs, gallops, or rubs. RESPIRATORY: Clear to auscultation. Breath sounds equal bilaterally. No wheezes , rales, or rhonchi. GASTROINTESTINAL: Abdomen soft, non-tender, nondistended. Normal active bowel sounds MUSCULOSKELETAL: Extremities without clubbing, cyanosis, or edema. NEURO: Alert & Oriented x4 to person, place, time, situation. Moves all ext x4 Results Impressions ITS Impressions Thyroid Ultrasound 10/09/18 00:00 CONCLUSION: 1. Normal examination. Needle Aspiration CT 10/14/18 00:00 CONCLUSION: 1. CT-guided T9-10 disc aspiration yielded no fluid. Therefore, 20-gauge core biopsy was obtained and samples submitted per request. Thoracic Spine MRI 10/22/18 00:00 CONCLUSION: 1. Stable examination with some bony edema in the vertebral bodies from T9 through T12. 2. In addition, some enhancement of the intervertebral discs at T9-T10 and T11- T12 are concerning for early discitis. No significant change from prior. 3. Spinal canal remains patent without cord compromise. Discharge Plan Discharge Disposition Patient Disposition: Discharge Home Discharge Condition Condition: Stable Discharge Order Discharge Orders: Discharge Order (Routine); Ordered 11/26/18 Ordered By: Francisco Carnes Physicians Team Primary Care Provider: Primary Cassi Stallings Attending Provider: Francisco Carnes Other Providers: Geeta Mejia ; Douglas Oh Rxs /Orders / Referrals /Forms Prescriptions: New methocarbamol 500 mg Tablet 500 mg PO TID PRN (Reason: muscle spasms) Qty: 90 RF: 0 gabapentin [Neurontin] 300 mg Capsule 300 mg PO TID Qty: 90 RF: 0 fluoxetine 20 mg Capsule 40 mg PO DAILY Qty: 30 RF: 0 oxycodone-acetaminophen 10-325 mg Tablet 1 tab PO Q6H PRN (Reason: Acute Pain) Qty: 12 RF: 0 montelukast 10 mg Tablet 10 mg PO HS Qty: 30 RF: 0 hydroxyzine HCl 25 mg Tablet 25 mg PO Q8H PRN (Reason: Anxiety And/Or Agitation) Qty: 90 RF: 0 Referrals: Primary Care Cassi Rai [Primary Care Provider] - See Instructions (Follow-up PCP in 1 week) Post Discharge Care Plan Care Plan Goals: Your Health Problems: Goals to Promote Your Health: * To prevent worsening of your condition * To maintain your health at the optimal level Directions to Meet Your Goals: * Take your medications as prescribed * Follow your dietary instruction * Follow activity as directed * Keep your appointments as scheduled * Take your immunizations and boosters as scheduled * If your symptoms worsen call your PCP * If no PCP go to Urgent Care or Emergency Room Smoking is dangerous to your health. Avoid second hand smoke. You may reach the 24-hour crisis hotline for domestic abuse at . Status ED Status: Left Department Discharge Information Discharge Date/Time: 11/26/18 14:39
== END 2018-11-26 14:39 | disposition home or self-care (01) | DRG 478 ==
LOC: NEPE 15:33 → NEDA 17:55 → N05 20:05 → UNDODISIN 11-20 11:22
PROVIDERS: ADMIT Internal Medicine; ATTEND Internal Medicine
DX: F19.10 Other psychoactive substance abuse, uncomplicated; M46.40 Discitis, unspecified, site unspecified; M48.00 Spinal stenosis, site unspecified; M46.44 Discitis, unspecified, thoracic region; E05.90 Thyrotoxicosis, unspecified without thyrotoxic crisis or storm; D64.9 Anemia, unspecified; Z76.5 Malingerer [conscious simulation]; B19.20 Unspecified viral hepatitis C without hepatic coma; F11.20 Opioid dependence, uncomplicated; R00.0 Tachycardia, unspecified; Z83.3 Family history of diabetes mellitus; F32.9 Major depressive disorder, single episode, unspecified; L50.9 Urticaria, unspecified; B95.61 Methicillin susceptible Staphylococcus aureus infection as the cause of diseases classified elsewhere; G47.00 Insomnia, unspecified; F17.210 Nicotine dependence, cigarettes, uncomplicated; F41.0 Panic disorder [episodic paroxysmal anxiety]; I51.7 Cardiomegaly
CPT/HCPCS: 10009; 72157; 76360; 76536; 76937; 77012; 80048; 80053; 80074; 80307; 83036; 83605; 83735; 84100; 84436; 84439; 84443; 84480; 85025; 85610; 85651; 85652; 86140; 86403; 86592; 87015; 87040; 87070; 87102; 87116; 87147; 87176; 87205; 87206; 87389; 93005; 97110; 97116; 97162; 99145; 99152; 99153; 99285; A9585; J1100; J1170; J1200; J1644; J2060; J2250; J2270; J2405; J2700; J3010; L0200; L0484; L0560; L0565